=== PATIENT | female | born 1965 | race Caucasian/White ===

== ENCOUNTER → 2020-05-24 15:03 | Outpatient (BNVA) | payer OTHER, SELFPAY | PROVIDERS: PCP Internal Medicine; Visit Provider Hospitalist ==

== ENCOUNTER 2020-07-20 14:55 | Outpatient (REF) | payer OTHER, SELFPAY ==
[2020-07-20 16:23] LABS: C Reactive Protein 0.71 mg/dL (< or = 0.50); Rheumatoid Factor < 15.0 IU/mL (<15.0)
[2020-07-20 16:47] LABS: Free T4 (Free Thyroxine) 0.97 ng/dL (0.71-1.85); Thyroid Stimulating Hormone 0.95 uIU/mL (0.32-4.0); Vitamin D 25-OH Total 15.5 ng/mL (>30)
[2020-07-20 16:57] LABS: Folate 10.9 ng/mL (> or = 4.0); Vitamin B12 491 pg/mL (200-900)
[2020-07-20 16:58] LABS: Erythrocyte Sedimentation Rate 4 MM/HR (0-20)
[2020-07-21 11:22] LABS: Anti DNA DS Antibody 1 IU/mL
[2020-07-21 13:46] LABS: Anti Nuclear Antibody Screen NEGATIVE (NEGATIVE)
[2020-07-21 14:12] LABS: Immunoglobulin G 921 mg/dL (600-1640)
[2020-07-21 16:37] LABS: Cyclic Citrullinated Peptide <16 UNITS
== END 2020-07-20 14:56 | disposition home or self-care (01) ==
LOC: HO.LAB 14:55
PROVIDERS: PCP Internal Medicine; Visit Provider Physician Assistant
DX: M15.0 Primary generalized (osteo)arthritis (principal)
CPT/HCPCS: 36415; 82306; 82607; 82746; 82784; 84439; 84443; 85652; 86038; 86039; 86140; 86200; 86225; 86431

== ENCOUNTER 2020-09-09 09:55 | Outpatient (REF) | payer OTHER, SELFPAY ==
--- NOTE | ~2020-09-09 | XR_ITS ---
EXAMINATION: XR CLAVICLE, RIGHT CLINICAL INFORMATION: Pain in right shoulder COMPARISON: None TECHNIQUE: 2 views of the right clavicle of the right clavicle. FINDINGS: The clavicle is intact. The bones and soft tissues are normal. No fracture. Acromioclavicular joint alignment is anatomic. However there is mild arthrosis XR/XR clavicle RT IMPRESSION: Mild osteoarthritis of the acromioclavicular joint
== END 2020-09-09 09:56 | disposition home or self-care (01) ==
LOC: HO.LAB 09:55
PROVIDERS: PCP Internal Medicine; Visit Provider Physician Assistant
DX: M25.511 Pain in right shoulder (principal); M17.9 Osteoarthritis of knee, unspecified
CPT/HCPCS: 36415; 73000; 82306

== ENCOUNTER 2020-09-30 08:31 | Outpatient (REF) | payer OTHER, SELFPAY ==
--- NOTE | ~2020-09-30 | FL_ITS ---
EXAMINATION: FL BARIUM SWALLOW CLINICAL INFORMATION: Gastroesophageal reflux disease without esophagitis. COMPARISON: None TECHNIQUE: Barium swallow examination is performed using fluoroscopic evaluation in addition to multiple fluoroscopic spot views. The patient is imaged both upright and prone and using both thick and thin sulfate along with effervescent granules. Fluoroscopy time: 2.1 minutes DAP: 34.79 Gy-cm2 Images: 61 FINDINGS: Following oral administration of thick barium and barium-coated turkey in upright view, there is normal propagation of bolus from the oral cavity through the pharynx and esophagus into stomach without evidence of obstruction, narrowing or stricture. On placing patient supine and prone lying and oral administration of thin barium, there is good distention of the esophagus without any intraluminal filling defect or narrowing. There is a moderate sized nonreducible hiatal hernia without gastroesophageal reflux. The mucosal pattern of the esophagus and stomach is normal. FL/FL barium swallow IMPRESSION: Moderate-sized nonreducible hiatal hernia without gastroesophageal reflux.
== END 2020-09-30 08:32 | disposition home or self-care (01) ==
LOC: HO.XRAY 08:31
PROVIDERS: PCP Internal Medicine; Visit Provider Hospitalist
DX: K21.9 Gastro-esophageal reflux disease without esophagitis (principal); K44.9 Diaphragmatic hernia without obstruction or gangrene
CPT/HCPCS: 74220

== ENCOUNTER 2020-11-17 15:58 | Outpatient (REF) | payer OTHER, SELFPAY ==
--- NOTE | ~2020-11-17 | MM_ITS ---
EXAMINATION: MM SCREENING DIGITAL BREAST TOMOSYNTHESIS, BILATERAL CLINICAL INFORMATION: Screening. Asymptomatic. The lifetime risk of breast cancer based on the Tyrer-Cuzick Model is 20.1%. COMPARISON: Mammography: 07/24/2017, 07/19/2017, 11/05/2013 TECHNIQUE: Digital breast tomosynthesis is performed in both the craniocaudal and mediolateral oblique views along with computer-aided detection (CAD). Synthesized 2D images are generated from the tomosynthesis. FINDINGS: There are scattered areas of fibroglandular density (ACR BI-RADS breast composition Category b). The right breast has small asymmetric density just medial to midline, 6 cm from nipple without correlate on MLO view. This may represent summation artifact or incompletely compressed glandular tissue. The remainder of the bilateral breasts show no significant change from prior studies. There is no interval mass or architectural abnormality or developing density. Again, there are scattered bilateral round and dermal calcifications including grouped dermal calcifications mid 7:00 right left breast. The axilla are unremarkable. MM/MM tomosynthesis screening BI IMPRESSION: 1. Right: Small asymmetric density just medial to midline mid depth on CC view, possibly summation artifact or incompletely compressed glandular tissue. 2. Left: No mammographic evidence of malignancy. ASSESSMENT: BI-RADS 0: Incomplete - Need Additional Imaging Evaluation RECOMMENDATION: 1. 1. Additional views of the right breast (3-D spot CC, 3-D rolled CC x2). 2. Targeted ultrasound if warranted after review of the additional views. 3. Radiology department staff will contact the patient for additional imaging. 4. The lifetime risk of breast cancer based on the Tyrer-Cuzick Model is 20.1%. Additional annual adjunct screening with breast MRI may be of benefit in women with a risk score of 20% or greater. This patient's information was entered into a reminder system with a target due date for their next mammogram.
== END 2020-11-17 15:59 | disposition home or self-care (01) ==
LOC: HO.MAMMO 15:58
PROVIDERS: Visit Provider Internal Medicine
DX: Z12.31 Encounter for screening mammogram for malignant neoplasm of breast (principal)
CPT/HCPCS: 77063; 77067

== ENCOUNTER 2020-11-23 08:20 | Outpatient (REF) | payer OTHER, SELFPAY ==
--- NOTE | ~2020-11-23 | US_ITS ---
EXAMINATION: US DIAGNOSTIC ULTRASOUND BREAST, RIGHT CLINICAL INFORMATION: Symmetric density. COMPARISON: Markedly of same day and dating back to November 05, 2013. TECHNIQUE: Ultrasound of the breast is performed with real-time mcnamara scale imaging and color Doppler. FINDINGS: Targeted left breast ultrasound was performed. At the 4:00 position approximately 6 cm from nipple there is a 6 x 7 x 3 mm simple appearing cyst with smooth back wall and increased through sound transmission and no internal vascularity. Results are discussed with the patient at time of visit. US/US breast RT limited IMPRESSION: No mammographic or ultrasound evidence of malignancy. ASSESSMENT: BI-RADS 2: Benign RECOMMENDATION: Routine annual mammography screening due in 12 months.
--- NOTE | ~2020-11-23 | MM_ITS ---
EXAMINATION: MM DIAGNOSTIC DIGITAL BREAST TOMOSYNTHESIS, RIGHT US BREAST TARGETED, RIGHT CLINICAL INFORMATION: Right breast asymmetry. COMPARISON: Mammography: 11/17/2020 and studies dating back to 11/05/2013 TECHNIQUE: Digital breast tomosynthesis is performed. 2-D images are generated from the tomosynthesis. The following views are obtained: Full-field craniocaudal medial and lateral rolled views. Spot compression views of the right breast in craniocaudal projection. Targeted right breast ultrasound. FINDINGS: The breasts are heterogeneously dense, which may obscure small masses (ACR BI-RADS breast composition Category c). The additional views demonstrate effacement of the target density representing superimposition of fibroglandular tissue. Adjacent to this about the medial aspect of the breast, there is a 5 mm well-circumscribed rounded density present. Targeted right breast ultrasound was then performed. At the 4 o'clock position approximately 6 cm from nipple, there is a 6 x 7 x 3 mm simple-appearing cyst with smooth back wall and increased through sound transmission and no internal vascularity. Results are discussed with the patient at time of visit. MM/MM tomosynthesis added views R IMPRESSION: No mammographic or ultrasound evidence of malignancy. ASSESSMENT: BI-RADS 2: Benign. RECOMMENDATION: Routine annual mammography screening due in 12 months. This patient's information was entered into a reminder system with a target due date for their next mammogram.
== END 2020-11-23 08:21 | disposition home or self-care (01) ==
LOC: HO.MAMMO 08:20
PROVIDERS: PCP Internal Medicine; Visit Provider Internal Medicine
DX: N64.89 Other specified disorders of breast (principal)
CPT/HCPCS: 76642; 77061; 77065

== ENCOUNTER → 2020-11-24 14:40 | Outpatient (BNVA) | payer OTHER, SELFPAY | PROVIDERS: PCP Internal Medicine; Visit Provider Hospitalist ==

== ENCOUNTER → 2020-12-09 09:27 | Outpatient (BNVA) | payer OTHER, SELFPAY | PROVIDERS: PCP Internal Medicine; Visit Provider Surgery | DX: K44.0 Diaphragmatic hernia with obstruction, without gangrene (principal); K21.00 Gastro-esophageal reflux disease with esophagitis, without bleeding; R13.10 Dysphagia, unspecified; Z79.899 Other long term (current) drug therapy | CPT/HCPCS: 99212 ==

== ENCOUNTER 2020-12-15 15:19 | Outpatient (REF) | payer OTHER, SELFPAY ==
--- NOTE | ~2020-12-15 | CT_ITS ---
EXAMINATION: CT CHEST WITHOUT CONTRAST CLINICAL INFORMATION: Diaphragmatic hernia with obstruction. COMPARISON: None TECHNIQUE: Multidetector volumetric CT imaging of the chest was done. Axial MIP volume rendering provided. Sagittal and coronal reformatted images were obtained. This CT examination was performed using dose optimization techniques as appropriate, variously including the following: *Automated exposure control *Adjustment of mA and/or kV according to patient size (this includes techniques or standardized protocols for targeted exams where dose is matched to indication/reason for exam; i.e. extremities or head) *Use of iterative reconstruction technique DLP: 202 mGy-cm FINDINGS: FILLING TECHNICIAN: Unremarkable. LUNGS: The lungs are well expanded and clear of acute pneumonic process. There are no pulmonary nodules, mass or consolidation seen. MEDIASTINUM: The thyroid lobes are symmetric and normal. A 5 mm calcification is seen in the right lobe. The central trachea and the bronchi are widely patent. There is no mediastinal mass or lymph nodes. The heart size and the great vessels are normal caliber. Suspect small hiatal hernia. PLEURA: There is no pleural effusion. No pleural mass or thickening. AXILLA: No lymphadenopathy. UPPER ABDOMEN: There are multiple radiopaque gallstones without wall thickening. Visualized liver, spleen, pancreas, and bilateral adrenal glands are unremarkable. OSSEOUS STRUCTURES: There is mild dextroscoliosis of the dorsal spine with moderate left mid and lower dorsal spine bridging osteophytes. CT/CT chest wo con IMPRESSION: Unremarkable CT chest exam with no evidence of diaphragmatic hernia. There is a small hiatal hernia and cholelithiasis. Moderate dextroscoliosis of dorsal spine. Moderate dextroscoliosis mid and lower dorsal spine with moderate bridging osteophytes on the left.
== END 2020-12-15 15:20 | disposition home or self-care (01) ==
LOC: HO.CT 15:19
PROVIDERS: PCP Internal Medicine; Visit Provider Surgery
DX: K44.0 Diaphragmatic hernia with obstruction, without gangrene (principal)
CPT/HCPCS: 71250

== ENCOUNTER → 2021-01-06 10:49 | Outpatient (BNVA) | payer OTHER, SELFPAY | PROVIDERS: PCP Internal Medicine; Visit Provider Nurse Practitioner Family ==

== ENCOUNTER 2021-01-31 10:16 | Day surgery (SDC) | payer OTHER, SELFPAY ==
--- NOTE | 2021-01-30 13:02 | P.CONAN_ITS ---
Documented by User: Ibis Marrufo NP 01/30/21 13:07 HPI - Anesthesia Eval Consult details Narrative: 55yo F for Upper Endoscopy W/U for paraesophageal hernia repair. Per thoracic: barium study done on 10/02/2020 which showed a moderate-sized but incarcerated paraesophageal hernia.? She did have a CTA in April of 2019 which at that time shows about half the stomach within the chest making this a type 3 paraesophageal hernia.? It does appear that it seems to have worsened since that CT scan based on the barium study.? I had a long discussion with her about the findings above and about paraesophageal hernias in general.? I do think it is worth surgical repair and I discussed this with her at length.? Prior to a Davinci paraesophageal hernia repair with mesh and fundoplication will plan on getting an and upper endoscopy 1st to assess the mucosal side of the hernia as well as a CT scan of the chest to evaluate any other anatomic structures that her up within the chest. PMF Active Problems Active Problems: All Active Problems (Updated 01/25/21 @ 14:43 by Tiana Rosas RN) Incarcerated paraesophageal hernia (Acute) Hiatal hernia (Acute) GERD (gastroesophageal reflux disease) (Acute) Asthma (Acute) Past Medical History Medical History Anxiety Asthma GERD (gastroesophageal reflux disease) Hiatal hernia Hx of supraventricular tachycardia Incarcerated paraesophageal hernia Obesity Family History Family History Paternal Grandmother Stomach cancer Surgical History Surgical History History of bronchoscopy (~1998) History of cardiac radiofrequency ablation (RFA) History of chest tube placement (~1998) Hx of colonoscopy Hx of esophagogastroduodenoscopy Social History Social History Alcohol intake: never Patient Tobacco Use Status: Never used Tobacco Use of substances other than those prescribed or required for medical reasons: No Are you DNR?: No Advance Directives: No Advance Directives Information Provided: Yes Meds Allergies Allergy/AdvReac Type Severity Reaction Status Date / Time Erythromycin Allergy Mild Rash Verified 01/31/21 11:02 Penicillins Allergy Mild RASH Verified 01/31/21 11:02 ALVARADO Allergy Intermediate WHEEZING Uncoded 01/25/21 14:43 Home Medications Medication Instructions Recorded Confirmed Last Taken Type albuterol sulfate 2.5 mg INHALATION Q8H PRN 05/24/20 01/25/21 Unknown History conj estrogen-medroxyprogesterone 1 tab PO DAILY 05/24/20 01/25/21 01/31/21 07:15 History 0.3 mg-1.5 mg tablet (Prempro) ibuprofen 600 mg tablet 600 mg PO Q6H PRN 05/24/20 01/25/21 Unknown History naproxen 500 mg tablet 500 mg PO BID 11/24/20 01/25/21 Unknown History omeprazole 40 mg capsule,delayed 40 mg PO BID 01/06/21 01/25/21 01/31/21 07:15 History release Exam Exam Date and Time: January 30, 2021 1302 Assessment and Plan Assessment Anesthesia Assessment: Chart Reviewed Documented by User: Yves Dominguez MD 01/31/21 11:25 [facility] Past Medical History Medical History Anxiety Asthma GERD (gastroesophageal reflux disease) Hiatal hernia Hx of supraventricular tachycardia Incarcerated paraesophageal hernia Obesity Family History Family History Paternal Grandmother Stomach cancer Family history of problems with anesthesia: No Surgical History Surgical History History of bronchoscopy (~1998) History of cardiac radiofrequency ablation (RFA) History of chest tube placement (~1998) Hx of colonoscopy Hx of esophagogastroduodenoscopy History of Problems with Anesthesia: No Social History Social History Alcohol intake: never Patient Tobacco Use Status: Never used Tobacco Use of substances other than those prescribed or required for medical reasons: No Are you DNR?: No Advance Directives: No Advance Directives Information Provided: Yes Meds Allergies Allergy/AdvReac Type Severity Reaction Status Date / Time Erythromycin Allergy Mild Rash Verified 01/31/21 11:02 Penicillins Allergy Mild RASH Verified 01/31/21 11:02 ALVARADO Allergy Intermediate WHEEZING Uncoded 01/25/21 14:43 Home Medications Medication Instructions Recorded Confirmed Last Taken Type albuterol sulfate 2.5 mg INHALATION Q8H PRN 05/24/20 01/25/21 Unknown History conj estrogen-medroxyprogesterone 1 tab PO DAILY 05/24/20 01/25/21 01/31/21 07:15 History 0.3 mg-1.5 mg tablet (Prempro) ibuprofen 600 mg tablet 600 mg PO Q6H PRN 05/24/20 01/25/21 Unknown History naproxen 500 mg tablet 500 mg PO BID 11/24/20 01/25/21 Unknown History omeprazole 40 mg capsule,delayed 40 mg PO BID 01/06/21 01/25/21 01/31/21 07:15 History release Exam Airway Mallampati Class: I TM Dist: >3cm Neck ROM: Full Loose/Missing/Broken Teeth: No Assessment and Plan Assessment Anesthesia Assessment: Anesthesia Plan Discussed Final Anesthetic Review Family History of Problems with Anesthesia: No History of Problems with Anesthesia: No NPO: Yes ASA Class: III Final Preanesthetic Review: No Changes in Pt Med Stat, Meds/Allgs Chart Reviewed, Consent Obtained/Reviewed and Anes Risks/Benef Reviewed Patient Risk: Intermediate Procedure Risk: Low Anesthetic Plan Anesthetic Plan: MAC: Disposition: Standard PACU
[2021-01-31 11:20] VITALS: BP 124/69; PULSE 68; RESP 20; TEMP 37; O2SAT 98; BMI 36.6
[2021-01-31] MEDS: Lactated Ringers 1,000 ML 100 ML IVCONT (11:34)
--- NOTE | 2021-01-31 12:53 | MHC.SHP ---
Pre-Procedural Eval Section A Date of Service: 01/31/21 The patient is an INPATIENT: No Changes since office visit: Yes Patient answered all questions; No Cold of Flu in the past 2 weeks, No New Medical Problems and No Changes in Medication The History & Physical has been completed within 30 days and I have reviewed it.: Yes Section B Chief Complaint: GERD, Dysphagia, para-esophageal hernia Allergies: Allergies Allergy/AdvReac Type Severity Reaction Status Date / Time Erythromycin Allergy Mild Rash Verified 01/31/21 11:02 Penicillins Allergy Mild RASH Verified 01/31/21 11:02 ALVARADO Allergy Intermediate WHEEZING Uncoded 01/25/21 14:43 Plan I have reviewed the history and physical and performed a pertinent physical examination on my patient. No changes have occurred unless specified.
--- NOTE | 2021-01-31 12:54 | W.PM.OPN ---
Operative Note Operative Note Date of Service: 01/31/21 Narrative: Pre-op diagnosis:?GERD, dysphagia, paraesophageal hernia Post-op diagnosis:?same Procedure:? FLEXIBLE TRANSORAL UPPER GASTROINTESTINAL ENDOSCOPY WITH BIOPSIES Consent:?Indications for the procedure and potential complications of bleeding, perforation, reaction to medications and missed diagnosis were discussed with the patient and informed consent was obtained. Instrument:?Olympus GIF H 190 mid size upper endoscope Monitoring: Vital signs and clinical assessment, continuous EKG monitoring, Pulse oximetry, Carbon Dioxide monitoring and blood pressure monitoring were done throughout the procedure. Procedure:?The patient was placed in the left lateral decubitis position and pre-procedure medications were administered and a bite block was placed. The endoscope was inserted into the mouth and advanced under direct vision to the third part of duodenum. A careful inspection was made as the upper endoscope was withdrawn including a retroflexed examination of the proximal stomach; Findings and interventions are described below. Findings: Larynx:? Edema of arytenoid folds Esophagus: GE junction at 36 cms, hiatal hernia 36 to 38 cms. Three 1-2 cms tongues of suspected Samson's - biopsied Stomach: Mild gastric erythema. Biopsies were obtained. Paraesophgeal hernia and grade 3 flap valve on retroflexed examination of the cardia. Duodenum: A 7-8 mm benign appearing nodule/polyp in the floor of apex of tierney - biopsied. Normal descending duodenum Intervention: Biopsies as noted above Intervention: Biopsies as noted above Impression and Post Procedure Diagnosis: Endoscopy Findings: LARYNX: Changes suggestive of LPRD ESOPHAGUS: GE junction at 36 cms, hiatal hernia 36 to 38 cms. Three 1-2 cms tongues of suspected Samson's - biopsied STOMACH: Mild gastric erythema. Biopsies were obtained. Paraesophgeal hernia and grade 3 flap valve on retroflexed examination of the cardia. DUODENUM: Benign appearing duodenal nodule Plan: Await pathology results Patient has an appointment on 03/14/21 in the GI Clinic with Mya Peter FNP-BC. Above findings were reviewed with the patient and [GERD] and hiatal hernia handouts were given in the discharge area Pt advised to proceed with surgery for para-esophageal hernia as scheduled. Surgeon:?Jerod Cotto MD Anesthesia:?GETA (pt was intubated due to paraesophageal hernia) Was an Blueprint Reproducer used for this Procedure?:?No Blueprint Reproducer:?Brunilda Don Estimated blood loss (mL):?0 Pathology:?other (A. SMALL BOWEL BX? B. BX OF DUODENAL NODULE? C. GASTRIC ANTRUM BX R/O H. PYLORI? D. GASTRIC POLYP? E. DISTAL ESOPHAGUS BX R/O SAMSON'S) Condition:?stable Disposition:?PACU
[2021-01-31 13:44] VITALS: BP 124/67; PULSE 81; RESP 16; TEMP 36.8; O2SAT 98
[2021-01-31 13:49] VITALS: BP 120/69; PULSE 71; RESP 16; O2SAT 98
[2021-01-31 13:54] VITALS: BP 117/72; PULSE 71; RESP 16; O2SAT 98
[2021-01-31 13:59] VITALS: BP 116/77; PULSE 65; RESP 16; O2SAT 98
[2021-01-31 14:10] VITALS: BP 108/70; PULSE 75; RESP 18; O2SAT 99
== END 2021-01-31 14:46 | disposition home or self-care (01) ==
PROVIDERS: Visit Provider Internal Medicine Gastroenterology
PROC: 0DJ08ZZ Inspection of Upper Intestinal Tract, Via Natural or Artificial Opening Endoscopic (ICD-10-PCS; CPT 43235; principal; 2021-01-31 11:30)
DX: K21.00 Gastro-esophageal reflux disease with esophagitis, without bleeding (principal); R13.10 Dysphagia, unspecified; K44.0 Diaphragmatic hernia with obstruction, without gangrene; K29.50 Unspecified chronic gastritis without bleeding; K31.7 Polyp of stomach and duodenum; J45.909 Unspecified asthma, uncomplicated; Z88.0 Allergy status to penicillin; Z88.1 Allergy status to other antibiotic agents; Z79.899 Other long term (current) drug therapy; E66.9 Obesity, unspecified; Z68.37 Body mass index [BMI] 37.0-37.9, adult
CPT/HCPCS: 43239; 88305; 88342; J0330; J2250; J2405; J3010

== ENCOUNTER → 2021-03-14 12:56 | Outpatient (BNVA) | payer OTHER, SELFPAY | PROVIDERS: Visit Provider Nurse Practitioner Family ==

== ENCOUNTER 2021-03-17 19:51 | Emergency (ER) | payer OTHER, SELFPAY ==
--- NOTE | 2021-03-17 | ECG_ITS ---
Test Reason : CHEST PAIN Blood Pressure : / mmHG Vent. Rate : 078 BPM Atrial Rate : 078 BPM P-R Int : 194 ms QRS Dur : 098 ms QT Int : 404 ms P-R-T Axes : 038 012 003 degrees QTc Int : 460 ms Normal sinus rhythm Incomplete right bundle branch block Borderline ECG When compared with ECG of 23-MAR-2019 21:57, Vent. rate has decreased BY 40 BPM Borderline criteria for Inferior infarct are no longer Present Inverted T waves have replaced nonspecific T wave abnormality in Inferior leads Referred By: Generic ED Physician Electronically Signed By:KAYLA CRAWFORD MD
[2021-03-17 19:59] VITALS: BP 129/54; PULSE 78; RESP 16; TEMP 36.5; O2SAT 97; BMI 34.4
[2021-03-17 20:41] LABS: MANUAL DIFF FLAG NO
[2021-03-17 20:42] LABS: Basophils Percent Auto 0.6 % (0-2); Eosinophils Absolute Auto 0.4 X10*3/uL (0.0-0.4); Eosinophils Percent Auto 5.6 % (0-4); Hematocrit 43.7 % (37.0-47.0); Hemoglobin 14.5 g/dl (12.0-16.0); Imm Gran Abs Auto 0.01 X10*3/uL (0.00-0.03); Imm Gran Pct Auto 0.1 % (0.0-0.4); Lymphocytes Absolute Auto 1.9 X10*3/uL (1.2-4.9); Lymphocytes Percent Auto 28.2 % (20-40); Mean Corpuscular HGB Conc 33.2 g/dl (31.0-35.0); Mean Corpuscular Hemoglobin 29.2 pg (27.0-33.0); Mean Corpuscular Volume 87.9 fL (80.0-98.0); Mean Platelet Volume 10.9 fL (9.4-12.3); Monocytes Absolute Auto 0.4 X10*3/uL (0.1-1.2); Monocytes Percent Auto 5.9 % (2-11); Neutrophils Percent Auto 59.6 % (45-73); Platelet Count 208 X10*3/uL (160-400); Red Blood Count 4.97 X10*6/uL (4.20-5.50); Red Cell Distribution Width 12.6 % (11.0-16.0); White Blood Count 6.8 X10*3/uL (4.8-10.8)
[2021-03-17 21:01] LABS: Troponin-I High Sensitivity < 3.5 ng/L (<3.5-17.0)
[2021-03-17 21:08] LABS: Alanine Aminotransferase 23 U/L (0-31); Alkaline Phosphatase 84 U/L (39-117); Anion Gap 10 (12-20); Aspartate Amino Transferase 16 U/L (5-31); Bilirubin Total 0.4 mg/dL (0.0-1.0); Blood Urea Nitrogen 15 mg/dL (9-16); Calcium 9.2 mg/dL (8.4-10.2); Carbon Dioxide 28 mmol/L (22-29); Chloride 109 mmol/L (96-108); Estimated Glomerular Filt Rate > 60; Glucose Random 110 mg/dL (60-115); Potassium 4.1 mmol/L (3.3-5.1); Sodium 143 mmol/L (135-145); Total Protein 6.3 g/dL (6.5-8.0)
== END 2021-03-18 02:20 | disposition left against medical advice (07) ==
PROVIDERS: Emergency Provider Emergency Medicine; PCP Internal Medicine
DX: R07.9 Chest pain, unspecified (principal); R06.02 Shortness of breath; J45.909 Unspecified asthma, uncomplicated
CPT/HCPCS: 36415; 80053; 84484; 85025; 93005; 99283

== ENCOUNTER 2021-03-29 15:49 | Outpatient (REF) | payer OTHER, SELFPAY ==
[2021-03-29 16:15] LABS: MANUAL DIFF FLAG NO
[2021-03-29 16:42] LABS: Basophils Percent Auto 0.5 % (0-2); Eosinophils Absolute Auto 0.3 X10*3/uL (0.0-0.4); Eosinophils Percent Auto 4.3 % (0-4); Hematocrit 43.5 % (37.0-47.0); Hemoglobin 14.2 g/dl (12.0-16.0); Imm Gran Abs Auto 0.02 X10*3/uL (0.00-0.03); Imm Gran Pct Auto 0.3 % (0.0-0.4); Lymphocytes Absolute Auto 1.9 X10*3/uL (1.2-4.9); Lymphocytes Percent Auto 24.4 % (20-40); Mean Corpuscular HGB Conc 32.6 g/dl (31.0-35.0); Mean Corpuscular Hemoglobin 28.7 pg (27.0-33.0); Mean Corpuscular Volume 87.9 fL (80.0-98.0); Mean Platelet Volume 11.3 fL (9.4-12.3); Monocytes Absolute Auto 0.4 X10*3/uL (0.1-1.2); Monocytes Percent Auto 5.6 % (2-11); Neutrophils Percent Auto 64.9 % (45-73); Platelet Count 207 X10*3/uL (160-400); Red Blood Count 4.95 X10*6/uL (4.20-5.50); Red Cell Distribution Width 12.4 % (11.0-16.0); White Blood Count 7.7 X10*3/uL (4.8-10.8)
[2021-03-29 16:57] LABS: Estimated Average Glucose 111 mg/dL; Hemoglobin A1c % 5.5 %
[2021-03-29 17:18] LABS: Rheumatoid Factor < 15.0 IU/mL (<15.0)
[2021-03-29 17:19] LABS: Erythrocyte Sedimentation Rate 7 MM/HR (0-20)
[2021-03-29 17:24] LABS: Alanine Aminotransferase 19 U/L (0-31); Alkaline Phosphatase 82 U/L (39-117); Anion Gap 11 (12-20); Aspartate Amino Transferase 18 U/L (5-31); Bilirubin Total 0.5 mg/dL (0.0-1.0); Blood Urea Nitrogen 23 mg/dL (9-16); C Reactive Protein 0.78 mg/dL (< or = 0.50); Calcium 9.5 mg/dL (8.4-10.2); Carbon Dioxide 28 mmol/L (22-29); Chloride 106 mmol/L (96-108); Estimated Glomerular Filt Rate > 60; Glucose Random 103 mg/dL (60-115); Iron 39 mcg/dL (30-160); Percent Iron Saturation 13 % (15-50); Potassium 4.1 mmol/L (3.3-5.1); Sodium 141 mmol/L (135-145); Total Iron Binding Capacity 304 mcg/dL (228-428); Total Protein 6.5 g/dL (6.5-8.0); Unsaturated Iron Binding 265 ug/dL; Uric Acid 3.5 mg/dL (2.4-5.7)
[2021-03-29 17:29] LABS: Appearance Urine CLEAR; Color Urine YELLOW; Glucose Urine UA NEG (NEG); Leukocyte Esterase Urine NEG (NEG); Nitrite Urine NEG (NEG); PH 5.5 (5.0-8.0); Specific Gravity - Urine 1.025 (1.005-1.025); Urine Blood NEG (NEG); Urine Ketones NEG (NEG); Urine Protein NEG (NEG-TRACE)
[2021-03-29 17:45] LABS: Ferritin 121 ng/mL (10-250); Free T4 (Free Thyroxine) 0.96 ng/dL (0.71-1.85); Thyroid Stimulating Hormone 1.42 uIU/mL (0.32-4.0)
[2021-03-29 18:05] LABS: Folate > 20.0 ng/mL (> or = 4.0); Vitamin B12 413 pg/mL (200-900)
[2021-03-31 08:57] LABS: Lyme Abs Screen <0.90 index
[2021-03-31 12:36] LABS: Anti Nuclear Antibody Screen NEGATIVE (NEGATIVE)
== END 2021-03-29 15:50 | disposition home or self-care (01) ==
LOC: HO.LAB 15:49
PROVIDERS: PCP Internal Medicine; Visit Provider Physician Assistant
DX: R10.0 Acute abdomen (principal); R53.83 Other fatigue; M25.59 Pain in other specified joint
CPT/HCPCS: 36415; 80053; 81003; 82306; 82607; 82728; 82746; 83036; 83540; 84439; 84443; 84550; 85025; 85652; 86038; 86039; 86140; 86431; 86617; 86618

== ENCOUNTER → 2021-03-31 14:49 | Outpatient (BNVA) | payer OTHER, SELFPAY | PROVIDERS: PCP Internal Medicine; Visit Provider Hospitalist ==

== ENCOUNTER → 2021-04-28 10:50 | Outpatient (BNVA) | payer OTHER, SELFPAY | PROVIDERS: PCP Internal Medicine; Visit Provider Nurse Practitioner Family ==

== ENCOUNTER 2021-05-15 12:05 | Day surgery (SDC) | payer OTHER, SELFPAY ==
[2021-05-09 14:57] VITALS: BMI 32.4
--- NOTE | 2021-05-15 12:23 | HO.ANESPROP2 ---
[facility] Active Problems Active Problems: All Active Problems (Updated 05/09/21 @ 14:56 by Zhane Medellin, MELODY) URI (upper respiratory infection) (Acute) Incarcerated paraesophageal hernia (Acute) Hiatal hernia (Acute) GERD (gastroesophageal reflux disease) (Acute) Asthma (Acute) Past Medical History Medical History (Updated 05/09/21 @ 14:56 by Zhane Medellin, RN) Anxiety Asthma GERD (gastroesophageal reflux disease) Hernia, paraesophageal Hiatal hernia History of COVID-19 Hx of supraventricular tachycardia Incarcerated paraesophageal hernia Obesity URI (upper respiratory infection) Family History Family History Paternal Grandmother Stomach cancer Family history of problems with anesthesia: No Surgical History Surgical History (Updated 05/09/21 @ 14:48 by Zhane Medellin RN) History of bronchoscopy (~1998) History of cardiac radiofrequency ablation (RFA) History of chest tube placement (~1998) Hx of colonoscopy Hx of esophagogastroduodenoscopy History of Problems with Anesthesia: No Social History Social History Alcohol intake: never Patient Tobacco Use Status: Never used Tobacco Advance Directives: No Advance Directives Information Provided: Yes Advance Directives on File: No Meds Allergies Allergy/AdvReac Type Severity Reaction Status Date / Time Erythromycin Allergy Mild Rash Verified 04/28/21 10:57 Penicillins Allergy Mild RASH Verified 04/28/21 10:57 ALVARADO Allergy Intermediate WHEEZING Uncoded 03/31/21 14:50 Active Medications: Current Medications Lactated Ringer's (Lr) 1,000 mls @ 50 mls/hr IVCONT .Q20H [facility] Home Medications Medication Instructions Recorded Confirmed Last Taken Type albuterol sulfate 2.5 mg INHALATION Q8H PRN 05/24/20 01/25/21 Unknown History conj estrogen-medroxyprogesterone 1 tab PO DAILY 05/24/20 01/25/21 01/31/21 07:15 History 0.3 mg-1.5 mg tablet (Prempro) omeprazole 40 mg capsule,delayed 40 mg PO BID 01/06/21 01/25/21 01/31/21 07:15 History release Exam Exam Date and Time: May 15, 2021 1223 Height,Weight and Vital Signs: Height 5 ft 10 in Weight 102.512 kg Airway Mallampati Class: II TM Dist: >3cm Neck ROM: Full Heart: rrr Lungs: cta Assessment and Plan Assessment Anesthesia Assessment: Anesthesia Plan Discussed and Chart Reviewed Final Anesthetic Review Family History of Problems with Anesthesia: No History of Problems with Anesthesia: No NPO: Yes ASA Class: II Final Preanesthetic Review: No Changes in Pt Med Stat, Meds/Allgs Chart Reviewed and Consent Obtained/Reviewed Patient Risk: Intermediate Procedure Risk: Intermediate Anesthetic Plan Anesthetic Plan: MAC: Disposition: Standard PACU
[2021-05-15 12:24] VITALS: BP 116/73; PULSE 84; RESP 16; TEMP 36.4; O2SAT 98
[2021-05-15] MEDS: Lactated Ringers 1,000 ML 50 ML IVCONT (12:32)
--- NOTE | 2021-05-15 12:39 | MHC.SHP ---
Pre-Procedural Eval Section A Date of Service: 05/15/21 The patient is an INPATIENT: No Changes since office visit: Yes Patient answered all questions; No Cold of Flu in the past 2 weeks, No New Medical Problems and No Changes in Medication The History & Physical has been completed within 30 days and I have reviewed it.: Yes Section B Chief Complaint: Dysphagia Allergies: Allergies Allergy/AdvReac Type Severity Reaction Status Date / Time Erythromycin Allergy Mild Rash Verified 04/28/21 10:57 Penicillins Allergy Mild RASH Verified 04/28/21 10:57 ALVARADO Allergy Intermediate WHEEZING Uncoded 03/31/21 14:50 Plan I have reviewed the history and physical and performed a pertinent physical examination on my patient. No changes have occurred unless specified.
--- NOTE | 2021-05-15 12:40 | P.OP_ITS ---
Operative Note Operative Note Date of Service: 05/15/21 Narrative: Pre-op diagnosis: Dysphagia, poor appetite, weight loss Patient is status post fundoplication for incarcerated para-esophageal hernia in February 2021 Post-op diagnosis:?other (Gastric ulcer, gastric polyps, retained food in the stomach) Procedure: FLEXIBLE TRANSORAL UPPER GASTROINTESTINAL ENDOSCOPY WITH BIOPSIES Consent:?Indications for the procedure and potential complications of bleeding, perforation, reaction to medications and missed diagnosis were discussed with the patient and informed consent was obtained. Instrument:?Olympus GIF H 190 mid size upper endoscope Monitoring: Vital signs and clinical assessment, continuous EKG monitoring, Pulse oximetry, Carbon Dioxide monitoring and blood pressure monitoring were done throughout the procedure. Procedure:?The patient was placed in the left lateral decubitis position and pre-procedure medications were administered and a bite block was placed. The endoscope was inserted into the mouth and advanced under direct vision to the third part of duodenum. A careful inspection was made as the upper endoscope was withdrawn including a retroflexed examination of the proximal stomach; Findings and interventions are described below. Findings: Larynx:? Normal Esophagus: GE junction at 35 cms. No esophagitis or Kennedy's or stricture note d. Empiric esophageal dilation was not performed due to presence of retained food in the stomach with increased risk of aspiration Stomach: Moderate amount of retained food in the gastric fundus and some in the antru. A 1.5 cms nonbleeding ulcer in the antrum - biopsied Multiple 5 to 10 mm benign-appearing polyps in the gastric body - biopsied. Mild gastric erythema. Biopsies were obtained. Intact fundal wrap on retroflexed examination of the cardia (partially obscured by food). Duodenum: Normal bulb and descending duodenum Intervention: Biopsies as noted above Impression and Post Procedure Diagnosis: Endoscopy Findings: ESOPHAGUS: Normal - biopsies obtained from proximal esophagus to check for EOE STOMACH: Moderate amount of retained food in the gastric fundus and some in the antru. A 1.5 cms nonbleeding ulcer in the antrum - biopsied (pt denies taking NSAIDS or aspirin) Multiple 5 to 10 mm benign-appearing polyps in the gastric body - biopsied. Mild gastric erythema. Biopsies were obtained. Intact fundal wrap on retroflexed examination of the cardia (partially obscured by food). Plan: Await pathology results. Schedule a Barium swallow and a gastric emptying study. Patient has an appointment on 05/29/21 in the GI Clinic with ? Mya Peter, [employer]LL[employer]ATE ASSEMBLER-CRISTOPHER . Repeat EGD in 3-4 months to confirm gastric ulcer has healed. Above findings were reviewed with the patient and Gastric ulcer and Gastric Polyps handouts were given in the discharge area Surgeon: Jerod Cotto MD Anesthesia:?MAC (Dr Castro) Was an Rn Post Partum used for this Procedure?:?Yes Rn Post Partum:?Shelley Kaplan Estimated blood loss (mL):?0 Pathology:?other (A. gastric antrum bxs, R/O H. pylori? B. gastric ulcer bxs? C. gastric polyps? D. proximal esophagus bxs) Condition:?stable Disposition:?PACU
[2021-05-15 14:22] VITALS: BP 115/54; PULSE 71; RESP 16; TEMP 36.7; O2SAT 98
[2021-05-15 14:40] VITALS: BP 113/52; PULSE 70; RESP 18; TEMP 36.7; O2SAT 99
== END 2021-05-15 15:12 | disposition home or self-care (01) ==
PROVIDERS: PCP Internal Medicine; Visit Provider Internal Medicine Gastroenterology
PROC: 0DJ08ZZ Inspection of Upper Intestinal Tract, Via Natural or Artificial Opening Endoscopic (ICD-10-PCS; CPT 43235; principal; 2021-05-15 13:10)
DX: R13.10 Dysphagia, unspecified (principal); T18.2XXA Foreign body in stomach, initial encounter; R14.0 Abdominal distension (gaseous); R63.0 Anorexia; K25.9 Gastric ulcer, unspecified as acute or chronic, without hemorrhage or perforation; K31.7 Polyp of stomach and duodenum; K44.9 Diaphragmatic hernia without obstruction or gangrene; K21.00 Gastro-esophageal reflux disease with esophagitis, without bleeding; J45.909 Unspecified asthma, uncomplicated; F41.9 Anxiety disorder, unspecified; Z79.899 Other long term (current) drug therapy; Z98.890 Other specified postprocedural states; Z88.0 Allergy status to penicillin
CPT/HCPCS: 43239; 88305; 88342

== ENCOUNTER → 2021-05-26 15:32 | Outpatient (BNVA) | payer OTHER, SELFPAY | PROVIDERS: PCP Internal Medicine; Visit Provider Hospitalist | DX: K44.9 Diaphragmatic hernia without obstruction or gangrene (principal) ==

== ENCOUNTER → 2021-05-29 15:51 | Outpatient (BNVA) | payer OTHER, SELFPAY | PROVIDERS: PCP Internal Medicine; Visit Provider Nurse Practitioner Family | DX: K31.84 Gastroparesis (principal); R63.4 Abnormal weight loss; K21.9 Gastro-esophageal reflux disease without esophagitis; K21.00 Gastro-esophageal reflux disease with esophagitis, without bleeding; K25.9 Gastric ulcer, unspecified as acute or chronic, without hemorrhage or perforation | CPT/HCPCS: 99212 ==

== ENCOUNTER → 2021-06-05 08:15 | Outpatient (REF) | payer OTHER, SELFPAY ==
--- NOTE | ~2021-06-05 | NM_ITS ---
EXAMINATION: RADIONUCLIDE SOLID FOOD GASTRIC EMPTYING 4-HOUR STUDY CLINICAL INFORMATION: Early satiety. COMPARISON: No previous gastric emptying study is available for comparison. TECHNIQUE: A standard meal consisting of 4 oz of Egg Beaters brand equivalent tagged with 800 microcuries Tc-99m Sulfur Colloid, 8 oz water and 2 slices of toast with jelly was administered orally to the patient. Images were obtained using a dual head gamma camera in the anterior and posterior projections over of the stomach immediately post ingestion and at hourly intervals up to 4 hours post ingestion. The anterior and posterior counts at each time interval were averaged using the geometric mean and expressed as percentage of the immediate post ingestion counts. FINDINGS: There is good visualization of activity in the stomach immediately post ingestion. As the study progresses, there is some clearance of activity from the stomach and visualization of progressively increasing small bowel activity. However, at the end of the study there is moderately severe abnormal retention of activity in the stomach at 4 hours. Retention in the stomach at each time interval was: 1 hour 72% (normal 37%-90%) 2 hours 63% (normal 30%-60%) 3 hours 46% 4 hours 33% (normal 0%-10%) NM/NM gastric emptying study IMPRESSION: Abnormal study. There is moderately severe abnormal retention of solid food in the stomach at 4 hours.
== END ==
LOC: HO.NUCMED 08:15
PROVIDERS: PCP Internal Medicine; Visit Provider Internal Medicine Gastroenterology
DX: R68.81 Early satiety (principal); R63.4 Abnormal weight loss
CPT/HCPCS: 78264; A9541

== ENCOUNTER 2021-07-08 18:23 | Emergency (ER) | payer OTHER, SELFPAY ==
--- NOTE | ~2021-07-08 | XR_ITS ---
EXAMINATION: XR SHOULDER, LEFT CLINICAL INFORMATION: Pain. Injury. COMPARISON: 12/15/2020 TECHNIQUE: AP external rotation, Grashey, scapular Y, and axillary views of the left shoulder. FINDINGS: Humeral head is well-seated in the glenoid fossa. No acute fracture or dislocation. Mild hypertrophic degenerative changes in the acromioclavicular joint. Incidental old healed fusion of the anterior left second third ribs noted. XR/XR shoulder LT min 2V IMPRESSION: No acute fracture or dislocation.
[2021-07-08 18:26] VITALS: BP 137/60; PULSE 84; RESP 18; TEMP 37.1; O2SAT 96; BMI 29.4
--- NOTE | 2021-07-08 19:21 | ED_ITS ---
HPI - Extremity Problem General Chief complaint: Extremity Injury, Upper Stated complaint: left shoulder pain Time Seen by Provider: 07/08/21 18:54 Source: patient Mode of arrival: ambulatory Limitations: no limitations History of Present Illness HPI Narrative: patient presents to the emergency department for evaluation of left shoulder pain. She reports that she has been having intermittent left shoulder pain x4 months. She has been evaluated by her primary care provider outpatient had a reportedly normal x-ray obtained she is currently awaiting insurance authorization for a CT of the shoulder. Today while she was doing some housework she was pushing an object together when she felt a sudden pop to her left shoulder in severe pain. The pain has improved some but still is worse than it was previously. She attempted to take 2 tramadol at 1pm with no improvement in her pain. She denies any numbness or tingling to the arm or hand. She has full range of motion to the left elbow wrist and hand. Limited range of motion to the left shoulder Related Data Home Medications Medication Instructions Recorded Confirmed conj estrogen-medroxyprogesterone 1 tab PO DAILY 05/24/20 01/25/21 0.3 mg-1.5 mg tablet (Prempro) Previous Rx's Medication Instructions Recorded fluticasone 500 mcg-salmeterol 50 1 ea PO BID #180 ea 02/24/21 mcg/dose blistr powdr for inhalation (Wixela Inhub) omeprazole 40 mg capsule,delayed 40 mg PO BID #60 cap 05/29/21 release sucralfate 100 mg/mL oral 10 ml PO BEDTIME #400 ml 05/29/21 suspension Ventolin HFA 90 mcg/actuation 2 puff PO Q4H PRN #18 g NS 06/14/21 aerosol inhaler (albuterol sulfate) Allergies Allergy/AdvReac Type Severity Reaction Status Date / Time Erythromycin Allergy Mild Rash Verified 07/08/21 18:29 Penicillins Allergy Mild RASH Verified 07/08/21 18:29 ALVARADO Allergy Intermediate WHEEZING Uncoded 07/08/21 18:29 Review of Systems Review of Systems: Constitutional: No fever, chills, weakness or fatigue. Skin: No rash or itching. Cardiovascular: No chest pain, . Respiratory: No shortness of breath, cough Gastrointestinal: No , nausea, vomiting or diarrhea. No abdominal pain Musculoskeletal: positive shoulder pain Psychiatric: No depression or anxiety. Yes all other systems are reviewed and are negative [facility] Past Medical History Attestation statement: The following information was validated with the patient. Source: old records reviewed Medical History Anxiety Asthma GERD (gastroesophageal reflux disease) Hernia, paraesophageal Hiatal hernia History of COVID-19 Hx of supraventricular tachycardia Incarcerated paraesophageal hernia Obesity URI (upper respiratory infection) Surgical History History of bronchoscopy (~1998) History of cardiac radiofrequency ablation (RFA) History of chest tube placement (~1998) Hx of colonoscopy Hx of esophagogastroduodenoscopy Family History Family History Paternal Grandmother Stomach cancer Social History Social History Alcohol intake: never Patient Tobacco Use Status: Never used Tobacco Advance Directives: No Advance Directives Information Provided: No Patient : No Physical Exam Vital Signs: Vital Signs: Last Vital Signs Temp 98.8 F 07/08/21 18:26 Pulse 84 07/08/21 18:26 Resp 18 07/08/21 18:26 BP 137/60 07/08/21 18:26 Pulse Ox 96 07/08/21 18:26 BMI result Body Mass Index 29.4 Vital signs have been reviewed as normal and appeared to be correct. Blood pressure normal.? Heart rate normal.? Respiration rate normal. Temperature normal.? Oxygen saturation normal. Appearance: Alert.?Oriented to person, place and time. No acute distress.?Normal affect. Eyes: Pupils equal, round and reactive to light.? ENT: Pharynx normal.?? Neck: Normal inspection.? Neck supple.?? CVS: Heart sounds normal. Normal heart rate and rhythm.? Pulses normal.?? Respiratory: No respiratory distress.? Lung sounds clear to auscultation bilaterally?? Abdomen: Soft and non-tender. Skin: Skin warm and dry.? Normal skin color. Extremities: decreased AROM to the left shoulder, significant pain with external rotation. Tenderness over the AC joint, no palpable separation. No obvious deformity, swelling, erythema. Bicep muscle appears intact. Full AROM to elbow wrist and hand. Palpable 2+ radial pulse is. Neurovascularly intact distally. Neuro: Moves all extremities spontaneously. Sensation intact bilaterally. No focal neuro deficits. Ambulates with normal steady gait. Course Course Course Narrative: Patient is a 55-year-old female with a history of acute on chronic left s houlder pain. Patient received Toradol 60 mg IM for pain. X-ray of the left shoulder reveals no acute fracture dislocation. There is mild hyper trophic degenerative changes in the acromioclavicular joint. Cannot exclude ligamentous injury, as x-ray is not the preferred imaging for this, and should proceed with pending outpatient CT. Discussed these findings with patient. Advise continuous outpatient follow-up with her primary care provider, in addition to orthopedics as needed, pain medication as previously prescribed by PCP, discussed reasons to return back to the emergency department, questions were answered and she was discharged home in stable condition. MDM - Extremity (Nontraumatic) Imaging Data XR shoulder: Radiologist's impression: FINDINGS: Humeral head is well-seated in the glenoid fossa. No acute fracture or dislocation. Mild hypertrophic degenerative changes in the acromioclavicular joint. Incidental old healed fusion of the anterior left second third ribs noted.? XR/XR shoulder LT min 2V IMPRESSION: No acute fracture or dislocation. Discharge Plan Discharge Clinical Impression: Left shoulder pain Patient Disposition: Home, Self-Care Instructions: Arthralgia (ED), Shoulder Pain (ED) Additional Instructions: please follow-up with your primary care provider as previously scheduled, and take tramadol as previously prescribed by your primary care provider as needed for pain. As we discussed, you may follow-up with orthopedic provider as well for your persistent shoulder pain. Please feel free to return to the emergency department with any new or worsening symptoms or concerns. Prescriptions: No Action fluticasone propion-salmeterol [Wixela Inhub] 500-50 mcg/dose blister with device 1 ea PO BID Qty: 180 0RF omeprazole 40 mg capsule,delayed release(DR/EC) 40 mg PO BID Qty: 60 0RF albuterol sulfate [Ventolin HFA] 90 mcg/actuation HFA aerosol inhaler 2 puff PO Q4H PRN (Reason: for wheezing) Qty: 18 0RF Prempro 0.3-1.5 mg tablet 1 tab PO DAILY 0RF sucralfate 100 mg/mL suspension 10 ml PO BEDTIME Qty: 400 3RF Referrals: Elisa Wells PA-C [Phys[employer]] - 2 weeks
[2021-07-08] MEDS: Ketorolac Tromethamine 60 MG/2 ML VIAL IM (20:07)
== END 2021-07-08 20:16 | disposition home or self-care (01) ==
PROVIDERS: Emergency Provider Emergency Medicine Emergency Medical Services; PCP Internal Medicine
DX: M25.512 Pain in left shoulder (principal); J45.909 Unspecified asthma, uncomplicated
CPT/HCPCS: 73030; 96372; 99284; J1885

== ENCOUNTER → 2021-07-10 15:42 | Outpatient (BNVA) | payer OTHER, SELFPAY | PROVIDERS: PCP Internal Medicine; Visit Provider Nurse Practitioner Family | DX: Z13.89 Encounter for screening for other disorder (principal) ==

== ENCOUNTER 2021-07-20 06:44 | Outpatient (REF) | payer OTHER, SELFPAY ==
[2021-07-20 07:42] LABS: Hematocrit 43.3 % (37.0-47.0); Hemoglobin 14.3 g/dl (12.0-16.0); Mean Corpuscular Hemoglobin 28.6 pg (27.0-33.0); Mean Corpuscular Volume 86.6 fL (80.0-98.0); Mean Platelet Volume 10.7 fL (9.4-12.3); Platelet Count 271 X10*3/uL (160-400); Red Cell Distribution Width 13.6 % (11.0-16.0); White Blood Count 6.3 X10*3/uL (4.8-10.8)
[2021-07-20 07:52] LABS: Estimated Average Glucose 108 mg/dL; Hemoglobin A1c % 5.4 %
[2021-07-20 08:08] LABS: Albumin Level 3.8 g/dL (3.5-5.0)
[2021-07-20 08:19] LABS: Alanine Aminotransferase 60 U/L (0-31); Albumin Level 3.9 g/dL (3.5-5.0); Alkaline Phosphatase 96 U/L (39-117); Anion Gap 14 (12-20); Aspartate Amino Transferase 37 U/L (5-31); Bilirubin Total 0.5 mg/dL (0.0-1.0); Blood Urea Nitrogen 13 mg/dL (9-16); Calcium 9.9 mg/dL (8.4-10.2); Carbon Dioxide 25 mmol/L (22-29); Chloride 106 mmol/L (96-108); Estimated Glomerular Filt Rate > 60; Glucose Random 101 mg/dL (60-115); Potassium 4.6 mmol/L (3.3-5.1); Sodium 140 mmol/L (135-145); Total Protein 6.4 g/dL (6.5-8.0)
[2021-07-20 08:33] LABS: TSH reflex Free T4 1.86 uIU/mL (0.32-4.0)
[2021-07-20 08:53] LABS: Folate 19.1 ng/mL (> or = 4.0); Vitamin B12 622 pg/mL (200-900)
[2021-07-24 14:06] LABS: Vitamin D 25-OH, D2 <4 ng/mL; Vitamin D 25-OH, D3 38 ng/mL; Vitamin D 25-OH, Total 38 ng/mL (30-100)
== END 2021-07-20 06:45 | disposition home or self-care (01) ==
LOC: HO.LAB 06:44
PROVIDERS: PCP Internal Medicine; Visit Provider Nurse Practitioner Family
DX: R19.7 Diarrhea, unspecified (principal); E11.9 Type 2 diabetes mellitus without complications; E55.9 Vitamin D deficiency, unspecified; K21.00 Gastro-esophageal reflux disease with esophagitis, without bleeding; Z98.890 Other specified postprocedural states
CPT/HCPCS: 36415; 80053; 82040; 82306; 82607; 82746; 83036; 84443; 85027

== ENCOUNTER 2021-08-19 16:51 | Emergency (ER) | payer OTHER, SELFPAY ==
[2021-08-19] VITALS (7 sets, daily range): BP systolic 94–149; BP diastolic 49–89; PULSE 97–123; RESP 18–26; TEMP 36.6–37.2; O2SAT 94–100; BMI 28.7
--- NOTE | ~2021-08-19 | XR_ITS ---
EXAMINATION: XR chest 1V CLINICAL INFORMATION: Shortness of breath COMPARISON: Multiple prior chest x-rays back to 2019 TECHNIQUE: XR chest 1V Tubes and lines: None Lungs and pleura: Both lungs are clear. Heart and mediastinum: The mediastinum is within normal limits.. 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
--- NOTE | 2021-08-19 17:02 | ED_ITS ---
HPI - SOB/Dyspnea General Chief Complaint: Dyspnea Stated Complaint: SOB, asthma Source: patient Mode of arrival: ambulatory Limitations: no limitations History of Present Illness HPI Narrative: 55-year-old female presents with shortness of breath, has a history of asthma. Has been feeling unwell for the past 2 days, unable to catch her breath, had multiple inhalation treatments, 40 mg of prednisone, Mucinex, and Wixela without relief. Has had multiple COVID tests that were negative. She is complaining of green sputum. She is not able to speak in complete sentences. MD elicited complaint: shortness of breath and asthma attack Pertinent past history: asthma Onset (ago): day(s) (2) Timing: constant and progressively worsening Severity: moderate Exacerbating factors: exertion, movement, coughing and talking Relieving factors: upright position Known history of: asthma Associated symptoms: cough, wheezing, sputum production and orthopnea Treatment prior to arrival: bronchodilator Related Data Home Medications Medication Instructions Recorded Confirmed conj estrogen-medroxyprogesterone 1 tab PO DAILY 05/24/20 01/25/21 0.3 mg-1.5 mg tablet (Prempro) sertraline 25 mg tablet 25 mg PO DAILY 07/10/21 Previous Rx's Medication Instructions Recorded fluticasone 500 mcg-salmeterol 50 1 ea PO BID #180 ea 02/24/21 mcg/dose blistr powdr for inhalation (Wixela Inhub) omeprazole 40 mg capsule,delayed 40 mg PO BID #60 caps 05/29/21 release sucralfate 100 mg/mL oral 10 ml PO BEDTIME #400 mL 05/29/21 suspension Ventolin HFA 90 mcg/actuation 2 puff PO Q4H PRN for wheezing #18 07/24/21 aerosol inhaler (albuterol sulfate) grams codeine 10 mg-guaifenesin 100 mg/5 10 ml PO Q6H PRN cough 7 days #280 08/19/21 mL oral liquid mL doxycycline monohydrate 100 mg 100 mg PO BID 7 days #14 caps 08/19/21 capsule prednisone 20 mg tablet 40 mg PO DAILY 5 days #10 tabs 08/19/21 Allergies Allergy/AdvReac Type Severity Reaction Status Date / Time Erythromycin Allergy Mild Rash Verified 07/10/21 15:54 Penicillins Allergy Mild RASH Verified 07/10/21 15:54 ALVARADO Allergy Intermediate WHEEZING Uncoded 07/08/21 18:29 Review of Systems Review of Systems: Constitutional: No Fever, No Chills ENT/Mouth: No Hoarseness, No sore throat, No Rhinorrhea Eyes: No Redness, No Discharge, No Vision Changes Cardiovascular: No Chest Pain, positive SOB, positive Dyspnea on Exertion, No Edema Respiratory: positive Cough, No Sputum, positive Wheezing, Gastrointestinal: No Nausea, No Vomiting, No Diarrhea, No abdominal Pain Genitourinary: No Dysuria, No Hematuria Musculoskeletal: No joint pain, No Myalgias Skin: No rash Neuro: No Weakness, No Numbness, No Headache Psych: No anxiety, depression Heme/Lymph: No Bruising, No Bleeding Endocrine: No Polyuria, No Polydipsia Yes all other systems are reviewed and are negative [facility] Past Medical History Attestation statement: The following information was validated with the patient. Source: old records reviewed Medical History Anxiety Asthma GERD (gastroesophageal reflux disease) Hernia, paraesophageal Hiatal hernia History of COVID-19 Hx of supraventricular tachycardia Incarcerated paraesophageal hernia Obesity URI (upper respiratory infection) Surgical History History of bronchoscopy (~1998) History of cardiac radiofrequency ablation (RFA) History of chest tube placement (~1998) Hx of colonoscopy Hx of esophagogastroduodenoscopy Family History Family History Paternal Grandmother Stomach cancer Social History Social History Alcohol intake: never Patient Tobacco Use Status: Never used Tobacco Advance Directives: Yes Advance Directives Information Provided: No Advance Directives on File: No Physical Exam Vital Signs: Vital Signs: Last Vital Signs Temp 98.9 F 08/19/21 21:01 Pulse 109 H 08/19/21 21:01 Resp 18 08/19/21 21:01 BP 94/52 L 08/19/21 21:01 Pulse Ox 94 08/19/21 21:01 O2 Del Method 08/19/21 19:39 O2 Flow Rate 4 08/19/21 17:45 BMI result Body Mass Index 28.7 Appearance: Alert. Oriented X3. Moderate respiratory distress. Orthoptic position. Eyes: Pupils equal, round and reactive to light. Sclera nonicteric. ENT: Pharynx normal. Neck: Normal inspection. Neck supple. No JVD. CVS: Tachycardic heart rate and rhythm. Pulses normal. Respiratory: Tachypneic. Coarse lung sounds throughout. Expiratory wheezing. Abdomen: Soft and nontender. Skin: Skin warm and dry. Normal skin color. Normal skin turgor. Extremities: No lower extremity edema. Gait well-balanced well coordinated. Neuro: No motor deficit. No sensory deficit. Cranial nerves 2-12 intact Course Course Course Narrative: 55-year-old female presents with acute asthma exacerbation. States this is her 2nd day of shortness of breath. Has tried all of her home medications with poor effect. Also reports green sputum without fevers or chills. Patient is unable to complete sentences and sitting in orthoptic position. Will order hour long neb, magnesium, Solu-Medrol, L of fluid. Will order labs, chest x-ray, COVID and influenza testing. 18:06 lung sounds continue the course. Patient is able to speak in complete sentences. Respiration rate high 20s. Will order 2nd neb. 19:30 lung sounds are improving. Patient is still coughing. Brown productive sputum. Will order doxycycline to cover for sinusitis and bronchitis. 20:30 even unlabored respirations. Productive cough still present. Will discharge home with prednisone, guaifenesin and codeine, and script for doxy. Patient will follow-up with her primary care physician. Patient verbalized understanding of and agrees to plan of care to discharge home. Verbalized understanding of signs and symptoms indicating need for emergent intervention MDM - SOB/Dyspnea Differential Diagnosis Differential diagnosis: Likely acute exacerbation of chronic obstructive airways disease and asthma with exacerbation Medical Records Attestation: I reviewed the patient's medical records. Lab Data Attestation: I reviewed the patient's lab results. Result diagrams: 08/19/21 17:18 08/19/21 17:18 Labs: Lab Results 08/19/21 08/19/21 08/19/21 Range/Units 17:18 17:18 17:18 WBC 11.9 H (4.8-10.8) X10*3/uL RBC 4.72 (4.20-5.50) X10*6/uL Hgb 14.0 (12.0-16.0) g/dl Hct 41.1 (37.0-47.0) % MCV 87.1 (80.0-98.0) fL MCH 29.7 (27.0-33.0) pg MCHC 34.1 (31.0-35.0) g/dl RDW 13.3 (11.0-16.0) % Plt Count 213 (160-400) X10*3/uL MPV 10.5 (9.4-12.3) fL Immature Gran % (Auto) 0.4 (0.0-0.4) % Neut % (Auto) 86.5 H (45-73) % Lymph % (Auto) 6.9 L (20-40) % [place] % (Auto) 6.0 (2-11) % Eos % (Auto) 0.0 (0-4) % Baso % (Auto) 0.2 (0-2) % Lymph # (Auto) 0.8 L (1.2-4.9) X10*3/uL [place] # (Auto) 0.7 (0.1-1.2) X10*3/uL Eos # (Auto) 0.0 (0.0-0.4) X10*3/uL Baso # (Auto) 0.0 (0.0-0.2) X10*3/uL Abs Immat Gran (auto) 0.05 H (0.00-0.03) X10*3/uL Absolute Neuts (auto) 10.3 H (2.0-8.3) x10*3/uL Absolute Nucleated RBC 0.000 (0.0-0.012) X10*3/uL Nucleated RBC % (auto) 0.0 (0.0-0.2) /100WBC Sodium 141 (135-145) mmol/L Potassium 3.5 D (3.3-5.1) mmol/L Chloride 105 (96-108) mmol/L Carbon Dioxide 23 (22-29) mmol/L Anion Gap 17 (12-20) BUN 12 (9-16) mg/dL Creatinine 0.79 (0.5-1.4) mg/dL Estim Creat Clear Calc 96.0 Estimated GFR > 60 Random Glucose 136 H (60-115) mg/dL Calcium 9.4 (8.4-10.2) mg/dL Magnesium 1.9 (1.6-2.6) mg/dL Troponin I High Sens < 3.5 (<3.5-17.0) ng/L COVID-19 (MIO) (Negative) COVID-19 Clin Com Influenza Type A (JUSTINE) (Negative) Influenza Type B (JUSTINE) (Negative) Influenza A & B Note 08/19/21 08/19/21 Range/Units 17:18 17:18 WBC (4.8-10.8) X10*3/uL RBC (4.20-5.50) X10*6/uL Hgb (12.0-16.0) g/dl Hct (37.0-47.0) % MCV (80.0-98.0) fL MCH (27.0-33.0) pg MCHC (31.0-35.0) g/dl RDW (11.0-16.0) % Plt Count (160-400) X10*3/uL MPV (9.4-12.3) fL Immature Gran % (Auto) (0.0-0.4) % Neut % (Auto) (45-73) % Lymph % (Auto) (20-40) % [place] % (Auto) (2-11) % Eos % (Auto) (0-4) % Baso % (Auto) (0-2) % Lymph # (Auto) (1.2-4.9) X10*3/uL [place] # (Auto) (0.1-1.2) X10*3/uL Eos # (Auto) (0.0-0.4) X10*3/uL Baso # (Auto) (0.0-0.2) X10*3/uL Abs Immat Gran (auto) (0.00-0.03) X10*3/uL Absolute Neuts (auto) (2.0-8.3) x10*3/uL Absolute Nucleated RBC (0.0-0.012) X10*3/uL Nucleated RBC % (auto) (0.0-0.2) /100WBC Sodium (135-145) mmol/L Potassium (3.3-5.1) mmol/L Chloride (96-108) mmol/L Carbon Dioxide (22-29) mmol/L Anion Gap (12-20) BUN (9-16) mg/dL Creatinine (0.5-1.4) mg/dL Estim Creat Clear Calc Estimated GFR Random Glucose (60-115) mg/dL Calcium (8.4-10.2) mg/dL Magnesium (1.6-2.6) mg/dL Troponin I High Sens (<3.5-17.0) ng/L COVID-19 (MIO) Negative (Negative) COVID-19 Clin Com See Note Influenza Type A (JUSTINE) Negative (Negative) Influenza Type B (JUSTINE) Negative (Negative) Influenza A & B Note See Note Imaging Data Chest x-ray: Attestation: I personally reviewed and interpreted this imaging study as follows: ECG Data Attestation: I personally reviewed and interpreted this ECG as follows: ECG interpretation date: 08/19/21 Critical Care Time Critical Care Time Critical Care Time: Yes Total Critical Care Time: 45 Attestation: I have personally provided critical care time exclusive of time spent on separately billable procedures. Time includes review of laboratory data, radiology results, discussion with consultants, and monitoring for potential decompensation. Interventions were performed as documented. Discharge Plan Discharge Clinical Impression: Asthma with exacerbation, Sinusitis Patient Disposition: Home, Self-Care Instructions: Asthma (ED), Sinusitis (ED) Additional Instructions: You were evaluated for asthma exacerbation. Please continue to use nebulizers as directed. Take prednisone 40 mg for the next 5 days. Start this medication tomorrow. Take doxycycline 100 mg every 12 hours for the next 7 days. This medication is an antibiotic and we are treating you for sinusitis. Do not expose yourself to [place] while taking this medication. This medication has a severe reaction to [place]. Follow-up with primary care physician this week. Thank you for choosing this emergency department for evaluation. Please follow-up with primary care physician as needed. Return to the emergency department for any new, concerning, or worsening symptoms. Prescriptions: New doxycycline monohydrate 100 mg capsule 100 mg PO BID 7 Days Qty: 14 0RF codeine-guaifenesin 10-100 mg/5 mL liquid 10 ml PO Q6H PRN (Reason: cough) 7 Days Qty: 280 0RF prednisone 20 mg tablet 40 mg PO DAILY 5 Days Qty: 10 0RF No Action fluticasone propion-salmeterol [Wixela Inhub] 500-50 mcg/dose blister with device 1 ea PO BID Qty: 180 0RF omeprazole 40 mg capsule,delayed release(DR/EC) 40 mg PO BID Qty: 60 0RF albuterol sulfate [Ventolin HFA] 90 mcg/actuation HFA aerosol inhaler 2 puff PO Q4H PRN (Reason: for wheezing) Qty: 18 0RF Prempro 0.3-1.5 mg tablet 1 tab PO DAILY sertraline 25 mg tablet 25 mg PO DAILY sucralfate 100 mg/mL suspension 10 ml PO BEDTIME Qty: 400 3RF Stand Alone Forms: Work/School Release Interventions: ED Discharge Assessment Last Done: 08/19/21 21:27 Discharge Date/Time: 08/19/21 21:27
--- NOTE | 2021-08-19 17:04 | ECG_ITS ---
Test Reason : DYSPNEA Blood Pressure : / mmHG Vent. Rate : 119 BPM Atrial Rate : 119 BPM P-R Int : 162 ms QRS Dur : 100 ms QT Int : 330 ms P-R-T Axes : 061 030 049 degrees QTc Int : 464 ms Sinus tachycardia Possible Left atrial enlargement Incomplete right bundle branch block Borderline ECG When compared with ECG of 17-MAR-2021 20:29, Vent. rate has increased BY 41 BPM Nonspecific T wave abnormality has replaced inverted T waves in Inferior leads T wave inversion less evident in Anterior leads Referred By: Farhana Banks Electronically Signed By:DOLLY OWUSU
[2021-08-19] MEDS: Albuterol Sulfate (0.083%) 2.5 MG/3 ML VIAL.NEB 10 MG INHALE (17:23)
[2021-08-19] MEDS: methylPREDNISolone Sod Succ 125 MG/2 ML VIAL IVPUSH (17:29)
[2021-08-19] MEDS: 0.9 % Sodium Chloride 1,000 ML 999 ML IVCONT (17:29)
[2021-08-19] MEDS: Morphine Sulfate 4 MG/ML CARTRIDGE IVPUSH (17:30)
[2021-08-19] MEDS: Magnesium Sulfate/H2O 2 GM/50 ML PIGGYBACK IV (17:30)
[2021-08-19 17:43] LABS: MANUAL DIFF FLAG NO
[2021-08-19 17:44] LABS: Basophils Percent Auto 0.2 % (0-2); Hematocrit 41.1 % (37.0-47.0); Imm Gran Abs Auto 0.05 X10*3/uL (0.00-0.03); Imm Gran Pct Auto 0.4 % (0.0-0.4); Lymphocytes Absolute Auto 0.8 X10*3/uL (1.2-4.9); Lymphocytes Percent Auto 6.9 % (20-40); Mean Corpuscular HGB Conc 34.1 g/dl (31.0-35.0); Mean Corpuscular Hemoglobin 29.7 pg (27.0-33.0); Mean Corpuscular Volume 87.1 fL (80.0-98.0); Mean Platelet Volume 10.5 fL (9.4-12.3); Monocytes Absolute Auto 0.7 X10*3/uL (0.1-1.2); Neutrophils Absolute Auto 10.3 x10*3/uL (2.0-8.3); Neutrophils Percent Auto 86.5 % (45-73); Platelet Count 213 X10*3/uL (160-400); Red Blood Count 4.72 X10*6/uL (4.20-5.50); Red Cell Distribution Width 13.3 % (11.0-16.0); White Blood Count 11.9 X10*3/uL (4.8-10.8)
[2021-08-19 17:57] LABS: COVID-19 Test Negative (Negative); IDNOW Serial# 16C4AD1C
[2021-08-19 18:00] LABS: Anion Gap 17 (12-20); Blood Urea Nitrogen 12 mg/dL (9-16); Calcium 9.4 mg/dL (8.4-10.2); Carbon Dioxide 23 mmol/L (22-29); Chloride 105 mmol/L (96-108); Estimated Glomerular Filt Rate > 60; Glucose Random 136 mg/dL (60-115); Magnesium 1.9 mg/dL (1.6-2.6); Potassium 3.5 mmol/L (3.3-5.1); Sodium 141 mmol/L (135-145)
[2021-08-19 18:03] LABS: Troponin-I High Sensitivity < 3.5 ng/L (<3.5-17.0)
[2021-08-19 18:07] LABS: Influenza A Negative (Negative); Influenza B2 Negative (Negative)
[2021-08-19] MEDS: Albuterol Sulfate (0.083%) 2.5 MG/3 ML VIAL.NEB 7.5 MG INHALE (18:44)
== END 2021-08-19 21:27 | disposition home or self-care (01) ==
PROVIDERS: Nurse Practitioner Family; Emergency Provider Internal Medicine; PCP Internal Medicine
DX: J45.901 Unspecified asthma with (acute) exacerbation (principal); J32.9 Chronic sinusitis, unspecified; Z20.822 Contact with and (suspected) exposure to COVID-19
CPT/HCPCS: 71045; 80048; 83735; 84484; 85025; 87502; 87635; 93005; 94640; 94645; 96365; 96366; 96375; 99283; 99284; J2270; J2930; J3475

== ENCOUNTER 2021-09-20 08:20 | Outpatient (REF) | payer OTHER, SELFPAY ==
[2021-09-28 17:11] LABS: Pancreatic Elastase-1 72 mcg/g
== END 2021-09-20 08:21 | disposition home or self-care (01) ==
LOC: HO.LNP 08:20
PROVIDERS: Visit Provider Nurse Practitioner Family
DX: R10.9 Unspecified abdominal pain (principal)
CPT/HCPCS: 82656

== ENCOUNTER 2021-09-22 12:46 | Day surgery (SDC) | payer OTHER, SELFPAY ==
--- NOTE | 2021-09-21 11:56 | HO.ANESPROP2 ---
Documented by User: Ibis Marrufo NP 09/21/21 11:58 HPI - Anesthesia Eval Consult details Narrative: 55yo F for Upper Endoscopy PMFSH Active Problems Active Problems: All Active Problems (Updated 09/21/21 @ 08:56 by Mya Peter, [facility]) Gastroparesis (Acute) S/P laparoscopic fundoplication (Acute) Weight loss (Acute) Early satiety (Acute) URI (upper respiratory infection) (Acute) Incarcerated paraesophageal hernia (Acute) Hiatal hernia (Acute) GERD (gastroesophageal reflux disease) (Acute) Asthma (Acute) Past Medical History Medical History Anxiety Asthma Gastroparesis GERD (gastroesophageal reflux disease) Hernia, paraesophageal Hiatal hernia History of COVID-19 Hx of supraventricular tachycardia Incarcerated paraesophageal hernia Obesity URI (upper respiratory infection) Family History Family History Paternal Grandmother Stomach cancer Family history of problems with anesthesia: No Surgical History Surgical History History of bronchoscopy (~1998) History of cardiac radiofrequency ablation (RFA) History of chest tube placement (~1998) Hx of colonoscopy Hx of esophagogastroduodenoscopy History of Problems with Anesthesia: No Social History Social History Alcohol intake: never Patient Tobacco Use Status: Never used Tobacco Are you DNR?: No Advance Directives: No Advance Directives Information Provided: Yes Advance Directives on File: No Nutrition Risks: No Nutritional Risk Meds Allergies Allergy/AdvReac Type Severity Reaction Status Date / Time Erythromycin Allergy Mild Rash Verified 09/22/21 13:27 Penicillins Allergy Mild RASH Verified 09/15/21 15:28 ALVARADO Allergy Intermediate WHEEZING Uncoded 07/08/21 18:29 Home Medications Medication Instructions Recorded Confirmed Last Taken Type conj estrogen-medroxyprogesterone 1 tab PO DAILY 05/24/20 01/25/21 01/31/21 07:15 History 0.3 mg-1.5 mg tablet (Prempro) sertraline 25 mg tablet 25 mg PO DAILY 07/10/21 Unknown History Exam Exam Date and Time: September 21, 2021 1156 Pertinent Lab Results Pertinent Lab Results: Laboratory Tests 08/19/21 08/19/21 17:18 17:18 WBC 11.9 H Hgb 14.0 Hct 41.1 Plt Count 213 Sodium 141 Potassium 3.5 D Chloride 105 Carbon Dioxide 23 BUN 12 Creatinine 0.79 Narrative Narrative: EKG Vent. Rate : 119 BPM ? ? Atrial Rate : 119 BPM ?? P-R Int : 162 ms? QRS Dur : 100 ms ? ? QT Int : 330 ms ? ? ? P-R-T Axes : 061 030 049 degrees ?? QTc Int : 464 ms ? Sinus tachycardia Possible Left atrial enlargement Incomplete right bundle branch block Borderline ECG When compared with ECG of 17-MAR-2021 20:29, Vent. rate has increased BY? 41 BPM Nonspecific T wave abnormality has replaced inverted T waves in Inferior leads T wave inversion less evident in Anterior leads Assessment and Plan Assessment Anesthesia Assessment: Chart Reviewed Final Anesthetic Review Family History of Problems with Anesthesia: No History of Problems with Anesthesia: No Documented by User: Miladis Aden MD 09/22/21 14:11 PMFSH Past Medical History Medical History Anxiety Asthma Gastroparesis GERD (gastroesophageal reflux disease) Hernia, paraesophageal Hiatal hernia History of COVID-19 Hx of supraventricular tachycardia Incarcerated paraesophageal hernia Obesity URI (upper respiratory infection) Functional capacity: independent ambulation Patient : No Family History Family History Paternal Grandmother Stomach cancer Surgical History Surgical History History of bronchoscopy (~1998) History of cardiac radiofrequency ablation (RFA) History of chest tube placement (~1998) Hx of colonoscopy Hx of esophagogastroduodenoscopy Social History Social History Alcohol intake: never Patient Tobacco Use Status: Never used Tobacco Are you DNR?: No Advance Directives: No Advance Directives Information Provided: Yes Advance Directives on File: No Nutrition Risks: No Nutritional Risk Meds Allergies Allergy/AdvReac Type Severity Reaction Status Date / Time Erythromycin Allergy Mild Rash Verified 09/22/21 13:27 Penicillins Allergy Mild RASH Verified 09/15/21 15:28 ALVARADO Allergy Intermediate WHEEZING Uncoded 07/08/21 18:29 Home Medications Medication Instructions Recorded Confirmed Last Taken Type conj estrogen-medroxyprogesterone 1 tab PO DAILY 05/24/20 01/25/21 01/31/21 07:15 History 0.3 mg-1.5 mg tablet (Prempro) sertraline 25 mg tablet 25 mg PO DAILY 07/10/21 Unknown History Exam Airway Mallampati Class: II TM Dist: >3cm Neck ROM: Full Heart: RRR Lungs: CTA Assessment and Plan Final Anesthetic Review ASA Class: II Final Preanesthetic Review: No Changes in Pt Med Stat, Meds/Allgs Chart Reviewed, Consent Obtained/Reviewed and Anes Risks/Benef Reviewed Patient Risk: Low Procedure Risk: Low Anesthetic Plan Anesthetic Plan: MAC: Disposition: Standard PACU
[2021-09-22 13:11] VITALS: BMI 28.8
[2021-09-22] MEDS: Lactated Ringers 1,000 ML 100 ML IVCONT (13:17)
[2021-09-22 13:19] VITALS: BP 119/72; PULSE 68; RESP 18; TEMP 36.5; O2SAT 97
--- NOTE | 2021-09-22 13:31 | MHC.SHP ---
Pre-Procedural Eval Section A Date of Service: 09/22/21 The patient is an INPATIENT: No Changes since office visit: Yes Patient answered all questions; No Cold of Flu in the past 2 weeks, No New Medical Problems and No Changes in Medication The History & Physical has been completed within 30 days and I have reviewed it.: Yes Section B Chief Complaint: reflux disease Allergies: Allergies Allergy/AdvReac Type Severity Reaction Status Date / Time Erythromycin Allergy Mild Rash Verified 09/22/21 13:27 Penicillins Allergy Mild RASH Verified 09/15/21 15:28 ALVARADO Allergy Intermediate WHEEZING Uncoded 07/08/21 18:29 Plan I have reviewed the history and physical and performed a pertinent physical examination on my patient. No changes have occurred unless specified.
--- NOTE | 2021-09-22 13:38 | PM.OP ---
Brief Operative Note Date of Service: 09/22/21 Pre-op diagnosis: FU of gastric ulcer, gastroparesis Post-op diagnosis: other (Gastritis, gastric polyps, gastroparesis) Procedure: FLEXIBLE TRANSORAL UPPER GASTROINTESTINAL ENDOSCOPY WITH BIOPSIES Consent: Indications for the procedure and potential complications of bleeding, perforation, reaction to medications and missed diagnosis were discussed with the patient and informed consent was obtained. Instrument: Olympus GIF H 190 mid size upper endoscope Monitoring: Vital signs and clinical assessment, continuous EKG monitoring, Pulse oximetry, Carbon Dioxide monitoring and blood pressure monitoring were done throughout the procedure. Procedure: The patient was placed in the left lateral decubitis position and pre-procedure medications were administered and a bite block was placed. The endoscope was inserted into the mouth and advanced under direct vision to the third part of duodenum. A careful inspection was made as the upper endoscope was withdrawn including a retroflexed examination of the proximal stomach; Findings and interventions are described below. Findings: Larynx: Normal Esophagus: Esophagus: GE junction at 35 cms. No esophagitis or Kennedy's or stricture noted. Stomach: Multiple 5 to 10 mm benign-appearing polyps in the gastric body - fundic gland polyps on biopsies obtained during past EGD. Antral ulcer noted on past EGD has healed completely Mild gastric erythema. Biopsies were obtained. Intact fundal wrap on retroflexed examination of the cardia. Duodenum: Normal bulb and descending duodenum Intervention: Biopsies as noted above Impression and Post Procedure Diagnosis: Endoscopy Findings: ESOPHAGUS: Esophagus: GE junction at 35 cms. No esophagitis or Kennedy's or stricture noted. STOMACH: Multiple 5 to 10 mm benign-appearing polyps in the gastric body - fundic gland polyps on biopsies obtained during past EGD. Antral ulcer noted on past EGD has healed completely Mild gastric erythema. Biopsies were obtained. Intact fundal wrap on retroflexed examination of the cardia. Duodenum: Normal bulb and descending duodenum Plan: Await pathology results Patient has an appointment on 10/04/21 in the GI Clinic with Mya Pteer FNP-BC. Above findings were reviewed with the patient. Surgeon: Jerod Cotto MD Anesthesia: MAC (Dr Hammond) Was an Assistant Womens Volleyball Coach used for this Procedure?: Yes Assistant Womens Volleyball Coach: Shelley Kaplan Estimated blood loss (mL): 0 Pathology: other (A. gastric antrum, R/O H. pylori) Condition: stable Disposition: PACU
--- NOTE | 2021-09-22 15:15 | HO.ANESPROP2 ---
[facility] Active Problems Active Problems: All Active Problems (Updated 09/21/21 @ 08:56 by Mya Peter, [facility]) Gastroparesis (Acute) S/P laparoscopic fundoplication (Acute) Weight loss (Acute) Early satiety (Acute) URI (upper respiratory infection) (Acute) Incarcerated paraesophageal hernia (Acute) Hiatal hernia (Acute) GERD (gastroesophageal reflux disease) (Acute) Asthma (Acute) Past Medical History Medical History Anxiety Asthma Gastroparesis GERD (gastroesophageal reflux disease) Hernia, paraesophageal Hiatal hernia History of COVID-19 Hx of supraventricular tachycardia Incarcerated paraesophageal hernia Obesity URI (upper respiratory infection) Functional capacity: independent ambulation Family History Family History Paternal Grandmother Stomach cancer Family history of problems with anesthesia: No Surgical History Surgical History History of bronchoscopy (~1998) History of cardiac radiofrequency ablation (RFA) History of chest tube placement (~1998) Hx of colonoscopy Hx of esophagogastroduodenoscopy History of Problems with Anesthesia: No Social History Social History Alcohol intake: never Patient Tobacco Use Status: Never used Tobacco Are you DNR?: No Advance Directives: No Advance Directives Information Provided: Yes Advance Directives on File: No Nutrition Risks: No Nutritional Risk Patient : No Meds Allergies Allergy/AdvReac Type Severity Reaction Status Date / Time Erythromycin Allergy Mild Rash Verified 09/22/21 13:27 Penicillins Allergy Mild RASH Verified 09/15/21 15:28 ALVARADO Allergy Intermediate WHEEZING Uncoded 07/08/21 18:29 Active Medications: Current Medications Albuterol Sulfate (Albuterol Sulfate (0.083%) 2.5 Mg/3 Ml Vial.Neb) 2.5 mg INHALE ONCE PRN PRN Reason: Shortness of Breath/Wheezing Lactated Ringer's (Lr) 1,000 mls @ 100 mls/hr IVCONT .Q10H COLE Last Admin: 09/22/21 13:17 Dose: 100 mls/hr Home Medications Medication Instructions Recorded Confirmed Last Taken Type conj estrogen-medroxyprogesterone 1 tab PO DAILY 05/24/20 01/25/21 01/31/21 07:15 History 0.3 mg-1.5 mg tablet (Prempro) sertraline 25 mg tablet 25 mg PO DAILY 07/10/21 Unknown History Exam Exam Date and Time: September 22, 2021 1515 Height,Weight and Vital Signs: Height 5 ft 10 in Weight 91.172 kg Last Vital Signs Temp 97.7 F 09/22/21 13:19 Pulse 68 09/22/21 13:19 Resp 18 09/22/21 13:19 BP 119/72 09/22/21 13:19 Pulse Ox 97 09/22/21 13:19 O2 Del Method 09/22/21 13:19 Airway Mallampati Class: II Heart: RRR Lungs: CTA Assessment and Plan Final Anesthetic Review Family History of Problems with Anesthesia: No History of Problems with Anesthesia: No ASA Class: II Final Preanesthetic Review: No Changes in Pt Med Stat, Meds/Allgs Chart Reviewed, Consent Obtained/Reviewed and Anes Risks/Benef Reviewed Patient Risk: Low Procedure Risk: Low Anesthetic Plan Anesthetic Plan: MAC: Disposition: Standard PACU
[2021-09-22 15:26] VITALS: BP 101/55; PULSE 67; RESP 16; TEMP 36.6; O2SAT 99
[2021-09-22 15:41] VITALS: BP 112/61; PULSE 69; RESP 18; TEMP 36.6; O2SAT 99
--- NOTE | 2021-09-22 16:52 | HO.POSTANES ---
Post Anesthesia Evaluation Post Anesthesia Evaluation Vital Signs: Vital Signs Temp Pulse Resp BP Pulse Ox O2 Del Method 09/22/21 15:41 97.9 F 69 18 112/61 99 Room Air 09/22/21 15:26 97.9 F 67 16 101/55 L 99 Room Air 09/22/21 13:19 97.7 F 68 18 119/72 97 Room Air Anesthesia: Monitored Mental Status: Awake Pain Control: Satisfactory Nausea/Vomiting: None Hydration: Adequate Anesthesia-Related Issues: No Anes. Related Issues
--- NOTE | 2021-09-22 17:24 | W.PM.OPN ---
Operative Note Operative Note Date of Service: 09/22/21 Narrative: Pre-op diagnosis: FU of gastric ulcer, gastroparesis Post-op diagnosis:?other (Gastritis, gastric polyps, gastroparesis) Procedure: FLEXIBLE TRANSORAL UPPER GASTROINTESTINAL ENDOSCOPY WITH BIOPSIES Consent:?Indications for the procedure and potential complications of bleeding, perforation, reaction to medications and missed diagnosis were discussed with the patient and informed consent was obtained. Instrument:?Olympus GIF H 190 mid size upper endoscope Monitoring: Vital signs and clinical assessment, continuous EKG monitoring, Pulse oximetry, Carbon Dioxide monitoring and blood pressure monitoring were done throughout the procedure. Procedure:?The patient was placed in the left lateral decubitis position and pre-procedure medications were administered and a bite block was placed. The endoscope was inserted into the mouth and advanced under direct vision to the third part of duodenum. A careful inspection was made as the upper endoscope was withdrawn including a retroflexed examination of the proximal stomach; Findings and interventions are described below. Findings: Larynx:? Normal Esophagus: Esophagus: GE junction at 35 cms. No esophagitis or Kennedy's or stricture noted. Stomach:? Multiple 5 to 10 mm benign-appearing polyps in the gastric body - fundic gland polyps on biopsies obtained during past EGD. Antral ulcer noted on past EGD has healed completely Mild gastric erythema. Biopsies were obtained. Intact fundal wrap on retroflexed examination of the cardia. Duodenum: Normal bulb and descending duodenum Intervention: Biopsies as noted above Impression and Post Procedure Diagnosis: Endoscopy Findings: ESOPHAGUS:? Esophagus: GE junction at 35 cms. No esophagitis or Kennedy's or stricture noted. STOMACH: Multiple 5 to 10 mm benign-appearing polyps in the gastric body - fundic gland polyps on biopsies obtained during past EGD. Antral ulcer noted on past EGD has healed completely Mild gastric erythema. Biopsies were obtained. Intact fundal wrap on retroflexed examination of the cardia. Duodenum: Normal bulb and descending duodenum Plan: Await pathology results Patient has an appointment on 10/04/21 in the GI Clinic with ? Mya Peter FNP-BC. Above findings were reviewed with the patient. Surgeon: Jerod Cotto MD Anesthesia:?MAC (Dr Hammond) Was an Investigative Research Specialist used for this Procedure?:?Yes Investigative Research Specialist:?Shelley Kaplan Estimated blood loss (mL):?0 Pathology:?other (A. gastric antrum, R/O H. pylori) Condition:?stable Disposition:?PACU
== END 2021-09-22 16:07 | disposition home or self-care (01) ==
PROVIDERS: PCP Internal Medicine; Visit Provider Internal Medicine Gastroenterology
PROC: 0DJ08ZZ Inspection of Upper Intestinal Tract, Via Natural or Artificial Opening Endoscopic (ICD-10-PCS; CPT 43235; principal; 2021-09-22 14:10)
DX: K21.9 Gastro-esophageal reflux disease without esophagitis (principal); K29.50 Unspecified chronic gastritis without bleeding; K31.7 Polyp of stomach and duodenum; K31.84 Gastroparesis; R63.4 Abnormal weight loss; K44.9 Diaphragmatic hernia without obstruction or gangrene; K58.2 Mixed irritable bowel syndrome; F41.1 Generalized anxiety disorder; Z87.11 Personal history of peptic ulcer disease; J45.909 Unspecified asthma, uncomplicated; Z79.899 Other long term (current) drug therapy; Z88.1 Allergy status to other antibiotic agents; Z86.16 Personal history of COVID-19; Z98.890 Other specified postprocedural states
CPT/HCPCS: 43239; 88305; 88342

== ENCOUNTER 2021-10-19 17:58 | Outpatient (REF) | payer OTHER, SELFPAY | END 2021-10-19 17:59 | disposition home or self-care (01) | LOC: HO.MRI 17:58 | PROVIDERS: Visit Provider Nurse Practitioner Family | DX: Z13.89 Encounter for screening for other disorder (principal) ==

== ENCOUNTER 2022-01-26 15:34 | Outpatient (REF) | payer OTHER, SELFPAY ==
[2022-01-26 16:56] LABS: Estimated Average Glucose 108 mg/dL; Hemoglobin A1c % 5.4 %
[2022-01-26 17:56] LABS: Insulin 11 uU/mL (2-29)
[2022-01-27 09:16] LABS: C Peptide 2.99 ng/mL (0.80-3.85)
== END 2022-01-26 15:35 | disposition home or self-care (01) ==
LOC: HO.LAB 15:34
PROVIDERS: PCP Internal Medicine; Visit Provider Physician Assistant
DX: R73.01 Impaired fasting glucose (principal)
CPT/HCPCS: 36415; 83036; 83525; 84681

== ENCOUNTER 2022-02-03 19:25 | Emergency (ER) | payer OTHER, SELFPAY ==
--- NOTE | ~2022-02-03 | XR_ITS ---
EXAMINATION: XR CHEST CLINICAL INFORMATION: Shortness of breath. COMPARISON: CT chest 12/15/2020. Chest radiograph 03/24/2019. TECHNIQUE: 2 views of the chest were obtained. FINDINGS: Moderate convex rightward curvature of the thoracic spine is unchanged grossly compared with 03/24/2019. Normal appearance of the cardiomediastinal structures. No effusions or pneumothoraces. Normal pattern of pulmonary vasculature. No focal pulmonary consolidation. XR/XR chest 2V IMPRESSION: 1. No acute cardiopulmonary abnormalities. 2. Thoracic dextroscoliosis unchanged compared with 03/24/2019.
--- NOTE | 2022-02-03 19:33 | ED.SOB ---
HPI - SOB/Dyspnea General Chief Complaint: Dyspnea Stated Complaint: asthma,sob Time Seen by Provider: 02/03/22 19:49 Related Data Home Medications Medication Instructions Recorded Confirmed conj estrogen-medroxyprogesterone 1 tab PO DAILY 05/24/20 01/25/21 0.3 mg-1.5 mg tablet (Prempro) lorazepam 1 mg tablet 1 mg PO DAILY 01/26/22 Previous Rx's Medication Instructions Recorded Ventolin HFA 90 mcg/actuation 2 puff PO Q4H PRN for wheezing #18 09/12/21 aerosol inhaler (albuterol sulfate) grams [id number] 1 cap PO QID #120 caps 10/04/21 12,000-38,000-60,000 unit capsule,delayed rel (Creon) budesonide-formoterol HFA 160 2 puff inhalation BID 30 days 01/26/22 mcg-4.5 mcg/actuation aerosol #10.2 grams inhaler (Symbicort) albuterol sulfate 2.5 mg/0.5 mL 5 mg inhalation Q4H #90 ea 02/03/22 solution for nebulization ipratropium 0.5 mg-albuterol 3 mg 3 ml inhalation Q4-6H PRN 02/03/22 (2.5 mg base)/3 mL nebulization shortness of breath or wheezing soln #90 mL prednisone 20 mg tablet 60 mg PO DAILY 5 days #15 tabs 02/03/22 prednisone 10 mg tablet See Rx Instructions PO DAILY 18 02/05/22 days #63 tabs Allergies Allergy/AdvReac Type Severity Reaction Status Date / Time Erythromycin Allergy Mild Rash Verified 01/26/22 15:01 Penicillins Allergy Mild RASH Verified 01/26/22 15:01 ALVARADO Allergy Intermediate WHEEZING Uncoded 01/26/22 15:01 [facility] Past Medical History Medical History Anxiety Asthma Gastroparesis GERD (gastroesophageal reflux disease) Hernia, paraesophageal Hiatal hernia History of COVID-19 Hx of supraventricular tachycardia Incarcerated paraesophageal hernia Obesity Pulmonary nodule URI (upper respiratory infection) Surgical History History of bronchoscopy (~1998) History of cardiac radiofrequency ablation (RFA) History of chest tube placement (~1998) Hx of colonoscopy Hx of esophagogastroduodenoscopy Family History Family History Paternal Grandmother Stomach cancer Social History Social History Alcohol intake: never Patient Tobacco Use Status: Never used Tobacco Advance Directives: No Advance Directives Information Provided: Yes Physical Exam Vital Signs: Vital Signs: Last Vital Signs Temp 97.3 F 02/03/22 23:00 Pulse 109 H 02/03/22 23:00 Resp 20 02/03/22 23:00 BP 121/63 02/03/22 23:00 Pulse Ox 95 02/03/22 23:00 O2 Del Method 02/03/22 23:00 BMI result Body Mass Index 29.9 Course Course Course Narrative: RME: Patient is a 56 year old female pmhx asthma, GERD, SVT, pulmonary nodules. Reports shortness of breath, cough, wheezing x 3 days. Today symptoms have been worse despite use of home nebulizers. PE: audible across room wheezing, I/E wheezing throughout bilaterally. increased WOB. no hypoxia at rest on room air Plan: Medications Administered Discontinued Medications Generic Name Dose Route Start Last Admin Trade Name Freq PRN Reason Stop Dose Admin Albuterol Sulfate 5 mg/ 7.5 mg 02/03/22 19:37 02/03/22 20:03 Albuterol Sulfate 2.5 mg INHALE 02/03/22 19:38 7.5 mg ONCE ONE Administration Albuterol Sulfate 7.5 mg/ 10 mg 02/03/22 21:29 02/03/22 21:36 Albuterol Sulfate 2.5 mg INHALE 02/03/22 21:30 10 mg ONCE ONE Administration Albuterol/Ipratropium 3 ml 02/03/22 19:37 02/03/22 20:03 Albuterol/Iprat 2.5/0.5mg 3 Ml Ampul.Neb INHALE 02/03/22 19:38 3 ml ONCE ONE Administration Magnesium Sulfate 2 gm in 50 mls @ 25 mls/hr 02/03/22 20:07 02/03/22 22:24 Magnesium Sulfate/H2o IV 02/03/22 22:06 Infused ONCE ONE Infusion Methylprednisolone Sodium Succinate 125 mg 02/03/22 19:37 02/03/22 20:03 Methylprednisolone Sod Succ 125 Mg/2 Ml Vial IVPUSH 02/03/22 19:38 125 mg ONCE ONE Administration MDM - SOB/Dyspnea Lab Data Result diagrams: 02/03/22 19:45 02/03/22 19:45 Labs: Lab Results 02/03/22 02/03/22 02/03/22 Range/Units 19:45 19:45 19:45 WBC 10.6 (4.8-10.8) X10*3/uL RBC 4.78 (4.20-5.50) X10*6/uL Hgb 14.0 (12.0-16.0) g/dl Hct 40.9 (37.0-47.0) % MCV 85.6 (80.0-98.0) fL MCH 29.3 (27.0-33.0) pg MCHC 34.2 (31.0-35.0) g/dl RDW 12.2 (11.0-16.0) % Plt Count 278 D (160-400) X10*3/uL MPV 10.0 (9.4-12.3) fL Immature Gran % (Auto) 0.7 H (0.0-0.4) % Neut % (Auto) 77.9 H (45-73) % Lymph % (Auto) 12.3 L (20-40) % [place] % (Auto) 7.9 (2-11) % Eos % (Auto) 0.8 (0-4) % Baso % (Auto) 0.4 (0-2) % Lymph # (Auto) 1.3 (1.2-4.9) X10*3/uL [place] # (Auto) 0.8 (0.1-1.2) X10*3/uL Eos # (Auto) 0.1 (0.0-0.4) X10*3/uL Baso # (Auto) 0.0 (0.0-0.2) X10*3/uL Abs Immat Gran (auto) 0.07 H (0.00-0.03) X10*3/uL Absolute Neuts (auto) 8.3 (2.0-8.3) x10*3/uL Absolute Nucleated RBC 0.000 (0.0-0.012) X10*3/uL Nucleated RBC % (auto) 0.0 (0.0-0.2) /100WBC Sodium 142 (135-145) mmol/L Potassium 3.9 (3.3-5.1) mmol/L Chloride 106 (96-108) mmol/L Carbon Dioxide 24 (22-29) mmol/L Anion Gap 16 (12-20) BUN 13 (9-16) mg/dL Creatinine 0.78 (0.5-1.4) mg/dL Estim Creat Clear Calc 94.9 Estimated GFR > 60 Random Glucose 130 H (60-115) mg/dL Calcium 9.4 (8.4-10.2) mg/dL Total Bilirubin 0.3 (0.0-1.0) mg/dL AST 11 (5-31) U/L ALT 23 (0-31) U/L Alkaline Phosphatase 99 (39-117) U/L Troponin I High Sens (<3.5-17.0) ng/L Total Protein 6.5 (6.5-8.0) g/dL Albumin 4.1 (3.5-5.0) g/dL Influenza Type A (PCR) NEGATIVE (Negative) Influenza Type B (PCR) NEGATIVE (Negative) RSV RNA Qual (PCR) NEGATIVE (Negative) SARS-CoV-2 RNA (RT-PCR) NEGATIVE (Negative) 02/03/22 Range/Units 19:45 WBC (4.8-10.8) X10*3/uL RBC (4.20-5.50) X10*6/uL Hgb (12.0-16.0) g/dl Hct (37.0-47.0) % MCV (80.0-98.0) fL MCH (27.0-33.0) pg MCHC (31.0-35.0) g/dl RDW (11.0-16.0) % Plt Count (160-400) X10*3/uL MPV (9.4-12.3) fL Immature Gran % (Auto) (0.0-0.4) % Neut % (Auto) (45-73) % Lymph % (Auto) (20-40) % [place] % (Auto) (2-11) % Eos % (Auto) (0-4) % Baso % (Auto) (0-2) % Lymph # (Auto) (1.2-4.9) X10*3/uL [place] # (Auto) (0.1-1.2) X10*3/uL Eos # (Auto) (0.0-0.4) X10*3/uL Baso # (Auto) (0.0-0.2) X10*3/uL Abs Immat Gran (auto) (0.00-0.03) X10*3/uL Absolute Neuts (auto) (2.0-8.3) x10*3/uL Absolute Nucleated RBC (0.0-0.012) X10*3/uL Nucleated RBC % (auto) (0.0-0.2) /100WBC Sodium (135-145) mmol/L Potassium (3.3-5.1) mmol/L Chloride (96-108) mmol/L Carbon Dioxide (22-29) mmol/L Anion Gap (12-20) BUN (9-16) mg/dL Creatinine (0.5-1.4) mg/dL Estim Creat Clear Calc Estimated GFR Random Glucose (60-115) mg/dL Calcium (8.4-10.2) mg/dL Total Bilirubin (0.0-1.0) mg/dL AST (5-31) U/L ALT (0-31) U/L Alkaline Phosphatase (39-117) U/L Troponin I High Sens < 3.5 (<3.5-17.0) ng/L Total Protein (6.5-8.0) g/dL Albumin (3.5-5.0) g/dL Influenza Type A (PCR) (Negative) Influenza Type B (PCR) (Negative) RSV RNA Qual (PCR) (Negative) SARS-CoV-2 RNA (RT-PCR) (Negative) Discharge Plan Discharge Clinical Impression: Asthma with exacerbation Patient Disposition: Home, Self-Care Instructions: Asthma (ED) Additional Instructions: You were evaluated for asthma exacerbation. Please use albuterol and DuoNebs as needed. Take prednisone 60 mg for the next 5 days. Follow up with Dr. Kruse this week. Thank you for choosing this emergency department for evaluation. Please follow-up with primary care physician as needed. Return to the emergency department for any new, concerning, or worsening symptoms. Prescriptions: New albuterol sulfate 2.5 mg/0.5 mL solution for nebulization 5 mg inhalation Q4H Qty: 90 0RF Rx Instructions: May substitute for medication equivalent accepted by insurance ipratropium-albuterol 0.5 mg-3 mg(2.5 mg base)/3 mL solution for nebulization 3 ml inhalation Q4-6H PRN (Reason: shortness of breath or wheezing) Qty: 90 0RF prednisone 20 mg tablet 60 mg PO DAILY 5 Days Qty: 15 0RF No Action albuterol sulfate [Ventolin HFA] 90 mcg/actuation HFA aerosol inhaler 2 puff PO Q4H PRN (Reason: for wheezing) Qty: 18 12RF prednisone 10 mg tablet See Rx Instructions PO DAILY 18 Days Qty: 63 0RF Rx Instructions: PO daily; Take 6 tabs daily x 3 days, then 5 tabs x 3 days, then 4 tabs x 3 days, then 3 tabs x 3 days, then 2 tabs daily x 3 days, then 1 tab x 3 days to complete. Prempro 0.3-1.5 mg tablet 1 tab PO DAILY lorazepam 1 mg tablet 1 mg PO DAILY budesonide-formoterol [Symbicort] 160-4.5 mcg/actuation HFA aerosol inhaler 2 puff inhalation BID 30 Days Qty: 10.2 11RF Creon 12,000-38,000 -60,000 unit capsule,delayed release(DR/EC) 1 cap PO QID Qty: 120 3RF Rx Instructions: administer with meals and/or snacks Interventions: ED Discharge Assessment Last Done: 02/04/22 00:00 Discharge Date/Time: 02/04/22 00:00
[2022-02-03 19:34] VITALS: BP 147/82; PULSE 107; RESP 24; TEMP 36.4; O2SAT 97; BMI 29.9
--- NOTE | 2022-02-03 19:40 | ECG_ITS ---
Test Reason : DYSPNEA Blood Pressure : / mmHG Vent. Rate : 099 BPM Atrial Rate : 099 BPM P-R Int : 168 ms QRS Dur : 082 ms QT Int : 358 ms P-R-T Axes : 054 011 045 degrees QTc Int : 459 ms Normal sinus rhythm RSR' or QR pattern in V1 suggests right ventricular conduction delay Otherwise normal ECG When compared with ECG of 19-AUG-2021 18:01, No significant changes seen Referred By: Leann Burger Electronically Signed By:GAGE ROLLINS MD
[2022-02-03 19:49] LABS: MANUAL DIFF FLAG NO
--- NOTE | 2022-02-03 19:49 | ED_ITS ---
HPI - SOB/Dyspnea General Chief Complaint: Dyspnea Stated Complaint: asthma,sob Time Seen by Provider: 02/03/22 19:49 Source: patient Mode of arrival: ambulatory Limitations: no limitations History of Present Illness HPI Narrative: 56-year-old female presents with asthma exacerbation, states that she has had a cold for the past few days, and has had worsening shortness of breath with wheezing. Patient has been using her home inhalers and nebulizers with no relief. Patient does have a significant history of asthma exacerbation, has never been intubated for any asthma related illnesses. She does not report any fevers or chills, and is unable to speak in complete sentences upon arrival. MD elicited complaint: shortness of breath, cough and asthma attack Pertinent past history: asthma Onset (ago): day(s) (2) Context: recent illness Timing: constant and progressively worsening Severity: moderate Exacerbating factors: exertion, movement, coughing, inspiration, talking, cold air and deep breaths Relieving factors: nothing Known history of: asthma Associated symptoms: wheezing and orthopnea Related Data Home oxygen amount: none Home Medications Medication Instructions Recorded Confirmed conj estrogen-medroxyprogesterone 1 tab PO DAILY 05/24/20 01/25/21 0.3 mg-1.5 mg tablet (Prempro) lorazepam 1 mg tablet 1 mg PO DAILY 01/26/22 Previous Rx's Medication Instructions Recorded Ventolin HFA 90 mcg/actuation 2 puff PO Q4H PRN for wheezing #18 09/12/21 aerosol inhaler (albuterol sulfate) grams [id number] 1 cap PO QID #120 caps 10/04/21 12,000-38,000-60,000 unit capsule,delayed rel (Creon) budesonide-formoterol HFA 160 2 puff inhalation BID 30 days 01/26/22 mcg-4.5 mcg/actuation aerosol #10.2 grams inhaler (Symbicort) albuterol sulfate 2.5 mg/0.5 mL 5 mg inhalation Q4H #90 ea 02/03/22 solution for nebulization ipratropium 0.5 mg-albuterol 3 mg 3 ml inhalation Q4-6H PRN 02/03/22 (2.5 mg base)/3 mL nebulization shortness of breath or wheezing soln #90 mL prednisone 20 mg tablet 60 mg PO DAILY 5 days #15 tabs 02/03/22 Allergies Allergy/AdvReac Type Severity Reaction Status Date / Time Erythromycin Allergy Mild Rash Verified 01/26/22 15:01 Penicillins Allergy Mild RASH Verified 01/26/22 15:01 ALVARADO Allergy Intermediate WHEEZING Uncoded 01/26/22 15:01 Review of Systems Review of Systems: Constitutional: No Fever, No Chills ENT/Mouth: No Hoarseness, No sore throat, No Rhinorrhea Eyes: No Redness, No Discharge, No Vision Changes Cardiovascular: No Chest Pain, positive SOB, positive Dyspnea on Exertion, No Edema Respiratory: positive Cough, No Sputum, positive Wheezing, Gastrointestinal: No Nausea, No Vomiting, No Diarrhea, No abdominal Pain Genitourinary: No Dysuria, No Hematuria Musculoskeletal: No joint pain, No Myalgias Skin: No rash Neuro: No Weakness, No Numbness, No Headache Psych: No anxiety, depression Heme/Lymph: No Bruising, No Bleeding Endocrine: No Polyuria, No Polydipsia Yes all other systems are reviewed and are negative PMFSH Past Medical History Attestation statement: The following information was validated with the patient. Source: old records reviewed Medical History Anxiety Asthma Gastroparesis GERD (gastroesophageal reflux disease) Hernia, paraesophageal Hiatal hernia History of COVID-19 Hx of supraventricular tachycardia Incarcerated paraesophageal hernia Obesity Pulmonary nodule URI (upper respiratory infection) Surgical History History of bronchoscopy (~1998) History of cardiac radiofrequency ablation (RFA) History of chest tube placement (~1998) Hx of colonoscopy Hx of esophagogastroduodenoscopy Family History Family History Paternal Grandmother Stomach cancer Social History Social History Alcohol intake: never Patient Tobacco Use Status: Never used Tobacco Advance Directives: No Advance Directives Information Provided: Yes Physical Exam Vital Signs: Vital Signs: Last Vital Signs Temp 97.3 F 02/03/22 23:00 Pulse 109 H 02/03/22 23:00 Resp 20 02/03/22 23:00 BP 121/63 02/03/22 23:00 Pulse Ox 95 02/03/22 23:00 O2 Del Method 02/03/22 23:00 BMI result Body Mass Index 29.9 Appearance: Alert. Oriented X3. Moderate distress. Eyes: Pupils equal, round and reactive to light. Sclera nonicteric. ENT: Pharynx normal. Neck: Normal inspection. Neck supple. CVS: Normal heart rate and rhythm. Pulses normal. Respiratory: Moderate respiratory distress. Poor air flow throughout, with wheezing. Abdomen: Soft and nontender. Skin: Skin warm and dry. Normal skin color. Normal skin turgor. Extremities: No lower extremity edema. Gait well-balanced will coordinated. Neuro: No motor deficit. No sensory deficit. Cranial nerves 2-12 intact. Course Course Course Narrative: 56-year-old female presents with acute asthma exacerbation. Is unable to complete sentences at this time. Has been using lb nebs and pulmonary inhalers. Is followed by Dr. Kruse last visit was Saturday and she was given Spiriva which she has been using since it was prescribed. Low likelihood of PE, patient is not immunocompromised, does not have history of malignancy, patient does report use of hormone replacement therapy with no prior history of DVT or PE, no coagulation factor deficiencies, no recent flights surgeries or injuries. Patient given 2 hour long neb treatments, Solu-Medrol, magnesium. After 2nd neb, patient's lung sounds have improved, and states to feel much better. Patient is maintaining O2 sats above 95% on room air. Currently at 97%. 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 She feels that she can manage her symptoms at home. Will give prednisone, ordered DuoNeb and albuterol nebs. Patient is afebrile, labs are within normal limits, chest x-ray is negative, viral panel is negative. Patient verbalized understanding of and agrees to plan of care. Understands signs and symptoms indicating need for emergent intervention. Medications Administered Discontinued Medications Generic Name Dose Route Start Last Admin Trade Name Freq PRN Reason Stop Dose Admin Albuterol Sulfate 5 mg/ 7.5 mg 02/03/22 19:37 02/03/22 20:03 Albuterol Sulfate 2.5 mg INHALE 02/03/22 19:38 7.5 mg ONCE ONE Administration Albuterol Sulfate 7.5 mg/ 10 mg 02/03/22 21:29 02/03/22 21:36 Albuterol Sulfate 2.5 mg INHALE 02/03/22 21:30 10 mg ONCE ONE Administration Albuterol/Ipratropium 3 ml 02/03/22 19:37 02/03/22 20:03 Albuterol/Iprat 2.5/0.5mg 3 Ml Ampul.Neb INHALE 02/03/22 19:38 3 ml ONCE ONE Administration Magnesium Sulfate 2 gm in 50 mls @ 25 mls/hr 02/03/22 20:07 02/03/22 22:24 Magnesium Sulfate/H2o IV 02/03/22 22:06 Infused ONCE ONE Infusion Methylprednisolone Sodium Succinate 125 mg 02/03/22 19:37 02/03/22 20:03 Methylprednisolone Sod Succ 125 Mg/2 Ml Vial IVPUSH 02/03/22 19:38 125 mg ONCE ONE Administration MDM - SOB/Dyspnea Differential Diagnosis Differential diagnosis: Likely acute exacerbation of chronic obstructive airways disease, pneumonia and asthma with exacerbation Medical Records Attestation: I reviewed the patient's medical records. Lab Data Attestation: I reviewed the patient's lab results. Result diagrams: 02/03/22 19:45 02/03/22 19:45 Labs: Lab Results 02/03/22 02/03/22 02/03/22 Range/Units 19:45 19:45 19:45 WBC 10.6 (4.8-10.8) X10*3/uL RBC 4.78 (4.20-5.50) X10*6/uL Hgb 14.0 (12.0-16.0) g/dl Hct 40.9 (37.0-47.0) % MCV 85.6 (80.0-98.0) fL MCH 29.3 (27.0-33.0) pg MCHC 34.2 (31.0-35.0) g/dl RDW 12.2 (11.0-16.0) % Plt Count 278 D (160-400) X10*3/uL MPV 10.0 (9.4-12.3) fL Immature Gran % (Auto) 0.7 H (0.0-0.4) % Neut % (Auto) 77.9 H (45-73) % Lymph % (Auto) 12.3 L (20-40) % Sunflower % (Auto) 7.9 (2-11) % Eos % (Auto) 0.8 (0-4) % Baso % (Auto) 0.4 (0-2) % Lymph # (Auto) 1.3 (1.2-4.9) X10*3/uL Sunflower # (Auto) 0.8 (0.1-1.2) X10*3/uL Eos # (Auto) 0.1 (0.0-0.4) X10*3/uL Baso # (Auto) 0.0 (0.0-0.2) X10*3/uL Abs Immat Gran (auto) 0.07 H (0.00-0.03) X10*3/uL Absolute Neuts (auto) 8.3 (2.0-8.3) x10*3/uL Absolute Nucleated RBC 0.000 (0.0-0.012) X10*3/uL Nucleated RBC % (auto) 0.0 (0.0-0.2) /100WBC Sodium 142 (135-145) mmol/L Potassium 3.9 (3.3-5.1) mmol/L Chloride 106 (96-108) mmol/L Carbon Dioxide 24 (22-29) mmol/L Anion Gap 16 (12-20) BUN 13 (9-16) mg/dL Creatinine 0.78 (0.5-1.4) mg/dL Estim Creat Clear Calc 94.9 Estimated GFR > 60 Random Glucose 130 H (60-115) mg/dL Calcium 9.4 (8.4-10.2) mg/dL Total Bilirubin 0.3 (0.0-1.0) mg/dL AST 11 (5-31) U/L ALT 23 (0-31) U/L Alkaline Phosphatase 99 (39-117) U/L Troponin I High Sens (<3.5-17.0) ng/L Total Protein 6.5 (6.5-8.0) g/dL Albumin 4.1 (3.5-5.0) g/dL Influenza Type A (PCR) NEGATIVE (Negative) Influenza Type B (PCR) NEGATIVE (Negative) RSV RNA Qual (PCR) NEGATIVE (Negative) SARS-CoV-2 RNA (RT-PCR) NEGATIVE (Negative) 02/03/22 Range/Units 19:45 WBC (4.8-10.8) X10*3/uL RBC (4.20-5.50) X10*6/uL Hgb (12.0-16.0) g/dl Hct (37.0-47.0) % MCV (80.0-98.0) fL MCH (27.0-33.0) pg MCHC (31.0-35.0) g/dl RDW (11.0-16.0) % Plt Count (160-400) X10*3/uL MPV (9.4-12.3) fL Immature Gran % (Auto) (0.0-0.4) % Neut % (Auto) (45-73) % Lymph % (Auto) (20-40) % Sunflower % (Auto) (2-11) % Eos % (Auto) (0-4) % Baso % (Auto) (0-2) % Lymph # (Auto) (1.2-4.9) X10*3/uL Sunflower # (Auto) (0.1-1.2) X10*3/uL Eos # (Auto) (0.0-0.4) X10*3/uL Baso # (Auto) (0.0-0.2) X10*3/uL Abs Immat Gran (auto) (0.00-0.03) X10*3/uL Absolute Neuts (auto) (2.0-8.3) x10*3/uL Absolute Nucleated RBC (0.0-0.012) X10*3/uL Nucleated RBC % (auto) (0.0-0.2) /100WBC Sodium (135-145) mmol/L Potassium (3.3-5.1) mmol/L Chloride (96-108) mmol/L Carbon Dioxide (22-29) mmol/L Anion Gap (12-20) BUN (9-16) mg/dL Creatinine (0.5-1.4) mg/dL Estim Creat Clear Calc Estimated GFR Random Glucose (60-115) mg/dL Calcium (8.4-10.2) mg/dL Total Bilirubin (0.0-1.0) mg/dL AST (5-31) U/L ALT (0-31) U/L Alkaline Phosphatase (39-117) U/L Troponin I High Sens < 3.5 (<3.5-17.0) ng/L Total Protein (6.5-8.0) g/dL Albumin (3.5-5.0) g/dL Influenza Type A (PCR) (Negative) Influenza Type B (PCR) (Negative) RSV RNA Qual (PCR) (Negative) SARS-CoV-2 RNA (RT-PCR) (Negative) Imaging Data Chest x-ray: Attestation: I personally reviewed and interpreted this imaging study as follows: Radiologist's impression: EXAMINATION: XR CHEST CLINICAL INFORMATION: Shortness of breath. COMPARISON: CT chest 12/15/2020. Chest radiograph 03/24/2019. TECHNIQUE: 2 views of the chest were obtained. FINDINGS: Moderate convex rightward curvature of the thoracic spine is unchanged grossly compared with 03/24/2019. Normal appearance of the cardiomediastinal structures. No effusions or pneumothoraces. Normal pattern of pulmonary vasculature. No focal pulmonary consolidation. XR/XR chest 2V IMPRESSION: 1.? No acute cardiopulmonary abnormalities. 2.? Thoracic dextroscoliosis unchanged compared with 03/24/2019. ? ECG Data Attestation: I personally reviewed and interpreted this ECG as follows: ECG interpretation date: 02/03/22 ECG interpretation time: 19:51 Prior ECG tracings: available for review Interpretation: Vent. rate 99 BPM AL interval 168 ms QRS duration 82 ms QT/QTc 358/459 ms P-R-T axes 54 11 45 Normal sinus rhythm Possible Inferior infarct , age undetermined Abnormal ECG When compared with ECG of 19-AUG-2021 18:01, Borderline criteria for Inferior infarct are now Present Discharge Plan Discharge Clinical Impression: Asthma with exacerbation Patient Disposition: Home, Self-Care Instructions: Asthma (ED) Additional Instructions: You were evaluated for asthma exacerbation. Please use albuterol and DuoNebs as needed. Take prednisone 60 mg for the next 5 days. Follow up with Dr. Kruse this week. Thank you for choosing this emergency department for evaluation. Please follow-up with primary care physician as needed. Return to the emergency department for any new, concerning, or worsening symptoms. Prescriptions: New albuterol sulfate 2.5 mg/0.5 mL solution for nebulization 5 mg inhalation Q4H Qty: 90 0RF Rx Instructions: May substitute for medication equivalent accepted by insurance ipratropium-albuterol 0.5 mg-3 mg(2.5 mg base)/3 mL solution for nebulization 3 ml inhalation Q4-6H PRN (Reason: shortness of breath or wheezing) Qty: 90 0RF prednisone 20 mg tablet 60 mg PO DAILY 5 Days Qty: 15 0RF No Action albuterol sulfate [Ventolin HFA] 90 mcg/actuation HFA aerosol inhaler 2 puff PO Q4H PRN (Reason: for wheezing) Qty: 18 12RF Prempro 0.3-1.5 mg tablet 1 tab PO DAILY lorazepam 1 mg tablet 1 mg PO DAILY budesonide-formoterol [Symbicort] 160-4.5 mcg/actuation HFA aerosol inhaler 2 puff inhalation BID 30 Days Qty: 10.2 11RF Creon 12,000-38,000 -60,000 unit capsule,delayed release(DR/EC) 1 cap PO QID Qty: 120 3RF Rx Instructions: administer with meals and/or snacks Interventions: ED Discharge Assessment Last Done: 02/04/22 00:00 Discharge Date/Time: 02/04/22 00:00
[2022-02-03 19:51] LABS: Basophils Percent Auto 0.4 % (0-2); Eosinophils Absolute Auto 0.1 X10*3/uL (0.0-0.4); Eosinophils Percent Auto 0.8 % (0-4); Hematocrit 40.9 % (37.0-47.0); Imm Gran Abs Auto 0.07 X10*3/uL (0.00-0.03); Imm Gran Pct Auto 0.7 % (0.0-0.4); Lymphocytes Absolute Auto 1.3 X10*3/uL (1.2-4.9); Lymphocytes Percent Auto 12.3 % (20-40); Mean Corpuscular HGB Conc 34.2 g/dl (31.0-35.0); Mean Corpuscular Hemoglobin 29.3 pg (27.0-33.0); Mean Corpuscular Volume 85.6 fL (80.0-98.0); Monocytes Absolute Auto 0.8 X10*3/uL (0.1-1.2); Monocytes Percent Auto 7.9 % (2-11); Neutrophils Absolute Auto 8.3 x10*3/uL (2.0-8.3); Neutrophils Percent Auto 77.9 % (45-73); Platelet Count 278 X10*3/uL (160-400); Red Blood Count 4.78 X10*6/uL (4.20-5.50); Red Cell Distribution Width 12.2 % (11.0-16.0); White Blood Count 10.6 X10*3/uL (4.8-10.8)
[2022-02-03] MEDS: methylPREDNISolone Sod Succ 125 MG/2 ML VIAL IVPUSH (20:03)
[2022-02-03] MEDS: Albuterol/Iprat 2.5/0.5MG 3 ML AMPUL.NEB INHALE (20:03)
[2022-02-03] MEDS: Albuterol Sulfate 5 MG, Albuterol Sulfate (0.083%) 2.5 MG 7.5 MG INHALE (20:03)
[2022-02-03] MEDS: Magnesium Sulfate/H2O 2 GM/50 ML PIGGYBACK IV (20:13)
[2022-02-03 20:20] LABS: Alanine Aminotransferase 23 U/L (0-31); Albumin Level 4.1 g/dL (3.5-5.0); Anion Gap 16 (12-20); Aspartate Amino Transferase 11 U/L (5-31); Bilirubin Total 0.3 mg/dL (0.0-1.0); Blood Urea Nitrogen 13 mg/dL (9-16); Calcium 9.4 mg/dL (8.4-10.2); Carbon Dioxide 24 mmol/L (22-29); Chloride 106 mmol/L (96-108); Creatinine Clr Calc Pharmacy 94.9; Estimated Glomerular Filt Rate > 60; Glucose Random 130 mg/dL (60-115); Potassium 3.9 mmol/L (3.3-5.1); Sodium 142 mmol/L (135-145); Total Protein 6.5 g/dL (6.5-8.0); Troponin-I High Sensitivity < 3.5 ng/L (<3.5-17.0)
[2022-02-03 20:28] LABS: Alkaline Phosphatase 99 U/L (39-117)
[2022-02-03 20:30] LABS: Influenza A PCR NEGATIVE (Negative); Influenza B PCR NEGATIVE (Negative); Resp Syncy Virus RNA Qual PCR NEGATIVE (Negative); SARS COV2 PCR INHOUSE NEGATIVE (Negative)
[2022-02-03 20:59] VITALS: BP 107/79; PULSE 102; RESP 20; TEMP 36; O2SAT 98
[2022-02-03] MEDS: Albuterol Sulfate 7.5 MG, Albuterol Sulfate (0.083%) 2.5 MG 10 MG INHALE (21:36)
[2022-02-03 23:00] VITALS: BP 121/63; PULSE 109; RESP 20; TEMP 36.3; O2SAT 95
== END 2022-02-04 | disposition home or self-care (01) ==
PROVIDERS: Nurse Practitioner Family; Emergency Provider Emergency Medicine; PCP Internal Medicine
DX: J45.901 Unspecified asthma with (acute) exacerbation (principal); Z20.822 Contact with and (suspected) exposure to COVID-19
CPT/HCPCS: 0241U; 36415; 71046; 80053; 84484; 85025; 93005; 96365; 96366; 96375; 99284; 99285; J2930; J3475

== ENCOUNTER 2022-02-28 14:05 | Outpatient (REF) | payer OTHER, SELFPAY ==
[2022-03-01 11:25] LABS: CT PCR NOT DETECTED (Not Detect.); NG PCR NOT DETECTED (Not Detect.)
[2022-03-01 12:18] LABS: BV Int Neg Control Negative (Negative); BV Int Pos Control Positive (Positive)
[2022-03-06 22:44] LABS: HPV mRNA E6/E7 rflx Not Detected (Not Detected)
== END 2022-02-28 14:06 | disposition home or self-care (01) ==
LOC: HO.LNP 14:05
PROVIDERS: PCP Internal Medicine; Visit Provider Advanced Practice Midwife
DX: Z01.419 Encounter for gynecological examination (general) (routine) without abnormal findings (principal); Z11.3 Encounter for screening for infections with a predominantly sexual mode of transmission; Z11.51 Encounter for screening for human papillomavirus (HPV); N63.10 Unspecified lump in the right breast, unspecified quadrant
CPT/HCPCS: 87480; 87491; 87510; 87591; 87624; 87660; 88142

== ENCOUNTER 2022-03-12 15:35 | Emergency (ER) | payer OTHER, SELFPAY ==
--- NOTE | ~2022-03-12 | CT_ITS ---
EXAMINATION: CT abdomen pelvis wo IV con CLINICAL INFORMATION: Reason for Exam pt c rlq abd pain c nausea COMPARISON: Prior CT 2017 TECHNIQUE: Multidetector volumetric imaging was performed from the superior aspect of the liver through the pubic symphysis noncontrasted study Sagittal and coronal reformatted images were obtained on the technologist's workstation. This CT examination was performed using dose optimization techniques as appropriate, variously including the following: *Automated exposure control *Adjustment of mA and/or kV according to patient size (this includes techniques or standardized protocols for targeted exams where dose is matched to indication/reason for exam; i.e. extremities or head) *Use of iterative reconstruction technique DLP: 867 mGy-cm FINDINGS: LOWER THORAX: Included lung bases are clear. HEPATOBILIARY: No focal hepatic lesions. No biliary ductal dilatation. GALLBLADDER: There are multiple gallstones. No pericholecystic fluid. SPLEEN: Spleen is normal in size. PANCREAS: No focal mass or ductal dilatation. STOMACH AND GASTROINTESTINAL TRACT: Stomach is grossly unremarkable. There is no bowel distention or thickening. Mild diverticulosis without CT evidence of acute diverticulitis. ADRENALS: No adrenal nodules. KIDNEYS/URETERS: 2 mm nonobstructing stone upper calyx left kidney. No hydronephrosis. Both kidneys otherwise maintain a normal homogeneous texture, perinephric fat remain clear. URINARY BLADDER: Partially decompressed. PELVIC VISCERA: Unremarkable PERITONEUM: No free air or fluid. LYMPH NODES: No lymphadenopathy. VASCULAR:Abdominal aorta normal in size, no aneurysm found. BONES, ABDOMINAL WALL AND SOFT TISSUES: Age-appropriate changes of the spine and skeletal system, no destructive osteolytic or osteosclerotic bone lesion found CT/CT abdomen pelvis wo IV con IMPRESSION: * No CT evidence of acute intra-abdominal process to explain patient's pain symptoms. No evidence of kidney stone or hydronephrosis, no evidence of appendicitis normal appendix identified. * Mild diverticulosis without evidence of acute diverticulitis. * Multiple gallstones, Cholelithiasis. * Tiny 2 mm nonobstructing stone upper calyx left kidney. No hydronephrosis.
--- NOTE | 2022-03-12 17:01 | ED.ABDPAIN ---
HPI - Abdominal Pain General Chief Complaint: Abdominal Pain Stated Complaint: abd pain diarrhea Time Seen by Provider: 03/12/22 20:13 Source: patient Mode of arrival: ambulatory Limitations: no limitations History of Present Illness HPI narrative: 56yoF Esophageal hernia repair x1 year ago presenting to the ED c c/o nausea with rlq abd pain and urinary symptoms since Saturday Night worse today. Denies any fevers, chills, dizziness, headaches, neck pain/stiffness, trouble swallowing breathing, chest pain or shortness of breath, vomiting, palpitations, paresthesias, back pain, hematuria, abnormal vaginal discharge, black or bloody stools, recent travel or sick contacts, rashes or any other symptoms complaints or concerns at this time. MD elicited complaint: abdominal pain Pertinent past history: other (See above) Onset (ago): day(s) (3) Pain Consistency: constant Location: RLQ Severity: moderate Quality: cramping and aching Radiation: none Migration to: no migration Exacerbating factors: nothing Relieving factors: nothing Associated symptoms: nausea Related Data Home Medications Medication Instructions Recorded Confirmed conj estrogen-medroxyprogesterone 1 tab PO DAILY 05/24/20 02/28/22 0.3 mg-1.5 mg tablet (Prempro) prucalopride 2 mg tablet 2 mg PO DAILY 02/21/22 02/28/22 (Motegrity) omeprazole 40 mg capsule,delayed 40 mg PO DAILY 02/28/22 02/28/22 release Previous Rx's Medication Instructions Recorded Ventolin HFA 90 mcg/actuation 2 puff PO Q4H PRN for wheezing #18 09/12/21 aerosol inhaler (albuterol sulfate) grams budesonide-formoterol HFA 160 2 puff inhalation BID 30 days 01/26/22 mcg-4.5 mcg/actuation aerosol #10.2 grams inhaler (Symbicort) albuterol sulfate 2.5 mg/0.5 mL 5 mg inhalation Q4H #90 ea 02/03/22 solution for nebulization ipratropium 0.5 mg-albuterol 3 mg 3 ml inhalation Q4-6H PRN 02/03/22 (2.5 mg base)/3 mL nebulization shortness of breath or wheezing soln #90 mL prednisone 20 mg tablet 60 mg PO DAILY 5 days #15 tabs 02/03/22 nfmrup-odthsaah-rgcoamw 2 cap PO QID #240 caps 02/21/22 12,000-38,000-60,000 unit capsule,delayed rel (Creon) nitrofurantoin 100 mg PO BID 7 days #14 caps 03/12/22 monohydrate/macrocrystals 100 mg capsule (Macrobid) Allergies Allergy/AdvReac Type Severity Reaction Status Date / Time Erythromycin Allergy Mild Rash Verified 02/28/22 14:12 Penicillins Allergy Mild RASH Verified 02/28/22 14:12 ALVARADO Allergy Intermediate WHEEZING Uncoded 01/26/22 15:01 Review of Systems Review of Systems Constitutional : No Weight loss, No Fever, No Chills, No Night Sweats, No Fatigue, No Malaise ENT/Mouth : No Hearing loss, No Ear Pain, No Nasal Congestion, No Sinus Pain, No Hoarseness, No sore throat, No Rhinorrhea, No Swallowing Difficulty Eyes: No Eye Pain, No Swelling, No Redness, No Foreign Body, No Discharge, No Vision Changes Cardiovascular : No Chest Pain, No SOB, No Dyspnea on Exertion, No Orthopnea, No Edema, No Palpitations Respiratory : No Cough, No Sputum, No Wheezing, No Smoke Exposure, No Dyspnea Gastrointestinal : + Nausea, No Vomiting, No Diarrhea, No Constipation, + abdominal Pain, No Hematochezia, No Melena Genitourinary : no irregular bleeding, + Dysuria, + Urinary Frequency, No Hematuria, No Urinary Incontinence, + Urgency, No Flank Pain, No Urinary Flow Changes, No Hesitancy Musculoskeletal : No joint pain, No Myalgias, No Joint Swelling Skin : No Skin Lesions, No rash Neuro : No Weakness, No Numbness, No Paresthesias, No Loss of Consciousness, No Dizziness, No Headache Psych : No Anxiety/Panic, No Depression, No SI/HI/AH/VH, No Social Issues, Heme/Lymph: No Bruising, No Bleeding,No Lymphadenopathy Endocrine : No Polyuria, No Polydipsia, No Temperature Intolerance Yes all other systems are reviewed and are negative [facility] Past Medical History Attestation statement: The following information was validated with the patient. Source: old records reviewed and nursing notes reviewed Medical History Anxiety Asthma Gastroparesis GERD (gastroesophageal reflux disease) Hernia, paraesophageal Hiatal hernia History of COVID-19 Hx of supraventricular tachycardia Incarcerated paraesophageal hernia Obesity Pancreatic insufficiency Pulmonary nodule URI (upper respiratory infection) Surgical History History of bronchoscopy (~1998) History of cardiac radiofrequency ablation (RFA) History of chest tube placement (~1998) Hx of colonoscopy Hx of esophagogastroduodenoscopy Family History Family History Paternal Grandmother Stomach cancer Social History Social History Alcohol intake: never Patient Tobacco Use Status: Never used Tobacco Advance Directives: No Advance Directives Information Provided: No Physical Exam ED Vital Signs: Vital Signs - 24 hr 03/12/22 17:08 03/12/22 20:09 03/12/22 20:09 Temperature 97.9 F 97.9 F 98.0 F Pulse Rate 78 78 78 Respiratory Rate 16 16 16 Blood Pressure 132/78 117/75 117/75 Pulse Oximetry 98 98 99 Oxygen Delivery Method Room Air Room Air Room Air BMI result Body Mass Index 29.2 Vital signs have been reviewed and all within normal limits Appearance: Alert. Oriented X3. No acute distress. Head: Normal external exam. Normocephalic. Eyes: PERRLA. EOMI. Conjunctiva and sclera normal. Eyelids normal. ENT: Pharynx normal. Uvula midline. Moist mucous membranes. No trismus noted. No drooling noted. No muffled voice noted. Neck: Normal inspection. Neck supple. FROM. No adenopathy. No meningeal signs. CVS: Normal heart rate and rhythm. Heart sound normal. No murmurs noted. Pulses normal throughout. Respiratory: No respiratory distress. Painless inspiration. Breath sounds normal. No wheezes/rales/rhonchi noted. Chest nontender. No accessory muscle usage noted or decreased air movement noted. Abdomen: Soft and moderate tenderness to the right flank/right lower quadrant area with guarding. No guarding. No rigidity. Bowel sounds normal in all 4 quadrants. No distention noted. No organomegaly noted. No visible injury noted. No rebound tenderness. Negative Rovsing sign. Negative obturator's sign. Negative psoas sign. Negative Edmonds sign. Back: No CVA tenderness. Full range of motion noted. Skin: Skin warm and dry. Normal skin color. Normal skin turgor. No rashes/lesions/lacerations noted. Extremities: Extremities exhibit normal range of motion. Extremities nontender. Neuro: Oriented X 3. No motor deficit. No sensory deficit. Reflexes normal. Normal steady gait. CN's II-XII intact bilaterally? Course Course Course Narrative: RME-17:02PM 56yoF Esophageal hernia repair x1 year ago presenting to the ED c c/o nausea with rlq abd pain and urinary symptoms since Saturday Night worse today. Denies vomiting. Plan: Will obtain labs, UA, COVID/RSV/flu swab and a CT scan abdomen pelvis. Patient is stable she will be sent back to the waiting room to be evaluated in the ED. Reevaluation(s) Reevaluation #1: Labs reviewed patient with the white blood cell count of 4000. Anion gap 10. Otherwise all other labs are within normal limits. UA revealed trace of leukocytes negative nitrates. Patient negative for COVID/RSV/flu. Otherwise all other labs are within normal limits. CT scan revealed diverticulosis no evidence of diverticulitis. Multiple gallstones. Nonobstructing tiny 2 mm stone in the left kidney no hydronephrosis. Therefore at this time patient can be discharged with antibiotics for UTI and instructions to follow-up with PCP and to return if any new or worsening symptoms. Patient understands agrees with this plan. Time: 20:48 Medical Decision Making Lab Data MDM Lab Attestation statement: I reviewed the patient's lab results. Result Diagrams: 03/12/22 17:59 03/12/22 17:59 Labs: Lab Results 03/12/22 03/12/22 03/12/22 Range/Units 17:59 17:59 17:59 WBC 4.4 L (4.8-10.8) X10*3/uL RBC 4.68 (4.20-5.50) X10*6/uL Hgb 13.5 (12.0-16.0) g/dl Hct 41.2 (37.0-47.0) % MCV 88.0 (80.0-98.0) fL MCH 28.8 (27.0-33.0) pg MCHC 32.8 (31.0-35.0) g/dl RDW 12.5 (11.0-16.0) % Plt Count 194 D (160-400) X10*3/uL MPV 9.9 (9.4-12.3) fL Immature Gran % (Auto) 0.9 H (0.0-0.4) % Neut % (Auto) 61.5 (45-73) % Lymph % (Auto) 24.9 (20-40) % [place] % (Auto) 10.4 (2-11) % Eos % (Auto) 1.6 (0-4) % Baso % (Auto) 0.7 (0-2) % Lymph # (Auto) 1.1 L (1.2-4.9) X10*3/uL Sierra # (Auto) 0.5 (0.1-1.2) X10*3/uL Eos # (Auto) 0.1 (0.0-0.4) X10*3/uL Baso # (Auto) 0.0 (0.0-0.2) X10*3/uL Abs Immat Gran (auto) 0.04 H (0.00-0.03) X10*3/uL Absolute Neuts (auto) 2.7 (2.0-8.3) x10*3/uL Absolute Nucleated RBC 0.000 (0.0-0.012) X10*3/uL Nucleated RBC % (auto) 0.0 (0.0-0.2) /100WBC PT 11.0 (10.0-13.1) SEC INR 1.0 (0.9-1.1) Sodium 141 (135-145) mmol/L Potassium 4.1 (3.3-5.1) mmol/L Chloride 106 (96-108) mmol/L Carbon Dioxide 29 (22-29) mmol/L Anion Gap 10 L (12-20) BUN 9 (9-16) mg/dL Creatinine 0.68 (0.5-1.4) mg/dL Estim Creat Clear Calc 111.2 Estimated GFR > 60 Random Glucose 88 (60-115) mg/dL Calcium 8.9 (8.4-10.2) mg/dL Magnesium 1.8 (1.6-2.6) mg/dL Total Bilirubin 0.4 (0.0-1.0) mg/dL AST 19 (5-31) U/L ALT 22 (0-31) U/L Alkaline Phosphatase 79 (39-117) U/L Total Protein 5.9 L (6.5-8.0) g/dL Albumin 3.7 (3.5-5.0) g/dL Urine Color Urine Appearance Urine pH (5.0-9.0) Ur Specific [place] (1.005-1.025) Urine Protein (Neg-Trace) mg/dL Urine Glucose (UA) (Negative) mg/dL Urine Ketones (Negative) mg/dL Urine Blood (Negative) Urine Nitrite (Negative) Ur Leukocyte Esterase (Negative) Urine RBC (0-2) /HPF Urine WBC (0-5) /HPF Ur Squamous Epith Cells (0-2) /HPF Urine Bacteria (None Seen) Hyaline Casts (0-2) /LPF Influenza Type A (PCR) (Negative) Influenza Type B (PCR) (Negative) RSV RNA Qual (PCR) (Negative) SARS-CoV-2 RNA (RT-PCR) (Negative) 03/12/22 03/12/22 Range/Units 17:59 18:28 WBC (4.8-10.8) X10*3/uL RBC (4.20-5.50) X10*6/uL Hgb (12.0-16.0) g/dl Hct (37.0-47.0) % MCV (80.0-98.0) fL MCH (27.0-33.0) pg MCHC (31.0-35.0) g/dl RDW (11.0-16.0) % Plt Count (160-400) X10*3/uL MPV (9.4-12.3) fL Immature Gran % (Auto) (0.0-0.4) % Neut % (Auto) (45-73) % Lymph % (Auto) (20-40) % Sierra % (Auto) (2-11) % Eos % (Auto) (0-4) % Baso % (Auto) (0-2) % Lymph # (Auto) (1.2-4.9) X10*3/uL Sierra # (Auto) (0.1-1.2) X10*3/uL Eos # (Auto) (0.0-0.4) X10*3/uL Baso # (Auto) (0.0-0.2) X10*3/uL Abs Immat Gran (auto) (0.00-0.03) X10*3/uL Absolute Neuts (auto) (2.0-8.3) x10*3/uL Absolute Nucleated RBC (0.0-0.012) X10*3/uL Nucleated RBC % (auto) (0.0-0.2) /100WBC PT (10.0-13.1) SEC INR (0.9-1.1) Sodium (135-145) mmol/L Potassium (3.3-5.1) mmol/L Chloride (96-108) mmol/L Carbon Dioxide (22-29) mmol/L Anion Gap (12-20) BUN (9-16) mg/dL Creatinine (0.5-1.4) mg/dL Estim Creat Clear Calc Estimated GFR Random Glucose (60-115) mg/dL Calcium (8.4-10.2) mg/dL Magnesium (1.6-2.6) mg/dL Total Bilirubin (0.0-1.0) mg/dL AST (5-31) U/L ALT (0-31) U/L Alkaline Phosphatase (39-117) U/L Total Protein (6.5-8.0) g/dL Albumin (3.5-5.0) g/dL Urine Color Yellow Urine Appearance Clear Urine pH 5.5 (5.0-9.0) Ur Specific [place] 1.025 (1.005-1.025) Urine Protein Negative (Neg-Trace) mg/dL Urine Glucose (UA) Negative (Negative) mg/dL Urine Ketones Trace (Negative) mg/dL Urine Blood Negative (Negative) Urine Nitrite Negative (Negative) Ur Leukocyte Esterase Small (1+) H (Negative) Urine RBC 0-2 (0-2) /HPF Urine WBC 11-20 H (0-5) /HPF Ur Squamous Epith Cells 3-5 (0-2) /HPF Urine Bacteria Trace (None Seen) Hyaline Casts 0-2 (0-2) /LPF Influenza Type A (PCR) NEGATIVE (Negative) Influenza Type B (PCR) NEGATIVE (Negative) RSV RNA Qual (PCR) NEGATIVE (Negative) SARS-CoV-2 RNA (RT-PCR) NEGATIVE (Negative) Independent Interpretation Interpretation: CT scan abdomen pelvis with IV contrast FINDINGS: LOWER THORAX: Included lung bases are clear. HEPATOBILIARY: No focal hepatic lesions. No biliary ductal dilatation. GALLBLADDER: There are multiple gallstones. No pericholecystic fluid. SPLEEN: Spleen is normal in size. PANCREAS: No focal mass or ductal dilatation. STOMACH AND GASTROINTESTINAL TRACT: Stomach is grossly unremarkable. There is no bowel distention or thickening. Mild diverticulosis without CT evidence of acute diverticulitis. ADRENALS: No adrenal nodules. KIDNEYS/URETERS: 2 mm nonobstructing stone upper calyx left kidney. No hydronephrosis. Both kidneys otherwise maintain a normal homogeneous texture, perinephric fat remain clear. URINARY BLADDER: Partially decompressed. PELVIC VISCERA: Unremarkable PERITONEUM: No free air or fluid. LYMPH NODES: No lymphadenopathy. VASCULAR:Abdominal aorta normal in size, no aneurysm found. BONES, ABDOMINAL WALL AND SOFT TISSUES: Age-appropriate changes of the spine and skeletal system, no destructive osteolytic or osteosclerotic bone lesion found CT/CT abdomen pelvis wo IV con IMPRESSION: ? *? No CT evidence of acute intra-abdominal process to explain patient's pain symptoms. No evidence of kidney stone or hydronephrosis, no evidence of appendicitis normal appendix identified. ? *? Mild diverticulosis without evidence of acute diverticulitis. ? *? Multiple gallstones, Cholelithiasis. ? *? Tiny 2 mm nonobstructing stone upper calyx left kidney. No hydronephrosis. ? Discharge Plan Discharge Clinical Impression: UTI (urinary tract infection), Diverticulosis Patient Disposition: Home, Self-Care Instructions: Diverticulosis (ED), Urinary Tract Infection in Women (ED) Prescriptions: New nitrofurantoin monohyd/m-cryst [Macrobid] 100 mg capsule 100 mg PO BID 7 Days Qty: 14 0RF Rx Instructions: must administer with a meal/food No Action albuterol sulfate [Ventolin HFA] 90 mcg/actuation HFA aerosol inhaler 2 puff PO Q4H PRN (Reason: for wheezing) Qty: 18 12RF albuterol sulfate 2.5 mg/0.5 mL solution for nebulization 5 mg inhalation Q4H Qty: 90 0RF Rx Instructions: May substitute for medication equivalent accepted by insurance ipratropium-albuterol 0.5 mg-3 mg(2.5 mg base)/3 mL solution for nebulization 3 ml inhalation Q4-6H PRN (Reason: shortness of breath or wheezing) Qty: 90 0RF prednisone 20 mg tablet 60 mg PO DAILY 5 Days Qty: 15 0RF Prempro 0.3-1.5 mg tablet 1 tab PO DAILY Motegrity 2 mg tablet 2 mg PO DAILY Creon 12,000-38,000 -60,000 unit capsule,delayed release(DR/EC) 2 cap PO QID Qty: 240 3RF Rx Instructions: administer with meals and/or snacks budesonide-formoterol [Symbicort] 160-4.5 mcg/actuation HFA aerosol inhaler 2 puff inhalation BID 30 Days Qty: 10.2 11RF omeprazole 40 mg capsule,delayed release(DR/EC) 40 mg PO DAILY Referrals: Teddy Glasgow MD [Primary Care Provider] - 1 day Interventions: ED Discharge Assessment Last Done: 03/12/22 20:14 Discharge Date/Time: 03/12/22 20:31
[2022-03-12 17:08] VITALS: BP 132/78; PULSE 78; RESP 16; TEMP 36.6; O2SAT 98; BMI 29.2
[2022-03-12 18:05] LABS: MANUAL DIFF FLAG NO
[2022-03-12 18:21] LABS: Basophils Percent Auto 0.7 % (0-2); Eosinophils Absolute Auto 0.1 X10*3/uL (0.0-0.4); Eosinophils Percent Auto 1.6 % (0-4); Hematocrit 41.2 % (37.0-47.0); Hemoglobin 13.5 g/dl (12.0-16.0); Imm Gran Abs Auto 0.04 X10*3/uL (0.00-0.03); Imm Gran Pct Auto 0.9 % (0.0-0.4); Lymphocytes Absolute Auto 1.1 X10*3/uL (1.2-4.9); Lymphocytes Percent Auto 24.9 % (20-40); Mean Corpuscular HGB Conc 32.8 g/dl (31.0-35.0); Mean Corpuscular Hemoglobin 28.8 pg (27.0-33.0); Mean Platelet Volume 9.9 fL (9.4-12.3); Monocytes Absolute Auto 0.5 X10*3/uL (0.1-1.2); Monocytes Percent Auto 10.4 % (2-11); Neutrophils Absolute Auto 2.7 x10*3/uL (2.0-8.3); Neutrophils Percent Auto 61.5 % (45-73); Platelet Count 194 X10*3/uL (160-400); Red Blood Count 4.68 X10*6/uL (4.20-5.50); Red Cell Distribution Width 12.5 % (11.0-16.0); White Blood Count 4.4 X10*3/uL (4.8-10.8)
[2022-03-12 18:23] LABS: Alanine Aminotransferase 22 U/L (0-31); Albumin Level 3.7 g/dL (3.5-5.0); Alkaline Phosphatase 79 U/L (39-117); Anion Gap 10 (12-20); Aspartate Amino Transferase 19 U/L (5-31); Bilirubin Total 0.4 mg/dL (0.0-1.0); Blood Urea Nitrogen 9 mg/dL (9-16); Calcium 8.9 mg/dL (8.4-10.2); Carbon Dioxide 29 mmol/L (22-29); Chloride 106 mmol/L (96-108); Creatinine Clr Calc Pharmacy 111.2; Estimated Glomerular Filt Rate > 60; Glucose Random 88 mg/dL (60-115); Magnesium 1.8 mg/dL (1.6-2.6); Potassium 4.1 mmol/L (3.3-5.1); Sodium 141 mmol/L (135-145); Total Protein 5.9 g/dL (6.5-8.0)
[2022-03-12 18:36] LABS: Appearance Urine Clear; Color Urine Yellow; Glucose Urine UA Negative (Negative); Leukocyte Esterase Urine Small (1+) (Negative); Nitrite Urine Negative (Negative); PH 5.5 (5.0-9.0); Specific Gravity - Urine 1.025 (1.005-1.025); UMIC TRIGGER UACC YES; Urine Blood Negative (Negative); Urine Ketones Trace mg/dL (Negative); Urine Protein Negative (Neg-Trace)
[2022-03-12 18:38] LABS: Bacteria Urine Trace (None Seen); Hyaline Casts Urine 0-2 /LPF (0-2); RBC Urine 0-2 /HPF (0-2); UACC Culture Trigger YES
[2022-03-12 18:47] LABS: Influenza A PCR NEGATIVE (Negative); Influenza B PCR NEGATIVE (Negative); Resp Syncy Virus RNA Qual PCR NEGATIVE (Negative); SARS COV2 PCR INHOUSE NEGATIVE (Negative)
[2022-03-12 20:09] VITALS: BP 117/75; PULSE 78; RESP 16; TEMP 36.6; TEMP 36.7; O2SAT 98; O2SAT 99
--- NOTE | 2022-03-12 20:12 | PC.NURSE ---
pt is wanting to go home and labs and results reviewed with pt with Payal henderson. pt has appointment with gastro tomorrow.
== END 2022-03-12 20:31 | disposition home or self-care (01) ==
PROVIDERS: Physician Assistant Medical; Emergency Provider Internal Medicine; PCP Internal Medicine
DX: K57.90 Diverticulosis of intestine, part unspecified, without perforation or abscess without bleeding (principal); N39.0 Urinary tract infection, site not specified; Z20.828 Contact with and (suspected) exposure to other viral communicable diseases
CPT/HCPCS: 0241U; 36415; 74176; 80053; 81001; 83735; 85025; 85610; 87086; 99283; 99284

== ENCOUNTER 2022-03-26 13:23 | Outpatient (REF) | payer OTHER, SELFPAY ==
--- NOTE | ~2022-03-26 | MM_ITS ---
EXAMINATION: MM DIAGNOSTIC DIGITAL BREAST TOMOSYNTHESIS, BILATERAL US DIAGNOSTIC ULTRASOUND BREAST, RIGHT CLINICAL INFORMATION: Palpable area noted posterior 3:00 right breast. Due for yearly. Family history breast cancer, mother. The lifetime risk of breast cancer based on the Tyrer-Cuzick Model is 19%. COMPARISON: Mammography: 11/23/2020, 11/17/2020, 07/26/2017, 07/19/2017, 11/05/2013 TECHNIQUE: Digital breast tomosynthesis is performed in both the craniocaudal and mediolateral oblique views along with computer-aided detection (CAD). Synthesized 2D images are generated from the tomosynthesis. Additional spot right CC and spot right MLO views are obtained. Ultrasound right breast is targeted to the area of clinical concern posterior medial breast. In addition, additional ultrasound performed periareolar and retroareolar region. Grayscale imaging and color Doppler are performed without and with harmonics. FINDINGS: There are scattered areas of fibroglandular density (ACR BI-RADS breast composition Category b). Parenchymal pattern is similar to prior studies. Breast tissue composition borders on heterogeneously dense. There is no developing density or interval mass or architectural abnormality or abnormal calcifications. There is mild chronic duct ectasia retroareolar right breast. The axilla and skin contours are unremarkable. No skin thickening or coarsening of the Ryan's ligaments. No significant changes. Ultrasound right breast demonstrates no cystic or solid mass or architectural abnormality. No intradermal lesion. No ultrasound correlate for patient's clinical palpable concern. There is chronic mild right retroareolar duct ectasia. No intraluminal echogenicity or lesion or abnormal color flow. Results are discussed with the patient at time of visit. MM/MM tomosynthesis diagnostic BI IMPRESSION: 1. No mammographic evidence of malignancy or significant changes from prior exams. 2. No ultrasound correlate for patient's clinical concern. ASSESSMENT: BI-RADS 2: Benign RECOMMENDATION: -Patient should be managed based on the clinical impression. If clinically indicated, further evaluation may be considered with surgical consult. Decision to proceed with biopsy should be based on clinical grounds and degree of clinical concern. -Otherwise, routine annual screening mammography. This patient's information was entered into a reminder system with a target due date for their next mammogram.
== END 2022-03-26 13:24 | disposition home or self-care (01) ==
LOC: HO.MAMMO 13:23
PROVIDERS: PCP Internal Medicine; Visit Provider Advanced Practice Midwife
DX: N63.15 Unspecified lump in the right breast, overlapping quadrants (principal)
CPT/HCPCS: 76642; 77062; 77066

== ENCOUNTER 2022-07-18 22:22 | Emergency (ER) | payer OTHER, SELFPAY ==
--- NOTE | ~2022-07-18 | XR_ITS ---
EXAMINATION: XR CHEST CLINICAL INFORMATION: Shortness of breath COMPARISON: Chest x-ray 02/03/2022 TECHNIQUE: Frontal portable view of the chest was obtained. 2300 hours FINDINGS: Lungs are clear. No pulmonary vascular congestion. There is no pleural effusion. The heart size is normal. The cardiac and mediastinal contours are normal. Dextroscoliosis upper thoracic spine. There are multilevel degenerative changes of dorsal spine. XR/XR chest 1V IMPRESSION: Unremarkable examination.
--- NOTE | ~2022-07-18 | CT_ITS ---
EXAMINATION: CT ANGIOGRAM OF THE CHEST WITH AND WITHOUT CONTRAST (CT PULMONARY ANGIOGRAM FOR PE) CLINICAL INFORMATION: Reason for Exam s/p hiatal hernia repair, SOB, elevated D-dimer COMPARISON: CTA PE study 04/24/2019, CT chest and abdomen 01/03/2022 TECHNIQUE: Prior to contrast administration, noncontrast localization images were obtained. Subsequently, multidetector volumetric imaging was performed from the thoracic inlet to below the diaphragms following the administration of 65 mL Omnipaque 350 intravenous contrast. No contrast reaction reported Sagittal, coronal, and MIP oblique sagittal reformatted images were obtained on the CT workstation, uploaded to PACS, and reviewed. This CT examination was performed using dose optimization techniques as appropriate, variously including the following: *Automated exposure control *Adjustment of mA and/or kV according to patient size (this includes techniques or standardized protocols for targeted exams where dose is matched to indication/reason for exam; i.e. extremities or head) *Use of iterative reconstruction technique Total exam dose-length product 297 mGy-cm FINDINGS: QUALITY OF STUDY/CONTRAST BOLUS: Bolus is satisfactory. There is considerable motion artifact. PULMONARY ARTERIES: No large pulmonary emboli. THORACIC AORTA: No aneurysm. LUNG: There is left lower lobe consolidation/collapse. No nodules or masses. PLEURA: No pleural effusion or pneumothorax. MEDIASTINUM: Normal heart size. 4 vessel branching pattern of the arch with a separate origin of the left vertebral artery No pericardial effusion. No hilar or mediastinal lymphadenopathy. No evidence of septal bowing or right heart strain. CORONARY ARTERY CALCIFICATION: None visualized on this study. CHEST WALL/AXILLA: No axillary or internal mammary lymphadenopathy. OSSEOUS STRUCTURES: No acute or suspicious osseous abnormality. UPPER ABDOMEN: Unremarkable. No reflux of contrast into the hepatic veins to suggest elevated right heart pressures. CT/CT angio chest PE protocol IMPRESSION: 1. No evidence of large pulmonary emboli. 2. Left lower lobe consolidation/collapse. VTE: Negative, but limited.
[2022-07-18 22:25] VITALS: BP 126/74; PULSE 83; RESP 16; TEMP 36.8; O2SAT 96; BMI 28.7
--- NOTE | 2022-07-18 22:28 | ECG_ITS ---
Test Reason : sob Blood Pressure : / mmHG Vent. Rate : 074 BPM Atrial Rate : 074 BPM P-R Int : 194 ms QRS Dur : 092 ms QT Int : 386 ms P-R-T Axes : 034 -14 002 degrees QTc Int : 428 ms Normal sinus rhythm Normal ECG When compared with ECG of 03-FEB-2022 19:51, T wave inversion now evident in Inferior leads Referred By: Generic ED Physician Electronically Signed By:DOLLY OWUSU
[2022-07-18 23:00] LABS: MANUAL DIFF FLAG NO
[2022-07-18 23:04] LABS: Basophils Absolute Auto 0.1 X10*3/uL (0.0-0.2); Basophils Percent Auto 0.7 % (0-2); Eosinophils Absolute Auto 0.2 X10*3/uL (0.0-0.4); Eosinophils Percent Auto 2.6 % (0-4); Imm Gran Abs Auto 0.02 X10*3/uL (0.00-0.03); Imm Gran Pct Auto 0.2 % (0.0-0.4); Lymphocytes Absolute Auto 2.3 X10*3/uL (1.2-4.9); Lymphocytes Percent Auto 26.7 % (20-40); Mean Corpuscular HGB Conc 33.3 g/dl (31.0-35.0); Mean Corpuscular Hemoglobin 29.2 pg (27.0-33.0); Mean Corpuscular Volume 87.7 fL (80.0-98.0); Mean Platelet Volume 9.7 fL (9.4-12.3); Monocytes Absolute Auto 0.4 X10*3/uL (0.1-1.2); Monocytes Percent Auto 4.4 % (2-11); Neutrophils Absolute Auto 5.5 x10*3/uL (2.0-8.3); Neutrophils Percent Auto 65.4 % (45-73); Platelet Count 307 X10*3/uL (160-400); Red Blood Count 4.79 X10*6/uL (4.20-5.50); Red Cell Distribution Width 12.7 % (11.0-16.0); White Blood Count 8.5 X10*3/uL (4.8-10.8)
[2022-07-18 23:18] LABS: Anion Gap 12 (12-20); Blood Urea Nitrogen 11 mg/dL (9-16); Calcium 8.9 mg/dL (8.4-10.2); Carbon Dioxide 23 mmol/L (22-29); Chloride 112 mmol/L (96-108); Creatinine Clr Calc Pharmacy 111.8; Estimated Glomerular Filt Rate > 60; Glucose Random 125 mg/dL (60-115); Sodium 143 mmol/L (135-145)
[2022-07-18 23:19] VITALS: BP 117/70; PULSE 78; RESP 16; TEMP 36.8; O2SAT 96
[2022-07-18 23:24] LABS: Troponin-I High Sensitivity < 2.7 ng/L (<3.5-17.0)
[2022-07-18 23:27] LABS: COVID-19 Test Negative (Negative); IDNOW Serial# 08D9AD1C; IDNOW Serial# BCCEAD1C; Influenza A Negative (Negative); Influenza B2 Negative (Negative)
[2022-07-18 23:46] LABS: Prothrombin Time 11.3 SEC (10.0-13.1)
[2022-07-18 23:48] LABS: D Dimer High Sensitivity 373 NG/ML
--- NOTE | 2022-07-18 23:49 | ED_ITS ---
HPI - SOB/Dyspnea General Chief Complaint: Dyspnea Stated Complaint: Trouble breathing, sharp chest pain, on Blood thin Time Seen by Provider: 07/18/22 23:20 Source: patient and family Mode of arrival: ambulatory Limitations: no limitations History of Present Illness HPI Narrative: A 56-year-old female came in for evaluation in for shortness of breath. Started 2 days ago with intermittent episode of shortness of breath and having difficulty to take a deep breath with pleuritic chest pain when she takes a deep breath more to the left side of the chest, Patient had paraesophageal hernia repair with cholecystectomy surgery done 2 weeks ago patient is taking Eliquis for DVT/PE prevention patient confirm compl iance with the medication. Patient never had a history of DVT or PE. Related Data Home Medications Medication Instructions Recorded Confirmed conj estrogen-medroxyprogesterone 1 tab PO DAILY 05/24/20 02/28/22 0.3 mg-1.5 mg tablet (Prempro) prucalopride 2 mg tablet 2 mg PO DAILY 02/21/22 02/28/22 (Motegrity) omeprazole 40 mg capsule,delayed 40 mg PO DAILY 02/28/22 02/28/22 release Previous Rx's Medication Instructions Recorded Ventolin HFA 90 mcg/actuation 2 puff PO Q4H PRN for wheezing #18 09/12/21 aerosol inhaler (albuterol sulfate) grams budesonide-formoterol HFA 160 2 puff inhalation BID 30 days 01/26/22 mcg-4.5 mcg/actuation aerosol #10.2 grams inhaler (Symbicort) albuterol sulfate 2.5 mg/0.5 mL 5 mg inhalation Q4H #90 ea 02/03/22 solution for nebulization ipratropium 0.5 mg-albuterol 3 mg 3 ml inhalation Q4-6H PRN 02/03/22 (2.5 mg base)/3 mL nebulization shortness of breath or wheezing soln #90 mL prednisone 20 mg tablet 60 mg PO DAILY 5 days #15 tabs 02/03/22 [id number]-hmjvxkqw-[id number] 2 cap PO QID #240 caps 02/21/22 12,000-38,000-60,000 unit capsule,delayed rel (Creon) nitrofurantoin 100 mg PO BID 7 days #14 caps 01/02/23 monohydrate/macrocrystals 100 mg capsule (Macrobid) doxycycline hyclate 100 mg tablet 100 mg PO BID #20 tabs 07/19/22 Allergies Allergy/AdvReac Type Severity Reaction Status Date / Time erythromycin base Allergy Mild Rash Verified 05/22/22 10:17 Penicillins Allergy Mild Rash Verified 05/22/22 10:17 ALVARADO Allergy Intermediate Wheezing Uncoded 05/22/22 10:17 Review of Systems Review of Systems: All other systems are reviewed and are negative Constitutional: Reports as per HPI and Reports no additional constitutional complaints Eyes: Reports as per HPI and Reports no additional eye complaints Reports system reviewed and no additional complaints, except as documented Cardiovascular: Reports as per HPI and Reports no additional cardiovascular complaints Respiratory: Reports as per HPI and Reports no additional respiratory complaints Gastrointestinal: Reports as per HPI and Reports no additional gastrointestinal complaints Genitourinary: Reports no additional female genitourinary complaints Musculoskeletal: Reports no additional musculoskeletal complaints Skin/Breast: Reports system reviewed and no additional complaints, except as docu Psychiatric: Reports no additional psychiatric complaints Endocrine: Reports no additional endocrine complaints Hematologic/Lymphatic: Reports no additional hematologic/lymphatic complaints Allergic/Immunologic: Reports no additional allergic/immunologic complaints Reports system reviewed and no additional complaints, except as documented and Reports Abnormal speech present [facility] Past Medical History Medical History Anxiety Asthma Gastroparesis GERD (gastroesophageal reflux disease) Hernia, paraesophageal Hiatal hernia History of COVID-19 Hx of supraventricular tachycardia Incarcerated paraesophageal hernia Obesity Pancreatic insufficiency Pulmonary nodule URI (upper respiratory infection) Surgical History History of bronchoscopy (~1998) History of cardiac radiofrequency ablation (RFA) History of chest tube placement (~1998) Hx of colonoscopy Hx of esophagogastroduodenoscopy Family History Family History Paternal Grandmother Stomach cancer Social History Social History Alcohol intake: never Patient Tobacco Use Status: Never used Tobacco Advance Directives: No Advance Directives Information Provided: No Physical Exam Vital Signs: Vital Signs: Last Vital Signs Temp 98.3 F 07/18/22 23:19 Pulse 71 07/19/22 01:30 Resp 16 07/19/22 01:30 BP 105/60 07/19/22 01:30 Pulse Ox 96 07/19/22 01:30 O2 Del Method Room Air 07/19/22 01:30 BMI result Body Mass Index 28.7 Vital signs have been reviewed as appeared to be correct. Blood pressure normal. Heart rate normal. Respiration rate normal. Temperature normal. Oxygen saturation normal. Appearance: Alert. Oriented X3. No acute distress. Head: Normal external exam. Normocephalic. Atraumatic. No Sharp signs noted. No raccoon eyes noted Eyes: PERRLA. EOMI. Conjunctiva and sclera normal. Eyelids normal. ENT: TM's Normal. Pharynx normal. Uvula midline. Moist mucous membranes. No trismus noted. No drooling noted. No muffled voice noted. Neck: Normal inspection. Neck supple. FROM. No adenopathy. Thyroid Normal. No meningeal signs. No neck mass noted. CVS: Normal heart rate and rhythm. Heart sound normal. No murmurs noted. Pulses normal throughout. Respiratory: No respiratory distress. Painless inspiration. Breath sounds normal. No wheezes/rales/rhonchi noted. Chest nontender. No accessory muscle usage noted or decreased air movement noted. Abdomen: Soft and nontender. Bowel sounds normal in all 4 quadrants. No distention noted. No organomegaly noted. No visible injury noted. Back: No CVA tenderness. Full range of motion noted. Skin: Skin warm and dry. Normal skin color. Normal skin turgor. No rashes/lesions/lacerations noted. Extremities: No lower extremity edema. Extremities exhibit normal range of motion. Extremities nontender. Neuro: Oriented X 3. Cranial nerve exam: II-XII are grossly intact No motor deficit. No sensory deficit. Reflexes normal. Course Course Course Narrative: 56-year-old female came in with shortness of breath had a paraesophageal hernia repair 2 weeks ago, slight elevation of D-dimer but the CT angiogram is showing no pulmonary embolism possible left lower lung pneumonia versus collapsed lung patient was advised to use incentive spirometer daily and that will cover with antibiotic (doxycycline is the best choice for the patient with her pen allergy history to antibiotic) Medications Administered Discontinued Medications Generic Name Dose Route Start Last Admin Trade Name Freq PRN Reason Stop Dose Admin Iohexol 65 ml 07/19/22 00:43 07/19/22 00:44 Iohexol 350 Mg/Ml 100 Ml Infus..Btl IV 07/19/22 00:44 65 ml ONCE ONE Administration Medical Decision Making Differential Diagnosis Differential Diagnoses: The differential diagnosis associated with the presen tation includes (Pneumonia, pulmonary embolism, pneumothorax, severe pulmonary effusion, electrolyte abnormality, severe anemia.) Admission/Observation Consideration of admission/observation: Escalation of care including admission/observation considered Lab Data MDM Lab Attestation statement: I reviewed the patient's lab results. 07/18/22 22:44 07/18/22 22:44 Labs: Lab Results 07/18/22 07/18/22 07/18/22 Range/Units 22:44 22:44 22:44 WBC 8.5 (4.8-10.8) X10*3/uL RBC 4.79 (4.20-5.50) X10*6/uL Hgb 14.0 (12.0-16.0) g/dl Hct 42.0 (37.0-47.0) % MCV 87.7 (80.0-98.0) fL MCH 29.2 (27.0-33.0) pg MCHC 33.3 (31.0-35.0) g/dl RDW 12.7 (11.0-16.0) % Plt Count 307 D (160-400) X10*3/uL MPV 9.7 (9.4-12.3) fL Immature Gran % (Auto) 0.2 (0.0-0.4) % Neut % (Auto) 65.4 (45-73) % Lymph % (Auto) 26.7 (20-40) % Cocke % (Auto) 4.4 (2-11) % Eos % (Auto) 2.6 (0-4) % Baso % (Auto) 0.7 (0-2) % Lymph # (Auto) 2.3 (1.2-4.9) X10*3/uL Cocke # (Auto) 0.4 (0.1-1.2) X10*3/uL Eos # (Auto) 0.2 (0.0-0.4) X10*3/uL Baso # (Auto) 0.1 (0.0-0.2) X10*3/uL Abs Immat Gran (auto) 0.02 (0.00-0.03) X10*3/uL Absolute Neuts (auto) 5.5 (2.0-8.3) x10*3/uL Absolute Nucleated RBC 0.000 (0.0-0.012) X10*3/uL Nucleated RBC % (auto) 0.0 (0.0-0.2) /100WBC PT 11.3 (10.0-13.1) SEC INR 1.0 (0.9-1.1) D-Dimer High Sensitivty 373 NG/ML Sodium 143 (135-145) mmol/L Potassium 4.0 (3.3-5.1) mmol/L Chloride 112 H (96-108) mmol/L Carbon Dioxide 23 (22-29) mmol/L Anion Gap 12 (12-20) BUN 11 (9-16) mg/dL Creatinine 0.67 (0.5-1.4) mg/dL Estim Creat Clear Calc 111.8 Estimated GFR > 60 Random Glucose 125 H (60-115) mg/dL Calcium 8.9 (8.4-10.2) mg/dL Troponin I High Sens (<3.5-17.0) ng/L COVID-19 (MIO) (Negative) COVID-19 Clin Com Influenza Type A (JUSTINE) (Negative) Influenza Type B (JUSTINE) (Negative) Influenza A & B Note 07/18/22 07/18/22 07/18/22 Range/Units 22:44 22:44 22:44 WBC (4.8-10.8) X10*3/uL RBC (4.20-5.50) X10*6/uL Hgb (12.0-16.0) g/dl Hct (37.0-47.0) % MCV (80.0-98.0) fL MCH (27.0-33.0) pg MCHC (31.0-35.0) g/dl RDW (11.0-16.0) % Plt Count (160-400) X10*3/uL MPV (9.4-12.3) fL Immature Gran % (Auto) (0.0-0.4) % Neut % (Auto) (45-73) % Lymph % (Auto) (20-40) % Cocke % (Auto) (2-11) % Eos % (Auto) (0-4) % Baso % (Auto) (0-2) % Lymph # (Auto) (1.2-4.9) X10*3/uL Cocke # (Auto) (0.1-1.2) X10*3/uL Eos # (Auto) (0.0-0.4) X10*3/uL Baso # (Auto) (0.0-0.2) X10*3/uL Abs Immat Gran (auto) (0.00-0.03) X10*3/uL Absolute Neuts (auto) (2.0-8.3) x10*3/uL Absolute Nucleated RBC (0.0-0.012) X10*3/uL Nucleated RBC % (auto) (0.0-0.2) /100WBC PT (10.0-13.1) SEC INR (0.9-1.1) D-Dimer High Sensitivty NG/ML Sodium (135-145) mmol/L Potassium (3.3-5.1) mmol/L Chloride (96-108) mmol/L Carbon Dioxide (22-29) mmol/L Anion Gap (12-20) BUN (9-16) mg/dL Creatinine (0.5-1.4) mg/dL Estim Creat Clear Calc Estimated GFR Random Glucose (60-115) mg/dL Calcium (8.4-10.2) mg/dL Troponin I High Sens < 2.7 (<3.5-17.0) ng/L COVID-19 (MIO) Negative (Negative) COVID-19 Clin Com See Note Influenza Type A (JUSTINE) Negative (Negative) Influenza Type B (JUSTINE) Negative (Negative) Influenza A & B Note See Note Independent Interpretation I performed an independent interpretation of an: CT Scan (CT chest angiogram:1. No evidence of large pulmonary emboli. 2. Left lower lobe consolidation/collapse. ) Radiology Impression Discussion of test interpretation with radiology: I have reviewed the radiologist's reading. Scores Heart Score History: -0- slightly suspicious ECG: -0- normal Age: -1- >45 - <65 Risk factory: -0- no risk factors known Troponin: -0- < or = normal limit Score: 1 Risk: 1.7% Wells PE Immobilization or surgery within 4 weeks: 1.5 Score: 1.5 2-tier Risk: unlikely risk (5%) 3-tier Risk: low risk (3.4%) Discharge Plan Discharge Clinical Impression: Pneumonia Patient Disposition: Home, Self-Care Instructions: Pneumonia (ED) Additional Instructions: Use incentive spirometry 10 times every 2 hours. Take antibiotic as prescribed. Follow-up with the thoracic surgeon as scheduled in 2 days. Prescriptions: New doxycycline hyclate 100 mg tablet 100 mg PO BID Qty: 20 0RF No Action albuterol sulfate [Ventolin HFA] 90 mcg/actuation HFA aerosol inhaler 2 puff PO Q4H PRN (Reason: for wheezing) Qty: 18 12RF albuterol sulfate 2.5 mg/0.5 mL solution for nebulization 5 mg inhalation Q4H Qty: 90 0RF Rx Instructions: May substitute for medication equivalent accepted by insurance ipratropium-albuterol 0.5 mg-3 mg(2.5 mg base)/3 mL solution for nebulization 3 ml inhalation Q4-6H PRN (Reason: shortness of breath or wheezing) Qty: 90 0RF prednisone 20 mg tablet 60 mg PO DAILY 5 Days Qty: 15 0RF nitrofurantoin monohyd/m-cryst [Macrobid] 100 mg capsule 100 mg PO BID 7 Days Qty: 14 0RF Rx Instructions: must administer with a meal/food Prempro 0.3-1.5 mg tablet 1 tab PO DAILY Motegrity 2 mg tablet 2 mg PO DAILY Creon 12,000-38,000 -60,000 unit capsule,delayed release(DR/EC) 2 cap PO QID Qty: 240 3RF Rx Instructions: administer with meals and/or snacks budesonide-formoterol [Symbicort] 160-4.5 mcg/actuation HFA aerosol inhaler 2 puff inhalation BID 30 Days Qty: 10.2 11RF omeprazole 40 mg capsule,delayed release(DR/EC) 40 mg PO DAILY Referrals: Teddy Glasgow MD [Primary Care Provider] -
[2022-07-19] MEDS: iohexoL 350 MG/ML 100 ML INFUS..BTL 65 ML IV (00:44)
[2022-07-19 01:30] VITALS: BP 105/60; PULSE 71; RESP 16; O2SAT 96
[2022-07-19] MEDS: Doxycycline Monohydrate 100 MG CAPSULE PO (02:39)
== END 2022-07-19 02:40 | disposition home or self-care (01) ==
PROVIDERS: Emergency Provider Emergency Medicine; PCP Internal Medicine
DX: J18.9 Pneumonia, unspecified organism (principal); Z20.822 Contact with and (suspected) exposure to COVID-19; R06.02 Shortness of breath; Z79.899 Other long term (current) drug therapy
CPT/HCPCS: 71045; 71275; 80048; 84484; 85025; 85379; 85610; 87502; 87635; 93005; 94010; 99284; Q9967

== ENCOUNTER → 2022-07-25 08:52 | Outpatient (BNVA) | payer OTHER, SELFPAY | PROVIDERS: PCP Internal Medicine; Visit Provider Nurse Practitioner Family ==

== ENCOUNTER 2022-08-07 12:16 | Outpatient (REF) | payer OTHER, SELFPAY ==
--- NOTE | ~2022-08-07 | XR_ITS ---
EXAMINATION: XR CHEST CLINICAL INFORMATION: Reason for Exam J18.9 - Pneumonia, unspecified organism COMPARISON: Chest radiograph 07/18/2022 TECHNIQUE: 2 views of the chest FINDINGS: Lines and tubes: None. Streaky left basilar opacities likely reflect atelectasis. No pleural effusion. No pneumothorax. Normal cardiomediastinal silhouette. Dextro convex curvature of the lumbar spine. XR/XR chest 2V IMPRESSION: Streaky left basilar opacities likely reflect atelectasis.
== END 2022-08-07 12:17 | disposition home or self-care (01) ==
LOC: HO.XRAY 12:16
PROVIDERS: Visit Provider Nurse Practitioner Family
DX: J18.9 Pneumonia, unspecified organism (principal)
CPT/HCPCS: 71046

== ENCOUNTER 2022-10-02 14:39 | Outpatient (REF) | payer OTHER, SELFPAY ==
[2022-10-02 17:38] LABS: Estimated Average Glucose 97 mg/dL
[2022-10-02 19:41] LABS: Insulin 9 uU/mL (2-29)
[2022-10-03 18:28] LABS: C Peptide 3.76 ng/mL (0.80-3.85)
[2022-10-09 18:03] LABS: Insulin Auto Antibody <0.4 U/mL (<0.4)
== END 2022-10-02 14:40 | disposition home or self-care (01) ==
LOC: HO.LAB 14:39
PROVIDERS: PCP Internal Medicine; Visit Provider Nurse Practitioner Family
DX: E16.2 Hypoglycemia, unspecified (principal); K86.89 Other specified diseases of pancreas; K31.84 Gastroparesis; K21.00 Gastro-esophageal reflux disease with esophagitis, without bleeding
CPT/HCPCS: 36415; 83036; 83525; 84681; 86337

== ENCOUNTER 2022-10-02 14:39 | Outpatient (AMB) | payer OTHER, SELFPAY ==
[2022-10-02 14:46] VITALS: BP 110/61; PULSE 87; BMI 31.1
--- NOTE | 2022-10-02 14:46 | A.OFFVIS_ITS ---
Intake Vital Signs 10/02/22 14:46 Height 5 ft 10 in Weight 216 lb 7.903 oz BMI 31.1 BP 110/61 Blood Pressure Location Lt brachial Position Sitting Pulse 87 Intake Visit Reasons: 3 months follow up Intake Note: Martina presents in office as a est.patient for a 3month f/u for GERD. PT CC: pt reports having constipation/diarrhea, abdominal pain, bloating pt denies any other GI Issues Oncology Pharmacist Required: No Accompanied by: Self / Same As Patient Allergies erythromycin base Allergy (Mild, Verified 10/02/22 14:47) Rash Penicillins Allergy (Mild, Verified 10/02/22 14:47) Rash ALVARADO Allergy (Intermediate, Uncoded 10/02/22 14:47) Wheezing HPI 3 months follow up HPI Details LAST VISIT: Gastroparesis Continue small meals and more frequent. Follow gastroparesis diet GERD (gastroesophageal reflux disease) Continue omeprazole daily. Discussed with patient avoiding dietary triggers and late night snacking. Staying upright for minimal 3 hours after meals discussed with patient. Pancreatic insufficiency Continue Creon. Patient may increase the dose to 2 tablets before meals. I will see her in 3 months, sooner on as needed basis. Patient is agreeable to this plan and she was opportunity ask questions all questions answered. ? Thank you for allowing me to participate in her care Plan Medications Changed From vvhoeu-waumqpgc-eoimbma 12,000-38,000 -60,000 unit administer with meals and/or snacks 1 cap PO QID 120 caps 3RF R10.9 To fqzphx-fsbuzzip-szmrrwy 12,000-38,000 -60,000 unit (Creon) administer with meals and/or snacks 2 caps PO QID 240 caps 3RF R10.9 Notes from patient's bariatric surgeon from [place]: Patient was noted to have recurrent hiatal hernia. The sutures had pulled through. There was a large defect on yearly and a small defect posteriorly. The fundoplication appears to have been either or incomplete. Work was then performed on the hiatus. When the fundoplication was taking down was noted that the posterior vagus nerves was incorporated into that fundoplication suture. 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 Dissection was performed at that point. Bio mesh was placed to reinforce the repair and anchored. Cholecystectomy was performed there were adhesions of the omentum to the right lobe of the Liver and of the gallbladder. TODAY'S VISIT Patient is here today for follow-up. Patient was discharged by bariatric services in [facility]. Her hernia was repaired again in June. Patient has been experiencing low blood sugars frequently. Stopped taking Creon, will repeat pancreatic elastase today. Patient will need a referral to endocrinology. Patient reports occasional abdominal bloating sometimes loose stools and sometimes constipation. Depending on what she eats. Patient is tryi ng to eat protein, avoids carbs. Patient denies any nausea or vomiting. Patient reports that her blood sugar last week was 20 and that was after she ate. [facility] Medical History Anxiety Asthma Gastroparesis GERD (gastroesophageal reflux disease) Hernia, paraesophageal Hiatal hernia History of COVID-19 Hx of supraventricular tachycardia Incarcerated paraesophageal hernia Obesity Pancreatic insufficiency Pulmonary nodule URI (upper respiratory infection) Surgical History History of bronchoscopy (~1998) History of cardiac radiofrequency ablation (RFA) History of chest tube placement (~1998) Hx of colonoscopy Hx of esophagogastroduodenoscopy Family History Paternal Grandmother Stomach cancer Social History Alcohol intake: never Patient Tobacco Use Status: Never used Tobacco Female Reproductive History Menstrual Age of Menarche: 10 Review of Systems Const Denies weight gain and Denies weight loss ENT Reports no additional complaints, Denies dysphagia and Denies odynophagia Card Reports no additional complaints Resp Reports no additional complaints GI Reports abdominal pain (Epigastric), Denies belching, Denies melena, Reports bloating, Reports constipation, Denies dysphagia, Denies excessive flatus, Denies dyspepsia, Denies heartburn, Denies diarrhea, Reports loose stools, Denies nausea, Denies odynophagia and Denies vomiting Reports no additional complaints Musc Reports no additional complaints Neuro Reports no additional complaints Psych Reports no additional complaints Endo Reports no additional complaints Physical Exam Vital Signs: Last Vital Signs Pulse 87 10/02/22 14:46 BP 110/61 10/02/22 14:46 BMI result Body Mass Index 31.1 Const General: healthy appearing, no acute distress and well developed Nutritional Appearance: obese Orientation/consciousness: patient oriented x3 HEENT Head: Yes normal to inspection, Yes normocephalic and Yes atraumatic Face and sinus: Yes normal facial exam Mouth: Normal oral and palatal mucosa present Throat: Yes posterior oropharynx normal, Yes tonsils normal and Yes uvula midline Eyes General: appearance normal, both eyes and all related structures Neck Neck: Yes normal visual inspection, Yes full ROM and Yes trachea midline Thyroid: Thyroid normal Resp Effort & Inspection: normal respiratory effort, able to speak in complete sentences, no tracheal deviation and symmetric chest movement Auscultation: clear to auscultation bilaterally Cardio Rate: regular rate Heart sounds: S1 normal heart sound present and S2 normal heart sound present GI Inspection: Yes normal to inspection, No distended and Yes obesity Palpation (GI): Soft to palpation, not firm, nontender and No hepatosplenomegaly present Auscultation: normal bowel sounds General: Yes no CVA tenderness Back/Spine/Pelvis Back: no CVA tenderness Skin General skin exam: elasticity normal, turgor normal and dry skin Neuro General: patient oriented x3 Psych Appearance: grossly normal Mental Status: mental status grossly normal Speech and movement: Normal speech and movement present Affect: normal affect Assessment & Plan Assessment & Plan (1) Hypoglycemia: Code(s): E16.2 - Hypoglycemia, unspecified Plan: Referral to endocrinology (2) Pancreatic insufficiency: Code(s): K86.89 - Other specified diseases of pancreas Plan: Will repeat pancreatic elastase again to rule out pancreatic insufficiency. (3) Gastroparesis: Code(s): K31.84 - Gastroparesis Plan: Continue small amount of food. Avoid fiber. Gastroparesis diet encouraged (4) GERD (gastroesophageal reflux disease): Code(s): K21.9 - Gastro-esophageal reflux disease without esophagitis Qualifiers: Esophagitis presence: with esophagitis Esophagitis bleeding: without hemorrhage Qualified Code(s): K21.00 - Gastro-esophageal reflux disease with esophagitis, without bleeding Plan: Continue omeprazole. Avoid dietary triggers and late night snacking. Staying upright for minimum 3 hours after meals discussed with patient. Patient will follow-up in 6 months, sooner on as needed basis. Patient is agreeable to this plan and verbalizes understanding of instructions. He was given the opportunity to ask questions and all questions answered. Thank you for allowing me to participate in her care Orders: Orders C Peptide Today E16.2 - Hypoglycemia, unspecified Hemoglobin A1c Today E16.2 - Hypoglycemia, unspecified Insulin Today E16.2 - Hypoglycemia, unspecified Insulin Auto Antibody Today E16.2 - Hypoglycemia, unspecified Pancreatic Elastase-1 Today R10.9 - Unspecified abdominal pain Referrals Endocrinology Referral E16.2 - Hypoglycemia, unspecified Coding Level of Care Code Est Pt Level 4 (06129) Diagnoses Hypoglycemia E16.2 Pancreatic insufficiency K86.89 Gastroparesis K31.84 GERD (gastroesophageal reflux disease) K21.00 Esophagitis presence: with esophagitis Esophagitis bleeding: without hemorrhage Time Spent (min) 40 Comment 20 minutes spent with patient and additional 20 minutes spent reviewing her records
== END 2022-10-02 15:18 | disposition home or self-care (01) ==
PROVIDERS: PCP Internal Medicine; Visit Provider Nurse Practitioner Family
DX: E16.2 Hypoglycemia, unspecified (principal); K86.89 Other specified diseases of pancreas; K31.84 Gastroparesis; K21.00 Gastro-esophageal reflux disease with esophagitis, without bleeding
CPT/HCPCS: 99214

== ENCOUNTER 2023-04-26 14:20 | Outpatient (AMB) | payer OTHER, SELFPAY ==
[2023-04-26 14:24] VITALS: BP 110/80; PULSE 92; O2SAT 98
--- NOTE | 2023-04-26 14:24 | MHC.OFFVIS ---
Intake Vital Signs 04/26/23 14:24 Height 5 ft 10 in BP 110/80 Blood Pressure Location Lt brachial Position Sitting Pulse 92 Pulse Source Pulse Oximeter Pulse Oximetry (%) 98 Oxygen Delivery Method Room Air Intake Visit Reasons: Asthma follow-up Intake Note: pt is here for follow up and states she is getting something, took double treatment this am and put on mucinex. She feels tight. Azure Developer Required: No Allergies erythromycin base Allergy (Mild, Verified 04/26/23 14:27) Rash Penicillins Allergy (Mild, Verified 04/26/23 14:27) Rash ALVARADO Allergy (Intermediate, Uncoded 04/26/23 14:27) Wheezing HPI HPI Comments History of Present Illness Details Patient is a 57 you woman with severe persistent asthma now with asthma COPD overlap syndrome. She is without better at this time. However, about 3-4 weeks ago she significant worsening of respiratory status with wheezing. Her peak flows went from 400 to 200 ml which is very concerning. Only new change was her rescue inhaler when from Ventolin 2 albuterol HFA. Once the patient realized that the albuterol HFA was worsen respiratory status she went back to Ventolin to find out of pocket symptoms improved dramatically and her peak flow normalized. Therefore, it appears the patient could not tolerate the albuterol HFA or ProAir inhaler. We will resend the Ventolin and will make sure that she only is provided Ventolin. Patient also started on Daliresp. This appears to be affecting beneficial. She does have some GI symptoms is able to tolerated. Discussed decrease her exacerbations dramatically she has not required prednisone as much. She did need it when she was on the albuterol HFA inhaler. Has been using the Advair Diskus for about 20-25 years and has been working well. She will continue on this medicine for now. It appears that she does have a moderate obstructive ventilatory defect consistent with asthma COPD overlap syndrome. She would like to know if she is a candidate for biologic therapy. Continue pursuing this with additional blood work. She still requiring high doses of prednisone because of the significant wheezing and shortness of breath. She has gained significant weight. Initially she had RSV and then she developed influenza and still having significant inflammation to the airways. In addition to that she has had some irritation to the throat. She has a history of vocal cord polyps. She is wondering if any vocal cord dysfunction could also be attributing to her symptoms. Her CTA was negative for blood clots although did have some evidence of was a pattern bronchiolitis. She also has a hiatal hernia. She continues to be symptomatic with hiatal hernia. Sometimes she wakes up with significant reflux and needs to take Tums in addition to having her on the very aggressive reflux diet and also taking the promotility agents as well as her PPIs. The patient will looking to getting some risers for her bed. In the meantime she is going to follow-up with ENT and will have a laryngoscopy. If her overall status is not better she still having issues with wheezing and coughing a bronchoscopy may be warranted further airway survey for both diagnostic and therapeutic purposes. 05/29/2019 the patient had a telephone visit. She still having difficulties with her breathing. 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 Did start her on prednisone suspension swish and swallow. She has been doing this now for a week or more she has not noticed any significant improvement. She has also noticed decreasing her peak flow some increasing shortness of breath. She has been using the azithromycin Saturday and Saturday with no real significant improvement that she can say. She has been on chronic prednisone and therefore difficult to assess her eosinophils or other allergy testing. And she has significant severe persistent asthma and would benefit from high biologic therapy. In the meantime with respiratory symptoms and her underlying severe obstructive airway disease the patient is to avoid direct patient contact anterior next appointment it july of this year. 05/24/2020 the patient is here for pulmonary follow-up visit. Overall she her respiratory status has improved dramatically. Back last year she had been on multiple courses of prednisone and multiple readmissions to the hospital with significant asthma. She did have a CT scan of the chest at that time demonstrating some bronchiolitis and also moderate hiatal hernia. She continues to have significant heartburn symptoms. She has been using omeprazole once a day then recently increased to twice a day. She does have a position of bed tries to sleep elevated. She does not need to lay. She is to also try to cut down some of the foods that cause her to have worsening reflux. We did go through the list of concerning foods and beverages. Unfortunately she would love [place] water. She sometimes have sub to 11 bottles of [place] water a day. The patient will try to cut down drastically and not in addition to making other dietary indiscretions. Will increase her omeprazole to twice a day. She is considering surgical intervention for this. Explained to this the at this point she will need to have a repeat barium swallow. Also she will need to maintain a very strict reflux diet to see if her symptoms improved. She is also trying to lose weight. In the meantime if she does not have any significant improvement with the dietary discretion. In addition to repeating the barium swallow then I will refer her to thoracic surgery for evaluation for fundoplication. Indeed her reflux disease is a big trigger for asthma symptoms. 11/24/2020 the patient is here for a pulmonary follow-up visit. She actually has been doing well from a respiratory status. She has been using a mask and has been avoiding sick contacts. Therefore she has not had any significant asthma exacerbations. However she still having significant reflux disease. Moderate severity. She was taken off her PPI. The patient did have a barium swallow in straighten hiatal hernia. Her symptoms of significant at this point she would like to see surgical correction. I will refer her thoracic surgeries she can be evaluated for her ongoing symptomatic iron hernia. Also, she is grieving the loss of her son. He unexpectedly at the age 28. 03/31/2021 this is a pulmonary follow-up visit. This is a telehealth visit because the patient was exposed to a family member with COVID-19. Since we last spoke the patient did undergo her surgery for her hiatal hernia. She was also found to have incarcerated paraesophageal hernia that also was repaired. The patient did very well with surgery and she is feeling a lot better. However, postoperatively she did have a pneumonia and she was treated accordingly with Levaquin. Then the patient felt great to the point that she went back to work. Her respiratory symptoms have improving significantly after surgery. She has been very happy with the results. However, it worse she was exposed to a viral syndrome and now developing URI like symptoms. She has started to develop a cough. We will be with doxycycline to treated for postviral bacterial infections issues Staph in strep in view of her bad asthma. However she denies any wheezing or any chest tightness. She does not require any prednisone at this time. She understands the postoperative we will also try to minimize steroids to allow healing of her surgery. 05/26/2021 the patient is here for a pulmonary follow-up visit. Since we last spoke she did undergo her hiatal hernia repair back in February 2021. Since then the patient has been describing significant difficulties with her swallow and also with significant GI upset. she does not tolerate eating solid foods. She has had significant weight loss. She did follow-up with GI. She did have an endoscopy demonstrating significant dysmotility of the esophagus in addition to appear to be an ulceration on her stomach. She is following closely and working with GI. We talked about different promotility agents and she will discuss this further with her specialist. In the meantime her respiratory symptoms have been significantly better. She denies any wheezing or any chest tightness. 01/26/2022 the patient is here for a pulmonary follow-up visit. Overall she is doing relatively well from her asthma symptoms. She has not had to use her maintenance inhalers. She does have a rescue inhaler that she uses couple times a week. She is very active at work. She has not had any recent respiratory infections which is reassuring. He still recovering from her hernia repair. She still having issues with dysmotility disorder. She did follow-up with GI and also sent to a motility specialist in [place]. She is currently being evaluated. Ultimately she may need further interventions to improve her symptoms. In the meantime examination she does have some wheezing. 04/26/2023 the patient is here for a pulmonary follow-up visit. Since we last spoke the patient had a repeat GI surgery for her esophageal dysmotility. Subsequently after that while walking she developed severe pain in her Achilles and subsequently developing a ruptured Achilles and had to undergo surgery. She is still using crutches and has a brace. Hopefully will be switched over to a walking boot soon. While she had blood work she did have a CBC with differential with a very high eosinophil count at [facility]. Therefore, we talked about considering the use of biologics specially with her comorbidities and using prednisone for her severe asthma. Will go ahead and recheck her allergy levels and eosinophil level and will continue with current respiratory therapy and will really consider biologic therapy in the near future for the patient. she does continue to complain of chest tightness and wheezing moderate severity. Will go ahead and maximize her respiratory therapy at this time and then we will look into the possibility of biologics. [facility] Medical History Anxiety Asthma Gastroparesis GERD (gastroesophageal reflux disease) Hernia, paraesophageal Hiatal hernia History of COVID-19 Hx of supraventricular tachycardia Incarcerated paraesophageal hernia Obesity Pancreatic insufficiency Pulmonary nodule URI (upper respiratory infection) Surgical History History of bronchoscopy (~1998) History of cardiac radiofrequency ablation (RFA) History of chest tube placement (~1998) Hx of colonoscopy Hx of esophagogastroduodenoscopy Family History Paternal Grandmother Stomach cancer Social History Alcohol intake: never Patient Tobacco Use Status: Never used Tobacco Female Reproductive History Menstrual Age of Menarche: 10 Review of Systems Const Denies weight gain and Reports weight loss ENT Reports no additional complaints and Reports dysphagia Card Reports no additional complaints, Denies dyspnea and Denies dyspnea on exertion Resp Reports no additional complaints, Reports cough, Denies dyspnea, Denies dyspnea on exertion, Denies stridor and Denies wheezing GI Reports abdominal pain, Reports bloating, Reports dysphagia, Reports dyspepsia, Reports heartburn, Reports nausea and Reports vomiting Musc Reports as per HPI, Reports abnormal gait, Reports myalgias, Reports arthralgias, Reports limited range of motion and Reports muscle weakness Neuro Reports no additional complaints and Reports abnormal gait Psych Reports no additional complaints Endo Reports no additional complaints Aller/Immun Denies wheezing Physical Exam Vital Signs: Last Vital Signs Pulse 92 04/26/23 14:24 BP 110/80 04/26/23 14:24 Pulse Ox 98 04/26/23 14:24 Oxygen Delivery Method Room Air 04/26/23 14:24 Const General: alert Neck Neck: Yes normal visual inspection, Yes full ROM and Yes no lymphadenopathy Chest Chest palpation & inspection: normal inspection of the chest Resp Effort & Inspection: normal respiratory effort and prolonged expiratory phase Auscultation: wheezes and diminished lung sounds Cardio Rate: regular rate Rhythm: regular rhythm Heart sounds: S1 normal heart sound present and S2 normal heart sound present GI Palpation (GI): Soft to palpation and nontender Auscultation: normal bowel sounds Skin General skin exam: rashes and/or lesions noted Extrem General: No cyanosis Assessment & Plan Assessment & Plan (1) Asthma: Code(s): J45.909 - Unspecified asthma, uncomplicated Qualifiers: Asthma complication type: with acute exacerbation Asthma persistence: persistent Asthma severity: severe Qualified Code(s): J45.51 - Severe persistent asthma with (acute) exacerbation (2) GERD (gastroesophageal reflux disease): Code(s): K21.9 - Gastro-esophageal reflux disease without esophagitis Qualifiers: Esophagitis bleeding: without hemorrhage Esophagitis presence: with esophagitis Qualified Code(s): K21.00 - Gastro-esophageal reflux disease with esophagitis, without bleeding Plan stop Symbicort start Breztri JUAN PABLO as needed start DOXYCYCLINE prednisone if no better bloodwork consider Biologics small meals F/U 6 months Orders: Orders Complete Blood Count Auto Diff 04/26/23 J45.909 - Unspecified asthma, uncomplicated Basic Metabolic Panel 04/26/23 J45.909 - Unspecified asthma, uncomplicated Immunoglobulins,IgG IgA IgM 04/26/23 J45.909 - Unspecified asthma, uncomplicated Immunoglobulin E 04/26/23 J45.909 - Unspecified asthma, uncomplicated Erythrocyte Sedimentation Rate 04/26/23 J45.909 - Unspecified asthma, uncomplicated Medications: New kvgsckktcz-juazeshi-ixzrcjlube 160-9-4.8 mcg/actuation (Breztri Aerosphere) 2 inhalations inhalation BID 30 days 10.7 grams 11RF albuterol sulfate 2.5 mg (3 mL) inhalation Q4H 30 days PRN 360 mL 11RF shortness of breath or wheezing prednisone PO daily; Take 6 tabs daily x 3 days, then 5 tabs x 3 days, then 4 tabs x 3 days, then 3 tabs x 3 days, then 2 tabs daily x 3 days, then 1 tab x 3 days to complete. 18 days 63 tabs 0RF doxycycline hyclate 100 mg PO BID 10 days 20 caps 0RF Discontinued budesonide-formoterol 160-4.5 mcg/actuation (Symbicort) Discontinued Reason: Doctor's Order 2 puffs PO BID 10.2 grams 0RF J44.9 - Chronic obstructive pulmonary disease, unspecified Coding Level of Care Code Est Pt Level 4 (21936) Diagnoses Severe persistent asthma with acute exacerbation J45.51 Asthma complication type: with acute exacerbation Asthma persistence: persistent Asthma severity: severe Gastroesophageal reflux disease with esophagitis without hemorrhage K21.00 Esophagitis bleeding: without hemorrhage Esophagitis presence: with esophagitis Time Spent (min) 18
== END 2023-04-26 14:49 | disposition home or self-care (01) ==
PROVIDERS: PCP Internal Medicine; Visit Provider Hospitalist
DX: J45.51 Severe persistent asthma with (acute) exacerbation (principal); K21.00 Gastro-esophageal reflux disease with esophagitis, without bleeding
CPT/HCPCS: 99214

== ENCOUNTER 2023-04-26 14:20 | Outpatient (REF) | payer OTHER, SELFPAY ==
[2023-04-26 15:03] LABS: MANUAL DIFF FLAG NO
[2023-04-26 16:24] LABS: Basophils Absolute Auto 0.1 X10*3/uL (0.0-0.2); Basophils Percent Auto 0.8 % (0-2); Eosinophils Absolute Auto 0.3 X10*3/uL (0.0-0.4); Eosinophils Percent Auto 3.7 % (0-4); Hematocrit 43.6 % (37.0-47.0); Hemoglobin 14.5 g/dl (12.0-16.0); Imm Gran Abs Auto 0.03 X10*3/uL (0.00-0.03); Imm Gran Pct Auto 0.4 % (0.0-0.4); Lymphocytes Absolute Auto 2.2 X10*3/uL (1.2-4.9); Lymphocytes Percent Auto 27.7 % (20-40); Mean Corpuscular HGB Conc 33.3 g/dl (31.0-35.0); Mean Corpuscular Hemoglobin 29.1 pg (27.0-33.0); Mean Corpuscular Volume 87.4 fL (80.0-98.0); Mean Platelet Volume 10.9 fL (9.4-12.3); Monocytes Absolute Auto 0.5 X10*3/uL (0.1-1.2); Monocytes Percent Auto 6.1 % (2-11); Neutrophils Absolute Auto 4.9 x10*3/uL (2.0-8.3); Neutrophils Percent Auto 61.3 % (45-73); Platelet Count 279 X10*3/uL (160-400); Red Blood Count 4.99 X10*6/uL (4.20-5.50); Red Cell Distribution Width 12.5 % (11.0-16.0); White Blood Count 7.9 X10*3/uL (4.8-10.8)
[2023-04-26 17:00] LABS: Anion Gap 13 (12-20); Blood Urea Nitrogen 20 mg/dL (9-16); Calcium 9.5 mg/dL (8.4-10.2); Carbon Dioxide 27 mmol/L (22-29); Chloride 103 mmol/L (96-108); Estimated Glomerular Filt Rate > 60; Glucose Random 97 mg/dL (60-115); Potassium 3.8 mmol/L (3.3-5.1); Sodium 139 mmol/L (135-145)
[2023-04-26 17:25] LABS: Erythrocyte Sedimentation Rate 3 MM/HR (0-20)
[2023-04-29 14:49] LABS: IgA 151 mg/dL (47-310); IgG 949 mg/dL (600-1640); IgM 53 mg/dL (50-300)
[2023-04-29 22:28] LABS: Immunoglobulin E 44 kU/L (<OR=114)
== END 2023-04-26 14:21 | disposition home or self-care (01) ==
LOC: HO.LAB 14:20
PROVIDERS: PCP Internal Medicine; Visit Provider Hospitalist
DX: J45.51 Severe persistent asthma with (acute) exacerbation (principal); K21.00 Gastro-esophageal reflux disease with esophagitis, without bleeding
CPT/HCPCS: 36415; 80048; 82784; 82785; 85025; 85652

== ENCOUNTER 2023-05-31 14:25 | Emergency (ER) | payer OTHER, SELFPAY ==
[2023-05-31 14:33] VITALS: BP 113/62; PULSE 70; RESP 16; TEMP 36.5; O2SAT 98; BMI 34.5
--- NOTE | 2023-05-31 14:37 | ED_ITS ---
HPI - Ear Problem General Chief complaint: Ear Problems Stated complaint: Ruptured Ear Drum Left Side Time Seen by Provider: 05/31/23 14:37 Source: patient Mode of arrival: ambulatory Limitations: no limitations History of Present Illness HPI Narrative: 57-year-old female with no significant past medical history presents emergency department with complaints of left ear pain. She reports she was using a Q-tip to clean her ears when she lost her balance and hit her eardrum with a Q-tip. She reports she woke up with blood on the pillow this morning and has been having increased pain ever since. She denies any purulent discharge, change in hearing, mastoid tenderness, fever, or headache Pertinent positives and negatives discussed in HPI Related Data Home Medications Medication Instructions Recorded Confirmed conj estrogen-medroxyprogesterone 1 tab PO DAILY 05/24/20 07/25/22 0.3 mg-1.5 mg tablet (Prempro) omeprazole 40 mg capsule,delayed 40 mg PO DAILY 02/28/22 07/25/22 release Previous Rx's Medication Instructions Recorded albuterol sulfate 2.5 mg/0.5 mL 5 mg inhalation Q4H #90 ea 02/03/22 solution for nebulization Ventolin HFA 90 mcg/actuation 2 puff PO Q4H PRN for wheezing #18 03/06/23 aerosol inhaler (albuterol sulfate) grams albuterol sulfate 2.5 mg/3 mL 2.5 mg (3 mL) inhalation Q4H PRN 04/26/23 (0.083 %) solution for nebulization shortness of breath or wheezing 30 days #360 mL budesonide 160 mcg-glycopyr 9 2 inh inhalation BID 30 days #10.7 04/26/23 mcg-formot 4.8 mcg/actuation HFA grams inhaler (Breztri Aerosphere) doxycycline hyclate 100 mg capsule 100 mg PO BID 10 days #20 caps 04/26/23 prednisone 10 mg tablet See Rx Instructions PO DAILY 18 04/26/23 days #63 tabs ciprofloxacin 0.3 %-dexamethasone 4 drp otic (ear) left BID 7 days 05/31/23 0.1 % ear drops,suspension #7.5 mL Allergies Allergy/AdvReac Type Severity Reaction Status Date / Time erythromycin base Allergy Mild Rash Verified 04/26/23 14:27 Penicillins Allergy Mild Rash Verified 04/26/23 14:27 ALVARADO Allergy Intermediate Wheezing Uncoded 04/26/23 14:27 Review of Systems 2 Review of Systems: Yes all other systems are reviewed and are negative [facility] Past Medical History Medical History Anxiety Asthma Gastroparesis GERD (gastroesophageal reflux disease) Hernia, paraesophageal Hiatal hernia History of COVID-19 Hx of supraventricular tachycardia Incarcerated paraesophageal hernia Obesity Pancreatic insufficiency Pulmonary nodule URI (upper respiratory infection) Surgical History History of bronchoscopy (~1998) History of cardiac radiofrequency ablation (RFA) History of chest tube placement (~1998) Hx of colonoscopy Hx of esophagogastroduodenoscopy Family History Family History Paternal Grandmother Stomach cancer Social History Social History Alcohol intake: never Patient Tobacco Use Status: Never used Tobacco Advance Directives: No Advance Directives Information Provided: No Physical Exam 2 Vital Signs: Vital Signs: Last Vital Signs Temp 97.7 F 05/31/23 14:39 Pulse 70 05/31/23 14:39 Resp 16 05/31/23 14:39 BP 113/62 05/31/23 14:39 Pulse Ox 98 05/31/23 14:39 O2 Del Method Room Air 05/31/23 14:39 BMI result Body Mass Index 34.5 Nursing notes and vital signs reviewed. GENERAL APPEARANCE: A&0 x 4, generally well appearing, no acute distress HENMT: Normal to inspection, atraumatic, face symmetrical. Normal external ears, nose, and oropharynx clear. TM perforation noted at upper left corner of TM with dried blood in the canal EYE: PERRLA, EOM intact, structures appear normal NECK: Supple without stiffness or restricted ROM. HEART: Normal rate and regular rhythm, normal S1/S2, no M/R/G LUNGS: LS CTA, moving air well. Able to speak in complete sentences. No crackles, wheezes, or rhonchi auscultated BACK: No CVAT, no obvious deformity EXTREMITIES: Moving all extremities without difficulty. Normal capillary refill. NEUROLOGICAL: Alert and oriented, moving all 4 extremities with equal strength. CN not formally tested but appearing grossly intact. Observed to ambulate with normal gait. Cognition normal SKIN: Warm and dry without any lesions, rash, or visible sores HEENT: Outer ear/TM images: 1. Tympanic rupture Medical Decision Making Medical Decision Making MDM Narrative: Old records reviewed for previous imaging, lab studies, ECGs, and notes. Patient was assessed the emergency department with no acute distress or toxicity noted. Physical exam with rupture of left tympanic membrane. Dried blood noted in ear canal. Ciprodex sent to pt's preferred pharmacy for further management. Patient is safe for discharge at this time with plan for [id number] Tylenol and/or NSAID such as ibuprofen or naproxen for fever/discomfort with dosing as per packaging. HPI, PE, diagnostics, and plan discussed with patient and family with no unanswered questions at this time. Strict return precautions given to return to the emergency department with new, worsening, or concerning emergent symptoms. Recommended to follow-up with there primary care provider in 24-48 hours for further treatment and management. Differential Diagnosis Differential Diagnoses: The differential diagnosis associated with the presentation includes but not limited to otitis media, otitis externa, ruptured tympanic, mastoiditis, sepsis, malignancy Discharge Plan Discharge Clinical Impression: Rupture of left tympanic membrane Patient Disposition: Home, Self-Care Instructions: Ruptured Eardrum (ED) Prescriptions: New ciprofloxacin-dexamethasone 0.3-0.1 % drops,suspension 4 drp otic (ear) left BID 7 Days Qty: 7.5 0RF No Action albuterol sulfate [Ventolin HFA] 90 mcg/actuation HFA aerosol inhaler 2 puff PO Q4H PRN (Reason: for wheezing) Qty: 18 0RF Rx Instructions: PATIENT SHOULD CALL FOR A FOLLOW UP APPT FOR FURTHER REFILLS. albuterol sulfate 2.5 mg/0.5 mL solution for nebulization 5 mg inhalation Q4H Qty: 90 0RF Rx Instructions: May substitute for medication equivalent accepted by insurance Prempro 0.3-1.5 mg tablet 1 tab PO DAILY omeprazole 40 mg capsule,delayed release(DR/EC) 40 mg PO DAILY Breztri Aerosphere 160-9-4.8 mcg/actuation HFA aerosol inhaler 2 inh inhalation BID 30 Days Qty: 10.7 11RF albuterol sulfate 2.5 mg /3 mL (0.083 %) solution for nebulization 2.5 mg inhalation Q4H PRN (Reason: shortness of breath or wheezing) 30 Days Qty: 360 11RF prednisone 10 mg tablet See Rx Instructions PO DAILY 18 Days Qty: 63 0RF Rx Instructions: PO daily; Take 6 tabs daily x 3 days, then 5 tabs x 3 days, then 4 tabs x 3 days, then 3 tabs x 3 days, then 2 tabs daily x 3 days, then 1 tab x 3 days to complete. doxycycline hyclate 100 mg capsule 100 mg PO BID 10 Days Qty: 20 0RF Referrals: Teddy Glasgow MD [Primary Care Provider] - Vikas Fallon [Physician] - Interventions: ED Discharge Assessment Last Done: 05/31/23 14:39 Discharge Date/Time: 05/31/23 14:45 Print Language: Mold[place]
[2023-05-31 14:39] VITALS: BP 113/62; PULSE 70; RESP 16; TEMP 36.5; O2SAT 98
== END 2023-05-31 14:45 | disposition home or self-care (01) ==
PROVIDERS: Emergency Provider Emergency Medicine; PCP Internal Medicine
DX: S09.22XA Traumatic rupture of left ear drum, initial encounter (principal); X58.XXXA Exposure to other specified factors, initial encounter; Y93.9 Activity, unspecified; Y92.9 Unspecified place or not applicable; Y99.9 Unspecified external cause status
CPT/HCPCS: 99282; 99283

== ENCOUNTER 2024-01-14 15:29 | Outpatient (AMB) | payer BC, SELFPAY ==
[2024-01-14 15:30] VITALS: BP 118/70; PULSE 84; O2SAT 98
--- NOTE | 2024-01-14 15:30 | A.OFFVIS_ITS ---
Vital Signs 01/14/24 15:30 Weight 218 lb 4.122 oz BP 118/70 Blood Pressure Location Rt brachial Position Sitting Pulse 84 Pulse Source Pulse Oximeter Pulse Oximetry (%) 98 Oxygen Delivery Method Room Air Intake Visit Reasons: Asthma follow-up Allergies erythromycin base Allergy (Mild, Verified 01/14/24 15:34) Rash Penicillins Allergy (Mild, Verified 01/14/24 15:34) Rash ALVARADO Allergy (Intermediate, Uncoded 01/14/24 15:34) Wheezing Medication List - Last Reconciled 01/14/24 by Irena Morrell LPN albuterol sulfate 5 mg inhalation Q4H albuterol sulfate 2.5 mg (3 mL) inhalation Q4H PRN 30 days lkoxetyued-bsfezuuc-cfyjrezhso 160-9-4.8 mcg/actuation (Breztri Aerosphere) 2 inhalations inhalation BID 30 days conj estrog-medroxyprogest rocco 0.3-1.5 mg (Prempro) 1 tab PO DAILY Ventolin HFA 90 mcg/actuation (albuterol sulfate) 2 puffs inhalation Q4H PRN NS HPI Comments Details: Patient is a 58 you woman with severe persistent asthma now with asthma COPD overlap syndrome. She is without better at this time. However, about 3-4 weeks ago she significant worsening of respiratory status with wheezing. Her peak flows went from 400 to 200 ml which is very concerning. Only new change was her rescue inhaler when from Ventolin 2 albuterol HFA. Once the patient realized that the albuterol HFA was worsen respiratory status she went back to Ventolin to find out of pocket symptoms improved dramatically and her peak flow normalized. Therefore, it appears the patient could not tolerate the albuterol HFA or ProAir inhaler. We will resend the Ventolin and will make sure that she only is provided Ventolin. Patient also started on Daliresp. This appears to be affecting beneficial. She does have some GI symptoms is able to tolerated. Discussed decrease her exacerbations dramatically she has not required predni sone as much. She did need it when she was on the albuterol HFA inhaler. Has been using the Advair Diskus for about 20-25 years and has been working well. She will continue on this medicine for now. It appears that she does have a moderate obstructive ventilatory defect consistent with asthma COPD overlap syndrome. She would like to know if she is a candidate for biologic therapy. Continue pursuing this with additional blood work. She still requiring high doses of prednisone because of the significant wheezing and shortness of breath. She has gained significant weight. Initially she had RSV and then she developed influenza and still having significant inflammation to the airways. In addition to that she has had some irritation to the throat. She has a history of vocal cord polyps. She is wondering if any vocal cord dysfunction could also be attributing to her symptoms. Her CTA was negative for blood clots although did have some evidence of was a pattern bronchiolitis. She also has a hiatal hernia. She continues to be symptomatic with hiatal hernia. Sometimes she wakes up with significant reflux and needs to take Tums in addition to having her on the very aggressive reflux diet and also taking the promotility agents as well as her PPIs. The patient will looking to getting some risers for her bed. In the meantime she is going to follow-up with ENT and will have a laryngoscopy. If her overall status is not better she still having issues with wheezing and coughing a bronchoscopy may be warranted further airway survey for both diagnostic and therapeutic purposes. 05/29/2019 the patient had a telephone visit. She still having difficulties with her breathing. 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 Did start her on prednisone suspension swish and swallow. She has been doing this now for a week or more she has not noticed any significant improvement. She has also noticed decreasing her peak flow some increasing shortness of breath. She has been using the azithromycin Saturday and Saturday with no real significant improvement that she can say. She has been on chronic prednisone and therefore difficult to assess her eosinophils or other allergy testing. And she has significant severe persistent asthma and would benefit from high biologic therapy. In the meantime with respiratory symptoms and her underlying severe obstructive airway disease the patient is to avoid direct patient contact anterior next appointment it july of this year. 05/24/2020 the patient is here for pulmonary follow-up visit. Overall she her respiratory status has improved dramatically. Back last year she had been on multiple courses of prednisone and multiple readmissions to the hospital with significant asthma. She did have a CT scan of the chest at that time demonstrating some bronchiolitis and also moderate hiatal hernia. She continues to have significant heartburn symptoms. She has been using omeprazole once a day then recently increased to twice a day. She does have a position of bed tries to sleep elevated. She does not need to lay. She is to also try to cut down some of the foods that cause her to have worsening reflux. We did go through the list of concerning foods and beverages. Unfortunately she would love [place] water. She sometimes have sub to 11 bottles of [place] water a day. The patient will try to cut down drastically and not in addition to making other dietary indiscretions. Will increase her omeprazole to twice a day. She is considering surgical intervention for this. Explained to this the at this point she will need to have a repeat barium swallow. Also she will need to maintain a very strict reflux diet to see if her symptoms improved. She is also trying to lose weight. In the meantime if she does not have any significant improvement with the dietary discretion. In addition to repeating the barium swallow then I will refer her to thoracic surgery for evaluation for fundoplication. Indeed her reflux disease is a big trigger for asthma symptoms. 11/24/2020 the patient is here for a pulmonary follow-up visit. She actually has been doing well from a respiratory status. She has been using a mask and has been avoiding sick contacts. Therefore she has not had any significant asthma e xacerbations. However she still having significant reflux disease. Moderate severity. She was taken off her PPI. The patient did have a barium swallow in straighten hiatal hernia. Her symptoms of significant at this point she would like to see surgical correction. I will refer her thoracic surgeries she can be evaluated for her ongoing symptomatic iron hernia. Also, she is grieving the loss of her son. He unexpectedly at the age 28. 03/31/2021 this is a pulmonary follow-up visit. This is a telehealth visit because the patient was exposed to a family member with COVID-19. Since we last spoke the patient did undergo her surgery for her hiatal hernia. She was also found to have incarcerated paraesophageal hernia that also was repaired. The patient did very well with surgery and she is feeling a lot better. However, postoperatively she did have a pneumonia and she was treated accordingly with Levaquin. Then the patient felt great to the point that she went back to work. Her respiratory symptoms have improving significantly after surgery. She has been very happy with the results. However, it worse she was exposed to a viral syndrome and now developing URI like symptoms. She has started to develop a cough. We will be with doxycycline to treated for postviral bacterial infections issues Staph in strep in view of her bad asthma. However she denies any wheezing or any chest tightness. She does not require any prednisone at this time. She understands the postoperative we will also try to minimize steroids to allow healing of her surgery. 05/26/2021 the patient is here for a pulmonary follow-up visit. Since we last spoke she did undergo her hiatal hernia repair back in February 2021. Since then the patient has been describing significant difficulties with her swallow and also with significant GI upset. she does not tolerate eating solid foods. She has had significant weight loss. She did follow-up with GI. She did have an endoscopy demonstrating significant dysmotility of the esophagus in addition to appear to be an ulceration on her stomach. She is following closely and working with GI. We talked about different promotility agents and she will discuss this further with her specialist. In the meantime her respiratory symptoms have been significantly better. She denies any wheezing or any chest tightness. 01/26/2022 the patient is here for a pulmonary follow-up visit. Overall she is doing relatively well from her asthma symptoms. She has not had to use her maintenance inhalers. She does have a rescue inhaler that she uses couple times a week. She is very active at work. She has not had any recent respiratory infections which is reassuring. He still recovering from her hernia repair. She still having issues with dysmotility disorder. She did follow-up with GI and also sent to a motility specialist in [place]. She is currently being evaluated. Ultimately she may need further interventions to improve her symptoms. In the meantime examination she does have some wheezing. 04/26/2023 the patient is here for a pulmonary follow-up visit. Since we last spoke the patient had a repeat GI surgery for her esophageal dysmotility. Subsequently after that while walking she developed severe pain in her Achilles and subsequently developing a ruptured Achilles and had to undergo surgery. She is still using crutches and has a brace. Hopefully will be switched over to a walking boot soon. While she had blood work she did have a CBC with differential with a very high eosinophil count at [facility]. Therefore, we talked about considering the use of biologics specially with her comorbidities and using prednisone for her severe asthma. Will go ahead and recheck her allergy levels and eosinophil level and will continue with current respiratory therapy and will really consider biologic therapy in the near future for the patient. she does continue to complain of chest tightness and wheezing moderate severity. Will go ahead and maximize her respiratory therapy at this time and then we will look into the possibility of biologics. 01/14/2024 the patient is here for a pulmonary follow-up visit. She is doing well from a respiratory status. The Breztri inhaler has been affecting beneficial. She has not required any rescue therapy she has not required any prednisone which is reassuring. She has not had any recent flare-ups. We did talk about her vaccines she needs to get her RSV vaccine up-to-date. Otherwise she is up-to-date with the other vaccines. The patient still dealing with her dysmotility issue. She is going to be seeing a dysmotility specialist somewhere in [place] soon. We did talk about motility agents such as domperidone as well as azithromycin. She will talk to the dysmotility specialist to see this medications will be effective. Otherwise she may be considering having additional surgical interventions for her significant dysmotility issue. The patient has been able to maintain airway more recently although she had still having issues with alopecia and skin issues. She attributes that to her malnutrition. In addition to that she has had issues with the tendon injury or tendinopathy of the shoulder and also had some degree of an Achilles tendon injury that may have been related to her nutritional status. Least from a re spiratory status she is doing well will going to continue to treat her with current therapy. If she is able to get an x-ray to follow-up with her previous x-ray that she had back in 2022 when she can do that at [facility]. The patient did have some minimal atelectasis noted which is extremely minimal and not significant but at this point will be important to have a repeat study. [facility] Medical History (Updated 01/14/24 @ 15:45 by Homero Kruse MD) Atelectasis Pancreatic insufficiency Pulmonary nodule Gastroparesis History of COVID-19 URI (upper respiratory infection) Hernia, paraesophageal Hx of supraventricular tachycardia Anxiety Incarcerated paraesophageal hernia Obesity GERD (gastroesophageal reflux disease) Hiatal hernia Asthma Surgical History Hx of esophagogastroduodenoscopy Hx of colonoscopy History of cardiac radiofrequency ablation (RFA) History of chest tube placement (~1998) History of bronchoscopy (~1998) Family History Paternal Grandmother Stomach cancer Social History Alcohol intake: never Patient Tobacco Use Status: Never used Tobacco Female Reproductive History Menstrual Age of Menarche: 10 Review of Systems Const Denies weight gain and Reports weight loss ENT Reports no additional complaints and Reports dysphagia Card Reports no additional complaints, Denies dyspnea and Denies dyspnea on exertion Resp Reports no additional complaints, Reports cough, Denies dyspnea, Denies dyspnea on exertion, Denies stridor and Denies wheezing GI Reports abdominal pain, Reports bloating, Reports dysphagia, Reports dyspepsia, Reports heartburn, Reports nausea and Reports vomiting Musc Reports as per HPI, Reports abnormal gait, Reports myalgias, Reports arthralgias, Reports limited range of motion and Reports muscle weakness Neuro Reports no additional complaints and Reports abnormal gait Psych Reports no additional complaints Endo Reports no additional complaints Aller/Immun Denies wheezing Physical Exam Vital Signs: Last Vital Signs Pulse 84 01/14/24 15:30 BP 118/70 01/14/24 15:30 Pulse Ox 98 01/14/24 15:30 Oxygen Delivery Method Room Air 01/14/24 15:30 Const General: alert Neck Neck: Yes normal visual inspection, Yes full ROM and Yes no lymphadenopathy Chest Chest palpation & inspection: normal inspection of the chest Resp Effort & Inspection: normal respiratory effort and No prolonged expiratory phase Auscultation: no wheezes and diminished lung sounds Cardio Rate: regular rate Rhythm: regular rhythm Heart sounds: S1 normal heart sound present and S2 normal heart sound present GI Palpation (GI): Soft to palpation and nontender Auscultation: normal bowel sounds Skin General skin exam: rashes and/or lesions noted Extrem General: No cyanosis Assessment & Plan Assessment & Plan (1) Asthma: Code(s): J45.909 - Unspecified asthma, uncomplicated Category: Medical Qualifiers: Asthma complication type: with acute exacerbation Asthma persistence: persistent Asthma severity: severe Qualified Code(s): J45.51 - Severe persistent asthma with (acute) exacerbation (2) GERD (gastroesophageal reflux disease): Code(s): K21.9 - Gastro-esophageal reflux disease without esophagitis Category: Medical Qualifiers: Esophagitis bleeding: without hemorrhage Esophagitis presence: with esophagitis Qualified Code(s): K21.00 - Gastro-esophageal reflux disease with esophagitis, without bleeding (3) Atelectasis: Code(s): J98.11 - Atelectasis Category: Medical (4) Gastroparesis: Code(s): K31.84 - Gastroparesis Category: Medical Plan Breztri JUAN PABLO as needed bloodwork consider Biologics small meals ?promotility agents CXR F/U 12 months Orders: Orders XR chest 2V Today J98.11 - Atelectasis Coding Level of Care Code Est Pt Level 4 (25044) Diagnoses Severe persistent asthma with acute exacerbation J45.51 Asthma complication type: with acute exacerbation Asthma persistence: persistent Asthma severity: severe Gastroesophageal reflux disease with esophagitis without hemorrhage K21.00 Esophagitis bleeding: without hemorrhage Esophagitis presence: with esophagitis Atelectasis J98.11 Gastroparesis K31.84 Time Spent (min) 16
== END 2024-01-14 15:47 | disposition home or self-care (01) ==
LOC: HO.HPS 15:29
PROVIDERS: PCP Internal Medicine; Visit Provider Hospitalist
DX: J45.51 Severe persistent asthma with (acute) exacerbation (principal); K21.00 Gastro-esophageal reflux disease with esophagitis, without bleeding; J98.11 Atelectasis; K31.84 Gastroparesis
CPT/HCPCS: 99214

== ENCOUNTER → 2024-01-14 15:29 | Outpatient (BNVA) | payer BC, SELFPAY | PROVIDERS: PCP Internal Medicine; Visit Provider Hospitalist ==

== ENCOUNTER 2024-08-06 07:13 | Outpatient (AMB) | payer BC, SELFPAY ==
--- NOTE | 2024-08-06 07:20 | A.OFFVIS_ITS ---
Vital Signs 08/06/24 07:21 Height 5 ft 10 in Weight 210 lb BMI 30.1 BP 102/70 Intake Visit Reasons: PMB Night Manager Required: No Information Interpreted: non-clinical & clinical Reporting Coordinator: Reporting Coordinator Present (Eulalia PIERRE) Accompanied by: Self / Same As Patient Allergies erythromycin base Allergy (Mild, Verified 08/06/24 07:22) Rash Penicillins Allergy (Mild, Verified 08/06/24 07:22) Rash ALVARADO Allergy (Intermediate, Uncoded 08/06/24 07:22) Wheezing Post menopausal: Yes HPI Comments Details: Presenting complaining of vaginal spotting on and off over the last six-months. Last co testing was negative in 03/01 [facility] Medical History Atelectasis Pancreatic insufficiency Pulmonary nodule Gastroparesis History of COVID-19 URI (upper respiratory infection) Hernia, paraesophageal Hx of supraventricular tachycardia Anxiety Incarcerated paraesophageal hernia Obesity GERD (gastroesophageal reflux disease) Hiatal hernia Asthma Surgical History Hx of esophagogastroduodenoscopy Hx of colonoscopy History of cardiac radiofrequency ablation (RFA) History of chest tube placement (~1998) History of bronchoscopy (~1998) Family History Paternal Grandmother Stomach cancer Social History Household Members: Spouse Housing: House Alcohol intake: never Patient Tobacco Use Status: Never used Tobacco Current occupational status: employed 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 Female Reproductive History Menstrual Age of Menarche: 10 Review of Systems Const All systems reviewed & are unremarkable except as noted in HPI and below Physical Exam Vital Signs: Last Vital Signs BP 102/70 08/06/24 07:21 BMI result Body Mass Index 30.1 General: Yes no CVA tenderness External Female Exam: normal external appearance and normal appearance of the urethra Speculum Exam - Vagina: normal appearance of the vagina, normal palpation, no lesions and no masses Speculum Exam - Cervix: normal appearance of the cervix, normal palpation, no lesions, no masses and nontender Bimanual exam- vagina & uterus: normal bimanual exam, normal palpation, uterine size normal, normal palpation, uterine shape normal, No Cervical tenderness present and non-tender Bimanual Exam- Adnexa, other: normal adnexae Back/Spine/Pelvis Back: no CVA tenderness Assessment & Plan Assessment & Plan (1) Postmenopausal bleeding: Code(s): N95.0 - Postmenopausal bleeding Category: Medical Plan: Discussed with the patient the differential diagnosis of post menopausal bleeding with normal pelvic exam including but not limited to, endometrial hyperplasia, cancer, polyps and other causes; Recommended ultrasound to measure the endometrial stripe; discussed with the patient that if the endometrial thickness is 4 mm or less the negative predictive value of endometrial pathology is 99%, otherwise If endometrial thickness is more than 4 mm will proceed with endometrial sampling versus hysteroscopy D&C polypectomy depending on the ult rasound findings. Instructed the patient to schedule an ultrasound with a follow-up appointment in 2 weeks. All questions answered, the patient verbalized understanding and agreed with the plan. This note was generated with a voice recognition program. Some errors may have been overlooked during the review of this note. Sometimes these errors may affect the content or meaning of a given sentence. Orders: Orders US pelvic and transvaginal Today N95.0 - Postmenopausal bleeding Coding Level of Care Code Est Pt Level 3 (34867) Diagnoses Postmenopausal bleeding N95.0
[2024-08-06 07:21] VITALS: BP 102/70; BMI 30.1
== END 2024-08-06 07:46 | disposition home or self-care (01) ==
LOC: HO.HWS 07:13
PROVIDERS: PCP Internal Medicine; Visit Provider Obstetrics & Gynecology
DX: N95.0 Postmenopausal bleeding (principal)
CPT/HCPCS: 99213

== ENCOUNTER → 2024-08-06 07:13 | Outpatient (BNVA) | payer BC, SELFPAY | PROVIDERS: PCP Internal Medicine; Visit Provider Obstetrics & Gynecology ==

== ENCOUNTER 2024-08-13 15:53 | Outpatient (AMB) | payer BC, SELFPAY ==
--- NOTE | 2024-08-13 15:55 | MHC.OFFVIS ---
Intake Visit Reasons: EMB Senior Staff Psychologist: Senior Staff Psychologist Present (Vanessa Vo ) Accompanied by: Self / Same As Patient Allergies erythromycin base Allergy (Mild, Verified 08/13/24 15:56) Rash Penicillins Allergy (Mild, Verified 08/13/24 15:56) Rash ALVARADO Allergy (Intermediate, Uncoded 08/06/24 07:22) Wheezing HPI Comments Details: Presenting for EMB [facility] Medical History Atelectasis Pancreatic insufficiency Pulmonary nodule Gastroparesis History of COVID-19 URI (upper respiratory infection) Hernia, paraesophageal Hx of supraventricular tachycardia Anxiety Incarcerated paraesophageal hernia Obesity GERD (gastroesophageal reflux disease) Hiatal hernia Asthma Surgical History Hx of esophagogastroduodenoscopy Hx of colonoscopy History of cardiac radiofrequency ablation (RFA) History of chest tube placement (~1998) History of bronchoscopy (~1998) Family History Paternal Grandmother Stomach cancer Social History Household Members: Spouse Housing: House Alcohol intake: never Patient Tobacco Use Status: Never used Tobacco Current occupational status: employed 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 hysteroscopy D&C) & the risks were discussed with the patient including but not limited: pain, uterine perforation, bleeding, infection, possible injury to bladder, bowel, ureter, possible need for blood transfusion with all its possible risks. The patient verbalized understanding all questions answered and signed consent. The patient was placed into the dorsal lithotomy position; a speculum was inserted in the vagina. Using aseptic technique for the procedure, the cervix was cleansed with Betadine. The anterior lip of the cervix was grasped with a single tooth tenaculum. The uterus was sounded to 7 cm with a 4 mm Pipelle was used. Tissues samples were obtained and placed in formalin, in a patient labeled container and sent to the pathology department. At the end of the procedure, there was minimal bleeding noted The patient tolerated the procedure well and was discharged in good condition with the following instructions: Nothing in the vagina until the bleeding stops. No sex until the bleeding stops, to call if any of the following occurs: fever (>100.4), flu-like symptoms, abdominal pain, heavy bleeding, four smelling vaginal discharge. The patient was instructed to schedule a Follow up appointment in 2 weeks to discuss pathology results of the biopsy and treatment options. This note was generated with a voice recognition program. Some errors may have been overlooked during the review of this note. Sometimes these errors may affect the content or meaning of a given sentence. [id number] Biopsy Assessment & Plan Assessment & Plan (1) Postmenopausal bleeding: Code(s): N95.0 - Postmenopausal bleeding Category: Medical Plan: EMB done, see procedure note Orders: Orders AMB Endometrial Biopsy Today N95.0 - Postmenopausal bleeding Coding Level of Care Code Procedure Only Diagnoses Postmenopausal bleeding N95.0 CPT Codes Endometrial Biopsy - CPT: 93165-Seurccbkryi Biopsy ([id number])
--- OUTSIDE RECORDS SUMMARY | 2024-08-13 18:08 | XMS_ITS | Encounter Summary ---
Author Organization Formerly [facility] Address [address] [place] [address] Care Team Providers Care Meat And Seafood Clerk Name Role Phone Teddy Glasgow Primary Care Provider [phone] Jonnathan Jose MD Unavailable [phone] Encounter Details Date Type Department Care Team (Late st Contact Info) Description 05/04/2024 Scanned Document [facility] Bariatric Surgery [address] [place] [phone] Jonnathan Jose MD [address] [place] [id number] Social History Tobacco Use Types Packs/Day Years Used Date Smoking Tobacco: Never Smokeless Tobacco: Never Alcohol Use Standard Drinks/Week Comments Never 0 (1 standard drink = 0.6 oz pur e alcohol) AUDIT-C Answer Date Recorded Q1: How often do you have a drink containing alcohol? Never 06/19/2022 Q2: How many drinks containi ng alcohol do you have on a typical day when you are drinking? Patient does not drink Q3: How often do you have si x or more drinks on one occasion? Never 06/19/2022 [facility] [facility] Occupat ional Health - Occupational Stress Questionnaire Answer Date Recorded Do you feel stress - tense, restless, nervous, or anxious, or unable to sleep at night because your mind is troubled all the time - these days? Not at all 11/26/2023 Physical Activity Answer Date Recorded On average, how many days pe r week do you engage in moderate to strenuous exercise (like a brisk walk)? 0 days 11/26/2023 On average, how many minutes do you exercise per day at this level? 0 min 11/26/2023 Comments No Sex and Gender Information Value Date Recorded Sex Assigned at Female 03/13/2022 7:58 AM EST Legal Sex Female 6:40 PM EST Gender Identity Female 01/09/2022 9:32 AM EDT Sexual Orientation Heterosexual (straight) 03/13 7:58 AM EST documented as of this encounter Plan of Treatment Not on file documented as of this encounter Visit Diagnoses Not on filedocumented in this encounter Care Teams Meat And Seafood Clerk Relationship Specialty Start Date End Date Teddy Glasgow DO [address] [facility] [place] [address] [place] [address] PCP - General 06/15/21 Jonnathan Jose MD [address] [place] [id number] Physician Surgery, Bariatric 11/29/21 documented as of this encounter
== END 2024-08-13 16:22 | disposition home or self-care (01) ==
LOC: HO.HWS 15:53
PROVIDERS: PCP Internal Medicine; Visit Provider Obstetrics & Gynecology
DX: N95.0 Postmenopausal bleeding (principal)
CPT/HCPCS: 58100

== ENCOUNTER 2024-08-13 15:53 | Outpatient (REF) | payer BC, SELFPAY | END 2024-08-13 15:54 | disposition home or self-care (01) | LOC: HO.LNP 15:53 | PROVIDERS: PCP Internal Medicine; Visit Provider Obstetrics & Gynecology | DX: N95.0 Postmenopausal bleeding (principal) | CPT/HCPCS: 58100; 88305 ==

== ENCOUNTER 2024-08-17 12:47 | Outpatient (REF) | payer BC, SELFPAY ==
--- NOTE | ~2024-08-17 | US_ITS ---
CLINICAL HISTORY: N95.0 - Postmenopausal bleeding US pelvis transabdominal and transvaginal Comparison: None Findings: Uterus measures 6.1 x 2.5 x 3.3 cm. Normal myometrium. No endometrial lesion, 3 mm thickness. A few small nabothian cysts. Right ovary 1.9 x 1.3 x 1.7 cm. Left ovary 2.3 x 1.2 x 1.4 cm. No free fluid. IMPRESSION: No evidence of endometrial thickening with the endometrium measuring up to 3 mm in thickness. This document has been electronically signed by: Nika Lino MD on 08/18/2024 10:13:03
== END 2024-08-17 12:48 | disposition home or self-care (01) ==
LOC: HO.HMGCX 12:47
PROVIDERS: PCP Internal Medicine; Visit Provider Obstetrics & Gynecology
DX: N95.0 Postmenopausal bleeding (principal)
CPT/HCPCS: 76830; 76856

== ENCOUNTER → 2024-08-17 12:52 | Outpatient (BNV) | payer BC, SELFPAY | PROVIDERS: PCP Internal Medicine; Visit Provider Radiology Diagnostic Radiology | DX: N95.0 Postmenopausal bleeding (principal) | CPT/HCPCS: 76856 ==

== ENCOUNTER 2024-08-25 15:27 | Outpatient (AMB) | payer BC, SELFPAY ==
[2024-08-25 15:32] VITALS: BMI 30.1
--- NOTE | 2024-08-25 15:32 | A.OFFVIS_ITS ---
Vital Signs 08/25/24 15:32 Height 5 ft 10 in Weight 210 lb BMI 30.1 Intake Visit Reasons: US follow up Allergies erythromycin base Allergy (Mild, Verified 08/13/24 15:56) Rash Penicillins Allergy (Mild, Verified 08/13/24 15:56) Rash ALVARADO Allergy (Intermediate, Uncoded 08/06/24 07:22) Wheezing HPI Comments Details: Presenting for follow-up post EMB. Endometrial pathology showed the following: Endometrium, biopsy: - Superficial strips and fragments of benign endometrium. - Superficial strips and fragments of benign squamous and endocervical epithelium with patchy squamous metaplasia. - No atypia identified Pelvic ultrasound showed the following: Findings: Uterus measures 6.1 x 2.5 x 3.3 cm. Normal myometrium. No endometrial lesion, 3 mm thickness. A few small nabothian cysts. Right ovary 1.9 x 1.3 x 1.7 cm. Left ovary 2.3 x 1.2 x 1.4 cm. No free fluid. IMPRESSION: No evidence of endometrial thickening with the endometrium measuring up to 3 mm in thickness. Co testing done in 03/01 was negative [facility] Medical History Atelectasis Pancreatic insufficiency Pulmonary nodule Gastroparesis History of COVID-19 URI (upper respiratory infection) Hernia, paraesophageal Hx of supraventricular tachycardia Anxiety Incarcerated paraesophageal hernia Obesity GERD (gastroesophageal reflux disease) Hiatal hernia Asthma Surgical History Hx of esophagogastroduodenoscopy Hx of colonoscopy History of cardiac radiofrequency ablation (RFA) History of chest tube placement (~1998) History of bronchoscopy (~1998) Family History Paternal Grandmother Stomach cancer Social History Household Members: Spouse Housing: House Alcohol intake: never Patient Tobacco Use Status: Never used Tobacco Current occupational status: employed 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 Discussed with the patient the sensitivity, specificity, positive and negative predictive value, of endometrial biopsy in detecting endometrial pathology including but not limited to endometrial hyperplasia, cancer and other pathology; instructed the patient to discontinue Prempro and to schedule a follow-up appointment in 3 weeks, the next step if vaginal bleeding persist will be to proceed with a diagnostic hysteroscopy/D&C for further endometrial sampling evaluation to rule out endometrial pathology. All questions answered and the patient verbalized understanding and agreed with the plan. Coding Level of Care Code Est Pt Level 3 (54247) Diagnoses Postmenopausal bleeding N95.0
--- OUTSIDE RECORDS SUMMARY | 2024-08-25 17:58 | XMS_ITS | Encounter Summary ---
Author Organization Formerly [facility] Address [address] [place] [address] Care Team Providers Care Vertical Boring Mill Operator Name Role Phone Teddy Glasgow Primary Care Provider [phone] Jonnathan Jose MD Unavailable [phone] Encounter Details Date Type Department Care Team (Late st Contact Info) Description 05/04/2024 Scanned Document [facility] Bariatric Surgery [address] [place] [phone] Jonnathan Jose MD [address] [id number] Social History Tobacco Use Types Packs/Day Years [...] more drinks on one occasion? Never 06/19/2022 [facility] [place] of Occupat ional Health - Occupational Stress [...] on filedocumented in this encounter Care Teams Vertical Boring Mill Operator Relationship Specialty Start Date End Date Teddy Glasgow DO [address] [facility] [place] [address] [place] [address] PCP - General 06/15/21 Jonnathan Jose MD [address] [place] [id number] Physician Surgery, Bariatric 11/29/21 documented as of this encounter
== END 2024-08-25 16:13 | disposition home or self-care (01) ==
LOC: HO.HWS 15:27
PROVIDERS: PCP Internal Medicine; Visit Provider Obstetrics & Gynecology
DX: N95.0 Postmenopausal bleeding (principal)
CPT/HCPCS: 99213

== ENCOUNTER → 2024-08-25 15:27 | Outpatient (BNVA) | payer BC, SELFPAY | PROVIDERS: PCP Internal Medicine; Visit Provider Obstetrics & Gynecology ==

== ENCOUNTER 2024-09-17 07:37 | Outpatient (AMB) | payer BC, SELFPAY ==
--- OUTSIDE RECORDS SUMMARY | 2024-02-05 09:00 | XMS_ITS ---
Author Organization [facility] Address [address] [phone] Care Team Providers Care Bank Accountant Name Role Phone Myah LUNA, Teddy Primary Care Provider Ale Diaz Unavailable [phone] REASON FOR VISIT no ppwrk Encounters Encounter Location Date Provider Diagnosis [facility] [address] [place] [address] 02/05/2024 Ale Bustillo Plan Of Treatment No Information Progress Notes * Barbara MERCEReDOB:1965 (58 yo F)Acc No.[id number]:02/05/2024 Progress Notes Patient: Martina FRENCH Provider: Kiki Bustillo DPM :1965 A ge:58 Y S ex:Female Date:02/05/2024 Address:[address] [place], [place] [phone] Pcp:Teddy Glasgow MD Subjective: * Chief Complaints: [...] 04/06/2023 Generated for Shakir mcclellan/Leah/eTransmitting on: 0 09/17/2024 07:38 AM EDT
--- OUTSIDE RECORDS SUMMARY | 2024-09-17 07:39 | XMS_ITS | Data Portability ---
Author Organization TISAH Clarke Damian [facility], [facility] [place] Address [address] [place] [address] Care Team Providers Care Gm Name Role Phone SHAHZAD MOY Primary Care Provider [phone] Assessment Encounter Date Assessment Date Assessment LastModified by Organization Details LastModified Time 06/20/2023 06/20/2023 Improving PF strength but unable to SL calf raise. Decreased Achilles stiffness. Ongoing weak PF. STM to distal achilles region has helped decrease swelling and improve gait. Cont ROM and strengthening lscafuri Not available 06/20/2023 17:38:40 07/02/2023 07/02/2023 Excellent progress. R PF remains weak. Unable to AMB on toes. Cont ROM and strengthening lscafuri Not available 07/02/2023 18:12:08 07/09/2023 07/09/2023 Increased swelling today and decreased capacity to SL calf raise with UE support. Cont ROM and strengthening lscafuri Not available 07/09/2023 18:12:36 07/23/2023 07/23/2023 Challenged balance on airex. Unable to AMB on toes but improving overall strength. Cont ROM and strengthening lscafuri Not available 07/23/2023 18:52:25 Plan of Treatment Reminders Order Date Submit Date Provider Last Modified By Organization Details Last Modified Time Details Appointments RECHECK 15 2024 08:15A Buzz Fitzpatrick PA-C Not available Not available Not available Lab None recorded . Referral None recorded . Procedures None recorded . Surgeries None recorded . Imaging XR, shoulder , 2 or more view - room 216 right shoulder 2023 024 [facility], [address], [place], [address], 02/12/2024 08:43:45 Medication Orders None recorded . Patient TargetsNo targets recorded. Patient InstructionsNo instructions recorded. Reason for Referral None Reported. Results Created Date Observation Date Name Description Value Unit Range Abnormal Flag Note LastModifiedBy Organization Detail LastModifiedTime 11/08/19 24 07/27/2021 imagi ng/di agnos tic resul t No observ ation record ed. [email or web address] Not Available 10/11 01:37:20 11/08/19 24 07/29/2021 imagi ng/di agnos tic resul t No observ ation record ed. [email or web address] Not Available 10/11 01:37:21 11/08/19 24 03/15/2023 imagi ng/di agnos tic resul t No observ ation record ed. [email or web address] Not Available 10/11 01:37:43 11/08/19 24 02/18/2023 imagi ng/di agnos tic resul t No observ ation record ed. [email or web address] Not Available 10/11 01:38:03 11/08/19 24 02/18/2023 imagi ng/di agnos tic resul t No observ ation record ed. [email or web address] Not Available 10/11 01:38:07 01/23/20 24 01/23/2024 pretty GARCIA, 2 or more view http:/ [email or web address] ?Encry pted=s hAaTro YD8dLq bEUv6g %2BXZw aYqtaq 0bqfl% 2Fg9IQ a4ajBk vP9nXo QUaueC m3YtLR FvZlgJ JJ8mAn HZtai3 7k4496 AC0Kqa X2HWKu kKiQtr [facility] INTERFACE [facility] [address], [place], [address], 01/23/2024 15:51:54 01/23/20 24 01/23/2024 XR, shoul lon, 2 or more view http:/ [email or web address] ?Encry pted=s hAaTro YD8dLq bEUv6g %2BXZw aYqtaq 0bqfl% 2Fg9IQ a4ajBk vP9nXo QUaueC m3YtLR FvZlgJ JJ8mAn HZtai3 8h8009 AC0Kqa X2HWKu kKiQtr MwF INTERFACE [facility] [address], [place], [address], 01/23/2024 15:51:57 Result Notes Documentation Provider Name and Address Organization Details Recorded Time Xr, Shoulder, 2 Or More View : [email or web address]? Encrypted=fnSwJnnAS0fIxlF Uv6g%3NWQvwGzsfw2wnha%2Fg 3DXl4gkQpuQ2aRcOKwhfJa7Go ZIDuGjzICC2mJcTJhid28v217 2TO1TgiZ0TGNiaUhUhpSdR Not Available [facility] 01/23/2024 15:51: 55 Xr, Shoulder, 2 Or More View : [email or web address] Encrypted=wySaXcnFW7zCmiA Uv6g%7ZSMocSxmig8mfqc%2Fg 5GKb1tvHhsU4tFcUPyrcUm2Wq GACoSpcJDB9yMtMNwft28b584 7ID5ZsnG3DDPaxFvOfgSoU Not Available [facility] 01/23/2024 15:51: 57 Problems Name Problem SNOMED Code Status Onset Date Resolution Date Notes Provider Name and Address Organization Details Recorded Time Impingement syndrome of right shoulder region 9291648986064 02 Active 2023 Antwan Fitzpatrick PA-C [address], [place], [address], [facility] 15:33:08 Impingement syndrome of left shoulder region 5897697034978 04 Active 04/05/ 2024 Antwan Fitzpatrick PA-C [address], [place], [address], [facility] 15:33:10 Problem Notes None recorded. Procedures Surgical History Date Name Laterality Status Provider Name and Address Organization Details Recorded Time 4 75084 Therapeutic Exercise (1:1) completed Gómez Brown, [employer] [address], [place], [address], [facility] 07/09/2023 18:08:40 4 36658: Manual therapy completed Gómez Brown, [employer] [address], [place], [address], [facility] 07/09/2023 18:08:40 4 16076 Therapeutic Exercise (1:1) completed Gómez Brown, [employer] RE[employer] [address], [place], [address], [facility] 07/02/2023 18:08:10 4 19986: Manual therapy completed Gómez Brown, [employer] RE[employer] [address], [place], [address], [facility] 07/02/2023 18:08:42 4 47800 Therapeutic Exercise (1:1) cancelled Chas Tomlinsonser, PT [address], [place], [address], [facility] 06/25/2023 12:53:01 4 02151: Manual therapy cancelled Chas Bushraser, PT [address], [place], [address], [facility] 06/25/2023 12:53:01 4 94426 Therapeutic Exercise (1:1) cancelled Chas Bushraser, PT [address], [place], [address], [facility] 06/21/2023 11:56:00 4 42453: Manual therapy cancelled Chas Tomlinsonser, PT [address], [place], [address], [facility] 06/21/2023 11:56:00 4 40122 Therapeutic Exercise (1:1) completed Gómez Scafuri, [employer] [address], [place], [address], [facility] 06/20/2023 17:36:11 4 50210: Manual therapy completed Gómez Scafuri, [employer] RE[employer] [address], [place], [address], [facility] 06/20/2023 17:36:11 4 47754 Therapeutic Exercise (1:1) completed Gómez Scafuri, [employer] RE[employer] [address], [place], [address], [facility] 06/18/2023 18:19:40 4 60581: Manual therapy completed Gómez Scafuri, [employer] RE[employer] [address], [place], [address], [facility] 06/18/2023 18:19:40 4 45697 Therapeutic Exercise (1:1) completed Gómez Scafuri, [employer] RE[employer] [address], [place], [address], [facility] 06/14/2023 15:03:32 4 37054: Manual therapy completed Gómez Scafuri, [employer] RE[employer] [address], [place], [address], [facility] 06/14/2023 15:03:32 4 Sports Shoulder completed Antwan Fitzpatrick PA-C [address], [place], [address], [facility] 06/14/2023 08:12:39 4 84286 Therapeutic Exercise (1:1) completed Gómez Scafuri, [employer] RE[employer] [address], [place], [address], [facility] 06/12/2023 18:07:09 4 44000: Manual therapy completed Gómez Eugeneri, [employer] RE[employer] [address], [place], [address], [facility] 06/12/2023 18:07:09 4 32318 Therapeutic Exercise (1:1) completed Gómez Eugeneri, [employer] REPA[employer]ER [address], [place], [address], [facility] 06/05/2023 17:23:45 4 75533: Manual therapy completed Gómez Eugeneri, [employer] REPA[employer]ER [address], [place], [address], [facility] 06/05/2023 17:23:45 4 19379 Therapeutic Exercise (1:1) completed Gómez Eugeneri, [employer] REPA[employer]ER [address], [place], [address], [facility] 05/29/2023 16:42:47 4 81858: Manual therapy completed Gómez Brown, [employer] REPA[employer]ER [address], [place], [address], [facility] 05/29/2023 16:42:47 4 38747 Therapeutic Exercise (1:1) completed Chas Dean, PT [address], [place], [address], [facility] 05/23/2023 10:10:02 4 13560: Hot or Cold Pack completed Chas Dean, PT [address], [place], [address], [facility] 05/23/2023 10:10:02 4 36802: Manual therapy completed Chas Dean, PT [address], [place], [address], [facility] 05/23/2023 10:10:02 4 66603 Therapeutic Exercise (1:1) completed Chas Pyser, PT [address], [place], [address], [facility] 05/22/2023 13:34:03 4 99665: Hot or Cold Pack completed Chas Pyser, PT [address], [place], [address], [facility] 05/22/2023 13:33:56 4 59818: Manual therapy completed Chas Pyser, PT [address], [place], [address], [facility] 05/22/2023 13:34:08 Imaging Results None recorded. Procedure Notes None recorded. Medical Equipment None Reported. Allergies Allergen ID Allergen Name Allergen Category Reaction Reaction Severity Criticality Documentation Date Start Date Code Code System Note Provider Name and Address Organization Details Recorded Time 44212 erythromy filemon medicatio n Not available Not available Not available 05/13/20232023 4053 RxNorm Not Available [facility] 4 09:09:20 18028 Product containin g penicilli n (product) medicatio n Not available Not available Not available 05/13/20232023 81118 8001 SNOMED Not Available [facility] 4 09:09:21 Medications Name Sig Start Date Stop Date Status Note LastModified by Organization Details LastModified Time prednisone 10 mg tablet active Not Available Not Available Not Available doxycycline hyclate 100 mg capsule TAKE 1 CAPSULE BY MOUTH TWICE DAILY FOR 10 DAYS active Not Available Not Available No t Available clindamycin HCl 300 mg capsule TAKE 1 CAPSULE BY MOUTH THREE TIMES DAILY active Not Available Not Available No t Available albuterol sulfate 2.5 mg/3 mL (0.083 %) solution for nebulizatio n INHALE 3ML VIA NEBULIZER EVERY 4 HOURS NEEDED FOR SHORTNESS OF BREATH OR WHEEZING active Not Available Not Available No t Available meloxicam 15 mg tablet Take 1 tablet every day by oral route. active Not Available Not Available No t Available ondansetron HCl 4 mg tablet TAKE 1 TABLET BY MOUTH EVERY 6 TO 8 HOURS NEEDED FOR NAUSEA OR VOMITING active Not Available Not Available No t Available prednisone 20 mg tablet TAKE 2 TABLETS BY MOUTH TWICE DAILY FOR 5 DAYS active Not Available Not Available No t Available omeprazole 40 mg capsule,del ayed release TAKE 1 CAPSULE BY MOUTH EVERY MORNING ON AN EMPTY STOMACH active Not Available Not Available No t Available acetaminoph en 500 mg tablet TAKE 1 TABLET BY MOUTH EVERY 4-6 HOURS NEEDED active Not Available Not Available No t Available baclofen 20 mg tablet TAKE 1 TABLET BY MOUTH THREE TIMES DAILY FOR 14 DAYS NEEDED FOR NECK PAIN active Not Available Not Available No t Available hydrocortis one 2.5 % topical cream with perineal applicator APPLY RECTALLY TO THE AFFECTED AREA 2 TO 4 TIMES A DAY NEEDED FOR HEMORRHOI DS active Not Available Not Available No t Available lorazepam 0.5 mg tablet TAKE 1 TABLET BY MOUTH TWICE DAILY FOR 7 DAYS NEEDED active Not Available Not Available No t Available nystatin 100,000 unit/gram topical cream APPLY TOPICALLY TO THE AFFECTED AREA TWICE DAILY active Not Available Not Available No t Available codeine 10 mg-guaifene sin 100 mg/5 mL oral liquid TAKE 10 ML BY MOUTH EVERY 6 HOURS FOR 7 DAYS NEEDED active Not Available Not Available No t Available ibuprofen 600 mg tablet TAKE 1 TABLET BY MOUTH EVERY 4-6 HOURS NEEDED active Not Available Not Available No t Available levofloxaci n 750 mg tablet TAKE 1 TABLET BY MOUTH EVERY DAY FOR 7 DAYS active Not Available Not Available No t Available ondansetron 4 mg disintegrat ing tablet DISSOLVE ONE TABLET BY MOUTH THREE TIMES DAILY NEEDED active Not Available Not Available No t Available colestipol 1 gram tablet active Not Available Not Available Not Available doxycycline hyclate 100 mg tablet TAKE 1 TABLET BY MOUTH TWICE DAILY active Not Available Not Available No t Available naproxen 500 mg tablet TAKE 1 TABLET BY MOUTH TWICE DAILY. active Not Available Not Available No t Available Ventolin HFA 90 mcg/actuati on aerosol inhaler INHALE 2 PUFFS BY MOUTH EVERY 4 HOURS NEEDED FOR WHEEZING. FOLLOW UP APPOINTME NT FOR FURTHER REFILLS active Not Available Not Available No t Available oxycodone 5 mg tablet TAKE 1 TABLET BY MOUTH EVERY 24 HOURS FOR 7 DAYS NEEDED active Not Available Not Available No t Available ciprofloxac in 0.3 %-dexametha sone 0.1 % ear drops,suspe nsion SHAKE LIQUID AND INSTILL 4 DROPPERFU L TO LEFT EAR TWICE DAILY FOR 7 DAYS active Not Available Not Available No t Available Prempro 0.3 mg-1.5 mg tablet TAKE 1 TABLET BY MOUTH EVERY DAY active Not Available Not Available No t Available Prempro Prempro 0.3-1.5MG Tablet 2022 active Statu s: 'Curr ent'; Not Available Not Available Not Available Symbicort 160 mcg-4.5 mcg/actuati on HFA aerosol inhaler INHALE 2 PUFFS BY MOUTH TWICE DAILY active Not Available Not Available No t Available oxycodone HCl-oxycodo ne-ASA 1-2 tablets by mouth q4- [address] WHILE TAKING THIS MEDICATIO N 04/29 completed Statu s: 'Disc ontin ued'; Not Available Not Available Not Available testosteron e 20.25 mg/1.25 gram per pump act.(1.62 %) transdermal gel APPLY 4 PUMPS TO SKIN DAILY UNTIL ABSORBED DIRECTED active Not Available Not Available No t Available Xarelto 10 mg tablet active Not Available Not Available No t Available Eliquis 2.5 mg tablet TAKE 1 TABLET BY MOUTH TWICE DAILY active Not Available Not Available No t Available prucaloprid e 2 mg tablet active Not Available Not Available Not Available Breztri Aerosphere 160 mcg-9mcg-4. 8mcg/actuat ion HFA aerosol inhaler INHALE 2 PUFFS BY MOUTH TWICE DAILY active Not Available Not Available No t Available Vitals Date Recorded Body height Body mass index (BMI) Body weight Provider Name and Address Organization Details Last Updated DateTime 01/23/2024 177.8 cm 32.3 kg/m2 175591.28 g Antwan Fitzpatrick PA-C [address], [place], [address], [place] [facility] 01/23/2024 15:12:54 Social History None recorded. Functional Status None recorded. Mental Status None recorded. Family History Nothing Reported. Medical History Condition Response Gastrointestinal Disease Y Arthritis Y Asthma Y Gynecological HistoryNo gynecological history recorded. Obstetrics History GPAL:G 0 P 0 0 0 0 Past Encounters Encounter ID Performer Location Encounter Start Date Encounter Closed Date Diagnosis/Indication Diagnosis SNOMED-CT Code Diagnosis ICD10 Code Diagnosis Note [id number] Chas Pyser, PT [facility] [address] [place] [address] 05/22/2023 12:35:19 05/22/2023 14:39:55 Injury of muscle and tendon of lower leg 419609536 S86.091D [id number] Chas Pyser, PT [facility] [address] [place] [address] 05/24/2023 08:31:31 05/24/2023 11:26:43 Injury of muscle and tendon of lower leg 362964851 S86.091D [id number] Gómez Scafuri, [employer] RE[employer] [facility] [address] [place] [address] 05/29/2023 14:30:12 05/29/2023 16:45:55 Injury of muscle and tendon of lower leg 491920176 S86.091D [id number] Gómez Scafuri, [employer] REPA[employer] [facility] [address] [place] [address] 06/05/2023 15:28:11 06/05/2023 16:31:06 Injury of muscle and tendon of lower leg 307193490 S86.091D [id number] Gómez Scafuri, [employer] REPA[employer]ER [facility] [address] [place] [address] 06/12/2023 15:38:54 06/12/2023 17:05:10 Injury of muscle and tendon of lower leg 902613865 S86.091D [id number] Antwan Fitzpatrick PA-C [facility] [address] [place] [address] 06/14/2023 13:02:40 06/27/2023 16:10:39 Impingement syndrome of left shoulder region 7709053211 97172 M75.42 [id number] Gómez Scafuri, [employer] REPAIRER [facility] [address] [place] [address] 06/14/2023 13:33:12 06/14/2023 15:07:27 Injury of muscle and tendon of lower leg 014596430 S86.091D [id number] Ibis Irvin MD [facility] [address] [place] [address] 06/17/2023 15:49:49 07/06/2023 12:36:19 Pain of right ankle joint 8609963144 3998191 M25.571 Ankle pain 805463826 M25 .579 Right Achi lles tendinitis 1445792733 24128 M76.61 [id number] Gómez Eugeneri, [employer] REPA[employer]ER [facility] [address] [place] [address] 06/18/2023 16:29:09 06/18/2023 17:27:55 Injury of muscle and tendon of lower leg 052210584 S86.091D [id number] Gómez Eugeneri, [employer] REPAIRER [facility] [address] [place] [address] 06/20/2023 16:35:22 06/20/2023 17:27:27 Injury of muscle and tendon of lower leg 863130400 S86.091D [id number] Gómez Eugeneri, [employer] REPAIRER [facility] [address] [place] [address] 07/02/2023 16:37:11 07/02/2023 17:18:01 Injury of muscle and tendon of lower leg 472206587 S86.091D [id number] Gómez Eugeneri, [employer] REPAIRER [facility] [address] [place] [address] 07/09/2023 16:25:01 07/09/2023 18:08:11 Injury of muscle and tendon of lower leg 928693468 S86.091D [id number] Gómez Eugeneri, [employer] REPAIRER [facility] [address] [place] [address] 07/23/2023 17:22:41 07/23/2023 17:57:37 Injury of muscle and tendon of lower leg 195036427 S86.091D [id number] Antwan Fitzpatrick PA-C [facility] [address] [place] [address] 01/23/2024 15:03:28 02/12/2024 08:43:44 Pain of right shoulder region 6944063496 M25.511 Impingemen t syndrome of right shoulder region 8561991632 11783 M75.41 Impingemen t syndrome of left shoulder region 1550346817 16934 M75.42 Health Concerns Section Related Observation LastModified by Organization Detai ls LastModified Time None Recorded Concern Status LastModified by Organization Details LastModified Time None Recorded Advance Directives Directive None Recorded Payers Insurance Date Sequence Insurance Name Policy Number Policy Wylie Covered Member ID Wylie Member ID Guarantor Name 01/22/2024 1 [facility] [id number] Martina Weinstein [id number] Martina Weinstein 09/16/2024 1 [facility] [id number] Antwan Weinstein [id number] Martina Weinstein Notes Date Note Type Note Provider Name and Address Organization Details Recorded Time 06/20/2023 text/html Pt reports feeli ng good no pain today. Letha like she walked much better after LV. Gómez Brown [employer] REPA[employer]ER [address] [facility], [place], [address], [facility] 06/20/2023 17:39:09 07/02/2023 text/html Pt reports feeli ng good no pain today. Letha like she walked much better after LV. Gómez Brown PTA [address], [place], [address], [facility] 07/02/2023 18:12:29 07/09/2023 text/html Pt reports 2/10 pain. Increased swelling after gardening for 3 hours. Gómez Brown PTA [address], [place], [address], [facility] 07/09/2023 18:13:18 07/23/2023 text/html Pt reports feeli ng good. No CO pain. Still feels weak trying to walk on toes. Gómez Brown PTA [address], [place], [address], [facility] 07/23/2023 18:53:11 01/23/2024 text/html I am seeing the patient today under the supervision of Dr. Wilson who was available but who did not see the patient. CLINICAL HISTORY: Martina comes in today for evaluation of her left shoulder reporting increased pain and discomfort. She has undergone previous shoulder surgery by Dr. Wilson had a tough recovery her left shoulders bother her from time to time difficulty with sleeping. Right shoulder similar has been bothersome within the last several months its exacerbated with overhead activities and sleeping pain. PAST MEDICAL/SURGICAL HISTORY Current medications per intake sheet. PHYSICAL FINDINGS The patient is well appearing, in no apparent distress, alert and oriented to person, place and time. Gait is symmetric. No significant swelling, warmth or erythema about either shoulder. Examination of the left and right shoulder demonstrates forward elevation 175 , external rotates 45 , internal rotates back pocket with mild discomfort, mild crepitance with patella manipulation, AC joint tenderness, rotator cuff strength 4/5 with horizontal elevation, 4/5 external rotation, 4/5 resisted belly press test, bicipital groove is mildly irritable, no apprehension in positions of instability, normal scapular mechanics. Cervical Exam demonstrates limited ROM without radicular symptoms. Peripheral, vascular, lymphatic examination, skin, neurologic coordination, reflexes, sensation are within normal limits. X-ray findings: 4 views ordered and independently reviewed previously at [facility] of the right shoulder demonstrates type II acromion, well-preserved glenohumeral joint, mild AC joint arthritis. ASSESSMENT: Right shoulder impingement, AC joint arthritis. #2. Left shoulder rotator cuff tendinopathy. PLAN: Different treatment options discussed at length with the patient ultimately decided to go forward with home-based physical therapy talked about the potential benefit of subacromial space injection today. Both shoulders were injected today without incident continue physical therapy at home follow-up in our office as symptoms require. [facility] speech recognition magento web developer software was used to create portions of this document. An attempt at proofreading has been made to minimize errors. Please call for corrections [address] [facility], [place], [address], [facility] 02/12/2024 10:07:00 OBGyn Episode No OBEpisode recorded.
--- OUTSIDE RECORDS SUMMARY | 2024-09-17 07:39 | XMS_ITS ---
Author Organization Unknown Allergies, Adverse Reactions, Alerts Substance Reaction Status Noinformation - Inactive Medications Medication Instructions Effective Dates (start - sto p) Status NoInformation Completed Problems Problem Status Start date Recorded date Z71.3: Dietary counseling and surveillance Inactive Procedures Procedure Date NoInformation Results No information Plan of Treatment Patient Care team information Name Category Status Period Participants - Episode of care-focused care team Proposed 02-09-08 - now - - - Proposed period not known - Notes Author - Date Note - no notes
--- OUTSIDE RECORDS SUMMARY | 2024-09-17 07:39 | XMS_ITS | Clinical Summary ---
Author Organization Patient Business Ser [facility] Address [address] [place] [address] Care Team Providers Care Leather Sponger Name Role Phone Teddy Glasgow DO Primary Care Provider [phone] Surgical History Surgery Date Site/Laterality Comments OTHER SURGICAL HISTORY 2020 PROCEDURE: [place] LAPS RPR PARAESPHGL HRNA INCL FUNDPLSTY W/MESH Medical History Medical History Date Comments Asthma 08/22/2018 DX:Asthma GERD (gastroesophageal reflux disease) 9 DX:GERD (gastroesophageal reflux disease) Paraesophageal hernia 2020 DX:Paraeso phageal hernia Family History Relation Name Status Comments Father Mother Alive Sister 1 Alive Social History Tobacco Use Types Packs/Day Years Used Date Smoking Tobacco: Never Smokeless Tobacco: Never Comments Unknown Sex and Gender Information Value Date Recorded Sex Assigned at Not on file Legal Sex Female 9:37 PM EDT Gender Identity Not on file Sexual Orientation Not on file Obstetrics History Plan of Treatment Health Maintenance Due Date Last Done Comments Breast Cancer Screening 1965 DTaP,Tdap,and Td Vaccines (1 - Tdap) 09/27/1982 Cervical Cancer Screening: P ap Smear 09/27/1984 Zoster Vaccines (1 of 2) 09/27/2013 Pneumococcal Vaccine: 50+ Ye ars (2 of 2 - PCV) 12/29/2018 12/29/2017 Pneumococcal Vaccine: Pediat rics (0 to 5 Years) and At-Risk Patients (6 to 49 Years) (2 of 2 - PCV) 12/29/2018 12/29/2017 Colorectal Cancer Screening: Colonoscopy 11/29/2021 Depression Screening 11/29/2021 HIV Screening 11/29/2021 Hepatitis C Screening 11/29/2021 Social Influencers of Health Screening 11/29/2021 RSV Immunization Adult Patie nts (1 - Risk 60-74 years 1-dose series) 2023 COVID-19 Vaccine (1 - 2023-2 5 season) 2023 Influenza Vaccine (#1) 2024 12/29/2017 HIB Vaccines Aged Out No longer eligi ble based on patient's age to complete this topic HPV Vaccines Aged Out No longer eligi ble based on patient's age to complete this topic Hepatitis A Vaccines Aged Out No long er eligible based on patient's age to complete this topic Hepatitis B Vaccines Aged Out No long er eligible based on patient's age to complete this topic IPV Vaccines Aged Out No longer eligi ble based on patient's age to complete this topic MMR Vaccines Aged Out No longer eligi ble based on patient's age to complete this topic Meningococcal ACWY Vaccine Aged Out N o longer eligible based on patient's age to complete this topic Meningococcal B Vaccine Aged Out No l onger eligible based on patient's age to complete this topic RSV Immunization Patients Un lon 20 months Aged Out No longer eligible b ased on patient's age to complete this topic Varicella Vaccines Aged Out No longer eligible based on patient's age to complete this topic Care Teams Leather Sponger Relationship Specialty Start Date End Date Teddy Glasgow DO [address] [facility] [address] [place], [place] PCP - General Internal Medicine 07/10/18
--- OUTSIDE RECORDS SUMMARY | 2024-09-17 07:39 | XMS_ITS ---
Author Name [facility] Organization Unknown History of Medication Use Medication Directions Dispensed Refills Start Date End Date Stat us neomycin (MYCIFRADIN) 500 MG tablet Take 1 tablet (500 mg total) by mouth 2 times a day. 06/19/2024 active rifAXIMin (XIFAXAN) 550 MG tablet Take 1 tablet (550 mg total) by mouth 3 (three) times a day. 06/19/2024 active testosterone (ANDROGEL) 20.25 mg/pump (1.62%) transdermal gel APPLY 4 PUMPS TO SKIN DAILY UNTIL ABSORBED DIRECTED 05/22/2024 active cyproheptadine (PERIACTIN) 4 MG tablet Take 1 tablet (4 mg total) by mouth every evening. 03/19/2024 active nystatin (MYCOSTATIN) 133783 UNIT/GM cream Apply topically 2 (two) times a day. 07/17/2022 active ondansetron (ZOFRAN-ODT) 4 MG disintegrating tablet Take 1 tablet (4 mg total) by mouth 4 times daily (every 6 hours) as needed for nausea or vomiting. Place tablet on tongue to dissolve. 07/07/2022 3 aborted oxyCODONE (ROXICODONE) 5 MG immediate release tablet Take 1-2 tablets (5-10 mg total) by mouth 4 times daily (every 6 hours) as needed for moderate pain or severe pain. Max Daily Amount: 40 mg 07/07/2022 3 active esomeprazole (NexIUM) 40 MG capsule Take 1 capsule (40 mg total) by mouth every morning before breakfast. 02/07/2022 active guaiFENesin-codeine (ROBITUSSIN AC) liquid 02/05/2022 2 aborted predniSONE (DELTASONE) 20 MG tablet TAKE 3 TABLETS (60 MG TOTAL) BY MOUTH ONCE DAILY FOR 5 DAYS. 02/03/2022 2 active sodium bicarbonate-citric acid-simethicone (EZ-GAS-II) 1 packet 1 packet, Oral, Once in imaging, contrast, Starting on Sat12/29/21 at 0820, For 1 dose, Radiology Appointmentmix 1 packet with 10 ml water 12/29/2021 2 completed Creon [id number] units Cap [address] Particles capsule 10/29/2021 2 aborted estrogens, conjugated,-medroxy PROGESTERone (Prempro) 0.3-1.5 MG per tablet Take 1 tablet by mouth. 04/11/2021 3 aborted ipratropium-albuter ol (DUONEB) 0.5-2.5 mg/3 mL nebulizer solution active Allergies Allergen Reaction Severity Comment Documented Date Source Statu s PENICILLINS HIVES 11/28/2021 [facility] active ERYTHROMYCIN GI INTOLERANCE/NAUSEA/VOMITI NG 01/14/2017 [facility] active ALVARADO SHORTNESS OF BREATH [facility] Problems Problem Status Onset Date Problem Type Date of Resoluti on Source Paraesophageal hernia active 2022-07-06 ProblemAct [facility] Immunizations Vaccine Date Source Lot Number Status Covid-19 MRNA Vaccine - Pfiz er 12+ (Purple Cap) 12/07/2020 [facility] completed Covid-19 MRNA Vaccine - Pfiz er 12+ (Purple Cap) 04/15/2020 [facility] completed Covid-19 MRNA Vaccine - Pfiz er 12+ (Purple Cap) 03/22/2020 [facility] completed Encounters Encounter Type Encounter Reason Primary Diagnosis Location Date Ambulatory Follow-up Follow-up [facility] 06/23/2024 Ambulatory Chronic idiopathic constipation Chronic idiopathic constipation [facility] 06/15/2024 Ambulatory Chronic idiopathic constipation Chronic idiopathic constipation [facility] Amb[facility] Chronic idiopathic constipation Chronic idiopathic constipation [facility] 05/01/2024 Ambulatory Chronic idiopathic constipation Chronic idiopathic constipation [facility] 03/19/2024 Ambulatory Gastroparesis Gastroparesis [facility] 11/26/2023 Ambulatory Early satiety Early satiety [facility] 11/19/2023 Ambulatory Early satiety Early satiety [facility] 11/01/2023 Ambulatory Obesity, unspecified [facility] 09/21/2022 Ambulatory Diaphragmatic he rnia without obstruction or gangrene [facility] 08/03/2022 Ambulatory Diaphragmatic he rnia without obstruction or gangrene [facility] 07/20/2022 Inpatient Diaphragmatic he rnia without obstruction or gangrene [facility] 07/04/2022 Ambulatory Diaphragmatic he rnia without obstruction or gangrene [facility] 04/17/2022 Ambulatory Chronic idiopath ic constipation [facility] 04/17/2022 Ambulatory Right upper quad rant pain [facility] 03/13/2022 Ambulatory Gastro-esophagea l reflux disease with esophagitis, without bleeding [facility] 02/27/2022 Ambulatory Gastro-esophagea l reflux disease with esophagitis, without bleeding [facility] 02/07/2022 Ambulatory Abdominal disten mignon (gaseous) [facility] 01/31/2022 Ambulatory Abdominal disten mignon (gaseous) [facility] 01/11/2022 Ambulatory [facility] 12/29/2021 Ambulatory Diaphragmatic he rnia without obstruction or gangrene [facility] 11/28/2021 Care Team Organization Name Specialty Phone Email Start Date End Da yesika [facility] SHAHZAD MOY Primary Care 02/07/2022 07/25/2024 [facility] SHAHZAD MOY Primary Care 11/28/2021 11/28/2021
--- OUTSIDE RECORDS SUMMARY | 2024-09-17 07:39 | XMS_ITS | Encounter Summary ---
Author Organization [facility] Address [address] [place] [address] Care Team Providers Care Manager Entry Name Role Phone Teddy Glasgow Primary Care Provider [phone] Jonnathan Jose MD Unavailable Queenie Barrera PhD Unavailable [phone] Encounter Details Date Type Department Care Team (Late st Contact Info) Description 05/04/2024 Scanned Document [facility] Bariatric Surgery [address] [place] [phone] Jonnathan Jose MD [address] [address] Social History Tobacco Use Types Packs/Day Years [...] more drinks on one occasion? Never 06/19/2022 [facility] [place] of Occupat ional Health - Occupational Stress [...] as of this encounter Plan of Treatment Upcoming Encounters Date Type Department Care Team (Late st Contact Info) Description 12/03/2024 8:30 AM EDT Telemedicine Clinical Support [facility] [address] [place] [address] Uriah Herrera, NICOLE [address] [place] [address] documented as of this encounter Visit Diagnoses Not on filedocumented in this encounter Care Teams Manager Entry Relationship Specialty Start Date End Date Teddy Glasgow DO [address] [facility] [place] [address] [place] [address] PCP - General 06/15/21 Jonnathan Jose MD [address] [place] [id number] Physician Surgery, Bariatric 11/29/21 Queenie Barrera, PhD [address] [place] [address] Clinical Psychologist Psychology 09/02/24 documented as of this encounter
--- NOTE | 2024-09-17 07:48 | MHC.OFFVIS ---
Vital Signs 09/17/24 07:50 Height 5 ft 10 in Weight 210 lb BMI 30.1 Intake Visit Reasons: follow up Personal Property Appraiser: Personal Property Appraiser Present Allergies erythromycin base Allergy (Mild, Verified 08/13/24 15:56) Rash Penicillins Allergy (Mild, Verified 08/13/24 15:56) Rash ALVARADO Allergy (Intermediate, Uncoded 08/06/24 07:22) Wheezing Is last menstrual period known: Yes Last menstrual period: 01/07/20 Post menopausal: No Patient : No Do you need a note to return to daycare/school/sports/work: Yes (for surgery on saturday) HPI Comments Details: Presenting for recurrent daily hot flashes and vaginal bleeding. Prempro was discontinued a month ago. 08/18/24 pelvic ultrasound showed the following: Findings: Uterus measures 6.1 x 2.5 x 3.3 cm. Normal myometrium. No endometrial lesion, 3 mm thickness. A few small nabothian cysts. Right ovary 1.9 x 1.3 x 1.7 cm. Left ovary 2.3 x 1.2 x 1.4 cm. No free fluid. 08/14/2024 [facility] pathology showed the following: Endometrium, biopsy: - Superficial strips and fragments of benign endometrium. - Superficial strips and fragments of benign squamous and endocervical epithelium with patchy squamous metaplasia. - No atypia identified Last co testing in 03/01 was negative PFSH Medical History Atelectasis Pancreatic insufficiency Pulmonary nodule Gastroparesis History of COVID-19 URI (upper respiratory infection) Hernia, paraesophageal Hx of supraventricular tachycardia Anxiety Incarcerated paraesophageal hernia Obesity GERD (gastroesophageal reflux disease) Hiatal hernia Asthma Surgical History Hx of esophagogastroduodenoscopy Hx of colonoscopy History of cardiac radiofrequency ablation (RFA) History of chest tube placement (~1998) History of bronchoscopy (~1998) Family History Paternal Grandmother Stomach cancer Social History Household Members: Spouse Housing: House Alcohol intake: never Patient Tobacco Use Status: Never used Tobacco Current occupational status: employed 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 Reproductive History Menstrual Age of Menarche: 10 Date of last menstrual period: 01/07/20 Total pregnancies: 2 Full term: 2 Review of Systems Card Reports as per HPI and Reports no additional complaints Resp Reports as per HPI and Reports no additional complaints GI Reports as per HPI and Reports no additional complaints Reports as per HPI Physical Exam Vital Signs: BMI result Body Mass Index 30.1 Const General: cooperative, healthy appearing and comfortable Resp Effort & Inspection: normal respiratory effort Auscultation: clear to auscultation bilaterally Percussion: percussion normal Cardio Palpation: normal PMI Rate: regular rate Rhythm: regular rhythm Heart sounds: no murmurs and no rubs Peripheral pulses: Peripheral pulses 2+ throughout GI Inspection: Yes normal to inspection Palpation (GI): Soft to palpation, nontender, no guarding, not rigid and No hepatosplenomegaly present Percussion: Yes normal to percussion Auscultation: normal bowel sounds Rectal Exam - Female: deferred Assessment & Plan Assessment & Plan (1) Postmenopausal bleeding: Comment: Recurrent Code(s): N95.0 - Postmenopausal bleeding Category: Medical Plan: Discussed with the patient the differential diagnosis of post menopausal bleeding with normal pelvic exam including but not limited to, endometrial hyperplasia, cancer, polyps and other causes; co testing done, recommended next step is hysteroscopy D&C possible polypectomy/myomectomy to rule out endometrial pathology. Discussed with the patient the procedure , all benefits and risks including but not limited to inability to complete the procedure , insufficient endometrial tissue for a complete evaluation of the endometrial cavity , bleeding, infection, possible need for blood transfusion with all its risk ( HIV,syphilis, Hepatitis, anaphylaxis shock, others..), injury to bladder, rectum, possible need for laparoscopy/laparotomy or hysterectomy. The patient verbalized understanding and signed the consent. Instructions given the patient to stay NPO after midnight the day prior to the procedure and to take only the specific medication (s) discussed the morning of the surgical procedure and to schedule a 2 week postoperative appointment This note was generated with a voice recognition program. Some errors may have been overlooked during the review of this note. Sometimes these errors may affect the content or meaning of a given sentence. (2) Hot flashes: Code(s): R23.2 - [place] Category: Medical Plan: Discussed with the patient the options of treatment of hot flashes including hormonal replacement therapy, all the pros, cons, risks and benefits (benefits= prevention of hot flashes, atrophic vaginitis, osteoporosis, decrease colon ca risk; also discussed with the patient the risks of MD, Breast ca, DVT, PE, Strokes). In addition, discussed with the patient non hormonal treatment options for hot flashes treatment in surgical menopausal patient. Options discussed with the patient include the following: SSRI/SNRIs , difficulty has been demonstrated in multiple trials clinical response is more rapid (days) than typical response to SSRI for depression (weeks), they are equally effective in natural versus surgical menopause, they have similar modest benefit for hot flashes; Citalopram 20 mg per day is another 1st choice option. Prescription sent for 90 days. Instructions given the patient is schedule an 90 day follow-up appointment. Medications: New citalopram 20 mg PO DAILY 90 tabs 0RF Coding Level of Care Code Est Pt Level 3 (35016) Diagnoses Postmenopausal bleeding N95.0 Hot flashes R23.2
[2024-09-17 07:50] VITALS: BMI 30.1
== END 2024-09-17 08:08 | disposition home or self-care (01) ==
LOC: HO.HWS 07:37
PROVIDERS: PCP Internal Medicine; Visit Provider Obstetrics & Gynecology
DX: N95.0 Postmenopausal bleeding (principal); R23.2 Flushing
CPT/HCPCS: 99213

== ENCOUNTER 2024-09-25 08:49 | Day surgery (SDC) | payer BC, SELFPAY ==
--- OUTSIDE RECORDS SUMMARY | 2024-02-05 09:00 | XMS_ITS ---
Author Organization [facility] Address [address] [place] [address] Care Team Providers Care Television News Producer Name Role Phone Myah LUNA, Teddy Primary Care Provider Ale Diaz Unavailable [phone] REASON FOR VISIT no ppwrk Encounters Encounter Location Date Provider Diagnosis [facility] [address] [place] [address] 02/05/2024 Ale Bustillo Plan Of Treatment No Information Progress Notes * Barbara MERCEReDOB:1965 (58 yo F)Acc No.[id number]:02/05/2024 Progress Notes Patient: Martina FRENCH Provider: Kiki Bustillo DPM :1965 A ge:58 Y S ex:Female Date:02/05/2024 Address:[address] [place], [place] [phone] Pcp:Teddy Glasgow MD Subjective: * Chief Complaints: [...] 04/06/2023 Generated for Shakir mcclellan/Leah/eTransmitting on: 0 09/21/2024 03:59 PM EDT
--- OUTSIDE RECORDS SUMMARY | 2024-09-21 15:59 | XMS_ITS | Encounter Summary ---
Author Organization [facility] Address [address] [place] [address] Care Team Providers Care Group Insurance Special Agent Name Role Phone Teddy Glasgow Primary Care Provider [phone] Jonnathan Jose MD Unavailable Queenie Barrera PhD Unavailable [phone] Encounter Details Date Type Department Care Team (Late st Contact Info) Description 05/04/2024 Scanned Document [facility] Bariatric Surgery [address] [place] [phone] Jonnathan Jose MD [address] [address] Social History Tobacco Use Types Packs/Day Years [...] more drinks on one occasion? Never 06/19/2022 [facility] [place] of Occupat ional Health - Occupational Stress [...] 12/03/2024 8:30 AM EDT Telemedicine Clinical Support [facility] [address] [place] [address] Uriah Herrera, NICOLE [address] [place] [address] documented as of this encounter Visit Diagnoses Not on filedocumented in this encounter Care Teams Group Insurance Special Agent Relationship Specialty Start Date End Date Teddy Glasgow DO [address] [facility] [address] [place] [address] PCP - General 06/15/21 Jonnathan Jose MD [address] [place] [id number] Physician Surgery, Bariatric 11/29/21 Queenie Barrera, PhD [address] [place] [address] Clinical Psychologist Psychology 09/02/24 documented as of this encounter
--- OUTSIDE RECORDS SUMMARY | 2024-09-21 15:59 | XMS_ITS | Clinical Summary ---
Author Organization Patient Business Ser [facility] Address [address] [place] [address] Care Team Providers Care Marble Ceiling Installer Name Role Phone Teddy Glasgow DO Primary Care Provider [phone] Surgical History Surgery Date Site/Laterality Comments OTHER SURGICAL HISTORY 2020 PROCEDURE: [place] LAPS RPR PARAESPHGL HRNA INCL FUNDPLSTY W/MESH [...] 60-74 years 1-dose series) 2023 COVID-19 Vaccine ( - 2023-2 5 season) 2023 Influenza Vaccine [...] age to complete this topic Care Teams Marble Ceiling Installer Relationship Specialty Start Date End Date Teddy Glasgow DO [address] [facility] [address] [place], [place] PCP - General Internal Medicine 07/10/18
--- OUTSIDE RECORDS SUMMARY | 2024-09-21 15:59 | XMS_ITS | Data Portability ---
Author Organization [facility], Telehealth Patient Home Address [address] [place] [address] Assessment Encounter Date Assessment Date Assessment LastModified by Organization Details LastModified Time 06/13/2022 06/13/2022 .patient is cleared for proposed fundoplicaiton revision and cholecystectomy. her labwork and the history are reviewed with the patient as well as the recent ecg. Recent ecg is essentially normal and aforementioned first degree avb is a stretch and is a nonissue regardless. Per the [facility] cardiac risk strat guidelines (revised) this patient is a low risk for the proposed procedure. Not available 06/13/2022 16:43:12 04/17/2024 04/17/2024 Patient presente d for medication refill. Patient tolerating medication well at current dose without adverse effects. Refilled as below. Discussed plan with patient, who expressed understanding. Follow up as noted below. [email or web address] Not available 04/17/2024 16:19:31 Plan of Treatment Reminders Order Date Submit Date Provider Last Modified By Organization Details Last Modified Time Details Appointments None recorded. Lab hemoglobin A1c, QN, blood 2021 [facility], [address] [place] [address], [place], [address], 2 12:08:30 insulin, serum 2021 022 [facility], [address] [place] [address], [address], 2 12:08:30 C-peptide, serum 2021 [facility], [address] [facility], [place], [address], 2 12:08:30 Referral hand surgeon referral 2024 leslye Chen MD, [address] [facility], [facility] [address], [place], [address], 5 12:11:[address] referral 2021 CRISTÓBAL Galarza MD, [address] [place] [address], [place], [address], 09:00:52 Procedures None recorded. Surgeries None recorded. Imaging None recorded. Medication Orders lorazepam 0.5 mg tablet 2024 [facility] #[id number], [address] [place], [place], [id number], 5 16:28:46 Prempro 0.3 mg-1.5 mg tablet 2024 025 [facility] #[id number], [address] [place], [place], [id number], 5 16:21:55 baclofen 20 mg tablet 2024 025 [facility] #[id number], [address], [place], [id number], 5 16:20:43 lorazepam 1 mg tablet 2021 022 [facility] #[id number], [address], [place], [id number], 3 16:04:46 Patient TargetsNo targets recorded. 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 [facility] [address], [place], [address], 01/10/2022 17:04:39 07/25/19 23 04/23/2022 elect rocar diogr am No observ ation record ed. BARCODE Not Available 2022 11:35:25 07/25/19 23 04/23/2022 elect rocar diogr am, routi ne ECG, 12 leads min No observ ation record ed. BARCODE Not Available 2022 11:35:25 07/25/19 23 09/08/2021 US, echoc ardio gram, trans thora cic, compl ete, w/ color flow No observ ation record ed. BARCODE Not Available 2022 12:29:18 12/04/19 24 12/04/2023 baria tric evalu ation * No observ ation record ed. [facility] [address], [place], [address], 04/17/2024 16:25:45 08/19/19 25 08/17/2024 US, pelvi c wall No observ ation record ed. [email or web address] [place] [id number] [facility] , TISHA Aaron, [address], 08/18/2024 10:28:37 Result Notes None recorded. Problems Name Problem SNOMED Code Status Onset Date Resolution Date Notes Provider Name and Address Organization Details Recorded Time Postmeno pausal flushing 959931361 Active 2017 Not Available [facility] 1 14:13:03 Osteoart hritis of right knee joint 0301569284 09959 Active 2019 Not Available [facility] 1 14:13:04 Pain of shoulder region 97209872 Active 2021 LILIANE AGUIRRE [address] [place], [address], [facility] 2 16:29:50 Pain of shoulder region 95256883 Active 2021 LILIANE AGUIRRE [address] [place], [address], [facility] 2 16:29:59 Depressi ve disorder 78077968 Active 2021 LILIANE AGUIRRE [address] [place], [address], [facility] 2 16:38:20 Gastropa resis syndrome 080441686 Active 2021 LILIANE AGUIRRE [address] [place], [address], [facility] 2 16:43:03 Gastric ulcer 567862848 Completed 202108/07/2022 Removal Reason: resolved LILIANE AGUIRRE [address] [place], [address], [facility] 3 11:11:00 Pain of left shoulder joint 1452417654 6545806 Active 2021 LILIANE AGUIRRE [address] [place], [address], [facility] 2 14:52:37 Left atrial enlargem ent 4925538957 9109 Active 2021 LILIANE AGUIRRE [address] [place], [address], [facility] 2 16:34:38 Kidney lesion 8235028731 9100 Active 2021 Teddy Glasgow DO [address] [place] [address], [address], [facility] 2 10:16:10 Osteoart hritis 867252112 Active 2021 LILIANE AGUIRRE [address] [place] [address], [address], [facility] 2 14:36:53 Pancreat ic insuffic iency 02809124 Active 2021 LILIANE AGUIRRE [address] [place] [address], [address], [facility] 2 08:50:51 Fear of flying 492014569 Active 2021 LILIANE AGUIRRE [address] [place] [address], [address], [facility] 2 16:29:18 Impaired fasting glycemia 579471801 Active 2021 LILIANE AGUIRRE [address] [place] [address], [address], [facility] 2 16:30:38 Insulin resistan ce 759032767 Active 2021 LILIANE AGUIRRE [address] [place] [address], [address], [facility] 2 16:31:07 Pneumoni a 515417770 Active 2022 LILIANE AGUIRRE [address] [place] [address], [address], [facility] 3 11:08:22 Asthma 883880883 Active 2017 Not Available [facility] 1 14:13:04 Gastroes ophageal reflux disease 886852398 Active 2017 Not Available [facility] 14:13:03 Spasmodi c torticol lis 75105781 Active 2024 LILIANE AGUIRRE [address] [place], [address], [facility] 5 16:19:46 Panic disorder 328700483 Active 2024 LILIANE AGUIRRE [address] [place], [address], [facility] 5 16:25:02 Ganglion cyst 087904628 Active 2024 LILIANE AGUIRRE [address] [place], [address], [facility] 5 16:28:57 Mammogra phic mass of left breast 3106591244 1450691 Active 2024 LILIANE AGUIRRE [address] [place], [address], [facility] 5 12:41:38 Pain of left breast 4466122370 Active 2024 LILIANE AGUIRRE [address] [place], [address], [facility] 5 09:23:35 Problem Notes None recorded. Medical Equipment None Reported. Allergies Allergen ID Allergen Name Allergen Category Reaction Reaction Severity Criticality Documentation Date Start Date Code Code System Note Provider Name and Address Organization Details Recorded Time 994 Product containin g penicilli n (product) medicatio n Not available Not available Not available 07/01/2017 79232 8001 SNOMED Viji andujar [facility] 8 08:12:05 995 erythromy filemon medicatio n Not available Not available Not available 07/01/2017 4053 RxNorm Viji andujar [facility] 8 08:12:23 Medications Name Sig Start Date Stop Date Status Note LastModified by Organization Details LastModified Time docusate sodium 50 mg/5 mL oral liquid TAKE 10 ML BY MOUTH EVERY DAY 06/28 completed Not Available Not Available Not Available nystatin 100,000 unit/mL oral suspension 07/01 completed Not Available Not Available Not Available acetaminoph en 325 mg tablet TAKE 3 TABLET BY MOUTH EVERY 6 HOURS NEEDED FOR MILD PAIN 04/17 completed Not Available Not Available Not Available prednisone 10 mg tablet PLEASE SEE ATTACHED FOR DETAILED DIRECTION S 04/17 completed Not Available Not Available Not Available doxycycline hyclate 100 mg capsule TAKE 1 CAPSULE BY MOUTH TWICE DAILY FOR 10 DAYS 04/17 completed Not Available Not Available Not Available cefuroxime axetil 250 mg tablet 07/01 completed Not Available Not Available Not Available ipratropium 0.5 mg-albutero l 3 mg (2.5 mg base)/3 mL nebulizatio n soln INHALE 3 ML VIA NEBULIZER EVERY 4 TO 6 HOURS NEEDED FOR SHORTNESS OF BREATH OR WHEEZING. 06/13 completed Not Available Not Available Not Available clindamycin HCl 300 mg capsule TAKE 1 CAPSULE BY MOUTH THREE TIMES DAILY active Not Available Not Available No t Available albuterol sulfate 2.5 mg/3 mL (0.083 %) solution for nebulizatio n INHALE 3ML VIA NEBULIZER EVERY 4 HOURS NEEDED FOR SHORTNESS OF BREATH OR WHEEZING active Not Available Not Available No t Available trazodone 50 mg tablet TAKE 1 TABLET BY MOUTH EVERY DAY AT BEDTIME 04/24 completed Not Available Not Available Not Available polyethylen e glycol 3350 17 gram oral powder packet MIX 1 PACKET AND TAKE ONCE A DAY DAILY NEEDED FOR CONSTIPAT ION 06/28 completed Not Available Not Available Not Available azithromyci n 250 mg tablet 07/20 completed Not Available Not Available Not Available ranitidine 300 mg tablet 07/01 completed Not Available Not Available Not Available hydrocodone 5 mg-acetamin ophen 325 mg tablet TAKE 1 TABLET BY MOUTH EVERY 6 HOURS NEEDED FOR PAIN 07/20 completed Not Available Not Available Not Available senna 8.6 mg tablet TAKE 1 TABLET BY MOUTH AT BEDTIME FOR CONSTIPAT ION 06/28 completed Not Available Not Available Not Available sucralfate 100 mg/mL oral suspension SHAKE LIQUID AND TAKE 10 ML BY MOUTH AT BEDTIME 06/28 completed Not Available Not Available Not Available meloxicam 15 mg tablet TAKE 1 TABLET BY MOUTH EVERY DAY 04/17 completed Not Available Not Available Not Available ondansetron HCl 4 mg tablet TAKE 1 TABLET BY MOUTH EVERY 6 TO 8 HOURS NEEDED FOR NAUSEA OR VOMITING 04/17 completed Not Available Not Available Not Available prednisone 20 mg tablet TAKE 2 TABLETS BY MOUTH TWICE DAILY FOR 5 DAYS 08/07 completed Not Available Not Available Not Available prochlorper azine maleate 10 mg tablet TAKE 1 TABLET BY MOUTH THREE TIMES DAILY NEEDED 10/03 completed Not Available Not Available Not Available sulfamethox azole 800 mg-trimetho prim 160 mg tablet 07/01 completed Not Available Not Available Not Available omeprazole 40 mg capsule,del ayed release TAKE 1 CAPSULE BY MOUTH EVERY MORNING ON AN EMPTY STOMACH 04/17 completed Not Available Not Available Not Available tramadol 50 mg tablet TAKE 1 TABLET BY MOUTH EVERY 8 HOURS FOR 7 DAYS NEEDED FOR BREAKTHRO UGH PAIN 06/13 completed Not Available Not Available Not Available acetaminoph en 500 mg tablet TAKE 1 TABLET BY MOUTH EVERY 4-6 HOURS NEEDED active Not Available Not Available No t Available baclofen 20 mg tablet TAKE 1 TABLET BY MOUTH THREE TIMES DAILY FOR 14 DAYS NEEDED FOR NECK PAIN active Not Available Not Available No t Available cyproheptad ine 4 mg tablet take one tablet QID active Not Available Not Available No t Available oxycodone-a cetaminophe n 5 mg-325 mg tablet TAKE 1 TABLET BY MOUTH EVERY DAY AT BEDTIME FOR 5 DAYS 06/13 completed Not Available Not Available Not Available hydrocortis one 2.5 % topical cream with perineal applicator APPLY RECTALLY TO THE AFFECTED AREA 2 TO 4 TIMES A DAY NEEDED FOR HEMORRHOI DS 08/07 completed Not Available Not Available Not Available amitriptyli ne 25 mg tablet 12/25 completed Not Available Not Available Not Available lorazepam 0.5 mg tablet TAKE 1 TABLET BY MOUTH TWICE DAILY FOR 7 DAYS NEEDED active Not Available Not Available No t Available metoclopram mil 5 mg tablet 06/13 completed Not Available Not Available Not Available sulfacetami de sodium 10 % eye drops 07/01 completed Not Available Not Available Not Available doxycycline monohydrate 100 mg capsule TAKE 1 CAPSULE BY MOUTH TWICE DAILY FOR 7 DAYS 09/04 completed Not Available Not Available Not Available pantoprazol e 40 mg tablet,janette yed release 1 po qd 07/30 completed Not Available Not Available Not Available oseltamivir 75 mg capsule 07/30 completed Not Available Not Available Not Available esomeprazol e magnesium 40 mg capsule,del ayed release 10/10 completed Not Available Not Available Not Available tobramycin 0.3 % eye drops INSTILL 1 DROP IN LEFT EYE EVERY 4 HOURS FOR 5 DAYS 04/24 completed Not Available Not Available Not Available nystatin 100,000 unit/gram topical cream APPLY TOPICALLY TO THE AFFECTED AREA TWICE DAILY 08/07 completed Not Available Not Available Not Available lansoprazol e 30 mg capsule,del ayed release Take 1 capsule every day by oral route for 90 days. 10/03 completed Not Available Not Available Not Available nystatin-tr iamcinolone 100,000 unit/g-0.1 % topical cream APPLY EXTERNALL Y TO THE AFFECTED AREA TWICE DAILY FOR 14 DAYS APPLY TO AFFECTED SKIN 07/20 completed Not Available Not Available Not Available docusate sodium 100 mg capsule TAKE 1 CAPSULE BY MOUTH AT BEDTIME 06/28 completed Not Available Not Available Not Available sertraline 25 mg tablet TAKE 1 TABLET BY MOUTH EVERY DAY 09/04 completed Not Available Not Available Not Available budesonide 0.5 mg/2 mL suspension for nebulizatio n 07/30 completed Not Available Not Available Not Available diclofenac sodium 75 mg tablet,janette yed release TAKE 1 TABLET BY MOUTH TWICE DAILY 07/20 completed Not Available Not Available Not Available montelukast 10 mg tablet Take 1 tablet every day by oral route for 30 days. 10/03 completed Not Available Not Available Not Available codeine 10 mg-guaifene sin 100 mg/5 mL oral liquid TAKE 10 ML BY MOUTH EVERY 6 HOURS FOR 7 DAYS NEEDED 04/17 completed Not Available Not Available Not Available bisacodyl 5 mg tablet,janette yed release 07/01 completed Not Available Not Available Not Available mupirocin 2 % topical ointment 07/30 completed Not Available Not Available Not Available loteprednol etabonate 0.5 % eye drops,suspe nsion INSTILL 1 DROP IN BOTH EYES 4 TIMES A DAY 06/13 completed Not Available Not Available Not Available lorazepam 1 mg tablet Take 1 tablet every day by oral route for 5 days. 06/13 completed Not Available Not Available Not Available Pulmicort 0.25 mg/2 mL suspension for nebulizatio n Inhale 2 mL every day by nebulizat ion route. 07/30 completed Not Available Not Available Not Available ibuprofen 600 mg tablet TAKE 1 TABLET BY MOUTH EVERY 4-6 HOURS NEEDED active Not Available Not Available No t Available levofloxaci n 500 mg tablet TAKE 1 TABLET BY MOUTH EVERY DAY FOR 7 DAYS 06/13 completed Not Available Not Available Not Available levofloxaci n 750 mg tablet TAKE 1 TABLET BY MOUTH EVERY DAY FOR 7 DAYS 04/17 completed Not Available Not Available Not Available methylpredn isolone 4 mg tablets in a dose pack 07/01 completed Not Available Not Available Not Available ondansetron 4 mg disintegrat ing tablet DISSOLVE ONE TABLET BY MOUTH THREE TIMES DAILY NEEDED 04/17 completed Not Available Not Available Not Available colestipol 1 gram tablet 04/17 completed Not Available Not Available Not Available doxycycline hyclate 100 mg tablet TAKE 1 TABLET BY MOUTH TWICE DAILY 08/07 completed Not Available Not Available Not Available naproxen 500 mg tablet TAKE 1 TABLET BY MOUTH TWICE DAILY. 04/17 completed Not Available Not Available Not Available metoclopram mil 10 mg tablet TAKE 1 TABLET BY MOUTH BEFORE MEALS AND AT BEDTIME 04/24 completed Not Available Not Available Not Available amoxicillin 875 mg-potassiu m clavulanate 125 mg tablet 07/30 completed Not Available Not Available Not Available Ventolin HFA 90 mcg/actuati on aerosol inhaler INHALE 2 PUFFS BY MOUTH EVERY 4 HOURS NEEDED FOR WHEEZING. FOLLOW UP APPOINTME NT FOR FURTHER REFILLS active Not Available Not Available No t Available oxycodone 5 mg tablet TAKE 1 TABLET BY MOUTH EVERY 24 HOURS FOR 7 DAYS NEEDED 04/17 completed Not Available Not Available Not Available prednisolon e sodium phosphate 5 mg base/5 mL (6.7 mg/5 mL) oral soln 07/30 completed Not Available Not Available Not Available ciprofloxac in 0.3 %-dexametha sone 0.1 % ear drops,suspe nsion SHAKE LIQUID AND INSTILL 4 DROPPERFU L TO LEFT EAR TWICE DAILY FOR 7 DAYS 04/17 completed Not Available Not Available Not Available bupropion HCl XL 150 mg 24 hr tablet, extended release 07/01 completed Not Available Not Available Not Available Prempro 0.3 mg-1.5 mg tablet TAKE 1 TABLET BY MOUTH EVERY DAY active Not Available Not Available No t Available nitrofurant oin monohydrate /macrocryst als 100 mg capsule TAKE 1 CAPSULE BY MOUTH TWICE DAILY FOR 7 DAYS. MUST TAKE WITH A MEAL/FOOD 06/13 completed Not Available Not Available Not Available Symbicort 160 mcg-4.5 mcg/actuati on HFA aerosol inhaler INHALE 2 PUFFS BY MOUTH TWICE DAILY 04/17 completed Not Available Not Available Not Available oxycodone 10 mg tablet 07/01 completed Not Available Not Available Not Available Robitussin Long-Acting 1 mg-7.5 mg/5 mL oral liquid Take 20 mL 4 times a day by oral route as needed for 7 days. 06/28 completed Not Available Not Available Not Available GaviLyte-G 236 gram-22.74 gram-6.74 gram-5.86 gram oral solution 07/01 completed Not Available Not Available Not Available Creon 12,000-38,0 00-60,000 unit capsule,del ayed release TAKE 1 CAPSULE BY MOUTH 4 TIMES A DAY WITH MEAL OR SNACK 06/13 completed Not Available Not Available Not Available butalbital- acetaminoph en-caffeine 50 mg-300 mg-40 mg capsule 10/03 completed Not Available Not Available Not Available testosteron e 20.25 mg/1.25 gram per pump act.(1.62 %) transdermal gel APPLY 4 PUMPS TO SKIN DAILY UNTIL ABSORBED DIRECTED active Not Available Not Available No t Available Daliresp 500 mcg tablet 07/30 completed Not Available Not Available Not Available Xarelto 10 mg tablet 08/07 completed Not Available Not Available Not Available Eliquis 2.5 mg tablet TAKE 1 TABLET BY MOUTH TWICE DAILY 04/17 completed Not Available Not Available Not Available Spiriva Respimat 2.5 mcg/actuati on solution for inhalation 10/03 completed Not Available Not Available Not Available Daliresp 250 mcg tablet 07/30 completed Not Available Not Available Not Available prucaloprid e 2 mg tablet take one tablet QD active Not Available Not Available No t Available Bobxmagdy Inhub 500 mcg-50 mcg/dose powder for inhalation INHALE 1 PUFF BY MOUTH TWICE DAILY 06/13 completed Not Available Not Available Not Available Afluria Qd 2019- (36 mos up)(PF)60 mcg (15 mcg x4)/0.5 mL IM syringe 07/20 completed Not Available Not Available Not Available Breztri Aerosphere 160 mcg-9mcg-4. 8mcg/actuat ion HFA aerosol inhaler INHALE 2 PUFFS BY MOUTH TWICE DAILY active Not Available Not Available No t Available Vitals Date Recorded Body height Body mass index (BMI) Body weight Heart rate Oxygen saturation Oxygen saturation in Arterial blood by Pulse oximetry Systolic And Diastolic Provider Name and Address Organization Details Last Updated DateTime 5 173.99 cm 32.1 kg/m2 83363.8 4 g 78 /min 95 % 95 % 110/68 mm[Hg] Janay Lackey [facility] 5 16:13:14 Date Recorded Body height Heart rate Oxygen saturation Oxygen saturation in Arterial blood by Pulse oximetry Systolic And Diastolic Provider Name and Address Organization Details Last Updated DateTime 3 173.99 cm 81 /min 97 % 97 % 102/76 mm[Hg] Teddy Glasgow, DO [address] [place], [address] [place] [address] Internal Medicine 3 16:08:10 Date Recorded Body height Provider Name an d Address Organization Details Last Updated DateTime 07/15/2024 173.99 cm Janay Lackey [facility] 07/15/2024 15:53:38 Date Recorded Body height Body mass index (BMI) Body weight Heart rate Oxygen saturation Oxygen saturation in Arterial blood by Pulse oximetry Systolic And Diastolic Provider Name and Address Organization Details Last Updated DateTime 3 173.99 cm 30.7 kg/m2 49561.4 4 g 81 /min 96 % 96 % 99/68 mm[Hg] Soraya Menjivar [facility] 3 10:47:20 Date Recorded Body height Heart rate Oxygen saturation Oxygen saturation in Arterial blood by Pulse oximetry Systolic And Diastolic Provider Name and Address Organization Details Last Updated DateTime 2 173.99 cm 82 /min 96 % 96 % 106/70 mm[Hg] Kayla Caraballo [facility] 2 16:15:55 Social History Question Answer Notes LastModified by Organizat ion Details LastModified Time Tobacco Smoking Status Never Smoker Not Available [facility] 01/12/2020 03:36:24 What Was The Date Of Your Most Recent Tobacco Screening? 04/17/2024 [email or web address] Information not available 04/17/2024 Sex: Unknown Functional Status Question Answer Note LastModified by Organization D etails LastModified Time Do you or have you ever used any other forms of tobacco or nicotine? No [email or web address] Information not available 08/07/2022 Mental Status None recorded. Family History Nothing Reported. Medical History Condition Response Coronary Artery Disease N Other N Gout N Kidney Stones N Blood Diseases N Breast Cancer N Blood Transfusion N Depression N COPD N Lung Disease N Defects or Inherited Disease N Anxiety Disorder N Muscle, Joint, or Bone Problems N Obesity N Vision or Eye Problems N Arthritis N Polyps N Infertility N Mental Disorder N Cancer N Varicosities N Stroke N Endometriosis N Bladder or Kidney Problems N High Cholesterol N Liver Disease N Headaches N Fibromyalgia N Kidney Disease N Allergies/Hayfever N Heart Problems N Hospitalizations N Thyroid Problems N GI Problems N Skin Problems N Eating Disorder N Anemia N MRSA exposure N Constipation N Mental Illness N Ovarian Cancer N Diabetes N Seizures/Epilepsy N Tuberculosis N Congestive Heart Failure (CHF) N Eczema N Diverticulitis N Abuse/Domestic Violence N Asthma N Reflux/GERD N Hepatitis N Heart Disease N Pulmonary Embolism N Hypertension N Chicken Pox N Autism Spectrum Disorder (ASD) N Osteoporosis N Gynecological HistoryNo gynecological history recorded. Obstetrics History GPAL:G 0 P 0 0 0 0 Immunizations Vaccine Type Date Status Note Provider Nam e and Address Organization Details Recorded Time COVID-19, mRNA, LNP-S, PF, 30 mcg/0.3 mL dose 1 completed Not Available [facility] 02/27/2023 16:35:53 Influenza, split virus, quadrivalent, preservative 1 completed Not Available [facility] 02/27/2023 16:35:52 Influenza, split virus, quadrivalent, preservative 8 completed Not Available [facility] 02/27/2023 16:35:53 Influenza, split virus, quadrivalent, preservative 7 completed Not Available [facility] 02/27/2023 16:35:53 Influenza, split virus, quadrivalent, preservative 8 completed Not Available [facility] 02/27/2023 16:35:52 pneumococcal polysaccharide PPV23 8 completed Not Available [facility] 02/27/2023 16:35:53 COVID-19, mRNA, LNP-S, PF, 30 mcg/0.3 mL dose 1 completed Not Available [facility] 02/27/2023 16:35:53 COVID-19, mRNA, LNP-S, PF, 30 mcg/0.3 mL dose 1 completed Not Available [facility] 02/27/2023 16:35:53 Past Encounters Encounter ID Performer Location Encounter Start Date Encounter Closed Date Diagnosis/Indication Diagnosis SNOMED-CT Code Diagnosis ICD10 Code Diagnosis Note [id number] Teddy Glasgow [facility] Medicine [address] [facility], [place] [address] 07/01/2017 10:13:19 07/01/2017 13:35:23 Moderate persistent asthma 861167997 J45.40 stable Menopausal syndrome 1237 38721 N95.9 pt to have mammogram, if wnl will begin low dose prempro Obesity 745879983 E66.9 continue exercise, work on weight loss follow healthy diet ( currently reducing carbohydra ivelisse) Gastroesop hageal reflux disease 257125652 K21.9 stable [id number] Teddy Glasgow DO [facility] Internal Medicine [address] [facility], [employer] [place] [address] 07/22/2017 11:07:26 07/22/2017 16:31:26 Moderate persistent asthma 808340255 J45.40 f/u in office saturday Gastroesop hageal reflux disease 317500413 K21.9 continue lansprozol e, and healthy lifestyle changes [id number] Teddy Glasgow [facility] [address] [facility],[place] [address] 07/24/2017 16:15:17 07/25/2017 11:43:34 Acute bronchitis 54953314 J20.9 improved Gastroesop hageal reflux disease 626130965 K21.9 continue lansprozol e, and healthy lifestyle changes [id number] Teddy Glasgow [facility] [address] [facility],[place] [address] 12/25/2017 13:21:18 12/30/2017 09:27:15 Postmenopausal flushing 744463597 N95.1 improved Asthma 278671201 J45.90 9 new pulmonolog ist and medication s, Gastroesop hageal reflux disease 685908747 K21.9 improved Menopausal syndrome 1237 71102 N95.9 pt to have mammogram, if wnl will begin low dose prempro [id number] Teddy Glasgow [facility] [address] [facility],[place] [address] 02/19/2018 15:26:48 02/19/2018 16:49:53 Asthma 195805825 J45.909 stable Diarrhea 77681580 R19.7 Unintentio nal weight loss 576762515 R63.4 Family problems 20072748 4 Z63.79 In therapy [id number] Teddy Glasgow [facility] [address] [facility],[place] [address] 10/03/2018 14:51:26 10/03/2018 15:22:55 Asthma 684272879 J45.909 seeing pulm for asthma working on getting sx under control thinking it may be copd at this point Gastroesop hageal reflux disease 361074702 K21.9 well controlled Diarrhea 47822377 R19.7 had lots of tests but no cause was found she never saw gi, but the sx have resolved at this point [id number] Teddy Glasgow [facility] [address] [facility], [place] [address] 07/31/2019 14:10:44 07/31/2019 15:06:06 Asthma 872092472 J45.909 stable Postmenopa usal flushing 641513415 R23.2 needs refill Edema of l ower extremity 411438346 R60.0 bilateral swelling of anterior, superior knees recommend stopping keto shakes [id number] Teddy Glasgow [facility] [address] [facility],[place] [address] 08/07/2019 15:46:02 08/07/2019 16:31:39 Derangement of medial meniscus 827179970 M23.309 [id number] Teddy Glasgow [facility] [address] [facility],[place] [address] 07/20/2020 14:13:47 07/20/2020 15:31:29 Asthma 073813685 J45.909 stable, no interventi on at this Osteoarthritis 191372710 M15.0 will fu with lab work to r/o underlying rheum condition given how wide spread her arthritis is and fu arthritis treatment center as well [id number] Teddy Glasgow [facility] [address] [facility],[place] [address] 09/09/2020 09:04:04 09/09/2020 09:24:36 Osteoarthritis of knee 432970557 M17.9 needs vitamin D recheckhad cortisone injections and starting PTfeeling much better Clavicle pain 547873318 M25.511 given the location near her previous surgical scar from skin cancer removal and the pain would like to r/o anything concerning like cancer [id number] Teddy Glasgow [facility] [address] [facility],[place] [address] [employer] [place] [address] 03/29/2021 10:19:59 03/31/2021 13:26:22 Nasal congestion 00301805 R09.81 has COVID test scheduled today Cough 67199564 R05.1 will start on oral liquid Pain of mu ltiple joints 83872429 M25.59 will fu with lab work r/o hormonal imbalance from surgery Stomach ache 005501981 R 10.0 will fu with testing Fatigue 83190452 R53.83 will set up with testing [id number] Teddy Glasgow [facility] [address] [facility],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 [address] 09/04/2021 16:16:16 09/04/2021 16:48:57 Asthma 584258137 J45.21 resolved Left atria l enlargement 3663604270 9109 I51.7 due to two EKGs showing possible left atrial enlargemen t Liver enzy mes level above reference range 046659008 R74.01 will fu with US abdomen to determine increase LFTs [id number] Teddy Glasgow [facility] [address] [facility],[place] [address] 01/09/2022 15:42:32 01/10/2022 08:55:56 Fear of flying 050511677 F40.243 will give her 1 mg tablet to use during her flights Impaired f asting glycemia 664146840 R73.01 will f/u with hemoglobin A1c recheck Insulin resistance 50538 5000 E88.81 given h/x of abnormal gastropare sis, dysmotilit y disorder and Gynecologi c examination 22231207 Z01.419 will send referral to ward secretary for pap smears [id number] Teddy Glasgow [facility] [address] [facility],[place] [address] 06/13/2022 15:55:39 06/13/2022 16:50:43 Gastroesophageal reflux disease 007507080 K21.00 Impaired f asting glycemia 894770835 R73.01 stable and lab is good cont to follow Left atria l enlargement 0397975636 9109 I51.7 will be needing a follow up echo in a few years, otherwise no issues right now [id number] Teddy Glasgow [facility] [address] [facility],[place] [address] 08/07/2022 10:35:36 08/07/2022 11:57:20 Asthma 719932210 J45.21 stablerare ly uses her inhalers Depressive disorder 8526 9537 F32.0 will trial sertraline for both depression and gut health Pneumonia 302651855 J13 complicati on from surgeryhas a repeat CXR to rechck her lungs Gastropare sis syndrome 168398945 K31.84 improving after surgery [id number] Teddy Glasgow [facility] [address] [facility],[place] [address] 04/17/2024 15:57:16 04/17/2024 16:27:15 Renewal of prescription 663689455 Z76.0 will set up with refills Depression screening 171 611433 Z13.31 SCREENING NEGATIVE Depressive disorder 5114 9127 F32.0 stable currently 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 will trial a course of baclofen [id number] Teddy Glasgow [facility] [address] [facility],[place] [address] 07/15/2024 15:48:09 07/15/2024 16:32:03 Panic disorder 713760293 F41.0 will set up with ativan for the dentist Ganglion cyst 826388976 M67.40 will set up with hand surgeon Gastropare sis syndrome 186394127 K31.84 improving after surgery Health Concerns Section Related Observation LastModified by Organization Detai ls LastModified Time None Recorded Concern Status LastModified by Organization Details LastModified Time None Recorded Advance Directives Directive None Recorded Payers Insurance Date Sequence Insurance Name Policy Number Policy Wylie Covered Member ID Wylie Member ID Guarantor Name 07/12/2024 1 [place] [facility] [place] [id number] Martina Weinstein [id number] Antwan Weinstein 10/03/2018 1 [employer] [id number] Antwan Weinstein [id number] Antwan Weinstein 11/08/2023 1 [facility] [id number] Martina Weinstein [id number] Antwan Weinstein Notes Date Note Type Note Provider Name a nd Address Organization Details Recorded Time 2 text/html c/o ganglion cyst of the right hand fear flying: will give her lorazepam to try prior to the flight IFG: the patient is following up with gastro specialistwill be having a fu appt. soon to revise her mera surgery will also check her for insulin resistance will be filling out her appeal for her therapy LILIANE AGUIRRE [address] [place], [address], [facility] Internal Medicine 01/09/2022 16:44:22 3 text/html here for rechk and clearance is needed for her surgeryhas had trouble with aspiratioin and had a mera fundoplication however because of stomach wrapped around the esophagus going for surgery to have this corrected hopefully also has gallstones which will be removed Teddy Glasgow DO [address] [place], [address], [facility] 06/15/2022 10:47:39 3 text/html f/u medication check the patient reports that she is still recovering from her rotator cuff surgeryhas a fu with Dr. Wilson (with his PA) for evaluation of her shoulder recovering (August 22) the patient isn't doing PT right nowthe patient ROM is okay; the patient notes mild discomfort; is getting another injection recovering from her hernia repair (repair from previous repair; had significant herniation > colon moved up into her chest cavity)had to have the whole area reconstructed currently on mushy vegetableswas on liquids for six years the patient is in good spirits has fu for other arm as well after she healsthe patient reports that she had recent PAP which was negative LILIANE AGUIRRE [address] [place], [address], [facility] 08/07/2022 11:15:18 5 text/html medication check asthma: stable per patientno night time symptoms; the patient denies any symptoms depression screening: The patient denies little pleasure in activities they find enjoyable, feeling depressed, difficulties sleeping, feeling tired or having little energy, change in appetite, feeling guilty, overwhelmed or unmotivated. The patient denies suicidal ideation, thoughts of hurting themselves or others. Their mood is appropriate, they show good judgement and clear understanding of the conversation. They are orientated to time, place and person. They are not expressing any concerning thoughts or actions that would need further investigation and treatment for mental health. depression d/o: stable currently, stopped the sertraline, didn't help, has been doing fine as she has been working more with her specialists which has been helpful with reducing her health issues neck pain is probably stress related, worsens when she works and her position at her desk recommended msk relaxer and heat/ice LILIANE AGUIRRE [address] [place], [address], [facility] 04/17/2024 16:26:13 5 text/html c/o bump on the back of the L hand SIBO: patient has been doing well since doing the abx and has been very strict with her diet as tejinderhe is feeling better overall spasmodic torticollis: resolved ganglion cyst: L hand, not able to be lancedrecommended f/u with hand surgeonto remove, possible inj gastroparesis: better, improving LILIANE AGUIRRE [address] [place], [address], [facility] 07/15/2024 16:31:40 OBGyn Episode No OBEpisode recorded.
[2024-09-22 13:03] VITALS: BMI 30.1
[2024-09-25 09:23] VITALS: BMI 31.5
[2024-09-25] MEDS: Lactated Ringers 1,000 ML 100 ML IVCONT (09:37)
[2024-09-25 09:38] VITALS: BP 111/61; PULSE 72; RESP 16; TEMP 36.6; O2SAT 96
--- NOTE | 2024-09-25 09:47 | HO.ANESPROP2 ---
Documented by User: Ibis Marrufo NP 09/23/24 14:22 HPI - Anesthesia Eval Consult details Narrative: 58yo F for D&C Hysteroscopy,possible myomectomy,possible polypectomy PMFSH Active Problems Active Problems: All Active Problems Hot flashes (Acute) Postmenopausal bleeding (Acute) Preop pulmonary/respiratory exam (Acute) Cervical cancer screening (Acute) Breast mass, right (Acute) S/P laparoscopic fundoplication (Acute) Weight loss (Acute) Early satiety (Acute) URI (upper respiratory infection) (Acute) Atelectasis (Acute) Pancreatic insufficiency (Acute) Pulmonary nodule (Acute) Gastroparesis (Acute) Incarcerated paraesophageal hernia (Acute) Hiatal hernia (Acute) GERD (gastroesophageal reflux disease) (Acute) Asthma (Acute) Past Medical History Medical History Atelectasis Pancreatic insufficiency Pulmonary nodule Gastroparesis Hernia, paraesophageal Hx of supraventricular tachycardia Anxiety Incarcerated paraesophageal hernia Obesity GERD (gastroesophageal reflux disease) Asthma Family History Family History Paternal Grandmother Stomach cancer Family history of problems with anesthesia: No Surgical History Surgical History (Updated 09/22/24 @ 12:59 by Zhane Medellin RN) Hx of esophagogastroduodenoscopy Hx of colonoscopy History of cardiac radiofrequency ablation (RFA) History of chest tube placement (~1998) History of bronchoscopy (~1998) History of Problems with Anesthesia: No Social History Social History Household Members: Spouse Housing: House Alcohol intake: never Patient Tobacco Use Status: Never used Tobacco Use of substances other than those prescribed or required for medical reasons: No Advance Directives: No Advance Directives Information Provided: Yes Current occupational status: employed 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 Meds Allergies Allergy/AdvReac Type Severity Reaction Status Date / Time erythromycin base Allergy Mild Rash Verified 08/13/24 15:56 Penicillins Allergy Mild Rash Verified 08/13/24 15:56 ALVARADO Allergy Intermediate Wheezing Uncoded 08/06/24 07:22 Home Medications ?Medication ?Instructions ?Recorded ?Confirmed ?Last Taken ?Type conj estrogen-medroxyprogesterone 1 tab PO DAILY 05/24/20 09/22/24 01/31/21 07:15 History 0.3 mg-1.5 mg tablet (Prempro) prucalopride 1 mg tablet 2 mg PO DAILY 08/06/24 09/22/24 Unknown History (Motegrity) Exam Height,Weight and Vital Signs: Height 5 ft 10 in Weight 95.254 kg Assessment and Plan Assessment Anesthesia Assessment: Chart Reviewed Final Anesthetic Review Family History of Problems with Anesthesia: No History of Problems with Anesthesia: No Documented by User: Shani Urrutia DO 09/25/24 09:48 [facility] Past Medical History Medical History Atelectasis Pancreatic insufficiency Pulmonary nodule Gastroparesis Hernia, paraesophageal Hx of supraventricular tachycardia Anxiety Incarcerated paraesophageal hernia Obesity GERD (gastroesophageal reflux disease) Asthma Family History Family History Paternal Grandmother Stomach cancer Family history of problems with anesthesia: No Surgical History Surgical History (Updated 09/22/24 @ 12:59 by Zhane Medellin RN) Hx of esophagogastroduodenoscopy Hx of colonoscopy History of cardiac radiofrequency ablation (RFA) History of chest tube placement (~1998) History of bronchoscopy (~1998) History of Problems with Anesthesia: No Social History Social History Household Members: Spouse Housing: House Alcohol intake: never Patient Tobacco Use Status: Never used Tobacco Use of substances other than those prescribed or required for medical reasons: No Advance Directives: No Advance Directives Information Provided: Yes Current occupational status: employed 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 Meds Allergies Allergy/AdvReac Type Severity Reaction Status Date / Time erythromycin base Allergy Mild Rash Verified 08/13/24 15:56 Penicillins Allergy Mild Rash Verified 08/13/24 15:56 ALVARADO Allergy Intermediate Wheezing Uncoded 08/06/24 07:22 Home Medications ?Medication ?Instructions ?Recorded ?Confirmed ?Last Taken ?Type conj estrogen-medroxyprogesterone 1 tab PO DAILY 05/24/20 09/22/24 01/31/21 07:15 History 0.3 mg-1.5 mg tablet (Prempro) prucalopride 1 mg tablet 2 mg PO DAILY 08/06/24 09/22/24 Unknown History (Motegrity) Exam Exam Date and Time: 09/25/24 0945 Height,Weight and Vital Signs: Height 5 ft 10 in Weight 95.254 kg Vital Signs Temperature 98 F 09/25/24 09:38 Pulse Rate 72 09/25/24 09:38 Respiratory Rate 16 09/25/24 09:38 Blood Pressure 111/61 09/25/24 09:38 Pulse Oximetry 96 09/25/24 09:38 Oxygen Delivery Method Room Air 09/25/24 09:38 Temperature 98 F 09/25/24 09:38 Pulse Rate 72 09/25/24 09:38 Respiratory Rate 16 09/25/24 09:38 Blood Pressure 111/61 09/25/24 09:38 Pulse Oximetry 96 09/25/24 09:38 Oxygen Delivery Method Room Air 09/25/24 09:38 Airway Mallampati Class: I TM Dist: >3cm Neck ROM: Full Loose/Missing/Broken Teeth: No (patient denies any loose or broken teeth) Heart: S1S2 Lungs: CTAB Assessment and Plan Assessment Anesthesia Assessment: Anesthesia Plan Discussed and Chart Reviewed Final Anesthetic Review Family History of Problems with Anesthesia: No History of Problems with Anesthesia: No NPO: Yes ASA Class: II Final Preanesthetic Review: No Changes in Pt Med Stat, Meds/Allgs Chart Reviewed, Consent Obtained/Reviewed and Anes Risks/Benef Reviewed Patient Risk: Low Procedure Risk: Low Anesthetic Plan Anesthetic Plan: GA and Agree w/ Assess. and Plan Disposition: Standard PACU
--- NOTE | 2024-09-25 10:30 | MHC.SHP ---
Pre-Procedural Eval Section A - 24 Hr Update-Section A only Date of Service: 09/25/24 The patient is an INPATIENT: No Changes since office visit: No Cold of Flu in the past 2 weeks, No New Medical Problems, No Changes in Medication and No Patient answered all questions The patient has been examined within 24 hours of the surgical procedure. The History & Physical has been completed within 30 days and I have reviewed it.: Yes Section B - Complete if H&P > 30 days Chief Complaint: Postmenopausal bleeding Allergies: Allergies Allergy/AdvReac Type Severity Reaction Status Date / Time erythromycin base Allergy Mild Rash Verified 08/13/24 15:56 Penicillins Allergy Mild Rash Verified 08/13/24 15:56 ALVARADO Allergy Intermediate Wheezing Uncoded 08/06/24 07:22 Plan Diagnosis/Plan: Unchanged I have reviewed the history and physical and performed a pertinent physical examination on my patient. No changes have occurred unless specified. Time Spent With Patient Time: Total time managing care of this patient today ____ minutes.
[2024-09-25 11:09] VITALS: BP 103/62; PULSE 63; RESP 16; TEMP 36.5; O2SAT 100
--- NOTE | 2024-09-25 11:10 | P.BOP_ITS ---
Brief Operative Note Date of Service: 09/25/24 Pre-op diagnosis: Postmenopausal bleeding Post-op diagnosis: same Procedure: Hysteroscopy D&Cy Surgeon: Maicol Briggs MD Anesthesia: GLMA Was an Merchandise Processor used for this Procedure?: No Estimated blood loss (mL): 0 Pathology: other (Endometrial Scrapping.) Condition: stable Disposition: PACU
--- NOTE | 2024-09-25 11:10 | P.OP_ITS ---
Operative Note Operative Note Date of Service: 09/25/24 Narrative: Preop Diagnosis: Post Menopausal bleeding Operation: Diagnostic Hysteroscopy, Dilataion & Curettage Post Op Diagnosis: Normal endometrial cavity QBL: Minimal Anesthesia: GLMA Surgeon: Maicol Briggs MD Press Operator Automatic: None Complication: None Pathology: Endometrial Scrapings Procedure: The patient was put in the dorsal lithotomy position, scrubbed, and draped in the usual manner. A sterile speculum was inserted in the patient's vagina. The anterior lip of the cervix was grasped with a single tooth tenaculum. The cervix was dilated up to 5 mm, then the scope was inserted in the patient's uterus. Inspection revealed Normal endometrial cavity. The Myosure Reach device was used; the scope was removed from the endometrial cavity , sharp curettings was carried on with minimal to moderate amount of tissues retrieved. At the end of the procedure, all instruments were taken out of the patient uterine and vaginal cavity. The single tooth tenaculum was removed and homeostasis was assured using pressure,. The patient tolerated the procedure well and was transferred to the PACU in a stable condition.
[2024-09-25 11:14] VITALS: BP 99/58; PULSE 59; RESP 16; O2SAT 94
[2024-09-25 11:19] VITALS: BP 100/58; PULSE 58; RESP 16; O2SAT 97
[2024-09-25 11:24] VITALS: BP 108/58; PULSE 58; RESP 16; O2SAT 97
[2024-09-25 11:40] VITALS: BP 108/67; PULSE 58; RESP 16; TEMP 36.4; O2SAT 98
== END 2024-09-25 12:05 | disposition home or self-care (01) ==
PROVIDERS: PCP Internal Medicine; Visit Provider Obstetrics & Gynecology
PROC: 0UDB8ZZ Extraction of Endometrium, Via Natural or Artificial Opening Endoscopic (ICD-10-PCS; CPT 58558; principal; 2024-09-25 11:20)
DX: N95.0 Postmenopausal bleeding (principal); R23.2 Flushing; K86.89 Other specified diseases of pancreas; K44.9 Diaphragmatic hernia without obstruction or gangrene; K31.84 Gastroparesis; K21.9 Gastro-esophageal reflux disease without esophagitis; J45.909 Unspecified asthma, uncomplicated; Z88.0 Allergy status to penicillin; Z88.8 Allergy status to other drugs, medicaments and biological substances; R91.1 Solitary pulmonary nodule; Z98.890 Other specified postprocedural states
CPT/HCPCS: 58558; 88305; J1100; J1885; J2003; J2405; J2704; J3010

== ENCOUNTER → 2024-09-25 08:49 | Outpatient (BNV) | payer BC, SELFPAY | PROVIDERS: PCP Internal Medicine; Visit Provider Obstetrics & Gynecology | DX: N95.0 Postmenopausal bleeding (principal) | CPT/HCPCS: 58558 ==

== ENCOUNTER 2024-10-13 14:17 | Outpatient (AMB) | payer BC, SELFPAY ==
--- OUTSIDE RECORDS SUMMARY | 2024-02-05 09:00 | XMS_ITS ---
Author Organization [facility] Address [address] [place] [phone] Care Team Providers Care Registered Midwife Name Role Phone Myah LUNA, Teddy Primary Care Provider Ale Diaz Unavailable [phone] REASON FOR VISIT no ppwrk Encounters Encounter Location Date Provider Diagnosis [facility] [address] [place] [address] 02/05/2024 Ale Bustillo Plan Of Treatment No Information Progress Notes * Barbara MERCEReDOB:1965 (59 yo F)Acc No.[id number]:02/05/2024 Progress Notes Patient: Martina FRENCH Provider: Kiki Bustillo DPM :1965 A ge:58 Y S ex:Female Date:02/05/2024 Address:[address] [place], [place] [phone] Pcp:Teddy Glasgow MD Subjective: * Chief Complaints: [...] 04/06/2023 Generated for Shakir mcclellan/Leah/eTransmitting on: 0 10/13/2024 02:58 PM EDT
--- NOTE | 2024-10-13 14:18 | A.OFFVIS_ITS ---
Intake Visit Reasons: TV post op Allergies erythromycin base Allergy (Mild, Verified 08/13/24 15:56) Rash Penicillins Allergy (Mild, Verified 08/13/24 15:56) Rash ALVARADO Allergy (Intermediate, Uncoded 08/06/24 07:22) Wheezing HPI Comments Details: The patient scheduled a telehealth visit post hysteroscopy D&C with no complaints minimal vaginal bleeding no feverishness chills or abdominal pain. Intraoperative finding: Normal uterine cavity The pathology showed the following: Endometrium, curettage: Superficial strips of benign atrophic endometrium, and benign endocervical glandular and squamous epithelium; no atypia or carcinoma PFSH Medical History Atelectasis Pancreatic insufficiency Pulmonary nodule Gastroparesis Hernia, paraesophageal Hx of supraventricular tachycardia Anxiety Incarcerated paraesophageal hernia Obesity GERD (gastroesophageal reflux disease) Asthma Surgical History Hx of esophagogastroduodenoscopy Hx of colonoscopy History of cardiac radiofrequency ablation (RFA) History of chest tube placement (~1998) History of bronchoscopy (~1998) Family History Paternal Grandmother Stomach cancer Social History Household Members: Spouse Housing: House Alcohol intake: never Patient Tobacco Use Status: Never used Tobacco Current occupational status: employed 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 Female Reproductive History Menstrual Age of Menarche: 10 Review of Systems Const All systems reviewed & are unremarkable except as noted in HPI and below Reports as per HPI and Reports no additional complaints GI Reports no additional complaints Reports no additional complaints Telehealth Telehealth Telehealth Platform: Telephone Location of provider rendering services: practice address Location of patient: address on file Patient Identification confirmed using: Name, : Yes Telehealth method: video Patient verbally consented to treatment: Yes Patient verbally consented to billing insurance company: Yes Patient informed of any privacy concerns related to visit: Yes Minutes spent on Phone/Video with Pt.: 3 Assessment & Plan Assessment & Plan (1) Postmenopausal bleeding: Comment: Recurrent Code(s): N95.0 - Postmenopausal bleeding Category: Medical Plan: Discussed with the patient the results of the pathology. Discussed with the patient the sensitivity, specificity, positive and negative predictive value, of endometrial biopsy in detecting endometrial pathology including but not limited to endometrial hyperplasia, cancer and other pathology; instructed the patient to call in case vaginal bleeding recurs, the next step will be to proceed with further endometrial sampling evaluation to rule out endometrial pathology. All questions answered and the patient verbalized understanding and agreed with the plan. I spent a total of 20 minutes reviewing the chart, talking to the patient via video and documenting in the medical record. Coding Level of Care Code Tele Est Pt Level 3 (49413) Diagnoses Postmenopausal bleeding N95.0
--- OUTSIDE RECORDS SUMMARY | 2024-10-13 14:58 | XMS_ITS | Encounter Summary ---
Author Organization [facility] Address [address] [place] [address] Phone Care Team Providers Care End Touching Machine Operator Name Role Phone Mirela Nelson CNP Primary Care Provider [phone] Teddy Glasgow DO Primary Care Provider [phone] Teddy Glasgow DO Unavailable Encounter Details Date Type Department Care Team (Late st Contact Info) Description 03/28/2017 Procedure Pass [facility] Endoscopy Admitting Dept Virtual Department [address] [place] [address] Social History Tobacco Use Types Packs/Day Years Used Date Smoking Tobacco: Never Smokeless Tobacco: Never Alcohol Use Standard Drinks/Week Comments No 0 (1 standard drink = 0.6 oz pur e alcohol) Comments Unknown Sex and Gender Information Value Date Recorded Sex Assigned at Female 09/07/2021 11:34 AM EDT Legal Sex Female 7:26 AM EST Gender Identity Female 09/07/2021 11:34 AM EDT Sexual Orientation Straight 09/07/2021 11 :34 AM EDT documented as of this encounter Plan of Treatment Not on file documented as of this encounter Visit Diagnoses Not on filedocumented in this encounter Care Teams End Touching Machine Operator Relationship Specialty Start Date End Date Mirela Nelson CNP PCP - General Family Medicine 03/28/17 12/19/20 Teddy Glasgow DO [email or web address] PCP - General Internal Medicine 12/20/20 Teddy Glasgow DO [address] [place] [address] [email or web address] Insurance Assigned Provider 12/15/23 documented as of this encounter Additional Source Comments The information contained in this document represents components of the legal health record. It is not the complete legal health record.[facility]
--- OUTSIDE RECORDS SUMMARY | 2024-10-13 14:58 | XMS_ITS | Encounter Summary ---
Author Organization [facility] Address [address] [place] [address] Care Team Providers Care Diamond Sander Name Role Phone Teddy Glasgow Primary Care Provider Jonnathan Jose MD Unavailable [phone] Queenie Barrera PhD Unavailable [phone] Encounter Details Date Type Department Care Team (Late st Contact Info) Description 05/04/2024 Scanned Document [facility] Bariatric Surgery [address] [place] [phone] Jonnathan Jose MD [address] [address] Social History Tobacco Use Types Packs/Day Years [...] more drinks on one occasion? Never 06/19/2022 [facility] [place] of Occupat ional Health - Occupational Stress [...] 12/03/2024 8:30 AM EDT Telemedicine Clinical Support [facility] [address] [place] [address] Uriah Herrera, NICOLE 10 Noemi Vinson [address] [place] [address] documented as of this encounter Visit Diagnoses Not on filedocumented in this encounter Care Teams Diamond Sander Relationship Specialty Start Date End Date Teddy Glasgow DO [address] [facility] [place] [address] [place] [address] PCP - General 06/15/21 Jonnathan Jose MD [address] [place] [address] Physician Surgery, Bariatric 11/29/21 Queenie Barrera, PhD 10 Noemi Vinson [address] [place] [address] Clinical Psychologist Psychology 09/02/24 documented as of this encounter
--- OUTSIDE RECORDS SUMMARY | 2024-10-13 14:58 | XMS_ITS | Clinical Summary ---
Author Organization Patient Business [facility] Address [address] [place] [address] Care Team Providers Care Vault Keeper Name Role Phone Teddy Glasgow DO Primary Care Provider [phone] Surgical History Surgery Date Site/Laterality Comments OTHER [...] 12/29/2018 12/29/2017 Colorectal Cancer Screening: Colonoscopy 11/29/2021 HIV Screening 11/29/2021 Hepatitis C Screening 11/29/2021 Social Influencers of Health Screening 11/29/2021 RSV Immunization Adult Patie nts (1 - Risk 60-74 years 1-dose series) 2023 COVID-19 Vaccine (1 - 2023-2 5 season) 2023 Depression Screening 03/11/2024 Influenza Vaccine (#1) 2024 12/29/2017 HIB Vaccines [...] age to complete this topic Care Teams Vault Keeper Relationship Specialty Start Date End Date Teddy Glasgow DO 6 [facility] [address] [place], [place] PCP - General Internal Medicine 07/10/18
== END 2024-10-13 14:53 | disposition home or self-care (01) ==
LOC: HO.HWS 14:17
PROVIDERS: PCP Internal Medicine; Visit Provider Obstetrics & Gynecology
DX: N95.0 Postmenopausal bleeding (principal)
CPT/HCPCS: 99213

== ENCOUNTER 2024-10-14 13:50 | Outpatient (REF) | payer BC, SELFPAY ==
--- OUTSIDE RECORDS SUMMARY | 2024-02-05 09:00 | XMS_ITS ---
Author Organization [facility] Address [address] [place] [phone] Care Team Providers Care Flooring Installer Name Role Phone Myah LUNA, Teddy Primary Care Provider Ale Diaz Unavailable [phone] REASON FOR VISIT no ppwrk Encounters Encounter Location Date Provider Diagnosis [facility] [address] [place] [address] 02/05/2024 Ale Bustillo Plan Of Treatment No Information Progress Notes * Barbara MERCEReDOB:1965 (59 yo F)Acc No.[id number]:02/05/2024 Progress Notes Patient: Martina FRENCH Provider: Kiki Bustillo DPM :1965 A ge:58 Y S ex:Female Date:02/05/2024 Address:[address] [place], [place] [id number] Pcp:Teddy Glasgow MD Subjective: * Chief Complaints: [...] Bustillo DPM Date: 04/06/2023 Generated for Shakir mcclellan/Leah/eTransmitting on: 0 10/14/2024 02:19 PM EDT
--- NOTE | ~2024-10-14 | MM_ITS ---
EXAMINATION: MM DIAGNOSTIC DIGITAL BREAST TOMOSYNTHESIS, BILATERAL Limited left breast ultrasound. CLINICAL INFORMATION: Left breast pain upper inner breast. Pain has been for 3 months. COMPARISON: Mammography: Comparison is made with relevant prior exams. TECHNIQUE: Digital breast mammography with tomosynthesis is performed in both the craniocaudal and mediolateral oblique views along with computer-aided detection (CAD). FINDINGS: The breasts are heterogeneously dense, which may obscure small masses (ACR BI-RADS breast composition Category c). Right: No suspicious masses calcifications or other abnormal findings. Left: [place] marker in the upper inner breast at site of patient's pain without underlying abnormal finding. No suspicious masses calcifications or other abnormal findings. Targeted color Doppler ultrasound scanning in the area the patient's pain from 8-12 o'clock demonstrates normal fibronodular breast tissue. Results are provided to the patient at time of visit by the technologist. MM/MM tomosynthesis diagnostic BI IMPRESSION: Right: Negative. Left: No mammographic or sonographic abnormal finding to account for the patient's left breast pain. Recommend clinical evaluation and follow-up. ASSESSMENT: BI-RADS BI-RADS 1 - Negative RECOMMENDATION: 1 year F/U This patient's information was entered into a reminder system with a target due date for their next mammogram. Electronically signed by: Gladis Andrade DO 10/14/2024 02:44 PM EDT
--- OUTSIDE RECORDS SUMMARY | 2024-10-14 14:19 | XMS_ITS | Encounter Summary ---
Author Organization [facility] Address [address] [place] [address] Care Team Providers Care Dobie Man Name Role Phone Teddy Glasgow Primary Care Provider [phone] Jonnathan Jose MD Unavailable Queenie Barrera PhD Unavailable [phone] Encounter Details Date Type Department Care Team (Late st Contact Info) Description 05/04/2024 Scanned Document [facility] Bariatric Surgery [address] [place] [phone] Jonnathan Jose MD [address] [address] Social History Tobacco Use Types Packs/Day Years [...] more drinks on one occasion? Never 06/19/2022 [facility] [place] of Occupat ional Health - Occupational Stress [...] [facility] [address] [place] [address] Uriah Herrera, NICOLE 10 Noemi Vinson [address] [place] [address] documented as of this encounter Visit Diagnoses Not on filedocumented in this encounter Care Teams Dobie Man Relationship Specialty Start Date End Date Teddy Glasgow DO 6 [facility] [place] [address] PCP - General 06/15/21 Jonnathan Jose MD [address] [place] [address] Physician Surgery, Bariatric 11/29/21 Queenie Barrera, PhD 10 No[address] V[address] [place] [address] Clinical Psychologist Psychology 09/02/24 documented as of this encounter
--- OUTSIDE RECORDS SUMMARY | 2024-10-14 14:19 | XMS_ITS | Encounter Summary ---
Author Organization [facility] Address [address] [place] [address] Phone Care Team Providers Care Clinical Pharmacy Manager Name Role Phone Mirela Nelson CNP Primary Care Provider [phone] Teddy Glasgow DO Primary Care Provider [phone] Teddy Glasgow DO Unavailable Encounter Details Date Type Department Care Team (Late st Contact Info) Description 03/28/2017 Procedure Pass [facility] Endoscopy Admitting Dept Virtual Department [address] [place] [address] Social History Tobacco Use Types Packs/Day Years [...] on filedocumented in this encounter Care Teams Clinical Pharmacy Manager Relationship Specialty Start Date End Date Mirela Nelson CNP [email or web address] PCP - General Family Medicine 03/28/17 12/19/20 Teddy Glasgow DO [email or web address] PCP - General Internal Medicine 12/20/20 Teddy Glasgow DO [address] [place] [address] [email or web address] Insurance Assigned Provider 12/15/23 documented as of this encounter Additional Source Comments The information contained in this document represents components of the legal health record. It is not the complete legal health record.[facility]
--- OUTSIDE RECORDS SUMMARY | 2024-10-14 14:19 | XMS_ITS | Clinical Summary ---
Author Organization Patient Business [facility] Address [address] [place] [address] Care Team Providers Care Utilization Review Nurse Name Role Phone Teddy Glasgow DO Primary Care Provider [phone] Surgical History Surgery Date Site/Laterality Comments OTHER SURGICAL HISTORY 2020 PROCEDURE: NV LAPS RPR PARAESPHGL HRNA INCL FUNDPLSTY W/MESH [...] age to complete this topic Care Teams Utilization Review Nurse Relationship Specialty Start Date End Date Teddy Glasgow DO 6 [facility] [address] [place], [place] PCP - General Internal Medicine 07/10/18
== END 2024-10-14 13:51 | disposition home or self-care (01) ==
LOC: HO.MAMMO 13:50
PROVIDERS: PCP Internal Medicine; Visit Provider Internal Medicine
DX: N64.4 Mastodynia (principal)
CPT/HCPCS: 76642; 77062; 77066

== ENCOUNTER → 2024-10-14 14:00 | Outpatient (BNV) | payer BC, SELFPAY | PROVIDERS: PCP Internal Medicine; Visit Provider Internal Medicine | DX: N64.4 Mastodynia (principal) | CPT/HCPCS: 76642; 77062; 77066 ==

== ENCOUNTER 2024-11-05 16:03 | Outpatient (AMB) | payer BC, SELFPAY ==
--- OUTSIDE RECORDS SUMMARY | 2024-02-05 09:00 | XMS_ITS ---
Author Organization [facility] Address [address] [place] [phone] Care Team Providers Care Industrial Specialist Name Role Phone Myah LUNA, Teddy Primary Care Provider Ale Diaz Unavailable [phone] REASON FOR VISIT no ppwrk Encounters Encounter Location Date Provider Diagnosis [facility] [address] [place] [address] 02/05/2024 Ale Bustillo Plan Of Treatment No Information Progress Notes * Barbara MERCEReDOB:1965 (59 yo F)Acc No.[id number]:02/05/2024 Progress Notes Patient: Martina FRENCH Provider: Kiki Bustillo DPM :1965 A ge:58 Y S ex:Female Date:02/05/2024 Address:[address] [place], [place] [phone] Pcp:Teddy Glasgow MD Subjective: * Chief Complaints: [...] Kiki Bustillo DPM Date: 04/06/2023 Generated for hSakir mcclellan/Leah/eTransmitting on: 0 11/05/2024 04:18 PM EDT
--- NOTE | 2024-11-05 16:05 | A.OFFVIS_ITS ---
Intake Visit Reasons: hot flashes Road Conductor: Road Conductor Present Accompanied by: Self / Same As Patient Allergies erythromycin base Allergy (Mild, Verified 11/05/24 16:06) Rash Penicillins Allergy (Mild, Verified 11/05/24 16:06) Rash ALVARADO Allergy (Intermediate, Uncoded 08/06/24 07:22) Wheezing HPI Comments Details: Presenting with recurrent postmenopausal bleeding complaining of hot flashes not responding to citalopram. The following workup was done for postmenopausal bleedin/25 pelvic ultrasound: Uterus measures 6.1 x 2.5 x 3.3 cm. Normal myometrium. No endometrial lesion, 3 mm thickness. A few small nabothian cysts. Right ovary 1.9 x 1.3 x 1.7 cm. Left ovary 2.3 x 1.2 x 1.4 cm. No free fluid 09/02 office EMB pathology showed the following: Endometrium, biopsy: - Superficial strips and fragments of benign endometrium. - Superficial strips and fragments of benign squamous and endocervical epithelium with patchy squamous metaplasia. - No atypia identified 10/02 hysteroscopy D&C-normal endometrial cavity, pathology showed the following: Endometrium, curettage: Superficial strips of benign atrophic endometrium, and benign endocervical glandular and squamous epithelium; no atypia or carcinoma Last co testing in 03/01 was negative PFSH Medical History Atelectasis Pancreatic insufficiency Pulmonary nodule Gastroparesis Hernia, paraesophageal Hx of supraventricular tachycardia Anxiety Incarcerated paraesophageal hernia Obesity GERD (gastroesophageal reflux disease) Asthma Surgical History Hx of esophagogastroduodenoscopy Hx of colonoscopy History of cardiac radiofrequency ablation (RFA) History of chest tube placement (~1998) History of bronchoscopy (~1998) Family History Paternal Grandmother Stomach cancer Social History Household Members: Spouse Housing: House Alcohol intake: never Patient Tobacco Use Status: Never used Tobacco Current occupational status: employed 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 Discussed with the patient the different types of hysterectomies including, vaginal, laparoscopic assisted vaginal, robotic assisted laparoscopic,& abdominal with BSO. All pros, cons, r/b of each approach were discussed the patient including evidence that morbidity is less and recovery is shorter with minimally invasive approaches to hysterectomy. Discussed with the patient the lack of availability of the robot [employer] robot and/or minimally invasive sports marketing specialist specialist at [facility]. Will refer to [facility] minimally invasive physician's aide surgery. Instructed the patient to call our office back in case a referral appointment is not scheduled, missed or canceled so that we will assist on rescheduling another appointment, the patient verbalized understanding agreed with the plan. (2) Hot flashes: Code(s): R23.2 - [place] Category: Medical Plan: Recommended Effexor 37.5 mg per day for 1 week then increase to 75 mg per day after the 1st week to reduce the incidence of initial nausea follow-up in 60 days Medications: New venlafaxine ER (Effexor XR) Start 75 mg after 1 week of 37.5 mg 75 mg PO DAILY 35 caps 0RF 5 weeks venlafaxine ER Take 1 tablet of 37.5 mg daily for 1 week followed by 75 mg daily 37.5 mg PO BEDTIME 7 caps 0RF 1 week Discontinued citalopram Discontinued Reason: No Longer Medically Relevant 20 mg PO DAILY 90 tabs 0RF Coding Level of Care Code Est Pt Level 3 (43286) Diagnoses Postmenopausal bleeding N95.0 Hot flashes R23.2
--- OUTSIDE RECORDS SUMMARY | 2024-11-05 16:19 | XMS_ITS | Encounter Summary ---
Author Organization [facility] Address [address] [place] [address] Phone Care Team Providers Care Clinical Material Handler Name Role Phone Mirela Nelson CNP Primary Care Provider [phone] Teddy Glasgow DO Primary Care Provider [phone] Teddy Glasgow DO Unavailable Encounter Details Date Type Department Care Team (Late st Contact Info) Description 03/28/2017 Procedure Pass [facility] Endoscopy Admitting Dept Virtual Department [address] [place] [address] Social History Tobacco Use Types Packs/Day Years [...] filedocumented in this encounter Care Teams Clinical Material Handler Relationship Specialty Start Date End Date Mirela Nelson CNP PCP - General Family Medicine 03/28/17 12/19/20 Teddy Glasgow DO PCP - General Internal Medicine 12/20/20 Teddy Glasgow DO [address] [place] [address] Insurance Assigned Provider 12/15/23 documented as of this encounter Additional Source Comments The information contained in this document represents components of the legal health record. It is not the complete legal health record.[facility]
--- OUTSIDE RECORDS SUMMARY | 2024-11-05 16:19 | XMS_ITS | Clinical Summary ---
Author Organization Patient Business [facility] Address [address] [place] [address] Care Team Providers Care Wood Heel Finisher Name Role Phone Teddy Glasgow DO Primary Care Provider [phone] Surgical History Surgery Date Site/Laterality Comments OTHER SURGICAL HISTORY 2020 PROCEDURE: [place] LAPS RPR PARAESPHGL HRNA INCL FUNDPLSTY W/MESH [...] age to complete this topic Care Teams Wood Heel Finisher Relationship Specialty Start Date End Date Teddy Glasgow DO 6 [facility] [address] [place], [place] PCP - General Internal Medicine 07/10/18
--- OUTSIDE RECORDS SUMMARY | 2024-11-05 16:19 | XMS_ITS | Patient Health Record ---
Author Organization [facility] [place] [facility] Address [address] [place] [address] Care Team Providers Care Clerical Secretary Name Role Phone Teddy Glasgow MD Primary Care Provider Ale Diaz Unavailable [phone] Reason For Referral No Information Encounters Encounter Location Date Provider Diagnosis [facility] [address] [place] [address] 01/30/2024 Ale Bustillo Plan Of Treatment No Information Insurance Providers Payer Name Payer Address Payer Phone Subscriber Number Group Number Insured Name Patient Relationship to Insured Coverage Start Date Coverage End Date [facility] [address] [place] [address] Martina Weinstein Self - patient is the insured
--- OUTSIDE RECORDS SUMMARY | 2024-11-05 16:19 | XMS_ITS | Clinical Summary ---
Author Organization [facility] Address [address] [address] Phone Care Team Providers Care Polisher And Sander Name Role Phone Teddy Glasgow Primary Care Provider [phone] CynthiaTeddy prasad DO Unavailable Allergies Active Allergy Reactions Criticality Noted Date Comments Erythromycin 01/14/2017 Penicillins 01/14/2017 Medications ipratropium-albu terol (DUONEB) 0.5-2.5 mg/3 mL nebulizer solution Active fluticasone-salm eterol (ADVAIR DISKUS) 500-50 mcg/dose DISKUS Acti ve lansoprazole (PREVACID) 30 MG capsule Take 30 mg by mouth daily. Active albuterol 90 mcg/actuation inhaler Inhale 2 puffs into the lungs every 6 (six) hours as needed for wheezing. Active ibuprofen (ADVIL,MOTRIN) 100 MG chewable tabletIndication s:pt took 300mg Take 100 mg by mouth every 8 (eight) hours as needed for fever. Indications : pt took 300mg Active omeprazole (PRILOSEC) 10 MG capsule Take 10 mg by mouth daily. Active naproxen (NAPROSYN) 500 MG tabletIndication s:Pain and swelling of ankle, right Take 1 tablet (500 mg total) by mouth 2 (two) times a day with meals. 60 tablet 02/27/2023 Active Active Problems No known active problems Social History Tobacco Use Types Packs/Day Years Used Date Smoking Tobacco: Never Smokeless Tobacco: Never Alcohol Use Standard Drinks/Week Comments No 0 (1 standard drink = 0.6 oz pur e alcohol) Education Answer Date Recorded Are you interested in more education? Not on [place] [facility] 07/06/2022 Are you concerned about learning? Not on file 07/06/2022 No 07/06/2022 No 07/06/2022 Digital Access Answer Date Recorded No 08/04/2022 No 08/04/2022 Reliable internet access at home? Not on file 08/04/2022 Device with a working camera? Not on file Comments Unknown Sex and Gender Information Value Date Recorded Sex Assigned at Female 09/07/2021 11:34 AM EDT Legal Sex Female 7:26 AM EST Gender Identity Female 09/07/2021 11:34 AM EDT Sexual Orientation Straight 09/07/2021 11 :34 AM EDT Last Filed Vital Signs Vital Sign Reading Time Taken Comments Blood Pressure 122/76 12/20/2020 12:52 PM EDT Pulse 74 12/20/2020 12:52 PM EDT Temperature 36.3 C (97.3 F) 12/20/2020 12:52 PM EDT Respiratory Rate 16 03/28/2017 9:00 AM EST Oxygen Saturation 96% 12/20/2020 12:52 PM EDT Inhaled Oxygen Concentration - - Weight 112 kg (247 lb) 12/20/2020 12:52 PM EDT Height 177.8 cm (5' 10 ) 12/20/2020 12:52 PM EDT Body Mass Index 35.44 12/20/2020 12:52 PM EDT Plan of Treatment Health Maintenance Due Date Last Done Comments Adult Td,Tdap Booster 1965 LIPID PANEL 1965 DEPRESSION SCREENING 1975 HEPATITIS C SCREENING 09/27/1981 HIV ONE-TIME SCREENING (18-65 YEARS) 09/27/1981 PAP SMEAR 09/27/1984 MAMMOGRAM 2003 COLOGUARD 09/27/2008 FIT TEST 09/27/2008 FOBT 09/27/2008 SIGMOIDOSCOPY 09/27/2008 VIRTUAL COLONOSCOPY 09/27/2008 ZOSTER VACCINES (1 of 2) 09/27/2013 PNEUMOCOCCAL VACCINES (50+ years) (2 of 2 - PCV) 12/29/2018 12/29/2017 COVID-19 VACCINE ( season) 2023 12/06/2022, 11/24/2021, 07/07/2021, Additional history exists COLONOSCOPY 03/28/2027 03/28/2017 COLORECTAL CANCER SCREENING 03/28/2027 RSV VACCINE (1 - 1-dose 75+ series) 09/27/2038 SMOKING STATUS SCREENING (Once After 26 Yrs) Completed 02/27/2023 HEPATITIS A VACCINES Aged Out No long er eligible based on patient's age to complete this topic HIB VACCINES Aged Out No longer eligi ble based on patient's age to complete this topic MENINGOCOCCAL VACCINES (ACWY) Aged Out No longer eligible based on patient's age to complete this topic MENINGOCOCCAL VACCINES (B) Aged Out N o longer eligible based on patient's age to complete this topic Medical Devices Not on file Procedures Procedure Name Priority Date/Time Associated Diagnosis Comments ENDOSCOPY, COLON 03/28/2017 8:57 AM EST from Last 3 Months or Most Recently Relevant to Health Maintenance Results * ENDOSCOPY, COLON (03/28/2017 8:57 AM EST) Narrative Transcriptions Nancy Doll MD - 03/28/2017 8:57 AM EST Patient Name: Martina Neumann MD:: NANCY DOLL MD Procedure Date: 03/28/2017 8:57 AM Date of : 1965 Age: 51 Admit Type: Outpatient Gender: Female Room: [place] [address] Referring MD: MIRELA DOWLING Exam Type: Colonoscopy Indications: Screening for colorectal malignant neoplasm, This isthe patient's first colonoscopy Medications: Propofol per Anesthesia Procedure: Informed consent was obtained from the patient after discussion of the indications, limitations,alternatives, benefits, and risks of the procedure. Risksspecifically discussed include but are not limited to medication reactions, missed lesions, bleeding, perforation, orthe need for emergent surgery. Throughout the procedure, the patient's blood pressure, pulse, end-tidal CO2, and oxygen saturations were monitored continuously. The Olympus adult variable colonoscope [id number] #3 was introduced through the anus and advanced to theterminal ileum, with identification of the appendiceal orificeand IC valve. The terminal ileum, ileocecal valve,appendiceal orifice, and rectum were photographed. The colonoscopywas performed without difficulty. The patient tolerated the procedure well. The quality of the bowel preparationwas good. The bowel preparation used was GoLYTELY. Complications: No immediate complications. Estimated blood loss:None. Findings: The perianal and digital rectal examinations werenormal. Pertinent negatives include no palpable rectallesions. Non-bleeding internal hemorrhoids were found during retroflexion. The hemorrhoids were small. Many small-mouthed diverticula were found in thesigmoid colon. A few medium-mouthed diverticula were found in the ascending colon. Two sessile polyps were found in the hepatic flexure.The polyps were small in size. These polyps were removedwith a cold snare. Resection and retrieval were complete. A diminutive polyp was found in the hepatic flexure.The polyp was sessile. The polyp was removed with a cold biopsy forceps. Resection and retrieval werecomplete. The exam was otherwise without abnormality. The terminal ileum appeared normal. Retroflexion in the right colon was performed. Impression: - Non-bleeding internal hemorrhoids. - Diverticulosis in the sigmoid colon. - Diverticulosis in the ascending colon. - Two small polyps at the hepatic flexure, removed witha cold snare. Resected and retrieved. - One diminutive polyp at the hepatic flexure, removed with a cold biopsy forceps. Resected and retrieved. - The examination was otherwise normal. - The examined portion of the ileum was normal. Recommendation: - If the pathology report reveals adenomatous tissue,then repeat the colonoscopy for surveillance in 5 years. NANCY DOLL MD 03/28/2017 9:21:08 AM This report has been signed electronically. Number of Addenda: 0 Note Initiated On: 03/28/2017 8:57 AM Procedure Code(s): --- Professional --- 01930, Colonoscopy, flexible; with removal of tumor(s), polyp(s), or other lesion(s) by snare technique 07367, 59, Colonoscopy, flexible; with biopsy, single or multiple --- Technical --- 63468, Colonoscopy, flexible; with removal of tumor(s), polyp(s), or other lesion(s) by snare technique 10897, 59, Colonoscopy, flexible; with biopsy, single or multiple Diagnosis Code(s): --- Professional --- D12.3, Benign neoplasm of transverse colon (hepatic flexure orsplenic flexure) Z12.11, Encounter for screening for malignant neoplasm of colon K64.8, Other hemorrhoids K57.30, Diverticulosis of large intestine without perforation orabscess without bleeding --- Technical --- D12.3, Benign neoplasm of transverse colon (hepatic flexure orsplenic flexure) Z12.11, Encounter for screening for malignant neoplasm of colon K64.8, Other hemorrhoids K57.30, Diverticulosis of large intestine without perforation orabscess without bleeding CPT copyright 2016 [employer]. All rights reserved. The codes documented in this report are preliminary and upon shine worker reviewmay be revised to meet current compliance requirements. [address] [place] [address] Mirela Dowling CNP GI PROCEDURE ORDERABLES Fin al Result from Last 3 Months or Most Recently Relevant to Health Maintenance [facility] S S S S S Care Teams Polisher And Sander Relationship Specialty Start Date End Date Teddy Glasgow DO [email or web address] PCP - General Internal Medicine 12/20/20 Teddy Glasgow DO [address] [place] [id number] [email or web address] Insurance Assigned Provider 12/15/23 Additional Source Comments The information contained in this document represents components of the legal health record. It is not the complete legal health record.[facility]
== END 2024-11-06 07:19 | disposition home or self-care (01) ==
LOC: HO.HWS 16:03
PROVIDERS: PCP Internal Medicine; Visit Provider Obstetrics & Gynecology
DX: N95.0 Postmenopausal bleeding (principal); R23.2 Flushing
CPT/HCPCS: 99213

== ENCOUNTER 2025-01-28 08:21 | Outpatient (AMB) | payer BC, SELFPAY ==
--- OUTSIDE RECORDS SUMMARY | 2024-02-05 08:00 | XMS_ITS ---
Author Organization [facility] Address [address] [place] [address] Care Team Providers Care Aquatics Instructor Name Role Phone Myah LUNA, Teddy Primary Care Provider Ale Diaz Unavailable [phone] REASON FOR VISIT no ppwrk Encounters Encounter Location Date Provider Diagnosis [facility] [address] [place] [address] 02/05/2024 Ale Bustillo Plan Of Treatment No Information Progress Notes * Barbara MERCEReDOB:1965 (59 yo F)Acc No.[id number]:02/05/2024 Progress Notes Patient: Martina FRENCH Provider: Kiki Bustillo DPM :1965 A ge:58 Y S ex:Female Date:02/05/2024 Address:[address] [place], [place] [id number] Pcp:Teddy Glasgow MD Subjective: * Chief Complaints: * 1 . No ppwrk. * Medical History: Objective: * Vitals: Assessment: Plan: * Treatment: * Images: * The named appointment provid er may or may not be the originator of this progress note, and it is not deemed complete until electronically signed by the appointment provider. Sign off status: Pending * Provider: Kiki Bustillo DPM Date: 04/06/2023 Generated for Shakir mcclellan/Leah/Emmanuelsmitting on: 03/30/2024 08:53 AM EST
[2025-01-28 08:23] VITALS: BP 110/56; PULSE 76; O2SAT 96
--- NOTE | 2025-01-28 08:23 | A.OFFVIS_ITS ---
Vital Signs 01/28/25 08:23 Height 5 ft 10 in BMI Reason not done Patient refused/unable BP 110/56 L Blood Pressure Location Rt brachial Pulse 76 Pulse Source Pulse Oximeter Pulse Oximetry (%) 96 Oxygen Delivery Method Room Air Intake Visit Reasons: Asthma Radioactive Waste Disposal Dispatcher Required: No Accompanied by: Self / Same As Patient Allergies erythromycin base Allergy (Mild, Verified 01/28/25 08:28) Rash Penicillins Allergy (Mild, Verified 01/28/25 08:28) Rash ALVARADO Allergy (Intermediate, Uncoded 08/06/24 07:22) Wheezing HPI Comments Details: Patient is a 59 you woman with severe persistent asthma now with asthma COPD overlap syndrome. She is without better at this time. However, about 3-4 weeks ago she significant worsening of respiratory status with wheezing. Her peak flows went from 400 to 200 ml which is very concerning. Only new change was her rescue inhaler when from Ventolin 2 albuterol HFA. Once the patient realized that the albuterol HFA was worsen respiratory status she went back to Ventolin to find out of pocket symptoms improved dramatically and her peak flow normalized. Therefore, it appears the patient could not tolerate the albuterol HFA or ProAir inhaler. We will resend the Ventolin and will make sure that she only is provided Ventolin. Patient also started on Daliresp. This appears to be affecting beneficial. She does have some GI symptoms is able to tolerated. Discussed decrease her exacerbations dramatically she has not required prednisone as much. She did need it when she was on the albuterol HFA inhaler. Has been using the Advair Diskus for about 20-25 years and has been working well. She will continue on this medicine for now. It appears that she does have a moderate obstructive ventilatory defect consistent with asthma COPD overlap syndrome. She would like to know if she is a candidate for biologic therapy. Continue pursuing this with additional blood work. She still requiring high dose s of prednisone because of the significant wheezing and shortness of breath. She has gained significant weight. Initially she had RSV and then she developed influenza and still having significant inflammation to the airways. In addition to that she has had some irritation to the throat. She has a history of vocal cord polyps. She is wondering if any vocal cord dysfunction could also be attributing to her symptoms. Her CTA was negative for blood clots although did have some evidence of was a pattern bronchiolitis. She also has a hiatal hernia. She continues to be symptomatic with hiatal hernia. Sometimes she wakes up with significant reflux and needs to take Tums in addition to having her on the very aggressive reflux diet and also taking the promotility agents as well as her PPIs. The patient will looking to getting some risers for her bed. In the meantime she is going to follow-up with ENT and will have a laryngoscopy. If her overall status is not better she still having issues with wheezing and coughing a bronchoscopy may be warranted further airway survey for both diagnostic and therapeutic purposes. 05/29/2019 the patient had a telephone visit. She still having difficulties with her breathing. 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 Did start her on prednisone suspension swish and swallow. She has been doing this now for a week or more she has not noticed any significant improvement. She has also noticed decreasing her peak flow some increasing sh ortness of breath. She has been using the azithromycin Saturday and Saturday with no real significant improvement that she can say. She has been on chronic prednisone and therefore difficult to assess her eosinophils or other allergy testing. And she has significant severe persistent asthma and would benefit from high biologic therapy. In the meantime with respiratory symptoms and her underlying severe obstructive airway disease the patient is to avoid direct patient contact anterior next appointment it july of this year. 05/24/2020 the patient is here for pulmonary follow-up visit. Overall she her respiratory status has improved dramatically. Back last year she had been on multiple courses of prednisone and multiple readmissions to the hospital with significant asthma. She did have a CT scan of the chest at that time demonstrating some bronchiolitis and also moderate hiatal hernia. She continues to have significant heartburn symptoms. She has been using omeprazole once a day then recently increased to twice a day. She does have a position of bed tries to sleep elevated. She does not need to lay. She is to also try to cut down some of the foods that cause her to have worsening reflux. We did go through the list of concerning foods and beverages. Unfortunately she would love [place] water. She sometimes have sub to 11 bottles of [place] water a day. The patient will try to cut down drastically and not in addition to making other dietary indiscretions. Will increase her omeprazole to twice a day. She is considering surgical intervention for this. Explained to this the at this point she will need to have a repeat barium swallow. Also she will need to maintain a very strict reflux diet to see if her symptoms improved. She is also trying to lose weight. In the meantime if she does not have any significant improvement with the dietary discretion. In addition to repeating the barium swallow then I will refer her to thoracic surgery for evaluation for fundoplication. Indeed her reflux disease is a big trigger for asthma symptoms. 11/24/2020 the patient is here for a pulmonary follow-up visit. She actually has been doing well from a respiratory status. She has been using a mask and has been avoiding sick contacts. Therefore she has not had any significant asthma exacerbations. However she still having significant reflux disease. Moderate severity. She was taken off her PPI. The patient did have a barium swallow in straighten hiatal hernia. Her symptoms of significant at this point she would like to see surgical correction. I will refer her thoracic surgeries she can be evaluated for her ongoing symptomatic iron hernia. Also, she is grieving the loss of her son. He unexpectedly at the age 30. 03/31/2021 this is a pulmonary follow-up visit. This is a telehealth visit because the patient was exposed to a family member with COVID-19. Since we last spoke the patient did undergo her surgery for her hiatal hernia. She was also found to have incarcerated paraesophageal hernia that also was repaired. The patient did very well with surgery and she is feeling a lot better. However, postoperatively she did have a pneumonia and she was treated accordingly with Levaquin. Then the patient felt great to the point that she went back to work. Her respiratory symptoms have improving significantly after surgery. She has been very happy with the results. However, it worse she was exposed to a viral syndrome and now developing URI like symptoms. She has started to develop a cough. We will be with doxycycline to treated for postviral bacterial infections issues Staph in strep in view of her bad asthma. However she denies any wheezing or any chest tightness. She does not require any prednisone at this time. She understands the postoperative we will also try to minimize steroids to allow healing of her surgery. 05/26/2021 the patient is here for a pulmonary follow-up visit. Since we last spoke she did undergo her hiatal hernia repair back in February 2021. Since then the patient has been describing significant difficulties with her swallow and also with significant GI upset. she does not tolerate eating solid foods. She has had significant weight loss. She did follow-up with GI. She did have an endoscopy demonstrating significant dysmotility of the esophagus in addition to appear to be an ulceration on her stomach. She is following closely and working with GI. We talked about different promotility agents and she will discuss this further with her specialist. In the meantime her respiratory symptoms have been significantly better. She denies any wheezing or any chest tightness. 01/26/2022 the patient is here for a pulmonary follow-up visit. Overall she is doing relatively well from her asthma symptoms. She has not had to use her maintenance inhalers. She does have a rescue inhaler that she uses couple times a week. She is very active at work. She has not had any recent respiratory infections which is reassuring. He still recovering from her hernia repair. She still having issues with dysmotility disorder. She did follow-up with GI and also sent to a motility specialist in [place]. She is currently being evaluated. Ultimately she may need further interventions to improve her symptoms. In the meantime examination she does have some wheezing. 04/26/2023 the patient is here for a pulmonary follow-up visit. Since we last spoke the patient had a repeat GI surgery for her esophageal dysmotility. Subsequently after that while walking she developed severe pain in her Achilles and subsequently developing a ruptured Achilles and had to undergo surgery. She is still using crutches and has a brace. Hopefully will be switched over to a walking boot soon. While she had blood work she did have a CBC with differential with a very high eosinophil count at [facility]. Therefore, we talked about considering the use of biologics specially with her comorbidities and using prednisone for her severe asthma. Will go ahead and recheck her allergy levels and eosinophil level and will continue with current respiratory therapy and will really consider biologic therapy in the near future for the patient. she does continue to complain of chest tightness and wheezing moderate severity. Will go ahead and maximize her respiratory therapy at this time and then we will look into the possibility of biologics. 01/14/2024 the patient is here for a pulmonary follow-up visit. She is doing well from a respiratory status. The Breztri inhaler has been affecting beneficial. She has not required any rescue therapy she has not required any prednisone which is reassuring. She has not had any recent flare-ups. We did talk about her vaccines she needs to get her RSV vaccine up-to-date. Otherwise she is up-to-date with the other vaccines. The patient still dealing with her dysmotility issue. She is going to be seeing a dysmotility specialist somewhere in [place] soon. We did talk about motility agents such as domperidone as well as azithromycin. She will talk to the dysmotility specialist to see this medications will be effective. Otherwise she may be considering having additional surgical interventions for her significant dysmotility issue. The patient has been able to maintain airway more recently although she had still having issues with alopecia and skin issues. She attributes that to her malnutrition. In addition to that she has had issues with the tendon injury or tendinopathy of the shoulder and also had some degree of an Achilles tendon injury that may have been related to her nutritional status. Least from a respiratory status she is doing well will going to continue to treat her with current therapy. If she is able to get an x-ray to follow-up with her previous x-ray that she had back in 2022 when she can do that at [facility]. The patient did have some minimal atelectasis noted which is extremely minimal and not significant but at this point will be important to have a repeat study. 01/28/2025 the patient is here for pulmonary follow-up visit. Overall she is doing well from a respiratory status. She continues on the Breztri. She has not required any prednisone or even a rescue inhaler. 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 Therefore she is exposed. We did talk about vaccines. She should have her pneumonia shot updated and also she consider the RSV vaccine specially with the significant asthma. The patient is still having issues with the GI system. She did have a repeat surgery for her hiatal hernia. And then after that the patient did start a motility agent. She had been doing well but lately she has been getting increasing heartburn. She is going to follow-up her her surgeon soon. The patient also has a stress fracture. She did take prednisone for many years frequently. Therefore she should consider getting a bone density test. From a respiratory status the patient is doing well as Pepcid for the GI symptoms to minimize heartburn and also micro aspirations. The patient will follow-up in a year if she has any issues she can always call for recommendation. [facility] Medical History Atelectasis Pancreatic insufficiency Pulmonary nodule Gastroparesis Hernia, paraesophageal Hx of supraventricular tachycardia Anxiety Incarcerated paraesophageal hernia Obesity GERD (gastroesophageal reflux disease) Asthma Surgical History Hx of esophagogastroduodenoscopy Hx of colonoscopy History of cardiac radiofrequency ablation (RFA) History of chest tube placement (~1998) History of bronchoscopy (~1998) Family History Paternal Grandmother Stomach cancer Social History Household Members: Spouse Housing: House Alcohol intake: never Patient Tobacco Use Status: Never used Tobacco Current occupational status: employed 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 Reproductive History Menstrual Age of Menarche: 10 Review of Systems Const Denies weight gain and Reports weight loss ENT Reports no additional complaints Card Reports no additional complaints, Denies dyspnea and Denies dyspnea on exertion Resp Reports no additional complaints, Reports cough, Denies dyspnea, Denies dyspnea on exertion, Denies stridor and Denies wheezing GI Reports abdominal pain, Reports bloating, Reports dyspepsia and Reports heartburn Musc Reports as per HPI, Reports abnormal gait, Reports myalgias, Reports arthralgias, Reports limited range of motion and Reports muscle weakness Neuro Reports no additional complaints and Reports abnormal gait Psych Reports no additional complaints Endo Reports no additional complaints Aller/Immun Denies wheezing Physical Exam Vital Signs: Last Vital Signs Pulse 76 01/28/25 08:23 BP 110/56 L 01/28/25 08:23 Pulse Ox 96 01/28/25 08:23 Oxygen Delivery Method Room Air 01/28/25 08:23 Const General: alert Neck Neck: Yes normal visual inspection, Yes full ROM and Yes no lymphadenopathy Chest Chest palpation & inspection: normal inspection of the chest Resp Effort & Inspection: normal respiratory effort and No prolonged expiratory phase Auscultation: no wheezes and diminished lung sounds Cardio Rate: regular rate Rhythm: regular rhythm Heart sounds: S1 normal heart sound present and S2 normal heart sound present GI Palpation (GI): Soft to palpation and nontender Auscultation: normal bowel sounds Skin General skin exam: rashes and/or lesions noted Extrem General: No cyanosis Assessment & Plan Assessment & Plan (1) Asthma: Code(s): J45.909 - Unspecified asthma, uncomplicated Category: Medical Qualifiers: Asthma complication type: with acute exacerbation Asthma persistence: persistent Asthma severity: severe Qualified Code(s): J45.51 - Severe persistent asthma with (acute) exacerbation (2) GERD (gastroesophageal reflux disease): Code(s): K21.9 - Gastro-esophageal reflux disease without esophagitis Category: Medical Qualifiers: Esophagitis bleeding: without hemorrhage Esophagitis presence: with esophagitis Qualified Code(s): K21.00 - Gastro-esophageal reflux disease with esophagitis, without bleeding (3) Atelectasis: Code(s): J98.11 - Atelectasis Category: Medical (4) Gastroparesis: Code(s): K31.84 - Gastroparesis Category: Medical Plan Breztri JUAN PABLO as needed start Pepcid as needed No need for Biologics small meals promotility agent: Montegrity F/U 12 months Medications: New famotidine (Pepcid) 40 mg PO BEDTIME 30 tabs 3RF 30 days Refilled [id number] 160-9-4.8 mcg/actuation (Breztri Aerosphere) 2 inhalations inhalation BID 10.7 grams 11RF 30 days Ventolin HFA 90 mcg/actuation (albuterol sulfate) 2 puffs PO Q4H PRN 18 grams 11RF for wheezing NS Coding Level of Care Code Est Pt Level 4 (18343) Diagnoses Severe persistent asthma with acute exacerbation J45.51 Asthma complication type: with acute exacerbation Asthma persistence: persistent Asthma severity: severe Gastroesophageal reflux disease with esophagitis without hemorrhage K21.00 Esophagitis bleeding: without hemorrhage Esophagitis presence: with esophagitis Atelectasis J98.11 Gastroparesis K31.84 Time Spent (min) 16
--- OUTSIDE RECORDS SUMMARY | 2025-01-28 08:53 | XMS_ITS | Encounter Summary ---
Author Organization [facility] Address [address] [place] [address] Care Team Providers Care County Administrator Name Role Phone Teddy Glasgow Primary Care Provider [phone] Jonnathan Jose MD Unavailable [phone] Queenie Barrera PhD Unavailable [phone] Encounter Details Date Type Department Care Team (Late st Contact Info) Description 03/25/2024 Scanned Document [facility] Bariatric Surgery [address] [place] [phone] Jonnathan Jose MD [address] [address] Social History Tobacco Use Types Packs/Day Years [...] more drinks on one occasion? Never 06/19/2022 [facility] [place] of Occupat ional Health - Occupational Stress [...] on filedocumented in this encounter Care Teams County Administrator Relationship Specialty Start Date End Date Teddy Glasgow DO [address] [facility] [place] [address] [place] [address] PCP - General 06/15/21 Jonnathan Jose MD [address] [place] [address] Physician Surgery, Bariatric 11/29/21 Queenie Barrera, PhD [address] [address] Clinical Psychologist Psychology 09/02/24 documented as of this encounter
--- OUTSIDE RECORDS SUMMARY | 2025-01-28 08:53 | XMS_ITS | Patient Health Record ---
Author Organization [facility] [place] Address [address] [place] [address] Care Team Providers Care Tile Decorator Name Role Phone Teddy Glasgow MD Primary Care Provider Ale Diaz Unavailable [phone] Reason For Referral No Information Encounters Encounter Location Date Provider Diagnosis [facility] [address] [place] [address] 01/30/2024 Ale Bustillo Plan Of Treatment No Information Insurance Providers Payer Name Payer Address Payer Phone Subscriber Number Group Number Insured Name Patient Relationship to Insured Coverage Start Date Coverage End Date [facility] [address] [place] [address] Martina Weinstein Self - patient is the insured
--- OUTSIDE RECORDS SUMMARY | 2025-01-28 08:53 | XMS_ITS | Encounter Summary ---
Author Organization [facility] Address [address] [place] [address] Care Team Providers Care Assistant Clinical Nurse Manager Name Role Phone Teddy Glasgow Primary Care Provider [phone] Jonnathan Jose MD Unavailable Queenie Barrera PhD Unavailable [phone] Encounter Details Date Type Department Care Team (Late st Contact Info) Description 08/30/2022 Scanned Document [facility] Bariatric Surgery [address] [place] [phone] Jonnathan Jose MD [address] [address] Social History Tobacco Use Types Packs/Day Years [...] more drinks on one occasion? Never 06/19/2022 [facility] of Occupat ional Health - Occupational Stress Questionnaire Answer Date Recorded Do you feel stress - tense, restless, nervous, or anxious, or unable to sleep at night because your mind is troubled all the time - these days? Not at all 08/03/2022 Physical Activity Answer Date Recorded Days of Exercise per Week 3 days 2022 Minutes of Exercise per Session 40 min 08/03/2022 Comments No Sex and Gender Information Value Date Recorded Sex Assigned at Female 03/13/2022 7:58 AM EST Legal Sex Female 6:40 PM EST Gender Identity Female 01/09/2022 9:32 AM EDT Sexual Orientation Heterosexual (straight) 03/13 7:58 AM EST COVID-19 Exposure Response Date Recorded In the last 10 days, have yo u been in contact with someone who was confirmed or suspected to have Coronavirus/COVID-19? No / Unsure 08/03/2022 9:00 AM EDT documented as of this encounter Plan of Treatment Not on file documented as of this encounter Visit Diagnoses Not on filedocumented in this encounter Care Teams Assistant Clinical Nurse Manager Relationship Specialty Start Date End Date Teddy Glasgow DO [address] [facility] [place] [address] [place] [address] PCP - General 06/15/21 Jonnathan Jose MD [address] [place] [id number] Physician Surgery, Bariatric 11/29/21 Queenie Barrera, PhD [address] [address] Clinical Psychologist Psychology 09/02/24 documented as of this encounter
--- OUTSIDE RECORDS SUMMARY | 2025-01-28 08:53 | XMS_ITS | Clinical Summary ---
Author Organization [facility] Address [address] [place] [address] Care Team Providers Care Occupational Therapist Rehab Manager Name Role Phone Cynthiashanice Teddy Solis DO Primary Care Provider [phone] Jonnathan Jose MD Unavailable [phone] Queenie Barrera PhD Unavailable [phone] Allergies Active Allergy Reactions Criticality Noted Date Comments Erythromycin GI Intolerance/Nausea/Vomiting Low 08/2016 Richard Shortness Of Breath High 11/28/2021 Penicillins Hives Medium 11/28/2021 Medications albuterol (PROVENTIL HFA; VENTOLIN HFA) 108 (90 Base) MCG/ACT inhaler Ventolin HFA 90 mcg/actuation aerosol inhaler INHALE 2 PUFFS BY MOUTH EVERY 4 HOURS NEEDED FOR WHEEZING Active estrogens, conjugated,-med roxyPROGESTERon e (PREMPRO) 0.3-1.5 MG per tablet Take 1 tablet by mouth every morning. Active ipratropium-alb uterol (DUONEB) 0.5-2.5 mg/3 mL nebulizer solution Take 3 mL by nebulization every 4 (four) hours as needed. Active OMEprazole (PriLOSEC) 40 MG capsule Take 1 capsule (40 mg total) by mouth every morning. 2 Active cyanocobalamin (VITAMIN B-12) 500 MCG tablet Take 1 tablet (500 mcg total) by mouth daily. Active nystatin (MYCOSTATIN) 443269 UNIT/GM creamIndication s:Rash Apply topically 2 (two) times a day. 30 g 3 Active doxycycline (VIBRA-TABS) 100 MG tablet Take 1 tablet (100 mg total) by mouth 2 (two) times a day. 3 Active Motegrity 2 MG tablet 3 Active colestipol (COLESTID) 1 g tabletIndicatio ns:Diarrhea, unspecified type Take 1 tablet (1 g total) by mouth 2 (two) times a day. With a large glass of water. 180 tablet 3 Active Breztri Aerosphere 160-9-4.8 MCG/ACT Aerosol Inhale 2 puffs 2 times a day. 4 Active cyproheptadine (PERIACTIN) 4 MG tabletIndicatio ns:Gastroparesi s,Nausea Take 1 tablet (4 mg total) by mouth every evening. 30 tablet 1 5 Active prucalopride succinate (MOTEGRITY) 2 MG tabletIndicatio ns:Gastroparesi s Take 1 tablet (2 mg total) by mouth daily. 30 tablet 5 5 Active rifAXIMin (XIFAXAN) 550 MG tabletIndicatio ns:Irritable bowel syndrome with diarrhea,Nausea Take 1 tablet (550 mg total) by mouth 3 (three) times a day. 42 tablet 5 Active testosterone (ANDROGEL) 20.25 mg/pump (1.62%) transdermal gel APPLY 4 PUMPS TO SKIN DAILY UNTIL ABSORBED DIRECTED 5 Active Active Problems Problem Noted Date Diagnosed Date Paraesophageal hernia 07/06/2022 Immunizations Immunization Administration Dates Next Due Covid-19 MRNA Vaccine - Pfiz er 12+ (Purple Cap) 12/07/2020,04/15/2020,03/22/2020 Social History Tobacco Use Types Packs/Day Years [...] you are drinking? Patient does not drink 3 Q3: How often do you have si x or more drinks on one occasion? Never 06/19/2022 PHQ-2 Answer Date Recorded PHQ-2 Total Score 0 09/01/2024 [facility] of Occupat ional Health - Occupational Stress Questionnaire Answer Date Recorded Do you feel stress - tense, restless, nervous, or anxious, or unable to sleep at night because your mind is troubled all the time - these days? Not at all 06/23/2024 Physical Activity Answer Date Recorded On average, how many days pe r week do you engage in moderate to strenuous exercise (like a brisk walk)? 4 days 06/23/2024 On average, how many minutes do you exercise per day at this level? 20 min 06/23/2024 Comments No Sex and Gender Information Value Date Recorded Sex Assigned at Female 03/13/2022 7:58 AM EST Legal Sex Female 6:40 PM EST Gender Identity Female 01/09/2022 9:32 AM EDT Sexual Orientation Heterosexual (straight) 03/13 7:58 AM EST Last Filed Vital Signs Vital Sign Reading Time Taken Comments Blood Pressure 120/78 06/23/2024 3:42 PM EDT Pulse 74 06/23/2024 3:42 PM EDT Temperature 35.8 C (96.5 F) 08/03/2022 9:11 AM EDT Respiratory Rate 16 06/23/2024 3:42 PM EDT Oxygen Saturation 97% 06/23/2024 3:42 PM EDT Inhaled Oxygen Concentration - - Weight 98.9 kg (218 lb) 06/23/2024 3:42 PM EDT Height 175.3 cm (5' 9 ) 06/23/2024 3:42 PM EDT Body Mass Index 32.19 06/23/2024 3:42 PM EDT Plan of Treatment Health Maintenance Due Date Last Done Comments Hepatitis C Virus Screening 1965 HIV Screening 09/27/1976 DTaP/Tdap/Td Vaccines (1 - Tdap) 09/27/1982 Pap Smear (Ages 21-65) 09/27/1984 Mammogram 2003 Colonoscopy 09/27/2008 Pneumococcal Vaccines 50+ (1 of 1 - PCV) 09/27/2013 RSV Vaccine 50 years and older and Patients (1 - Risk 50-74 years 1-dose series) 09/27/2013 Zoster (Shingles) Vaccine (1 of 2) 09/27/2013 Influenza Vaccine 10/09/2024 01/01/2024, , 12/28/2020, Additional history exists COVID-19 Vaccine ( season) 2024 12/07/2020, 04/15/2020, 03/22/2020 Hepatitis B Vaccines Aged Out No long er eligible based on patient's age to complete this topic Medical Devices Implanted Type Area Hardwood Floor Installation Helper Device Identifier Shelf Expiration Date Model / Serial / Lot [id number] Mesh [employer] [place] Bio-A 10x7cm Tissue Reinf Synthetic - [id number] Implanted:Qty : 1 on 07/04/2022 by Jonnathan Jose MD at [facility] Mesh N/A: Esophagus [employer] [id number] 02/12/2025 [id number] / [id number] / Insurance [facility] Advance Directives * Full Code (Latest Code Status on File) Date Activated Date Inactivated Comments 07/04/2022 8:08 AM Care Teams Occupational Therapist Rehab Manager Relationship Specialty Start Date End Date Teddy Glasgow DO [address] [place] [address] [place] [address] PCP - General 06/15/21 Jonnathan Jose MD [address] [place] [address] Physician Surgery, Bariatric 11/29/21 Queenie Barrera, PhD Noemi Trivedi [address] [address] Clinical Psychologist Psychology 09/02/24
--- OUTSIDE RECORDS SUMMARY | 2025-01-28 08:53 | XMS_ITS | Encounter Summary ---
Author Organization [facility] Address [address] [place] [address] Care Team Providers Care Electrocardiograph Operator Name Role Phone Teddy Glasgow Primary Care Provider [phone] Jonnathan Jose MD Unavailable [phone] Queenie Barrera PhD Unavailable [phone] Encounter Details Date Type Department Care Team (Late st Contact Info) Description 12/21/2022 Scanned Document [facility] BARIATRICS SCAN Jonnathan Jose MD [address] [place] [address] Social History Tobacco Use Types Packs/Day Years [...] more drinks on one occasion? Never 06/19/2022 [facility] of Occupat ional Health - Occupational Stress Questionnaire Answer Date Recorded Do you feel stress - tense, restless, nervous, or anxious, or unable to sleep at night because your mind is troubled all the time - these days? Not at all 09/21/2022 Physical Activity Answer Date Recorded On average, how many days pe r week do you engage in moderate to strenuous exercise (like a brisk walk)? 0 09/21/2022 On average, how many minutes do you exercise per day at this level? 0 09/21/2022 Comments No Sex and Gender Information Value [...] on filedocumented in this encounter Care Teams Electrocardiograph Operator Relationship Specialty Start Date End Date Teddy Glasgow DO [address] [facility] [place] [address] [place] [address] PCP - General 06/15/21 Jonnathan Jose MD [address] [place] [address] Physician Surgery, Bariatric 11/29/21 Queenie Barrera, PhD [address] Noemi Trivedi [address] [address] Clinical Psychologist Psychology 09/02/24 documented as of this encounter
--- OUTSIDE RECORDS SUMMARY | 2025-01-28 08:54 | XMS_ITS | Continuity of Care Document ---
Author Organization [facility], [facility] Address [address] [facility] [place] [address] [place] [address] Assessment No assessment recorded. Plan of Treatment Reminders Order Date Submit Date Provider Last Modified By Organization Details Last Modified Time Details Appointments None recorded. Lab None recorded. Referral None recorded. Procedures None recorded. Surgeries None recorded. Imaging None recorded. Medication Orders Wegovy 0.25 mg/0.5 mL subcutaneou s pen injector 2024 025 [id number], [address] [place], [place], [id number], 16:14:02 Patient TargetsNo targets recorded. Patient InstructionsNo instructions recorded. Reason for Referral None Reported. Results Created Date Observation Date Name Description Value Unit Range Abnormal Flag Note LastModifiedBy Organization Detail LastModifiedTime 10/15/1910/14/2024 MAMMO , diagn ostic , unila teral No observ ation record ed. [email or web address] [address] [place], [address], 10/14/2024 16:46:24 10/15/1910/14/2024 MAMMO , scree shy, digit al, bilat eral No observ ation record ed. [email or web address] [address] [place], [address], 10/14/2024 16:15:25 Result Notes None recorded. Problems Name Problem SNOMED Code Status Onset Date Resolution Date Notes Provider Name and Address Organization Details Recorded Time Asthma 020829240 Active 2017 Not Available [facility] 14:13:04 Gastroes ophageal reflux disease 854403916 Active 2017 Not Available [facility] 14:13:03 Postmeno pausal flushing 684600805 Active 2017 Not Available [facility] 14:13:03 Osteoart hritis of right knee joint 9985581089 55321 Active 2019 Not Available [facility] 14:13:04 Pain of shoulder region 21053167 Active 2021 LILIANE AGUIRRE [address] [place], [address], [facility] 2 16:29:50 Pain of shoulder region 47541328 Active 2021 LILIANE AGUIRRE [address] [place], [address], [facility] 2 16:29:59 Depressi ve disorder 24131409 Active 2021 LILIANE AGUIRRE [address] [place], [address], [facility] 2 16:38:20 Gastric ulcer 478186179 Completed 202108/07/2022 Removal Reason: resolved LILIANE AGUIRRE [address] [place], [address], [facility] 3 11:11:00 Pain of left shoulder joint 1209749912 0505899 Active 2021 LILIANE AGUIRRE [address] [place], [address], [facility] 2 14:52:37 Left atrial enlargem ent 9850758853 9109 Active 2021 LILIANE AGUIRRE [address] [place], [address], [facility] 2 16:34:38 Kidney lesion 1931596667 9100 Active 2021 Teddy Glasgow DO [address] [place], [address], [facility] 2 10:16:10 Osteoart hritis 013927290 Active 2021 LILIANE AGUIRRE [address] [place], [address], [facility] 2 14:36:53 Pancreat ic insuffic iency 53809890 Active 2021 LILIANE AGUIRRE [address] [place], [address], [facility] 2 08:50:51 Fear of flying 653924732 Active 2021 LILIANE AGUIRRE [address] [place], [address], [facility] 2 16:29:18 Impaired fasting glycemia 534673655 Active 2021 LILIANE AGUIRRE [address] [place], [address], [facility] 2 16:30:38 Insulin resistan ce 081760393 Active 2021 LILIANE AGUIRRE [address] [place], [address], [facility] 2 16:31:07 Pneumoni a 003956145 Active 2022 LILIANE AGUIRRE [address] [place], [address], [facility] 3 11:08:22 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 LILIANE AGUIRRE [address] [place], [address], [facility] 5 16:19:46 Panic disorder 335201290 Active 2024 LILIANE AGUIRRE [address] [place], [address], [facility] 5 16:25:02 Ganglion cyst 794712444 Active 2024 LILIANE AGUIRRE [address] [place], [address], [facility] 5 16:28:57 Mammogra phic mass of left breast 0988019158 4404739 Active 2024 LILIANE AGUIRRE [address] [place], [address], [facility] 5 12:41:38 Pain of left breast 6073794480 Active 2024 LILIANE AGUIRRE [address] [place], [address], [facility] 09:23:35 Problem Notes None recorded. Medical Equipment None Reported. Allergies Allergen ID Allergen Name Allergen Category Reaction Reaction Severity Criticality Documentation Date Start Date Code Code System Note Provider Name and Address Organization Details Recorded Time 9589 theophyll ine medicatio n Not available Not available Not available 01/22/2025 38922 RxNorm unrec ogniz ed react ion (text : Parox ysmal supra ventr icula r tachy cardi a (diso rder) , code: 10209 005) (from exter nal [facility]) Not Available yareli - External Data Service - prod 5 16:23:38 994 Product containin g penicilli n (product) medicatio n Not available Not available Not available 07/01/2017 57639 8001 SNOMED Viji andujar [facility] 8 08:12:05 995 erythromy filemon medicatio n Not available Not available Not available 07/01/2017 4053 RxNorm Viji andujar [facility] 8 08:12:23 Medications Name Sig Start Date Stop Date Status Note LastModified by Organization Details LastModified Time Prescriptio n - Prior Authorizati on Request active Not Available Not Available N ot Available docusate sodium 50 mg/5 mL oral liquid TAKE 10 ML BY MOUTH EVERY DAY 06/28 completed Not Available Not Available Not Available nystatin 100,000 unit/mL oral suspension 07/01 completed Not Available Not Available Not Available venlafaxine ER 37.5 mg capsule,ext ended release 24 hr TAKE 1 CAPSULE BY MOUTH AT BEDTIME FOR 7 DAYS FOLLOWED BY 75 MF CAPSULES active Not Available Not Available No t Available acetaminoph en 325 mg tablet TAKE 3 TABLET BY MOUTH EVERY 6 HOURS NEEDED FOR MILD PAIN 04/17 completed Not Available Not Available Not Available prednisone 10 mg tablet PLEASE SEE ATTACHED FOR DETAILED DIRECTION S 04/17 completed Not Available Not Available Not Available venlafaxine ER 75 mg capsule,ext ended release 24 hr TAKE 1 CAPSULE BY MOUTH DAILY FOR 5 WEEKS. START 75 MG AFTER 1 WEEK OF 37.5 MG active Not Available Not Available No t Available doxycycline hyclate 100 mg capsule TAKE [...] completed Not Available Not Available Not Available citalopram 20 mg tablet TAKE 1 TABLET BY MOUTH DAILY active Not Available Not Available No t Available amitriptyli ne 25 mg tablet 12/25 [...] PUMPS TO SKIN DAILY UNTIL ABSORBED DIRECTED 11/03 completed Not Available Not Available Not Available Daliresp 500 mcg tablet 07/30 completed [...] Not Available Not Available No t Available Wixela Inhub 500 mcg-50 mcg/dose powder for inhalation [...] Not Available Not Available No t Available Wegovy 0.25 mg/0.5 mL subcutaneou s pen injector ADMINISTE R 0.25 MG UNDER THE SKIN EVERY WEEK 2024 active Not Available Not Available Not Avai lable Wegovy 0.5 mg/0.5 mL subcutaneou s pen injector INJECT 0.5MG EVERY WEEK BY SUBCUTANE OUS ROUTE DIRECTED active Not Available Not Available No t Available Vitals Date Recorded Body height Body mass index (BMI) Body weight Heart rate Oxygen saturation Systolic And Diastolic Provider Name and Address Organization Details Last Updated DateTime 5 173.99 cm 33.3 kg/m2 367773. 51 g 82 /min 95 % 126/84 mm[Hg] [facility] 5 15:56:31 Social History Question Answer Notes LastModified by Organizat ion Details LastModified Time Tobacco Smoking Status Never Smoker Not Available [facility] 01/12/2020 03:36:24 What Was The Date Of Your Most Recent Tobacco Screening? 10/30/2024 [email or web address] Information not available 10/30/2024 Sex: Unknown Functional Status Question Answer Note LastModified by Organization D etails LastModified Time Do you or have you ever used any other forms of tobacco or nicotine? No [email or web address] Information not available 08/07/2022 Mental Status None recorded. Family History Nothing Reported. Medical History Condition Response Coronary Artery Disease N Gout N Other N Kidney Stones N Blood Diseases N Blood Transfusion N Breast Cancer N Lung Disease N Depression N COPD N Defects or Inherited Disease N Anxiety Disorder N Muscle, Joint, or Bone Problems N Obesity N Vision or Eye Problems N Arthritis N Infertility N Polyps N Mental Disorder N Cancer N Stroke N Varicosities N Endometriosis N Bladder or Kidney Problems N High Cholesterol N Liver Disease N Fibromyalgia N Headaches N Kidney Disease N Allergies/Hayfever N Heart Problems N Hospitalizations N Thyroid Problems N GI Problems N Eating Disorder N Skin Problems N Anemia N MRSA exposure N Constipation N Mental Illness N Diabetes N Ovarian Cancer N Seizures/Epilepsy N Tuberculosis N Congestive Heart Failure (CHF) N Eczema N Abuse/Domestic Violence N Diverticulitis N Asthma N Reflux/GERD N Hepatitis N [...] mcg/0.3 mL dose 1 completed Not Available [facility] 02/27/2023 16:35:53 Influenza, split virus, quadrivalent, preservative 1 completed Not Available [facility] 02/27/2023 16:35:52 Influenza, split virus, quadrivalent, preservative 8 completed Not Available [facility] 02/27/2023 16:35:53 Influenza, split virus, quadrivalent, preservative 7 completed Not Available [facility] 02/27/2023 16:35:53 Influenza, split virus, quadrivalent, preservative 8 completed Not Available [facility] 02/27/2023 16:35:52 pneumococcal polysaccharide PPV23 8 completed Not Available [facility] 02/27/2023 16:35:53 COVID-19, mRNA, LNP-S, PF, 30 mcg/0.3 mL dose 1 completed Not Available [facility] 02/27/2023 16:35:53 COVID-19, mRNA, LNP-S, PF, 30 mcg/0.3 mL dose 1 completed Not Available [facility] 02/27/2023 16:35:53 Past Encounters Encounter ID Performer Location Encounter Start Date Encounter Closed Date Diagnosis/Indication Diagnosis SNOMED-CT Code Diagnosis ICD10 Code Diagnosis IMO Codes Diagnosis Note [id number] Teddy Glasgow [facility] [address] [facility] [address] 10/30/2024 15:49:46 10/30/2024 16:28:16 Depression screening 563670399 Z13.31 SCREENING NEGATIVE Body mass index 30+ - obesity 420812997 Z68.33 967153 will set up with tennilleypt is aware of instructio ns Health Concerns Section Related Observation LastModified by Organization Detai ls LastModified Time None Recorded Concern Status LastModified by Organization Details LastModified Time None Recorded Payers Encounter Date Sequence Insurance Name Policy Number Policy Wylie Covered Member ID Wylie Member ID Guarantor Name 10/30/2024 1 [facility] [place] [id number] Martina Js [id number] Antwan Weinstein Notes Date Note Type Note Provider Name a nd Address Organization Details Recorded Time 5 text/html ROS as noted in the HPI c/o weight concerns the patient has been doing wellthe vagal nerve release was effectivegastric emptying was normal, her gastroparesis is resolved with the surgeryalso treated SIBO and had a very strict diet has been gaining weightdiscussed options, has more options given the resolution of the gastroparesis the patient agreed to wegovy given insurance coverage LILIANE AGUIRRE [address] [place], [address], [facility] 10/30/2024 16:19:18 OBGyn Episode No OBEpisode recorded.
--- OUTSIDE RECORDS SUMMARY | 2025-01-28 08:54 | XMS_ITS | Encounter Summary ---
Author Organization [facility] Address [address] [place] [address] Care Team Providers Care Tongue And Groove Machine Setter Name Role Phone Teddy Glasgow Primary Care Provider [phone] Jonnathan Jose MD Unavailable Queenie Barrera PhD Unavailable [phone] Encounter Details Date Type Department Care Team (Late st Contact Info) Description 07/03/2022 Prep for Surgery [facility] Bariatric Surgery [address] [place] [phone] Jonnathan Jose MD [address] [place] [address] Social History Tobacco Use Types Packs/Day Years [...] more drinks on one occasion? Never 06/19/2022 [facility] of Occupat ional Health - Occupational Stress Questionnaire Answer Date Recorded Do you feel stress - tense, restless, nervous, or anxious, or unable to sleep at night because your mind is troubled all the time - these days? Not at all 04/17/2022 Physical Activity Answer Date Recorded Days of Exercise per Week 3 days 2022 Minutes of Exercise per Session 60 min 04/17/2022 Comments No Sex and Gender Information Value [...] suspected to have Coronavirus/COVID-19? No / Unsure 07/04/2022 6:54 AM EDT documented as of this encounter Functional Status * Level of Risk per Screen Answer Date of Assessment Author Low Risk 07/04/2022 8:12 AM EDT Soren Valentin RN documented as of this encounter Plan of Treatment Not on file documented as of this encounter Visit Diagnoses Not on filedocumented in this encounter Care Teams Tongue And Groove Machine Setter Relationship Specialty Start Date End Date Teddy Glasgow DO [address] [facility] [place] [address] [place] [address] PCP - General 06/15/21 Jonnathan Jose MD [address] [place] [address] Physician Surgery, Bariatric 11/29/21 Queenie Barrera, PhD [address] [address] Clinical Psychologist Psychology 09/02/24 documented as of this encounter
--- OUTSIDE RECORDS SUMMARY | 2025-01-28 08:54 | XMS_ITS | Encounter Summary ---
Author Organization [facility] Address [address] [place] [address] Care Team Providers Care Golf Ball Trimmer Name Role Phone Teddy Glasgow Primary Care Provider [phone] Jonnathan Jose MD Unavailable Queenie Barrera PhD Unavailable [phone] Encounter Details Date Type Department Care Team (Late st Contact Info) Description 01/10/2023 Scanned Document [facility] Bariatric Surgery [address] [place] [phone] Jonnathan Jose MD [address] [address] Social History Tobacco Use Types Packs/Day Years [...] more drinks on one occasion? Never 06/19/2022 [facility] [place] of Occupat ional Health - Occupational Stress [...] on filedocumented in this encounter Care Teams Golf Ball Trimmer Relationship Specialty Start Date End Date Teddy Glasgow DO [address] [facility] [place] [address] [place] [address] PCP - General 06/15/21 Jonnathan Jose MD [address] [place] [address] Physician Surgery, Bariatric 11/29/21 Queenie Barrera, PhD [address] [address] Clinical Psychologist Psychology 09/02/24 documented as of this encounter
--- OUTSIDE RECORDS SUMMARY | 2025-01-28 08:54 | XMS_ITS | Data Portability ---
Author Organization [facility], Telehealth Patient Home Address [address] [place] [address] Assessment Encounter Date Assessment Date Assessment LastModified [...] Appointments None recorded. Lab None recorded. Referral hand surgeon referral 2024 025 leslye Chen MD, [address], [facility] [address], [place], [address], 12:11:03 Procedures None recorded. Surgeries None recorded. Imaging None recorded. Medication Orders Wegovy 0.25 mg/0.5 mL subcutaneou s pen injector 2024 025 [employer] #[id number], [address], [place], [id number], 5 16:14:02 lorazepam 0.5 mg tablet 2024 025 [facility] #[id number], [address], [place], [id number], 5 16:28:46 Prempro 0.3 mg-1.5 mg tablet 2024 025 [facility] #[id number], [address], [place], [id number], 5 15:53:50 baclofen 20 mg tablet 2024 025 [facility] #[id number], [address], [place], [id number], 16:20:43 Patient TargetsNo targets recorded. Patient Instructions Encounter Date Encounter Id Patient Instructions Last Modified By Organization Details Last Modified Time 06/13/2022 [id number] prediabetes: car e instructions Not available 06/15/2022 10:47:16 gastroesophageal reflux disease (GERD): care instructions Not available 06/15/2022 10:47:16 Reason for Referral Hand Surgeon Referral for Ga nglion cyst ganglion cyst, left hand Referring Physician: Jamison Willard, Internal Medicine, Encounter Date: 07/15/2024 Results Created Date Observation Date Name Description Value Unit Range Abnormal Flag Note LastModifiedBy Organization Detail LastModifiedTime 07/25/1904/23/2022 elect rocar diogr am No observ ation record ed. BARCODE Not Available 2022 11:35:25 07/25/19 23 04/23/2022 elect rocar diogr am, elmer ne ECG, 12 leads min No observ ation record ed. BARCODE Not Available 2022 11:35:25 07/25/19 23 09/08/2021 US, echoc ardio gram, trans thora cic, compl ete, w/ color flow No observ ation record ed. BARCODE Not Available 2022 12:29:18 12/04/19 24 12/04/2023 baria tric evalu ation * No observ ation record ed. [facility] [address], [place], [address], 04/17/2024 16:25:45 08/19/19 25 08/17/2024 US, pelvi c wall No observ ation record ed. [place] [id number] [facility] [place], [address], 08/18/2024 10:28:37 10/15/19 25 10/14/2024 MAMMO , diagn ostic , unila teral No observ ation record ed. [address] [place], [address], 10/14/2024 16:46:24 10/15/19 25 10/14/2024 MAMMO , scree shy, digit al, bilat eral No observ ation record ed. [email or web address] [place], [address], 10/14/2024 16:15:25 Result Notes None recorded. Problems Name Problem SNOMED Code Status Onset Date Resolution Date Notes Provider Name and Address Organization Details Recorded Time Asthma 515577360 Active 2017 Not Available [facility] 14:13:04 Gastroes ophageal reflux disease 734577857 Active 2017 Not Available [facility] 14:13:03 Postmeno pausal flushing 339213803 Active 2017 Not Available [facility] 14:13:03 Osteoart hritis of right knee joint 3629937361 60538 Active 2019 Not Available [facility] 14:13:04 Pain of shoulder region 23804355 Active 2021 JAMISON TRYBA, PA [address] [place], [address], [facility] 2 16:29:50 Pain of shoulder region 39956531 Active 2021 LILIANE AGUIRRE [address] [place], [address], [facility] 2 16:29:59 Depressi ve disorder 07827674 Active 2021 LILIANE AGUIRRE [address] [place], [address], [facility] 2 16:38:20 Gastric ulcer 194304166 Completed 202108/07/2022 Removal Reason: resolved LILIANE AGUIRRE [address] [place] [address], [address], [facility] 3 11:11:00 Pain of left shoulder joint 1874986772 8348924 Active 2021 LILIANE AGUIRRE [address] [place] [address], [address], [facility] 2 14:52:37 Left atrial enlargem ent 5802148465 9109 Active 2021 LILIANE AGUIRRE [address] [place] [address], [address], [facility] 2 16:34:38 Kidney lesion 4799471890 9100 Active 2021 Teddy Glasgow DO [address] [place] [address], [address], [facility] 2 10:16:10 Osteoart hritis 551377911 Active 2021 LILIANE AGUIRRE [address] [place] [address], [address], [facility] 2 14:36:53 Pancreat ic insuffic iency 37113554 Active 2021 LILIANE AGUIRRE [address] [place] [address], [address], [facility] 2 08:50:51 Fear of flying 462873260 Active 2021 LILIANE AGUIRRE [address] [place], [address], [facility] 2 16:29:18 Impaired fasting glycemia 562182282 Active 2021 LILIANE AGUIRRE [address] [place], [address], [facility] 2 16:30:38 Insulin resistan ce 396246136 Active 2021 LILIANE AGUIRRE [address] [place], [address], [facility] 2 16:31:07 Pneumoni a 879361792 Active 2022 LILIANE AGUIRRE [address] [place], [address], [facility] 3 11:08:22 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 LILIANE AGUIRRE [address] [place], [address], [facility] 5 16:19:46 Panic disorder 199241867 Active 2024 LILIANE AGUIRRE [address], [place], , [facility] 5 16:25:02 Ganglion cyst 629093644 Active 2024 LILIANE AGUIRRE [address], [place], , [facility] 5 16:28:57 Mammogra phic mass of left breast 4789791857 6068430 Active 2024 LILIANE AGUIRRE [address] [place], [address], [facility] 5 12:41:38 Pain of left breast 6736736775 Active 2024 LILIANE AGUIRRE [address] [place], [address], [facility] 5 09:23:35 Problem Notes None recorded. Medical Equipment None Reported. Allergies Allergen ID Allergen Name Allergen Category Reaction Reaction Severity Criticality Documentation Date Start Date Code Code System Note Provider Name and Address Organization Details Recorded Time 9589 theophyll ine medicatio n Not available Not available Not available 01/22/2025 26975 RxNorm unrec ogniz ed react ion (text : Parox ysmal supra ventr icula r tachy cardi a (diso rder) , code: 54082 005) (from exter nal sourc e) Not Available yareli - External Data Service - prod 16:23:38 994 Product containin g penicilli n (product) medicatio n Not available Not available Not available 07/01/2017 56058 8001 SNOMED Viji andujar [facility] 8 08:12:05 995 erythromy filemon medicatio n Not available Not available Not available 07/01/2017 4053 RxNorm Viji andujar [facility] 8 08:12:23 Medications Name Sig Start Date [...] Updated DateTime 5 173.99 cm 32.1 kg/m2 24968.8 4 g 78 /min 95 % 110/68 mm[Hg] Janay Lackey [facility] 5 16:13:14 Date Recorded Body height Heart rate Oxygen saturation Systolic And Diastolic Provider Name and Address Organization Details Last Updated DateTime 06/13/2022 173.99 cm 81 /min 97 % 102/76 mm[Hg] Teddy Glasgow, DO [address] [facility], [place], [address], [facility] 3 16:08:10 Date Recorded Body height Provider Name an d Address Organization Details Last Updated DateTime 07/15/2024 173.99 cm Janay Lackey [facility] 07/15/2024 15:53:38 Date Recorded Body height Body mass index (BMI) Body weight Heart rate Oxygen saturation Systolic And Diastolic Provider Name and Address Organization Details Last Updated DateTime 3 173.99 cm 30.7 kg/m2 64509.4 4 g 81 /min 96 % 99/68 mm[Hg] Soraya Otto [facility] 3 10:47:20 Date Recorded Body height Body mass index (BMI) Body weight Heart rate Oxygen saturation Systolic And Diastolic Provider Name and Address Organization Details Last Updated DateTime 5 173.99 cm 33.3 kg/m2 704018. 51 g 82 /min 95 % 126/84 mm[Hg] Janay Lackey [facility] 5 15:56:31 Social History Question Answer Notes LastModified by Organizat ion Details LastModified Time Tobacco Smoking Status Never Smoker Not Available [facility] 01/12/2020 03:36:24 What Was The Date Of Your Most Recent Tobacco Screening? 10/30/2024 [email or web address] Information not available 10/30/2024 Sex: Unknown Functional Status Question Answer Note LastModified by Organization D etails LastModified Time Do you or have you ever used any other forms of tobacco or nicotine? No Information not available 08/07/2022 Mental Status None recorded. Family History Nothing Reported. Medical History Condition Response Coronary Artery Disease N Gout N Other N Kidney Stones N Blood Diseases N Blood Transfusion N Breast Cancer N COPD N Depression N Lung Disease N Defects or Inherited [...] mcg/0.3 mL dose 1 completed Not Available [facility] 02/27/2023 16:35:53 Influenza, split virus, quadrivalent, preservative 1 completed Not Available [facility] 02/27/2023 16:35:52 Influenza, split virus, quadrivalent, preservative 8 completed Not Available [facility] 02/27/2023 16:35:53 Influenza, split virus, quadrivalent, preservative 7 completed Not Available [facility] 02/27/2023 16:35:53 Influenza, split virus, quadrivalent, preservative 8 completed Not Available [facility] 02/27/2023 16:35:52 pneumococcal polysaccharide PPV23 8 completed Not Available [facility] 02/27/2023 16:35:53 COVID-19, mRNA, LNP-S, PF, 30 mcg/0.3 mL dose 1 completed Not Available [facility] 02/27/2023 16:35:53 COVID-19, mRNA, LNP-S, PF, 30 mcg/0.3 mL dose 1 completed Not Available [facility] 02/27/2023 16:35:53 Past Encounters Encounter ID Performer Location Encounter Start Date Encounter Closed Date Diagnosis/Indication Diagnosis SNOMED-CT Code Diagnosis ICD10 Code Diagnosis IMO Codes Diagnosis Note [id number] Teddy Glasgow DO [facility] [address] [place] [address] 07/01/2017 10:13:19 07/01/2017 13:35:23 Moderate persistent asthma 501557706 J45.40 stable Menopausal syndrome 1237 35500 N95.9 pt to have mammogram, if wnl will begin low dose prempro Obesity 316377479 E66.9 continue exercise, work on weight loss follow healthy diet ( currently reducing carbohydra ivelisse) Gastroesop hageal reflux disease 189547476 K21.9 stable [id number] Teddy Glasgow DO [facility] [address] [place] [address] 07/22/2017 11:07:26 07/22/2017 16:31:26 Moderate persistent asthma 971331184 J45.40 f/u in office saturday Gastroesop hageal reflux disease 705092022 K21.9 continue lansprozol e, and healthy lifestyle changes [id number] Teddy Glasgow [facility] [address] [facility],[place] [address] 07/24/2017 16:15:17 07/25/2017 11:43:34 Acute bronchitis 41872290 J20.9 improved Gastroesop hageal reflux disease 160260286 K21.9 continue lansprozol e, and healthy lifestyle changes [id number] Teddy Glasgow [facility] [address] [facility],[place] [address] 12/25/2017 13:21:18 12/30/2017 09:27:15 Postmenopausal flushing 128596027 N95.1 improved Asthma 662074491 J45.90 9 new pulmonolog ist and medication s, Gastroesop hageal reflux disease 375568792 K21.9 improved Menopausal syndrome 1237 08721 N95.9 pt to have mammogram, if wnl will begin low dose prempro [id number] Teddy Glasgow [facility] Medicine [address] [facility],[place] [address] 02/19/2018 15:26:48 02/19/2018 16:49:53 Asthma 379424949 J45.909 stable Diarrhea 29260325 R19.7 Unintentio nal weight loss 754564685 R63.4 Family problems 76784480 4 Z63.79 In therapy [id number] Teddy Glasgow [facility] Medicine [address] [facility],[place] [address] 10/03/2018 14:51:26 10/03/2018 15:22:55 Asthma 999378406 J45.909 seeing pulm for asthma working on getting sx under control thinking it may be copd at this point Gastroesop hageal reflux disease 089966728 K21.9 well controlled Diarrhea 99271510 R19.7 had lots of tests but no cause was found she never saw gi, but the sx have resolved at this point [id number] Teddy Glasgow [facility] Medicine [address] [facility],[place] [address] 07/31/2019 14:10:44 07/31/2019 15:06:06 Asthma 338727803 J45.909 stable Postmenopa usal flushing 772712303 R23.2 needs refill Edema of l ower extremity 514517666 R60.0 bilateral swelling of anterior, superior knees recommend stopping keto shakes [id number] Teddy Glasgow [facility] Medicine [address] [facility] [place], [place] [address] 08/07/2019 15:46:02 08/07/2019 16:31:39 Derangement of medial meniscus 083745604 M23.309 [id number] Teddy Glasgow [facility] Medicine [address] [facility] [place], [employer] [facility] [address] 07/20/2020 14:13:47 07/20/2020 15:31:29 Asthma 517287006 J45.909 stable, no interventi on at this Osteoarthritis 113113951 M15.0 will fu with lab work to r/o underlying rheum condition given how wide spread her arthritis is and fu arthritis treatment center as well [id number] Teddy Glasgow [facility] Medicine [address] [facility] [place], [place] [address] 09/09/2020 09:04:04 09/09/2020 09:24:36 Osteoarthritis of knee 998154249 M17.9 needs vitamin D recheckhad cortisone injections and starting PTfeeling much better Clavicle pain 623480468 M25.511 given the location near her previous surgical scar from skin cancer removal and the pain would like to r/o anything concerning like cancer [id number] Teddy Glasogw [facility] Medicine [address] [facility] [place] [address] [facility] [place] [address] 03/29/2021 10:19:59 03/31/2021 13:26:22 Nasal congestion 68300118 R09.81 has COVID test scheduled today Cough 36951403 R05.1 will start on oral liquid Pain of mu ltiple joints 95633938 M25.59 will fu with lab work r/o hormonal imbalance from surgery Stomach ache 925915466 R 10.0 will fu with testing Fatigue 10505762 R53.83 will set up with testing [id number] Teddy Glasgow [facility] Internal Medicine [address] [facility] [place],[place] [address] 06/28/2021 16:15:09 06/30/2021 11:55:23 Pain of shoulder region 23049277 M25.512 will fu with XR and then MRI Depressive disorder 3548 9007 F32.0 will trial sertraline for both depression and gut health Gastroesop hageal reflux disease 167294711 K21.9 resolved with surgery 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, snapped the vagal nerve Gastric ulcer 377076792 K25.7 following up with GI in [facility] [place] [id number] Teddy Glasgow [facility] Internal Medicine [address] [facility],[place] [address] 09/04/2021 16:16:16 09/04/2021 16:48:57 Asthma 772733029 J45.21 resolved Left atria l enlargement 7148706094 9109 I51.7 due to two EKGs showing possible left atrial enlargemen t Liver enzy mes level above reference range 772030005 R74.01 will fu with US abdomen to determine increase LFTs [id number] Teddy Glasgow [facility] Internal Medicine [address] [facility],[place] [address] 01/09/2022 15:42:32 01/10/2022 08:55:56 Fear of flying 330460338 F40.243 will give her 1 mg tablet to use during her flights Impaired f asting glycemia 129125630 R73.01 will f/u with hemoglobin A1c recheck Insulin resistance 16579 5000 E88.81 given h/x of abnormal gastropare sis, dysmotilit y disorder and Gynecologi c examination 06681958 Z01.419 will send referral to summer law clerk for pap smears [id number] Teddy Glasgow [facility] Internal Medicine [address] [facility] [place], [place] [address] 06/13/2022 15:55:39 06/13/2022 16:50:43 Gastroesophageal reflux disease 466422465 K21.00 Impaired f asting glycemia 227234315 R73.01 stable and lab is good cont to follow Left atria l enlargement 2272721598 9109 I51.7 will be needing a follow up echo in a few years, otherwise no issues right now [id number] Teddy Glasgow [facility] Internal [facility] [address] [facility],[place] [address] 08/07/2022 10:35:36 08/07/2022 11:57:20 Asthma 880995272 J45.21 stablerare ly uses her inhalers Depressive disorder 0586 9007 F32.0 will trial sertraline for both depression and gut health Pneumonia 260035223 J13 complicati on from surgeryhas a repeat CXR to rechck her lungs Gastropare sis syndrome 316023508 K31.84 improving after surgery [id number] Teddy Glasgow [facility] Internal Medicine [address] [facility], [place] [address] 04/17/2024 15:57:16 04/17/2024 16:27:15 Renewal of prescription 917912185 Z76.0 will set up with refills Depression screening 171 415530 Z13.31 SCREENING NEGATIVE Depressive disorder 3548 9007 F32.0 stable currently 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 will trial a course of baclofen [id number] Teddy Glasgow [facility] Internal Medicine [address] [facility], [place] [address] 07/15/2024 15:48:09 07/15/2024 16:32:03 Panic disorder 240363250 F41.0 2395093 will set up with ativan for the dentist Ganglion cyst 240891023 M67.40 68835 will set up with hand surgeon Gastropare sis syndrome 951255493 K31.84 improving after surgery [id number] Teddy Glasgow [facility] Internal Medicine [address] [facility], [place] [address] 10/30/2024 15:49:46 10/30/2024 16:28:16 Depression screening 993387185 Z13.31 SCREENING NEGATIVE Body mass index 30+ - obesity 539121683 Z68.33 671272 will set up with tenn[facility]pt is aware of pratik [facility] Concerns Section Related Observation LastModified by Organization Detai ls LastModified Time None Recorded Concern Status LastModified by Organization Details LastModified Time None Recorded Advance Directives Directive None Recorded Payers Insurance Date Sequence Insurance Name Policy Number Policy Wylie Covered Member ID Wylie Member ID Guarantor Name 10/27/2024 1 [place] [facility] [place] [id number] Martina Weinstein [id number] Antwan Js 10/03/2018 1 [employer] [id number] Antwan Weinstein [id number] Antwan Js 11/08/2023 1 [employer] [id number] Martina Weinstein [id number] Antwan Weinstein Notes Date Note Type Note Provider Name a nd Address Organization Details Recorded Time 3 text/html ROS as noted in the HPI here for rechk and clearance is needed for her surgeryhas had trouble with aspiratioin and had a mera fundoplication however because of stomach wrapped around the esophagus going for surgery to have this corrected hopefully also has gallstones which will be removed Teddy Glasgow DO [address] [place], [address], [facility] 06/15/2022 10:47:39 3 text/html ROS as noted in the HPI f/u medication check the patient reports that [...] PAP which was negative LILIANE AGUIRRE [address] [place], [address], [place] [facility] 08/07/2022 11:15:18 5 text/html ROS as noted in the HPI medication check asthma: stable per patientno night [...] msk relaxer and heat/ice LILIANE AGUIRRE [address] [place], [address], [facility] 04/17/2024 16:26:13 5 text/html ROS as noted in the HPI c/o bump on the back of the L hand SIBO: patient has been doing well since doing the abx and has been very strict with her diet as wellshe is feeling better overall spasmodic torticollis: resolved ganglion cyst: L hand, not able to be lancedrecommended f/u with hand surgeonto remove, possible inj gastroparesis: better, improving LILIANE AGUIRRE [address] [place], [address], [facility] 07/15/2024 16:31:40 5 text/html ROS as noted in the [...] wegovy given insurance coverage LILIANE AGUIRRE [address] [place], [address], [facility] 10/30/2024 16:19:18 OBGyn Episode No OBEpisode recorded.
--- OUTSIDE RECORDS SUMMARY | 2025-01-28 08:54 | XMS_ITS | Encounter Summary ---
Author Organization [facility] Address [address] [place] [address] Phone Care Team Providers Care Social Work Nurse Name Role Phone Mirela Nelson CNP Primary Care Provider [phone] Teddy Glasgow DO Primary Care Provider [phone] Teddy Glasgow DO Unavailable Encounter Details Date Type Department Care Team (Late st Contact Info) Description 03/28/2017 Procedure Pass [facility] Endoscopy Admitting Dept Virtual Department [address] [place] [address] Social History Tobacco Use Types Packs/Day Years [...] on filedocumented in this encounter Care Teams Social Work Nurse Relationship Specialty Start Date End Date Mirela Nelson CNP PCP - General Family Medicine 03/28/17 12/19/20 Teddy Glasgow DO PCP - General Internal Medicine 12/20/20 Teddy Glasgow DO [address] [place] [address] Insurance Assigned Provider 12/15/23 documented as of this encounter Additional Source Comments The information contained in this document represents components of the legal health record. It is not the complete legal health record.[facility]
--- OUTSIDE RECORDS SUMMARY | 2025-01-28 08:54 | XMS_ITS | Clinical Summary ---
Author Organization [facility] Address [address] [address] Phone Care Team Providers Care [employer] Assistant Name Role Phone Teddy Glasgow Primary Care Provider [phone] CynthiaTeddy prasad DO Unavailable Allergies Active Allergy [...] (2 of 2 - PCV) 12/29/2018 12/29/2017 INFLUENZA VACCINE (#1) 2024 3, 12/27/2021, 12/26/2020, Additional history exists COVID-19 VACCINE (2024- season) 2024 12/06/2022, 11/24/2021, 07/07/2021, Additional history exists COLONOSCOPY [...] 53 Admit Type: Outpatient Gender: Female Room: [place] [address] Referring MD: MIRELA DOWLING Exam Type: Colonoscopy [...] monitored continuously. The Olympus adult variable colonoscope [id number] #3 was introduced through the anus and [...] 8:57 AM Procedure Code(s): --- Professional --- 81922, Colonoscopy, flexible; with removal of tumor(s), polyp(s), or other lesion(s) by snare technique 03235, 59, Colonoscopy, flexible; with biopsy, single or multiple --- Technical --- 60067, Colonoscopy, flexible; with removal of tumor(s), polyp(s), or other lesion(s) by snare technique 43466, 59, Colonoscopy, flexible; with biopsy, single or [...] perforation orabscess without bleeding CPT copyright 2016 [employer]. All rights reserved. The codes documented in this report are preliminary and upon truck engine assembler reviewmay be revised to meet current compliance requirements. [address] [place] [address] Mirela Dowling CNP GI PROCEDURE ORDERABLES Fin al Result from Last 3 Months or Most Recently Relevant to Health Maintenance Insurance [address] [place], [place] [address]O [facility] Member Subscriber Plan / Payer (Ef fective 2023-Present) Name:Martina Mercer Relation to Subscriber:Spouse Name:ANTWAN MERCER Date of :1965 (Home) Address: [address] [place] [address] Payer ID:Not on file Type:PPO Address: [place] [id number] S Care Teams [employer] Assistant Relationship Specialty Start Date End Date Teddy Glasgow DO [email or web address] PCP - General Internal Medicine 12/20/20 Teddy Glasgow DO [address] [place] [address] [email or web address] Insurance Assigned Provider 12/15/23 Additional Source Comments The information contained in this document represents components of the legal health record. It is not the complete legal health record.[facility]
== END 2025-01-28 08:46 | disposition home or self-care (01) ==
LOC: HO.HPS 08:22
PROVIDERS: PCP Internal Medicine; Visit Provider Hospitalist
DX: J45.51 Severe persistent asthma with (acute) exacerbation (principal); K21.00 Gastro-esophageal reflux disease with esophagitis, without bleeding; J98.11 Atelectasis; K31.84 Gastroparesis
CPT/HCPCS: 99214